=== PATIENT | female | born 1935 | race Caucasian/White ===

== ENCOUNTER → 2016-09-30 | Outpatient (CLI) | payer OTHER, MEDICARE ==
[~2016-09-30] MED LIST: CHOL100010 PO; COLE1TAB4 PO; DPH/ PO; DSY100 PO; LISI-725 PO; MELA1CAP9 PO; METO50TA16 PO; MULT-190 PO; MULTTAB5 PO; PROB1TAB16 PO
--- NOTE | 2016-09-30 10:47 | DIAGNOSTIC IMAGING REPORT ---
GI SERIES W/AIR ROUTINE CLINICAL HISTORY: DYSPHAGIA COMPARISON STUDY: None FLUOROSCOPY TIME: 3.4 minutes. FINDINGS: Patient initiated swallow function well. There is no evidence for aspiration. Findings of moderate generalized esophageal spasm and/or irritability. There is mild gastroesophageal reflux. Size and configuration stomach are normal. Due to bulb fills well and is negative for ulceration. Duodenal sweep is unremarkable. IMPRESSION: 1. Moderate esophageal irritability and/or spasm. 2. Mild gastroesophageal reflux. 3. Otherwise negative study. Electronically signed by: Harsh Cabrera M.D. 09/30/2016 10:45 AM Dictated Date/Time: 09/30/2016 10:45 AM
== END | disposition home or self-care (01) ==
LOC: C.RAD 09:59
PROVIDERS: ATTEND Internal Medicine Gastroenterology
DX: R13.10 Dysphagia, unspecified (principal)

== ENCOUNTER 2017-07-06 19:28 | Inpatient (IN) | payer OTHER, MEDICARE ==
[~2017-07-06] VITALS: Ht 154.9 cm; Wt 41.4 kg
[2017-07-06] MEDS ORDERED: SODIUM CHLORIDE 0.9% 1000ML 1,000 ML IV STA (19:32)
[2017-07-06] MEDS ORDERED: ONDANSETRON INJ 2 MG/ML 2 ML VIAL IV STA (19:32)
[2017-07-06] MEDS ORDERED: FENTANYL CITRATE INJ 50 MCG/1 ML 2 ML VIAL IV PRN (19:45)
[2017-07-06 19:54] LABS: BASO % 0.1 %; BASO ABS # 0.01 K/uL (0-0.2); EOS % 0.1 %; EOS ABS # 0.01 K/uL (0-0.5); HEMATOCRIT 45.3 % (37-47); HEMOGLOBIN 15.5 g/dL (12.0-16.0); IG# 0.05 K/uL (0.00-0.02); LYMPH ABS # 0.32 K/uL (1.2-3.4); MEAN CELL VOLUME 94.2 fL (80-100); MEAN CORPUSCULAR HEMOGLOBIN 32.2 pg (25-34); MEAN CORPUSCULAR HGB CONC 34.2 g/dl (32-36); MEAN PLATELET VOLUME 10.4 fL (7.4-10.4); MONO ABS # 0.81 K/uL (0.11-0.59); NEUT % 92.5 %; NEUT ABS # 15.12 K/uL (1.4-6.5); PLATELET COUNT 125 K/uL (130-400); RED CELL DISTRIBUTION WIDTH CV 12.6 % (11.5-14.5); RED CELL DISTRIBUTION WIDTH SD 43.2 fL (36.4-46.3); WHITE BLOOD COUNT 16.32 K/uL (4.8-10.8)
[2017-07-06 20:06] LABS: PTT PATIENT 26.6 SECONDS (21.0-31.0)
[2017-07-06 20:14] LABS: ALBUMIN 3.4 gm/dl (3.4-5.0); ALT/SGPT 58 U/L (12-78); BLOOD UREA NITROGEN 12 mg/dl (7-18); CALCIUM 8.3 mg/dl (8.5-10.1); CARBON DIOXIDE 35 mmol/L (21-32); CREATININE 0.73 mg/dl (0.60-1.20); GLUCOSE 124 mg/dl (70-99); POTASSIUM 3.3 mmol/L (3.5-5.1); SODIUM 138 mmol/L (136-145)
[2017-07-06 20:19] LABS: ALKALINE PHOSPHATASE 102 U/L (45-117); AST/SGOT 25 U/L (15-37); CKMB 1.4 ng/ml (0.5-3.6); TOTAL PROTEIN 6.8 gm/dl (6.4-8.2)
--- NOTE | 2017-07-06 20:21 | EMERGENCY ROOM VISIT NOTE ---
History Report prepared by Namrata: Magalys Shah Under the Supervision of: Kurtis CruzO. First contact with patient: 19:24 Chief Complaint: FALL Stated Complaint: FALL, L HIP & BACK PAIN History of Present Illness The patient is a 81 year old female who presents to the Emergency Room with complaints of persistent left hip pain that began secondary to falling several hours prior to arrival. She reports that she was walking across her living room when all of the sudden she became weak and fell to the ground, noting that she did not hit her head or lose consciousness. She remained on the floor for several hours because she was too weak to get up, until a roommate at her half-way found her and called for help. The patient states that she is currently experiencing lower back pain and left hip pain, noting she is having difficulty straightening out her left leg without pain. She denies any coughing , but notes a history of COPD and that she is trying to quit smoking. Source of History: patient Onset: several hours prior to arrival Position: other (left hip) Quality: other (weakness episode) Timing: resolved Associated Symptoms: + back pain (lower), + weakness, No cough Note: Associated symptoms include: left hip pain, noting she is having difficulty straightening out her left leg without pain Review of Systems See HPI for pertinent positives & negatives. A total of 10 systems reviewed and were otherwise negative. Past Medical & Surgical Medical Problems: (1) Breast cancer (2) COPD (chronic obstructive pulmonary disease) (3) CVA (cerebral infarction) (4) Diverticulitis (5) Hypertension (6) Left displaced femoral neck fracture (7) Lung cancer (8) Syncope and collapse Surgical Problems: (1) H/O: hysterectomy (2) Hx of cholecystectomy (3) S/P cholecystectomy Family History Cancer Diabetes mellitus Gallbladder disease Heart disease Hypertension Kidney disease Kidney stones Lung disease Social History Smoking Status: Current Every Day Smoker Alcohol Use: none Marital Status: Housing Status: lives alone Occupation Status: retired Current/Historical Medications Scheduled Alendronate Sodium (Alendronate Sodium), 70 MG PO DAILY Cholestyramine (Cholestyramine), 4 GM PO QAM Lisinopril (Lisinopril), 10 MG PO QAM Melatonin (Melatonin), 10 MG PO HS Metoprolol Succinate (Metoprolol Succinate ER), 75 MG PO HS Multiple Vitamins W/ Minerals (Centrum), 1 TAB PO QAM Ocuvite Preservision (Ocuvite Preservision), 1 TAB PO HS Paroxetine (Paroxetine HCl), 10 MG PO QAM Probiotic Product (Probiotic), 1 TAB PO HS Trazodone HCl (Trazodone HCl), 100 MG PO HS Scheduled PRN Diphenoxylate/Atropine (Lomotil 2.5-0.025 mg), 1 TAB PO QID PRN for Diarrhea Allergies Coded Allergies: Flu Virus Vaccine (Verified Allergy, Unknown, EGG ALLERGY, 07/06/17) Penicillins (Verified Allergy, Unknown, HIVES, 07/06/17) Adhesives (Verified Adverse Reaction, Unknown, EXCORIATIONS, 07/06/17) Morphine (Verified Adverse Reaction, Unknown, ITCHING, 07/06/17) Physical Exam Vital Signs Date Time Temp Pulse Resp B/P (MAP) Pulse Ox O2 Delivery O2 Flow Rate FiO2 07/06/17 20:53 70 07/06/17 19:30 36.6 74 14 188/103 95 Room Air Physical Exam GENERAL: Patient is awake, alert, but anxious and uncomfortable appearing. EYES: The conjunctivae are clear. The pupils are round and reactive. EARS, NOSE, MOUTH AND THROAT: The nose is without any evidence of any deformity. Mucous membranes are moist tongue is midline NECK: The neck is nontender and supple. RESPIRATORY: Lung sounds diminished throughout with scattered rhonchi. No tachypnea or conversational dyspnea noted. CARDIOVASCULAR: Tachycardic rate, but regular rhythm noted. There are no definite murmurs, rubs, or gallops. Normal S1, normal S2. GASTROINTESTINAL: The abdomen is soft. Bowel sounds are present in all quadrants. Abdomen is nontender PELVIS: The Pelvis is stable. No tenderness to palpation is noted. BACK: Mild lumbar pain with palpitation. Range of motion remained intact. MUSCULOSKELETAL/EXTREMITIES: Left thigh held in infraction and mild external rotation. Patient restricts any internal rotation or mild rotations of left thigh. SKIN: There is no obvious evidence of any rash. There are no petechiae, pallor or cyanosis noted. NEUROLOGIC: Patient is awake alert and oriented x3 strength is symmetric patellar reflexes are 2+ bilaterally Medical Decision & Procedures ER Provider Diagnostic Interpretation: Radiology results as stated below per my review and radiologist interpretation: CHEST 1 VW FRONT-NOT PORTABLE CLINICAL HISTORY: 81 years-old Female presenting with FALL. TECHNIQUE: Portable upright AP view of the chest was obtained. COMPARISON: 11/16/2013. FINDINGS: Median sternotomy wires and mediastinal surgical clips unchanged. Atherosclerosis of the aortic arch. Cardiac silhouette normal in size. The left lung is smaller than the right with suggestion of suture margins along the paramediastinal left upper lung likely indicating lobectomy. Hyperinflation of the right lung with heterogeneous radiolucency. No focal opacity. No large effusion or pneumothorax. Osteopenia suggested. IMPRESSION: 1. Findings suggest emphysema. 2. Postsurgical changes of the left lung. 3. No superimposed focal infiltrate to suggest acute cardiopulmonary disease. Electronically signed by: Antonio Oliveros M.D. 07/06/2017 8:20 PM Dictated Date/Time: 07/06/2017 8:18 PM L PELVIS/UNILATERAL HIP 2-3VIEWS CLINICAL HISTORY: 81 years-old Female presenting with fall. TECHNIQUE: Frontal and frog-leg lateral views of the left hip as well as single frontal view the pelvis were obtained. 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 FINDINGS: Mildly displaced subcapital fracture of the left femoral neck. The left femoral neck distal fracture fragment is medially displaced 8-9 mm. The left femoral head remains congruent the acetabulum. Heterogeneous stippled sclerosis in the intertrochanteric region may indicate the presence of an ink on trauma. Osteopenia suspected. The remainder of the bony pelvis intact. The right femoral head and neck are intact. Degenerative changes in the lower lumbar spine. IMPRESSION: Mildly displaced subcapital left femoral neck fracture. Electronically signed by: Antonio Oliveros M.D. 07/06/2017 8:22 PM Dictated Date/Time: 07/06/2017 8:20 PM HEAD WITHOUT CONTRAST (CT) CLINICAL HISTORY: 81 years-old Female presenting with fall. TECHNIQUE: Multidetector CT imaging of the head was performed without the use of intravenous contrast. IV contrast: None. A dose lowering technique was used consistent with the principles of ALARA (as low as reasonably achievable). COMPARISON: None. CT DOSE (mGy.cm): The estimated cumulative dose is 906.94 mGy.cm. 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 Proportional ventricular and sulcal prominence, likely age-related parenchymal volume loss. Periventricular and subcortical white matter hypoattenuation, nonspecific but likely indicative of chronic small vessel ischemic change. Old lacunar infarcts in the right basal ganglia noted. No mass effect or midline shift. No hemorrhage or acute territorial infarct. No extra-axial fluid collection. Paranasal sinuses and mastoid air cells clear. Calvarium intact. IMPRESSION: 1. Chronic small vessel ischemic change. No acute intracranial abnormality. Electronically signed by: Antonio Oliveros M.D. 07/06/2017 9:32 PM Dictated Date/Time: 07/06/2017 9:30 PM CERVICAL SPINE W/O CLINICAL HISTORY: 81 years-old Female presenting with fall. TECHNIQUE: Multidetector CT of the cervical spine was performed without the use of intravenous contrast. IV contrast: None. A dose lowering technique was used consistent with the principles of ALARA (as low as reasonably achievable). COMPARISON: None. CT DOSE (mGy.cm): The estimated cumulative dose is 906.94. 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 Straightening of normal cervical lordosis. Multilevel degenerative changes with disc osteophyte complexes at nearly every level. Vertebral bodies maintain normal height and alignment. Mild diffuse intervertebral disc height loss greatest at C4-5 through C6-7. Minimal posterior bony spurring results in mild narrowing of the spinal canal. Disc osteophyte complexes and uncovertebral hypertrophy result in mild left osseous neural foraminal narrowing at C3-4, moderate bilateral at C4-5, moderate bilateral at C5-6, and moderate bilateral at C6-7. No acute fracture or acute subluxation. Paraspinal soft tissues within normal limits allowing for noncontrast technique. Atherosclerosis. Extensive consolidation, reticulation, and cystic/emphysematous changes at the left apex. Trace emphysema noted at the right apex. IMPRESSION: 1. No acute osseous injury. 2. Multilevel degenerative changes with very degrees of spinal canal in osseous neural foraminal narrowing. 3. Extensive pleural-parenchymal scarring at the left apex. This may represent postradiation change given the presence of a prior mass seen on chest CT from 07/02/2010. Electronically signed by: Antonio Oliveros M.D. 07/06/2017 9:42 PM Dictated Date/Time: 07/06/2017 9:36 PM Laboratory Results 07/06/17 19:44 Red Blood Count 4.81, Mean Corpuscular Volume 94.2, Mean Corpuscular Hemoglobin 32.2, Mean Corpuscular Hemoglobin Concent 34.2, Mean Platelet Volume 10.4, Neutrophils (%) (Auto) 92.5, Lymphocytes (%) (Auto) 2.0, Monocytes (%) (Auto) 5.0, Eosinophils (%) (Auto) 0.1, Basophils (%) (Auto) 0.1, Neutrophils # (Auto) 15.12, Lymphocytes # (Auto) 0.32, Monocytes # (Auto) 0.81, Eosinophils # (Auto) 0.01, Basophils # (Auto) 0.01 07/06/17 19:44 Test 07/06/17 19:32 07/06/17 19:44 White Blood Count 16.32 K/uL (4.8-10.8) Red Blood Count 4.81 M/uL (4.2-5.4) Hemoglobin 15.5 g/dL (12.0-16.0) Hematocrit 45.3 % (37-47) Mean Corpuscular Volume 94.2 fL (80-100) Mean Corpuscular Hemoglobin 32.2 pg (25-34) Mean Corpuscular Hemoglobin Concent 34.2 g/dl (32-36) Platelet Count 125 K/uL (130-400) Mean Platelet Volume 10.4 fL (7.4-10.4) Neutrophils (%) (Auto) 92.5 % Lymphocytes (%) (Auto) 2.0 % Monocytes (%) (Auto) 5.0 % Eosinophils (%) (Auto) 0.1 % Basophils (%) (Auto) 0.1 % Neutrophils # (Auto) 15.12 K/uL (1.4-6.5) Lymphocytes # (Auto) 0.32 K/uL (1.2-3.4) Monocytes # (Auto) 0.81 K/uL (0.11-0.59) Eosinophils # (Auto) 0.01 K/uL (0-0.5) Basophils # (Auto) 0.01 K/uL (0-0.2) RDW Standard Deviation 43.2 fL (36.4-46.3) RDW Coefficient of Variation 12.6 % (11.5-14.5) Immature Granulocyte % (Auto) 0.3 % Immature Granulocyte # (Auto) 0.05 K/uL (0.00-0.02) Prothrombin Time 10.6 SECONDS (9.0-12.0) Prothromb Time International Ratio 1.0 (0.9-1.1) Activated Partial Thromboplast Time 26.6 SECONDS (21.0-31.0) Partial Thromboplastin Ratio 1.0 Anion Gap 5.0 mmol/L (3-11) Est Creatinine Clear Calc Drug Dose 37.1 ml/min Estimated GFR () 89.5 Estimated GFR (Non- 77.2 BUN/Creatinine Ratio 16.9 (10-20) Calcium Level 8.3 mg/dl (8.5-10.1) Magnesium Level 2.0 mg/dl (1.8-2.4) Total Bilirubin 1.2 mg/dl (0.2-1) Direct Bilirubin 0.3 mg/dl (0-0.2) Aspartate Amino Transf (AST/SGOT) 25 U/L (15-37) Alanine Aminotransferase (ALT/SGPT) 58 U/L (12-78) Alkaline Phosphatase 102 U/L (45-117) Total Creatine Kinase 47 U/L (26-192) Creatine Kinase MB 1.4 ng/ml (0.5-3.6) Creatine Kinase MB Ratio 3.0 (0-3.0) Troponin I < 0.015 ng/ml (0-0.045) Total Protein 6.8 gm/dl (6.4-8.2) Albumin 3.4 gm/dl (3.4-5.0) Laboratory results per my review. Medications Administered Medications (Trade) Dose Ordered Sig/Navid Route Start Time Stop Time Status Last Admin Dose Admin Fentanyl Citrate (Fentanyl Inj) 50 mcg Q15M PRN IV 07/06/17 19:45 07/06/17 22:56 DC 07/06/17 19:55 50 MCG Ondansetron HCl (Zofran Inj) 4 mg NOW STAT IV 07/06/17 19:32 07/06/17 19:36 DC 07/06/17 19:55 4 MG Sodium Chloride 1,000 ml @ 999 mls/hr Q1H1M STAT IV 07/06/17 19:32 07/06/17 20:32 DC 07/06/17 19:54 999 MLS/HR Oxycodone HCl (Roxicodone Immediate Rel Tab) 10 mg Q4H PRN PO 07/06/17 21:00 4 20:59 07/06/17 23:38 10 MG Senna/Docusate Sodium (Senokot S Tab) 2 tab HS PO 07/06/17 21:00 08/05/17 20:59 07/06/17 23:34 2 TAB ECG Per My Interpretation Indication: syncope Rate (beats per minute): 75 Rhythm: normal sinus Findings: ST depression (Inferior and lateral), T-wave inversion (Inferior and lateral), other (LVH noted by voltage criteria) ED Course 1919: The patient was evaluated in room B10. A complete history and physical examination were performed. 1931: Ordered Sodium Chloride 1000ml @ 999 mls/hr IV and Zofran Inj 4mg IV. 1944: Ordered Fentanyl Inj 50mcg IV. 2029: I discussed the patient's case with Jayant Hurtado. The patient will be evaluated for further management. 2134: I reevaluated the patient, who was resting. Updated her on test findings and the treatment plan. She verbalized complete agreement. Medical Decision Prior records/ancillary studies reviewed. Triage Nursing notes reviewed. Additional history obtained from EMS report. The patient's history was concerning for syncope. Differential diagnosis: Etiologies such as vasovagal event, infection, hypoglycemia, electrolyte abnormalities, cardiac sources, intracerebral event, toxicologic, neurologic, as well as others were entertained. The patient is an 81-year-old female who presented to the emergency department after a fall. The patient fell earlier in the day but was unable to get off the floor. The patient had a history and physical exam as well as radiographic studies consistent with a left hip fracture. The patient was treated with IV fluids IV pain medicine and IV anti-medics in the emergency department. I discussed the patient's laboratory and radiographic studies with her and her daughter. I also discussed her case with the on-call Jayant hospitalist. They have agreed to evaluate the patient in the emergency department for further management and disposition. Head Trauma GCS Score: 15 Medication Reconcilliation Current Medication List: was personally reviewed by me Blood Pressure Screening Patient's blood pressure: Elevated blood pressure Blood pressure disposition: Referred to PCP (hospitalist) Consults Time Called: 2029 Consulting Physician: Jayant Hurtado Returned Call: 2029 I discussed the patient's case with Jayant Hurtado Hospitalist. The patient will be evaluated for further management. . Impression Primary Impression: Syncope Additional Impressions: Subcapital fracture of left hip Abnormal EKG Scribe Attestation The scribe's documentation has been prepared under my direction and personally reviewed by me in its entirety. I confirm that the note above accurately reflects all work, treatment, procedures, and medical decision making performed by me. Departure Information Dispostion Being Evaluated By Hospitalist Referrals Sindy Horn M.D. (PCP) Forms HOME CARE DOCUMENTATION FORM, IMPORTANT VISIT INFORMATION Patient Instructions My [facility] Problem Qualifiers Primary Impression: Syncope Syncope type: unspecified Qualified Codes: R55 - Syncope and collapse Additional Impressions: Subcapital fracture of left hip Encounter type: initial encounter Fracture type: closed Qualified Codes: S72.012A - Unspecified intracapsular fracture of left femur, initial encounter for closed fracture
[2017-07-06] MEDS ORDERED: COLE5GRA5 PO (20:56)
[2017-07-06] MEDS ORDERED: NALOXONE HCL 0.4 MG/1 ML VIAL/CARP IV PRN (21:00)
[2017-07-06] MEDS ORDERED: DiphenhydrAMINE HCL 50 MG/ML VIAL IV PRN (21:00)
[2017-07-06] MEDS ORDERED: SOD PHOSPHATE/SOD BIPHOSPHATE ENEMA 132 ML BTL PR PRN (21:00)
[2017-07-06] MEDS ORDERED: POLYETHYLENE (MIRALAX) 17 GM PACK PO PRN (21:00)
[2017-07-06] MEDS ORDERED: BISACODYL 10 MG SUPP PR PRN (21:00)
[2017-07-06] MEDS ORDERED: MAGNESIUM HYDROXIDE SUSP 30 ML UDC PO PRN (21:00)
[2017-07-06] MEDS ORDERED: PXL/10 PO (21:00)
[2017-07-06] MEDS ORDERED: TPRSR/50 PO (21:00)
[2017-07-06] MEDS ORDERED: LISI-461 PO (21:00)
[2017-07-06] MEDS ORDERED: CHOL4POW4 PO (21:00)
[2017-07-06] MEDS ORDERED: FSM70 PO (21:04)
[2017-07-06] MEDS ORDERED: TRAZODONE HCL 50 MG TAB PO PRN (21:15)
[2017-07-06] MEDS ORDERED: POTASSIUM CHLORIDE 10 MEQ TABCR PO STA (21:21)
[2017-07-06] MEDS ORDERED: ACETAMINOPHEN 325 MG TAB PO PRN (21:30)
--- NOTE | 2017-07-06 21:33 | DIAGNOSTIC IMAGING REPORT ---
HEAD WITHOUT CONTRAST (CT) CLINICAL HISTORY: 81 years-old Female presenting with fall. TECHNIQUE: Multidetector CT imaging of the head was performed without the use of intravenous contrast. IV contrast: None. A dose lowering technique was used consistent with the principles of ALARA (as low as reasonably achievable). COMPARISON: None. CT DOSE (mGy.cm): The estimated cumulative dose is 906.94 mGy.cm. 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 Proportional ventricular and sulcal prominence, likely age-related parenchymal volume loss. Periventricular and subcortical white matter hypoattenuation, nonspecific but likely indicative of chronic small vessel ischemic change. Old lacunar infarcts in the right basal ganglia noted. No mass effect or midline shift. No hemorrhage or acute territorial infarct. No extra-axial fluid collection. Paranasal sinuses and mastoid air cells clear. Calvarium intact. IMPRESSION: 1. Chronic small vessel ischemic change. No acute intracranial abnormality. Electronically signed by: Antonio Oliveros M.D. 07/06/2017 9:32 PM Dictated Date/Time: 07/06/2017 9:30 PM
--- NOTE | 2017-07-06 21:37 | History and Physical ---
History & Physical Date & Time of Service: Jul 06, 2017 at 21:23 Chief Complaint: Fall, L Hip & Back Pain Primary Care Physician: Sindy Horn M.D. History of Present Illness 81 year old F with PMH of stroke and left upper lobe resection for lung cancer in reported remission as per patient and family, who was at home when she had syncopal episode and collapse after 11 AM on 07/06/17 and uncertain whether there was loss of consciousness but this was likely the case as the patient was then found by her neighbor and the patient's daughter was notified at 6PM. Patient denies symptoms preceding the collapse. Denies shortness of breath, chest pain, of fevers. She reports that she had just gotten out of her chair and walking when she fell and she reports that the time that she had gotten up was 11 AM. When asked how did she feel when she came to usual level of cognition , she reports having some left hip pain but no other symptoms. On imaging pertinent for Mildly displaced subcapital fracture of the left femoral neck ( The left femoral neck distal fracture fragment is medially displaced 8-9 mm. The left femoral head remains congruent the acetabulum). Past Medical/Surgical History Medical Problems: (1) Breast cancer (2) COPD (chronic obstructive pulmonary disease) (3) CVA (cerebral infarction) (4) Diverticulitis (5) Hypertension (6) Hypokalemia (7) Left displaced femoral neck fracture (8) Lung cancer (9) Syncope and collapse Surgical Problems: (1) H/O: hysterectomy (2) History of hysterectomy (3) History of mastectomy (4) Hx of cholecystectomy (5) S/P cholecystectomy (6) S/P lobectomy of lung Family History Cancer Diabetes mellitus Gallbladder disease Heart disease Hypertension Kidney disease Kidney stones Lung disease Social History Smoking Status: Current Every Day Smoker Marital Status: Occupational Status: retired Allergies Coded Allergies: Flu Virus Vaccine (Verified Allergy, Unknown, EGG ALLERGY, 07/06/17) Penicillins (Verified Allergy, Unknown, HIVES, 07/06/17) Adhesives (Verified Adverse Reaction, Unknown, EXCORIATIONS, 07/06/17) Morphine (Verified Adverse Reaction, Unknown, ITCHING, 07/06/17) Home Medications Scheduled Alendronate Sodium (Alendronate Sodium), 70 MG PO DAILY Cholestyramine (Cholestyramine), 4 GM PO QAM Lisinopril (Lisinopril), 10 MG PO QAM Melatonin (Melatonin), 10 MG PO HS Metoprolol Succinate (Metoprolol Succinate ER), 75 MG PO HS Multiple Vitamins W/ Minerals (Centrum), 1 TAB PO QAM Ocuvite Preservision (Ocuvite Preservision), 1 TAB PO HS Paroxetine (Paroxetine HCl), 10 MG PO QAM Probiotic Product (Probiotic), 1 TAB PO HS Trazodone HCl (Trazodone HCl), 100 MG PO HS Scheduled PRN Diphenoxylate/Atropine (Lomotil 2.5-0.025 mg), 1 TAB PO QID PRN for Diarrhea Review of Systems Constitutional: No fever, No fatigue Eyes: No worsening of vision ENT: No hearing loss Respiratory: No cough, No wheezing, No shortness of breath Cardiovascular: No chest pain, No palpitations Abdomen: No pain, No nausea, No vomiting, No diarrhea, No constipation Musculoskeletal: No joint pain, No muscle pain, No swelling, No calf pain Genitourinary - Female: No dysuria Neurologic: + problem reported (possible loss of consciousness after falling on the floor), No weakness, No numbness/tingling Endocrine: No fatigue Hematologic / Lymphatic: No abnormal bleeding/bruising Integumentary: No rash, No itch Physical Exam Vital Signs Date Time Temp Pulse Resp B/P (MAP) Pulse Ox O2 Delivery O2 Flow Rate FiO2 07/06/17 20:53 70 07/06/17 19:30 36.6 74 14 188/103 95 Room Air General Appearance: no apparent distress Head: normocephalic, atraumatic Eyes: normal inspection, EOMI, sclerae normal ENT: normal ENT inspection, hearing grossly normal, pharynx normal Neck: supple, no adenopathy, no JVD, no carotid bruits, trachea midline Respiratory/Chest: chest non-tender, lungs clear, normal breath sounds, no respiratory distress, no accessory muscle use Cardiovascular: regular rate, rhythm, no edema, no JVD, normal peripheral pulses Abdomen/GI: normal bowel sounds, non tender, soft, no organomegaly, no pulsatile mass Back: + pertinent finding (cannot not sit up for back exam) Extremities/Musculoskelatal: normal inspection, no calf tenderness, normal capillary refill, no pedal edema, non-tender, pelvis stable, + pertinent finding (can raise right leg, motion of left leg is pain limited ) Neurologic/Psych: 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5 % Lymphocytes (%) (Auto) 2.0 % Monocytes (%) (Auto) 5.0 % Eosinophils (%) (Auto) 0.1 % Basophils (%) (Auto) 0.1 % Neutrophils # (Auto) 15.12 1.4-6.5 K/uL Lymphocytes # (Auto) 0.32 1.2-3.4 K/uL Monocytes # (Auto) 0.81 0.11-0.59 K/uL Eosinophils # (Auto) 0.01 0-0.5 K/uL Basophils # (Auto) 0.01 0-0.2 K/uL RDW Standard Deviation 43.2 36.4-46.3 fL RDW Coefficient of Variation 12.6 11.5-14.5 % Immature Granulocyte % (Auto) 0.3 % Immature Granulocyte # (Auto) 0.05 0.00-0.02 K/uL Prothrombin Time 10.6 9.0-12.0 SECONDS Prothromb Time International Ratio 1.0 0.9-1.1 Activated Partial Thromboplast Time 26.6 21.0-31.0 SECONDS Partial Thromboplastin Ratio 1.0 Sodium Level 138 136-145 mmol/L Potassium Level 3.3 3.5-5.1 mmol/L Chloride Level 98 98-107 mmol/L Carbon Dioxide Level 35 21-32 mmol/L Anion Gap 5.0 3-11 mmol/L Blood Urea Nitrogen 12 7-18 mg/dl Creatinine 0.73 0.60-1.20 mg/dl Est Creatinine Clear Calc Drug Dose 37.1 ml/min Estimated GFR () 89.5 Estimated GFR (Non- 77.2 BUN/Creatinine Ratio 16.9 10-20 Random Glucose 124 70-99 mg/dl Calcium Level 8.3 8.5-10.1 mg/dl Magnesium Level 2.0 1.8-2.4 mg/dl Total Bilirubin 1.2 0.2-1 mg/dl Direct Bilirubin 0.3 0-0.2 mg/dl Aspartate Amino Transf (AST/SGOT) 25 15-37 U/L Alanine Aminotransferase (ALT/SGPT) 58 12-78 U/L Alkaline Phosphatase 102 45-117 U/L Total Creatine Kinase 47 26-192 U/L Creatine Kinase MB 1.4 0.5-3.6 ng/ml Troponin I < 0.015 0-0.045 ng/ml Total Protein 6.8 6.4-8.2 gm/dl Albumin 3.4 3.4-5.0 gm/dl Impression Assessment and Plan Syncope and collapse with displaced left femoral neck fracture, osteoporosis related fracture -HIP X ray: Mildly displaced subcapital fracture of the left femoral neck. The left femoral neck distal fracture fragment is medially displaced 8-9 mm. The left femoral head remains congruent the acetabulum. Heterogeneous stippled sclerosis in the intertrochanteric region may indicate the presence of an ink on trauma. Osteopenia suspected. The remainder of the bony pelvis intact. The right femoral head and neck are intact. Degenerative changes in the lower lumbar spine. IMPRESSION: Mildly displaced subcapital left femoral neck fracture. -orthopedic consult -anesthesia consult -NPO after midnight except meds/sips/ice chips in case or surgery tomorrow for left hip surgery -D5 1/2 normal IV fluids while NPO for hydration -pre-op antibiotic of clindamycin ordered as patient reports rash allergies to penicillin -patient reports morphine allergies as rash, minimize use of morphine -narcotic pain medication with bowel regimen to prevent ileus from narcotics -also rash allergy to adhesive tape -Benadryl prn for rash -Cardiac and Neuro workup for syncope CARDIAC/Neuro: Syncope workup -EKG on admission suggestive of LVH, there is no recent EKG for comparison and patient denies having echocardiogram in recent past, no echocardiogram records in inpatient records at [facility] or outpatient [facility] records -initial troponin negative, trend troponin and EKGs -admission to telemetry -obtain carotid dopplers: Atherosclerosis without hemodynamically significant stenosis seen within the carotid arteries -obtain echocardiogram -has asked ED to order imaging of head and neck to rule out stroke or head/neck fractures: Head CT: Chronic small vessel ischemic change. No acute intracranial abnormality; C-spine CT: Multilevel degenerative changes with very degrees of spinal canal in osseous neural foraminal narrowing Blood pressure: Hypertension -home medication of lisinopril 20 mg and metoprolol tartrate 75 mg -hold LINDA inhibitor before noncardiac surgery (hip surgery), can restart lisinopril afterwards -continue beta sudhakar -start hydralazine prn RESPIRATORY - history of smoking: active, denies history of COPD or home oxygen use: awake overnight counselor smoking cessation - history of left lung resection due to cancer and s/p RT and chemo several years ago as per patient and currently in remission - breathing on room air in the ED - admission CXR: Median sternotomy wires and mediastinal surgical clips unchanged. Atherosclerosis of the aortic arch. Cardiac silhouette normal in size. The left lung is smaller than the right with suggestion of suture margins along the paramediastinal left upper lung likely indicating lobectomy. Hyperinflation of the right lung with heterogeneous radiolucency. No focal opacity. No large effusion or pneumothorax. Osteopenia suggested. IMPRESSION: 1. Findings suggest emphysema. 2. Postsurgical changes of the left lung. 3. No superimposed focal infiltrate to suggest acute cardiopulmonary disease. Hypokalemia admission serum potassium 3.3, oral potassium ordered DVT ppx: SCDs FULL Code Status daughter [phone] Nicol is the daughter Resuscitation Status VTE Prophylaxis Will order VTE Prophylaxis: Yes
--- NOTE | 2017-07-06 21:44 | DIAGNOSTIC IMAGING REPORT ---
CERVICAL SPINE W/O CLINICAL HISTORY: 81 years-old Female presenting with fall. TECHNIQUE: Multidetector CT of the cervical spine was performed without the use of intravenous contrast. IV contrast: None. A dose lowering technique was used consistent with the principles of ALARA (as low as reasonably achievable). COMPARISON: None. CT DOSE (mGy.cm): The estimated cumulative dose is 906.94. FINDINGS: Sugar Laboratory Assistant topogram: Unremarkable. Straightening of normal cervical lordosis. Multilevel degenerative changes with disc osteophyte complexes at nearly every level. Vertebral bodies maintain normal height and alignment. Mild diffuse intervertebral disc height loss greatest at C4-5 through C6-7. Minimal posterior bony spurring results in mild narrowing of the spinal canal. Disc osteophyte complexes and uncovertebral hypertrophy result in mild left osseous neural foraminal narrowing at C3-4, moderate bilateral at C4-5, moderate bilateral at C5-6, and moderate bilateral at C6-7. No acute fracture or acute subluxation. Paraspinal soft tissues within normal limits allowing for noncontrast technique. Atherosclerosis. Extensive consolidation, reticulation, and cystic/emphysematous changes at the left apex. Trace emphysema noted at the right apex. IMPRESSION: 1. No acute osseous injury. 2. Multilevel degenerative changes with very degrees of spinal canal in osseous neural foraminal narrowing. 3. Extensive pleural-parenchymal scarring at the left apex. This may represent postradiation change given the presence of a prior mass seen on chest CT from 07/02/2010. Electronically signed by: Antonio Oliveros M.D. 07/06/2017 9:42 PM Dictated Date/Time: 07/06/2017 9:36 PM
--- NOTE | 2017-07-06 21:58 | DIAGNOSTIC IMAGING REPORT ---
CAROTID DOPPLER NECK ART CLINICAL HISTORY: 81 years-old Female presenting with syncope. TECHNIQUE: Real-time grayscale and color and spectral Doppler ultrasound imaging of the bilateral carotid arteries was performed. NASCET criteria was used in evaluating this study. COMPARISON: None. FINDINGS: Right: Common carotid: Atherosclerosis. Peak systolic velocity 35 cm/s. Internal carotid artery: Atherosclerosis of the proximal ICA. Peak systolic velocity 48 cm/s. Systolic ratio: 4. External carotid artery: Atherosclerosis. Peak systolic velocity 52 cm/s. Left: Common carotid: Atherosclerosis. Peak systolic velocity 82 cm/s. Internal carotid artery: Atherosclerosis of the proximal ICA. Peak systolic velocity 39 cm/s. Systolic ratio: 0.5. External carotid artery: Atherosclerosis. Peak systolic velocity 54 cm/s. Bilateral antegrade flow within the vertebral arteries. Reference ranges: Stenosis measurements are compared to reference velocity parameters. Primary parameters: ICA peak systolic velocity (PSV) < 125 cm/s normal or indicating < 50% stenosis; ICA PSV 125-230 cm/s equivalent to 50-69% stenosis; ICA PSV > 230 cm/s equivalent to greater than or equal to 70% stenosis. Additional parameters: ICA PSV to common carotid artery PSV ratio < 2 normal or < 50% stenosis; 2-4 equates to 50-69% stenosis, > 4 equates to greater than or equal to 70% stenosis. Normal ICA end-diastolic velocity less than 40. Blood pressure Brachial: Right: 178/92 mmHg, Left: 167/93 mmHg. IMPRESSION: Atherosclerosis without hemodynamically significant stenosis seen within the carotid arteries. Electronically signed by: Antonio Oliveros M.D. 07/06/2017 9:57 PM Dictated Date/Time: 07/06/2017 9:54 PM
[2017-07-06 22:20] VITALS: BP 158/77; PULSE 71; TEMP 37.3; O2SAT 92; Ht 154.9 cm; Wt 41.4 kg
[2017-07-06] MEDS ORDERED: HydrALAZINE HCL 20 MG/ML VIAL IV. PRN (22:30)
[2017-07-06] MEDS ORDERED: D5W AND 1/2NSS 1,000 ML IV SCH (23:00)
[2017-07-06] MEDS: DOCUSATE SODIUM/SENNA 50/8.6MG TAB PO SCH (23:34)
[2017-07-06] MEDS: OXYCODONE HCL IR 5 MG TAB (IMMEDIATE RELEASE) PO PRN (23:38)
[2017-07-07] VITALS (15 sets, daily range): BP systolic 122–175; BP diastolic 70–91; PULSE 64–80; TEMP 34.5–37; O2SAT 90–100
[2017-07-07] MEDS: OXYCODONE HCL IR 5 MG TAB (IMMEDIATE RELEASE) PO PRN ×3 (03:46→21:06)
[2017-07-07] MEDS ORDERED: CLINDAMYCIN IV 900 MG in DEXTROSE 5% 100ML 100 ML IV SCH (06:00)
[2017-07-07 08:15] LABS: HEMATOCRIT 45.3 % (37-47); HEMOGLOBIN 15.1 g/dL (12.0-16.0); MEAN CELL VOLUME 94.6 fL (80-100); MEAN CORPUSCULAR HEMOGLOBIN 31.5 pg (25-34); MEAN CORPUSCULAR HGB CONC 33.3 g/dl (32-36); RED CELL DISTRIBUTION WIDTH CV 12.6 % (11.5-14.5); RED CELL DISTRIBUTION WIDTH SD 43.7 fL (36.4-46.3); WHITE BLOOD COUNT 10.06 K/uL (4.8-10.8)
--- NOTE | 2017-07-07 08:29 | Progress Note ---
Medicine Progress Note Date & Time of Visit: Jul 07, 2017 at 08:17. Subjective seen resting in bed, alert, oriented x 3 States she feels fine overall except for left hip pain worse with movement Denies active chest pain shortness of breath palpitations dizziness nausea headache No focal weakness numbness paresthesias Per patient, she went to [employer] around 830 yesterday, return to her apartment and set down to the newspaper She then got up to to hang her coat and after taking a few steps suddenly fell on the floor Denies any dizziness lightheadedness or any other symptoms prior to falling She did not lose consciousness and was aware of the event After falling she felt weak and could not stand up to call for help Later on that day towards the evening her neighbor in the retirement place found her and called for help Objective Last 8 Hrs Date Time Temp Pulse Resp B/P (MAP) Pulse Ox O2 Delivery O2 Flow Rate FiO2 07/07/17 07:41 37.0 64 18 144/77 (99) 94 Room Air 07/07/17 04:00 92 Room Air 07/07/17 03:44 36.9 66 16 156/84 (108) 92 Room Air 07/07/17 00:46 37.0 67 17 143/82 (102) 90 Room Air Physical Exam: General-oriented 3 not in distress speaks in sentences Head- atraumatic Eyes- PERRL, EOMI, anicteric ENT- oropharynx clear Neck- supple, no JVD, no adenopathy, no thyromegaly; carotids +2/2 Lungs- clear breath sounds bilaterally Heart- regular rhythm; no murmur, normal rate Abdomen- normal bowel sounds, soft, nontender, no masses or hepatosplenomegaly Extremities- no pretibial edema, no calf tenderness; peripheral pulses intact Neuro- alert, oriented x 3; PERRL, EOMI; no facial palsy; no dysarthria; motor 5 /5 bilaterally; sensation 100% bilaterally No other gross focal neurologic deficits Skin- warm & dry Laboratory Results: Last 24 Hours Test 07/06/17 19:32 07/06/17 19:44 07/07/17 01:53 07/07/17 03:50 Creatine Kinase MB Ratio 3.0 White Blood Count 16.32 K/uL Red Blood Count 4.81 M/uL Hemoglobin 15.5 g/dL Hematocrit 45.3 % Mean Corpuscular Volume 94.2 fL Mean Corpuscular Hemoglobin 32.2 pg Mean Corpuscular Hemoglobin Concent 34.2 g/dl Platelet Count 125 K/uL Mean Platelet Volume 10.4 fL Neutrophils (%) (Auto) 92.5 % Lymphocytes (%) (Auto) 2.0 % Monocytes (%) (Auto) 5.0 % Eosinophils (%) (Auto) 0.1 % Basophils (%) (Auto) 0.1 % Neutrophils # (Auto) 15.12 K/uL Lymphocytes # (Auto) 0.32 K/uL Monocytes # (Auto) 0.81 K/uL Eosinophils # (Auto) 0.01 K/uL Basophils # (Auto) 0.01 K/uL RDW Standard Deviation 43.2 fL RDW Coefficient of Variation 12.6 % Immature Granulocyte % (Auto) 0.3 % Immature Granulocyte # (Auto) 0.05 K/uL Prothrombin Time 10.6 SECONDS Prothromb Time International Ratio 1.0 Activated Partial Thromboplast Time 26.6 SECONDS Partial Thromboplastin Ratio 1.0 Sodium Level 138 mmol/L Potassium Level 3.3 mmol/L Chloride Level 98 mmol/L Carbon Dioxide Level 35 mmol/L Anion Gap 5.0 mmol/L Blood Urea Nitrogen 12 mg/dl Creatinine 0.73 mg/dl Est Creatinine Clear Calc Drug Dose 37.1 ml/min Estimated GFR () 89.5 Estimated GFR (Non- 77.2 BUN/Creatinine Ratio 16.9 Random Glucose 124 mg/dl Calcium Level 8.3 mg/dl Magnesium Level 2.0 mg/dl Total Bilirubin 1.2 mg/dl Direct Bilirubin 0.3 mg/dl Aspartate Amino Transf (AST/SGOT) 25 U/L Alanine Aminotransferase (ALT/SGPT) 58 U/L Alkaline Phosphatase 102 U/L Total Creatine Kinase 47 U/L Creatine Kinase MB 1.4 ng/ml Troponin I < 0.015 ng/ml < 0.015 ng/ml Total Protein 6.8 gm/dl Albumin 3.4 gm/dl Urine Color DK YELLOW Urine Appearance CLOUDY Urine pH 5.5 Urine Specific [place] 1.025 Urine Protein 1+ Urine Glucose (UA) NEG Urine Ketones NEG Urine Occult Blood TRACE Urine Nitrite NEG Urine Bilirubin NEG Urine Urobilinogen NEG Urine Leukocyte Esterase TRACE Urine WBC (Auto) 1-5 /hpf Urine RBC (Auto) 5-10 /hpf Urine Hyaline Casts (Auto) 0 /lpf Urine Epithelial Cells (Auto) >30 /lpf Urine Bacteria (Auto) NEG Urine Renal Epithelial Cells /lpf Urine Pathogenic Casts /lpf Test 07/07/17 07:56 White Blood Count 10.06 K/uL Red Blood Count 4.79 M/uL Hemoglobin 15.1 g/dL Hematocrit 45.3 % Mean Corpuscular Volume 94.6 fL Mean Corpuscular Hemoglobin 31.5 pg Mean Corpuscular Hemoglobin Concent 33.3 g/dl RDW Standard Deviation 43.7 fL RDW Coefficient of Variation 12.6 % Date/Time Source Procedure Growth Status 07/06/17 22:20 Nasal MRSA DNA Surveillance Screen - Final Specimen Negative for MRSA by DNA Probe Complete Assessment & Plan 81-year-old female with a history of hypertension, COPD, lung cancer status post resection, CVA Presenting with sudden fall and subsequent left hip pain LEFT HIP FRACTURE STATUS POST FALL Evaluated by orthopedic service , plan for orthopedic surgery at [address] head no acute process CT cervical spine no acute fracture Chest x-ray no infiltrates Troponins 2 negative EKG possible LAD, LVH no previous EKGs to compare with Etiology of fall unclear : Possible orthostasis, possible arrhythmia Echocardiogram ordered and pending We will consult cardiology for preoperative evaluation Continue n.p.o. Continue usual lisinopril and metoprolol with holding parameters HISTORY OF HYPERTENSION Continue lisinopril and metoprolol As needed clonidine HISTORY OF COPD AND LUNG CANCER STATUS POST RESECTION Respiratory status stable HISTORY OF CVA hold aspirin in anticipation of surgery Underweight, cachectic, BMI 15.6 kg/m*m. Eligibility Examiner consulted Microscopic hematuria Needs repeat UA Disposition Pending Lives in a retirement apartment complex PT OT evaluation Most likely will need to transition to rehab/senior living facility Current Inpatient Medications: Current Inpatient Medications Medications (Trade) Dose Ordered Sig/[place] Route Start Time Stop Time Status Last Admin Dose Admin Diphenhydramine HCl (Benadryl Inj) 12.5 mg Q8H PRN IV 07/06/17 21:00 08/05/17 20:59 Clindamycin Phosphate 900 mg/ Dextrose 106 ml @ 106 mls/hr PREOP IV 07/07/17 06:00 07/08/17 05:59 Oxycodone HCl (Roxicodone Immediate Rel Tab) 5 mg Q4H PRN PO 07/06/17 21:00 07/20/17 20:59 07/07/17 03:46 5 MG Oxycodone HCl (Roxicodone Immediate Rel Tab) 10 mg Q4H PRN PO 07/06/17 21:00 07/20/17 20:59 07/06/17 23:38 10 MG Naloxone HCl (Narcan Inj) 0.1 mg PRN PRN IV 07/06/17 21:00 08/05/17 20:59 Senna/Docusate Sodium (Senokot S Tab) 2 tab HS PO 07/06/17 21:00 08/05/17 20:59 07/06/17 23:34 2 TAB Polyethylene (Miralax Powder Packet) 17 gm DAILY PRN PO 07/06/17 21:00 08/05/17 20:59 Magnesium Hydroxide (Milk Of Magnesia Susp) 30 ml DAILY PRN PO 07/06/17 21:00 08/05/17 20:59 Bisacodyl (Dulcolax Supp) 10 mg DAILY PRN [place] 07/06/17 21:00 08/05/17 20:59 Sodium Biphosphate/ Sodium Phosphate (Fleet Enema) 132 ml PRN PRN [place] 07/06/17 21:00 07/13/17 20:59 Dextrose/Sodium Chloride 1,000 ml @ 75 mls/hr [id number] IV 07/06/17 23:00 08/05/17 22:59 07/06/17 23:35 75 MLS/HR Metoprolol Succinate (Toprol Xl Tab) 75 mg HS PO 07/07/17 21:00 08/06/17 20:59 Trazodone HCl (Desyrel Tab) 50 mg HS PRN PO 07/06/17 21:15 08/05/17 21:14 Acetaminophen (Tylenol Tab) 325 mg Q4H PRN PO 07/06/17 21:30 08/05/17 21:29 07/07/17 03:00 325 MG Hydralazine HCl (HydrALAZINE INJ) 10 mg Q6 PRN IV. 07/06/17 22:30 08/05/17 22:29
--- NOTE | 2017-07-07 08:30 | Orthopedic Consultation ---
Orthopedic Consultation Date of Consultation: Jul 07, 2017. Attending Physician: Arthur Ramon MD Reason for Consultation: Left hip pain possible fracture. History of Present Illness Very pleasant female who may or may not have loss of consciousness yesterday but unfortunately took a fall and sustained a left hip fracture and admitted to the medical service. Patient does have a history of lung cancer as well as breast cancer and so far patient tells me she has no chest pain or shortness of breath next feel quite well except for her left hip. Patient currently takes no blood thinners at all and no history of DVTs or artery or vein surgery in the past. Past Medical/Surgical History Medical Problems: (1) Abnormal EKG Status: Acute (2) Hypokalemia Status: Acute (3) Subcapital fracture of left hip Status: Acute (4) Syncope Status: Acute Family History Cancer Diabetes mellitus Gallbladder disease Heart disease Hypertension Kidney disease Kidney stones Lung disease Social History Smoking Status: Current Every Day Smoker Marital Status: Housing Status: lives alone Occupation Status: retired Allergies Coded Allergies: Flu Virus Vaccine (Verified Allergy, Unknown, EGG ALLERGY, 07/06/17) Penicillins (Verified Allergy, Unknown, HIVES, 07/06/17) Adhesives (Verified Adverse Reaction, Unknown, EXCORIATIONS, 07/06/17) Morphine (Verified Adverse Reaction, Unknown, ITCHING, 07/06/17) Home Medications Scheduled Alendronate Sodium (Alendronate Sodium), 70 MG PO DAILY Cholestyramine (Cholestyramine), 4 GM PO QAM Lisinopril (Lisinopril), 10 MG PO QAM Melatonin (Melatonin), 10 MG PO HS Metoprolol Succinate (Metoprolol Succinate ER), 75 MG PO HS Multiple Vitamins W/ Minerals (Centrum), 1 TAB PO QAM Ocuvite Preservision (Ocuvite Preservision), 1 TAB PO HS Paroxetine (Paroxetine HCl), 10 MG PO QAM Probiotic Product (Probiotic), 1 TAB PO HS Trazodone HCl (Trazodone HCl), 100 MG PO HS Scheduled PRN Diphenoxylate/Atropine (Lomotil 2.5-0.025 mg), 1 TAB PO QID PRN for Diarrhea Current Inpatient Medications Current Inpatient Medications Medications (Trade) Dose Ordered Sig/Navid Route Start Time Stop Time Status Last Admin Dose Admin Diphenhydramine HCl (Benadryl Inj) 12.5 mg Q8H PRN IV 07/06/17 21:00 08/05/17 20:59 Clindamycin Phosphate 900 mg/ Dextrose 106 ml @ 106 mls/hr PREOP IV 07/07/17 06:00 07/08/17 05:59 Oxycodone HCl (Roxicodone Immediate Rel Tab) 5 mg Q4H PRN PO 07/06/17 21:00 07/20/17 20:59 07/07/17 03:46 5 MG Oxycodone HCl (Roxicodone Immediate Rel Tab) 10 mg Q4H PRN PO 07/06/17 21:00 07/20/17 20:59 07/06/17 23:38 10 MG Naloxone HCl (Narcan Inj) 0.1 mg PRN PRN IV 07/06/17 21:00 08/05/17 20:59 Senna/Docusate Sodium (Senokot S Tab) 2 tab HS PO 07/06/17 21:00 08/05/17 20:59 07/06/17 23:34 2 TAB Polyethylene (Miralax Powder Packet) 17 gm DAILY PRN PO 07/06/17 21:00 08/05/17 20:59 Magnesium Hydroxide (Milk Of Magnesia Susp) 30 ml DAILY PRN PO 07/06/17 21:00 08/05/17 20:59 Bisacodyl (Dulcolax Supp) 10 mg DAILY PRN OR 07/06/17 21:00 08/05/17 20:59 Sodium Biphosphate/ Sodium Phosphate (Fleet Enema) 132 ml PRN PRN OR 07/06/17 21:00 07/13/17 20:59 Dextrose/Sodium Chloride 1,000 ml @ 75 mls/hr [id number] IV 07/06/17 23:00 08/05/17 22:59 07/06/17 23:35 75 MLS/HR Metoprolol Succinate (Toprol Xl Tab) 75 mg HS PO 07/07/17 21:00 08/06/17 20:59 Trazodone HCl (Desyrel Tab) 50 mg HS PRN PO 07/06/17 21:15 08/05/17 21:14 Acetaminophen (Tylenol Tab) 325 mg Q4H PRN PO 07/06/17 21:30 08/05/17 21:29 07/07/17 03:00 325 MG Hydralazine HCl (HydrALAZINE INJ) 10 mg Q6 PRN IV. 07/06/17 22:30 08/05/17 22:29 Physical Exam Date Time Temp Pulse Resp B/P (MAP) Pulse Ox O2 Delivery O2 Flow Rate FiO2 07/07/17 07:41 37.0 64 18 144/77 (99) 94 Room Air 07/07/17 04:00 92 Room Air 07/07/17 03:44 36.9 66 16 156/84 (108) 92 Room Air 07/07/17 00:46 37.0 67 17 143/82 (102) 90 Room Air 07/07/17 00:01 90 Room Air 07/06/17 22:20 37.3 71 17 158/77 92 Room Air 07/06/17 22:00 73 18 145/82 96 Room Air 07/06/17 20:53 70 07/06/17 19:30 36.6 74 14 188/103 95 Room Air Extremities/Musculoskelatal: + pertinent finding (Pain with any attempted range of motion of the left hip.) Laboratory Results Last 24 Hours Test 07/06/17 19:32 07/06/17 19:44 07/07/17 01:53 07/07/17 03:50 Creatine Kinase MB Ratio 3.0 White Blood Count 16.32 K/uL Red Blood Count 4.81 M/uL Hemoglobin 15.5 g/dL Hematocrit 45.3 % Mean Corpuscular Volume 94.2 fL Mean Corpuscular Hemoglobin 32.2 pg Mean Corpuscular Hemoglobin Concent 34.2 g/dl Platelet Count 125 K/uL Mean Platelet Volume 10.4 fL Neutrophils (%) (Auto) 92.5 % Lymphocytes (%) (Auto) 2.0 % Monocytes (%) (Auto) 5.0 % Eosinophils (%) (Auto) 0.1 % Basophils (%) (Auto) 0.1 % Neutrophils # (Auto) 15.12 K/uL Lymphocytes # (Auto) 0.32 K/uL Monocytes # (Auto) 0.81 K/uL Eosinophils # (Auto) 0.01 K/uL Basophils # (Auto) 0.01 K/uL RDW Standard Deviation 43.2 fL RDW Coefficient of Variation 12.6 % Immature Granulocyte % (Auto) 0.3 % Immature Granulocyte # (Auto) 0.05 K/uL Prothrombin Time 10.6 SECONDS Prothromb Time International Ratio 1.0 Activated Partial Thromboplast Time 26.6 SECONDS Partial Thromboplastin Ratio 1.0 Sodium Level 138 mmol/L Potassium Level 3.3 mmol/L Chloride Level 98 mmol/L Carbon Dioxide Level 35 mmol/L Anion Gap 5.0 mmol/L Blood Urea Nitrogen 12 mg/dl Creatinine 0.73 mg/dl Est Creatinine Clear Calc Drug Dose 37.1 ml/min Estimated GFR () 89.5 Estimated GFR (Non- 77.2 BUN/Creatinine Ratio 16.9 Random Glucose 124 mg/dl Calcium Level 8.3 mg/dl Magnesium Level 2.0 mg/dl Total Bilirubin 1.2 mg/dl Direct Bilirubin 0.3 mg/dl Aspartate Amino Transf (AST/SGOT) 25 U/L Alanine Aminotransferase (ALT/SGPT) 58 U/L Alkaline Phosphatase 102 U/L Total Creatine Kinase 47 U/L Creatine Kinase MB 1.4 ng/ml Troponin I < 0.015 ng/ml < 0.015 ng/ml Total Protein 6.8 gm/dl Albumin 3.4 gm/dl Urine Color DK YELLOW Urine Appearance CLOUDY Urine pH 5.5 Urine Specific [place] 1.025 Urine Protein 1+ Urine Glucose (UA) NEG Urine Ketones NEG Urine Occult Blood TRACE Urine Nitrite NEG Urine Bilirubin NEG Urine Urobilinogen NEG Urine Leukocyte Esterase TRACE Urine WBC (Auto) 1-5 /hpf Urine RBC (Auto) 5-10 /hpf Urine Hyaline Casts (Auto) 0 /lpf Urine Epithelial Cells (Auto) >30 /lpf Urine Bacteria (Auto) NEG Urine Renal Epithelial Cells /lpf Urine Pathogenic Casts /lpf Test 07/07/17 07:56 White Blood Count 10.06 K/uL Red Blood Count 4.79 M/uL Hemoglobin 15.1 g/dL Hematocrit 45.3 % Mean Corpuscular Volume 94.6 fL Mean Corpuscular Hemoglobin 31.5 pg Mean Corpuscular Hemoglobin Concent 33.3 g/dl RDW Standard Deviation 43.7 fL RDW Coefficient of Variation 12.6 % X-rays of the left hip reveal a subcapital impacted left hip fracture with no arthritis. Assessment & Plan 1. Left femoral neck fracture I had a long discussion with the patient regarding her diagnosis and treatment plan. I think it would be best just to perform a bipolar hemiarthroplasty left hip this will allow her to walk quickly and efficiently without worries of a fracture healing, no need for a total hip replacement as she has almost no arthritis whatsoever in the left hip all the risk of the surgery were discussed the patient in entirety and those risks are listed on the consent which she signed with me today in the hospital room. She was very happy with the conversation and willing to proceed with the operation today. N.p.o. and will need Ancef 2 g IV on-call to the OR if her allergy is not anaphylaxis to penicillin.
[2017-07-07 08:44] LABS: ALBUMIN 3.2 gm/dl (3.4-5.0); ALKALINE PHOSPHATASE 91 U/L (45-117); ALT/SGPT 44 U/L (12-78); AST/SGOT 18 U/L (15-37); BLOOD UREA NITROGEN 18 mg/dl (7-18); CALCIUM 7.9 mg/dl (8.5-10.1); CARBON DIOXIDE 31 mmol/L (21-32); CREATININE 0.82 mg/dl (0.60-1.20); GLUCOSE 119 mg/dl (70-99); POTASSIUM 4.5 mmol/L (3.5-5.1); SODIUM 136 mmol/L (136-145); TOTAL PROTEIN 6.5 gm/dl (6.4-8.2)
[2017-07-07 09:00] LABS: MEAN PLATELET VOLUME 10.8 fL (7.4-10.4); PLATELET COUNT 96 K/uL (130-400)
--- NOTE | 2017-07-07 09:01 | ECHOCARDIOGRAM REPORT ---
*NOTICE TO RECEIVING REPUBLICAN AGENCY This information is strictly Confidential and protected under [place] law. [place] law prohibits you from making any further disclosure of this information unless further disclosure is expressly permitted by the written consent of the person to whom it pertains or is authorized by law. A general authorization for the release of medical or other information is not sufficient for this purpose. Hospital accepts no responsibility if the information is made available to any other person, INCLUDING THE PATIENT. Interpretation Summary * Name: PATY JULIAN Study Date: 07/07/2017 06:21 AM BP: 156/84 mmHg * Patient Location: C.2T\S\S244\S\1 HR: 65 * : 1935 (M/d/yyy) Gender: Female Height: 62 in * Age: 81 yrs Ethnicity: CA Weight: 85 lb * Ordering Physician: Juan J Flores * Referring Physician: Self, Referred * Performed By: Mireya Garcia RCS * * Reason For Study: SYNCOPE / LVH * BSA: 1.3 m2 * -- Conclusions -- * Normal LV chamber size with mild concentric LVH. * Mildly reduced LV systolic function with mild global hypokinesis, EF 45-50%. * Grade I diastolic dysfunction. * Aortic valve sclerosis mild, without significant aortic valvular stenosis. * Mild atherosclerotic plaque(s) in the ascending aorta. * The aortic root and proximal ascending aorta are normal sized. * Pulmonary hypertension is present with a PASP of 41 mmHg assuming a RA pressure of 3 mmHg. Procedure Details * A complete two-dimensional transthoracic echocardiogram was performed (2D, M-mode, Doppler and color flow Doppler). Left Ventricle * The left ventricle is normal in size. * There is mild concentric left ventricular hypertrophy. * Left ventricular systolic function is mildly reduced. * Ejection Fraction = 45-50%. * There is mild global hypokinesis of the left ventricle. Right Ventricle * The right ventricular cavity size is normal (basal dimension <4.2 cm in right ventricular apical 4-chamber view). * The right ventricular systolic function is normal as assessed by tricuspid annular plane systolic excursion (TAPSE) (normal >1.5 cm). Atria * The left atrial size is normal. * Right atrial size is normal. * No ASD detected; PFO is not assessed. Mitral Valve * The mitral valve is normal in structure and function. Tricuspid Valve * The tricuspid valve is normal in structure and function. Aortic Valve * The aortic valve is trileaflet. * Aortic valve sclerosis mild, without significant aortic valvular stenosis. * There is no significant aortic regurgitation. Pulmonic Valve * The pulmonary valve is not well seen, but the Doppler examination is normal without significant regurgitation or stenosis. Great Vessels * Mild atherosclerotic plaque(s) in the ascending aorta. * The aortic root and proximal ascending aorta are normal sized. Pericardium/Pleural * There is no pericardial effusion. Left Ventricular Diastolic Function * Grade I diastolic dysfunction, (abnormal relaxation pattern). MMode 2D Measurements and Calculations IVSd 1.4 cm IVSs 1.4 cm LVIDd 4.2 cm LVIDs 3.5 cm LVPWd 1.3 cm LVPWs 1.6 cm IVS/LVPW 1.1 FS 15.3 % EDV(Teich) 76.8 ml ESV(Teich) 51.7 ml EF(Teich) 32.7 % EDV(cubed) 72.0 ml ESV(cubed) 43.8 ml EF(cubed) 39.2 % % IVS thick 1.4 % % LVPW thick 19.9 % LV mass(C)d 216.8 grams LV mass(C)dI 163.2 grams/m\S\2 LV mass(C)s 200.6 grams LV mass(C)sI 150.9 grams/m\S\2 SV(Teich) 25.1 ml SI(Teich) 18.9 ml/m\S\2 SV(cubed) 28.2 ml SI(cubed) 21.3 ml/m\S\2 Ao root diam 2.8 cm Ao root area 6.3 cm\S\2 ACS 1.8 cm LA dimension 1.7 cm LA/Ao 0.59 LVOT diam 2.1 cm LVOT area 3.5 cm\S\2 Doppler Measurements and Calculations MV E max mariah 22.5 cm/sec MV A max mariah 54.6 cm/sec MV E/A 0.41 MV P1/2t max mariah 41.4 cm/sec MV P1/2t 102.5 msec MVA(P1/2t) 2.1 cm\S\2 MV dec slope 118.4 cm/sec\S\2 Ao V2 max 99.2 cm/sec Ao max PG 3.9 mmHg Ao max PG (full) 2.5 mmHg ALEXI(V,A) 2.1 cm\S\2 ALEXI(V,D) 2.1 cm\S\2 LV V1 max PG 1.4 mmHg LV V1 max 59.9 cm/sec PA V2 max 81.1 cm/sec PA max PG 2.6 mmHg TR max mariah 309.7 cm/sec
[2017-07-07 09:02] LABS: BASO % 0.1 %; BASO ABS # 0.01 K/uL (0-0.2); EOS % 0.3 %; EOS ABS # 0.03 K/uL (0-0.5); IG# 0.01 K/uL (0.00-0.02); LYMPH % 4.9 %; LYMPH ABS # 0.49 K/uL (1.2-3.4); MONO % 6.6 %; MONO ABS # 0.66 K/uL (0.11-0.59); NEUT ABS # 8.86 K/uL (1.4-6.5)
--- NOTE | 2017-07-07 10:25 | Clinical Documentation Query ---
CHARLOTTE Cox : CLINICAL DOCUMENTATION QUERIES QUERY 1 OF 2 BMI noted to be 15.6 kg/m*m. In order to capture this always clinically relevant information, either the BMI or an associated condition must explicitly be documented by the provider. As appropriate, consider capture of this clinical information as suggested below. Thank you. In your clinical opinion is this patient: ( X ) Underweight, cachectic, BMI 15.6 kg/m*m. ( ) Not Agree ( ) Other explanation of clinical findings (Please Explain) ( ) Unable to determine (Please Define) ( ) Need to Discuss The medical record reflects the following clinical findings, treatment, and risk factors. Clinical Indicators: As above Treatment: AHA diet Risk Factors: Age, breast and lung cancer, ongoing smoking, failure to thrive QUERY 2 OF 2 As above, BMI 15.6 kg/m*m. Patient weight on admission of 37.4 kg= 82 pounds. She is currently NPO but should be seen by accounts officer by automated consultation based on BMI and cancer history. In your clinical opinion is this patient being managed for: ( ) Severe protein-calorie malnutrition ( ) Not Agree (X ) Other explanation of clinical findings (Please Explain) Please refer to Guest Services if we can classify her Protein Calorie Malntutrion as Severe thanks ( ) Unable to determine (Please Define) ( ) Need to Discuss The medical record reflects the following clinical findings, treatment, and risk factors. Clinical Indicators: As above Treatment: As above Risk Factors: CVA, breast CA, left NSCL, smoking, age Please clarify and document your clinical opinion in the progress notes and discharge summary. Terms such as "probable", "suspected", "likely", "questionable", "possible", or "still to be ruled out" are acceptable. IF IN AGREEMENT, YOU MUST DOCUMENT ABOVE DIAGNOSTIC STATEMENT IN DAILY PROGRESS NOTES AND DISCHARGE SUMMARY. This document is not part of the patient's record. Thank You, Burak Banks RN [phone]
[2017-07-07] MEDS ORDERED: MIDAZOLAM HCL 1 MG/ML 2ML VIAL ONE ×2 (10:26)
[2017-07-07] MEDS ORDERED: FENTANYL CITRATE INJ 50 MCG/1 ML 2 ML VIAL ONE ×2 (10:27→11:11)
[2017-07-07] MEDS ORDERED: LIDOCAINE HCL 2% 2 ML VIAL (20MG/ML) ONE (10:31)
[2017-07-07] MEDS ORDERED: PROPOFOL IV EMULSION 10 MG/ML 20 ML VIAL IV ONE (10:31)
[2017-07-07] MEDS ORDERED: ONDANSETRON INJ 2 MG/ML 2 ML VIAL ONE (10:31)
[2017-07-07] MEDS ORDERED: POVIDONE-IODINE OP SOLN 30 ML BTL ONE (10:54)
[2017-07-07] MEDS ORDERED: BACITRACIN 50000 UNIT VIAL ONE (10:54)
[2017-07-07] MEDS ORDERED: BUPIVACAINE 0.5 % 5 MG/1 ML PF 10ML VIAL ONE (10:54)
[2017-07-07] MEDS ORDERED: THROMBIN FOR SOLN 20000 UNIT KIT ONE (10:55)
[2017-07-07] MEDS ORDERED: ROCURONIUM BROMIDE 10 MG/ML 5 ML VIAL IV ONE (11:11)
[2017-07-07] MEDS ORDERED: EpHEDrine SULFATE INJ 50 MG/ML AMP IV PRN (12:00)
[2017-07-07] MEDS ORDERED: FENTANYL CITRATE INJ 50 MCG/1 ML 2 ML VIAL IV PRN (12:00)
[2017-07-07] MEDS ORDERED: ONDANSETRON INJ 2 MG/ML 2 ML VIAL IV PRN (12:00)
[2017-07-07] MEDS ORDERED: ATROPINE SULFATE 0.1 MG/ML 5ML SYR IV PRN (12:00)
[2017-07-07] MEDS ORDERED: HYDROmorphone INJ 1 MG/ML SYR IV PRN (12:00)
[2017-07-07] MEDS ORDERED: NEOSTIGMINE METHYLSULFATE 5 MG/5 ML SYR ONE (12:21)
[2017-07-07] MEDS ORDERED: GLYCOPYRROLATE INJ 0.2 MG/ML VIAL ONE (12:21)
[2017-07-07] MEDS: ROPIVACAINE 5MG/ML 30 ML 150 MG, BUPIVACAINE/EPINEPHR 0.5% MPF 30 ML, KETOROLAC TROMETH... INFIL STA ×14 (12:25→12:36)
--- NOTE | 2017-07-07 12:34 | [facility] Operative Report ---
Operative Report Operative Date Jul 07, 2017. Pre-Operative Diagnosis Left Hip Femoral Neck Fracture Post-Operative Diagnosis Left Hip Femoral Neck Fracture Procedure(s) Performed Left Bipolar Hip Hemiarthroplasty--Uncemented Surgeon Dr. Lamas Results Technician Surgeon(s) DEANA Velazquez Estimated Blood Loss 20 ml Findings As above Specimens A. Left Femoral Head Drains None Anesthesia Type General Complication(s) none Disposition no Recovery Room / PACU Description of Procedure IMPLANTS USED: Grawn size 44 mm bipolar cup, a #4 Accolade 2 stem with a 127 neck, and a 28 mm +0 cobalt chrome head INDICATIONS: Mrs. Florez is a pleasantfemale)] who has unfortunately fell yesterday and sustained a left femoral neck fracture. Therefore, they have has decided to undergo elective surgical intervention. All risks and benefits of the surgery were discussed with the patient and the family in entirety. PROCEDURE: The patient was brought to the operating room and properly identified by myself, anesthesia, and staff. Patient was given a general anesthetic and placed on the operating table with the left hip up. The hip was then prepped and draped in the standard orthopedic fashion. We made a standard posterolateral approach over the greater trochanteric area. We then dissected down to subcutaneous tissue until the fascia was identified. We incised the fascia in line with the skin incision. We then split the gluteus louisa muscles with finger dissection. We then put the Charnley retractor in place. We placed the retractor underneath the gluteus medius to expose the piriformis. The piriformis was then tagged with a tag suture and released from the insertion from the greater trochanteric area with the use of electrocautery. We then performed a T capsulotomy and the fractured femoral head and neck were atraumatically dislocated. We then performed femoral neck osteotomy at the pre- template site. We removed the femoral head and neck without difficulty. We then sized the acetabulum by measuring the femoral head which is about a 44 mm and a size 44 mm bipolar cup trial fit very nicely within the acetabulum. Then using multiple size approaches from the Accolade 2 system a size #4 fit very nicely in the proximal femur. I then put trial components in place. WE had very good range of motion, excellent stability, and excellent leg length equality. We removed the trial components and irrigated the wound. We then impacted the components in place and irrigated the wound once more. We then closed the capsule and fascia with a 0 Vicryl suture, the deep dermis with 2-0 Vicryl suture, and finally the skin with a running 3-0 Vicryl subcuticular stitch. A sterile dressing was applied. The patient was taken to the recovery room in stable condition. Due to the complex nature of the procedure, the entire surgery was performed with the operational assistance of Keily IGNACIO)Oracio. The field technical assistant was under direct supervision, was involved in the actual performance of all aspects of the surgical procedure including hemostasis, tissue retraction and incision, instrument management, patient positioning, and wound closure. I attest to the content of the Intraoperative Record and any orders documented therein. Any exceptions are noted below.
--- NOTE | 2017-07-07 14:08 | Anesthesiology Progress Note ---
Anesthesia Post Op Note Date & Time Jul 07, 2017 at 14:08 Vital Signs Pain Intensity: 0 Vital Signs Past 12 Hours Date Time Temp Pulse Resp B/P (MAP) Pulse Ox O2 Delivery O2 Flow Rate FiO2 07/07/17 14:00 36.4 73 13 166/76 98 Nasal Cannula 2 07/07/17 13:50 72 13 150/80 96 Nasal Cannula 2 07/07/17 13:40 70 21 146/74 100 Oxymask 4 07/07/17 13:30 64 14 144/71 100 Oxymask 8 07/07/17 13:20 62 12 152/70 100 Oxymask 10 07/07/17 13:10 64 12 156/71 100 Oxymask 10 07/07/17 13:00 63 12 161/70 100 Oxymask 10 07/07/17 12:54 36.0 67 12 167/80 100 Oxymask 10 07/07/17 08:01 94 Room Air 07/07/17 07:41 37.0 64 18 144/77 (99) 94 Room Air 07/07/17 04:00 92 Room Air 07/07/17 03:44 36.9 66 16 156/84 (108) 92 Room Air Notes Mental Status: alert / awake / arousable, participated in evaluation Pt Amnestic to Procedure: Yes Nausea / Vomiting: adequately controlled Pain: adequately controlled Airway Patency, RR, SpO2: stable & adequate BP & HR: stable & adequate Hydration State: stable & adequate Anesthetic Complications: no major complications apparent
[2017-07-07] MEDS: LISINOPRIL 10 MG TAB PO SCH (14:35)
[2017-07-07] MEDS: CHOLESTYRAMINE LIGHT 4 GM PKT PO SCH (14:35)
[2017-07-07] MEDS: ACETAMINOPHEN 500 MG TAB PO SCH ×2 (14:45→22:49)
--- NOTE | 2017-07-07 15:28 | CARDIOLOGY CONSULTATION ---
DATE OF CONSULTATION: 07/07/2017 REFERRING PHYSICIAN: Dr. Flores. PRIMARY CARE PHYSICIAN: Dr Horn INDICATIONS: Possible syncope, hip fracture. HISTORY OF PRESENT ILLNESS: Per records and discussion with the patient who is a limited historian, it is notable for patient suffering a fall while walking across her living room the day prior to admission. She laid on the floor for several hours after her fall, too weak to get up. Per her initial recollection, she did not lose consciousness, but became weak and fell to the ground without head injury or strike. She denies any history of tachypalpitations prior syncope, but did suffer a fall approximately 6 months ago per daughter. She notes no chest pains, has chronic cough and chronic tobacco use with chronic underlying obstructive lung disease. 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 She carries a history of past remote breast carcinoma, diverticulitis, dyslipidemia per review of records. The patient presented today with the above complaints. Nondisplaced left hip fracture was present. The patient was referred and underwent surgical repair today with left bipolar hip hemiarthroplasty uncemented. The patient tolerated the surgical procedure well. The patient was seen postoperatively. She currently denies any complaints other than mild surgical incision discomfort though mentation is slowed somewhat at her usual baseline per history. She has a little recollection of her hospitalization events. Notes no recent fevers, chills or sweats. Notes chronic diarrhea issues, which are unchanged, has been taking medications as prescribed. Notes no prior history of angina or congestive heart failure or arrhythmias. Notes no history of rheumatic fever, scarlet fever or heart murmur. Initial EKG demonstrated sinus rhythm with left ventricular hypertrophy. REVIEW OF SYSTEMS: Otherwise negative or unobtainable. ALLERGIES: NOTED TO BE ADHESIVES, EGGS, FLU VIRUS VACCINE, AND MORPHINE WELL PENICILLIN. MEDICATIONS: Prior to hospitalization, per med reconciliation list are alendronate 70 mg, lisinopril 10 mg daily, melatonin 10 mg at bedtime, metoprolol 75 mg at bedtime, multivitamin per day, Ocuvite, paroxetine 10 mg p.o. daily, probiotic 1 tablet at bedtime and trazodone 100 mg p.o. daily. Of note, alendronate was once weekly. PAST SURGICAL HISTORY: Notable for prior carpal tunnel surgery in 1991, arthroscopic knee surgery on the left in 1995, right mastectomy as noted in the remote past in 1984, resection of apical lung mass and mediastinoscopy in 2010, cholecystectomy in 1994, hysterectomy in 1981. FAMILY HISTORY: Noncontributory. SOCIAL HISTORY: The patient is a continued smoker, uses no significant [id number] medications or alcoholic beverages per report. PHYSICAL EXAMINATION: VITAL SIGNS: Heart rate is 73, blood pressure is 166/76. HEENT: Normocephalic and atraumatic. Nares without discharge. NECK: Thin. There is no distinct jugular venous distention. There are no carotid bruits audible. LUNGS: Reveal diminished breath sounds diffusely. CARDIOVASCULAR: Regular with normal S1, S2. There is no audible murmur or rub. ABDOMEN: Soft, nontender. EXTREMITIES: Without cyanosis or clubbing. There is no edema. There are intact distal pulses at 1+/4. LABORATORY DATA: Sodium is 136, potassium is 4.5, chloride is 100, bicarbonate is 31, BUN is 18. Troponin since admission x3 are negative. Albumin is 3.2. White cell count is 10.0, hemoglobin is 15.1. Carotid ultrasound reveals no obstructive disease with atherosclerosis present. EKG reveals sinus rhythm with voltage criteria for left ventricular hypertrophy, rate 75 beats per minute with strain pattern present. Echocardiogram per report, demonstrates mild diffuse left ventricular dysfunction, EF 45%-50%, no significant valvular disease or pericardial effusion. IMPRESSION: An 81-year-old female with complex history of chronic obstructive lung disease, tobacco use, emphysema, past left upper lobe lobectomy secondary to squamous cell carcinoma of the lung now greater than 5 years past. The patient presents after a fall, syncopal spell not defined. The patient has no recollection of the event, but per initial records was felt to have slumped to the floor at that time after the fall too weak to stand. She has tolerated surgical procedure well. There are no signs of acute myocardial infarction by EKG or cardiac enzymes. Echocardiogram demonstrates mild diffuse left ventricular dysfunction. RECOMMENDATIONS: We would maintain telemetry, exclude arrhythmia or specifically bradyarrhythmia if present, current dosing of Toprol will be continued. Heart rate followed closely as activities are gradually increased. Discussed this in detail with the patient's family. VAHID
[2017-07-07] MEDS: CEFAZOLIN IV 2,000 MG in SYRINGE 0 ML IV SCH (16:42)
[2017-07-07] MEDS: TRAZODONE HCL 50 MG TAB PO SCH (21:07)
[2017-07-07] MEDS: ASPIRIN 81 MG ECTAB PO SCH (21:08)
[2017-07-07] MEDS: METOPROLOL SUCC 50MG EXT REL TAB PO SCH (21:09)
[2017-07-07] MEDS: DOCUSATE SODIUM/SENNA 50/8.6MG TAB PO SCH (21:09)
[2017-07-08] VITALS (11 sets, daily range): BP systolic 119–182; BP diastolic 68–93; PULSE 66–81; TEMP 36.5–37.2; O2SAT 93–100
[2017-07-08] MEDS: CEFAZOLIN IV 2,000 MG in SYRINGE 0 ML IV SCH (00:07)
[2017-07-08] MEDS: ACETAMINOPHEN 500 MG TAB PO SCH ×3 (05:40→21:40)
[2017-07-08] MEDS ORDERED: SODIUM CHLORIDE 0.9% 250ML 250 ML IV ONE (06:00)
[2017-07-08 07:19] LABS: EOS % 0.1 %; EOS ABS # 0.01 K/uL (0-0.5); HEMATOCRIT 29.1 % (37-47); HEMOGLOBIN 9.7 g/dL (12.0-16.0); IG# 0.02 K/uL (0.00-0.02); LYMPH % 2.1 %; LYMPH ABS # 0.18 K/uL (1.2-3.4); MEAN CELL VOLUME 94.8 fL (80-100); MEAN CORPUSCULAR HEMOGLOBIN 31.6 pg (25-34); MEAN CORPUSCULAR HGB CONC 33.3 g/dl (32-36); MEAN PLATELET VOLUME 10.3 fL (7.4-10.4); MONO % 5.9 %; NEUT % 91.7 %; PLATELET COUNT 78 K/uL (130-400); RED CELL DISTRIBUTION WIDTH SD 44.4 fL (36.4-46.3); WHITE BLOOD COUNT 8.51 K/uL (4.8-10.8)
[2017-07-08] MEDS ORDERED: DEXAMETHASONE INJ 10 MG in SYRINGE 0 ML IV ONE (07:30)
[2017-07-08] MEDS: ASPIRIN 81 MG ECTAB PO SCH ×2 (08:51→21:38)
[2017-07-08] MEDS: LISINOPRIL 10 MG TAB PO SCH (08:51)
[2017-07-08] MEDS: CHOLESTYRAMINE LIGHT 4 GM PKT PO SCH (08:51)
--- NOTE | 2017-07-08 09:58 | Orthopedic Progress Note ---
Orthopedic Progress Note Date of Service Jul 08, 2017. Subjective Post OP Day: 1 Reports: feeling well, Denies: chest pain, SOB, nausea / vomiting, light headedness, calf pain Additional Notes: PATIENT SITTING UP IN THE CHAIR, LOOKS GREAT THIS AM. PAIN CONTROLLED. REMAINS ON TELEMETRY. Objective calves soft nontender, N/V intact, hip located, capillary refill less than 2 sec., dressing C/D/I, A&O x3, toes mobile Date Time Temp Pulse Resp B/P (MAP) Pulse Ox O2 Delivery O2 Flow Rate FiO2 07/08/17 08:30 Room Air 07/08/17 08:06 36.9 73 16 147/68 (94) 97 07/08/17 04:00 100 Room Air 07/08/17 03:40 37.1 72 18 143/72 (95) 100 Nasal Cannula 2.0 07/08/17 00:48 37.1 76 17 119/68 (85) 100 Nasal Cannula 2.0 07/08/17 00:01 100 Room Air 07/07/17 20:00 98 Room Air 07/07/17 19:21 36.4 75 18 130/71 (90) 98 Nasal Cannula 07/07/17 16:32 94 Room Air 07/07/17 16:30 36.5 78 16 130/74 (92) 100 Nasal Cannula 2.0 07/07/17 16:13 34.5 75 16 147/82 (103) 100 07/07/17 15:30 36.5 77 16 132/76 (94) 98 Nasal Cannula 2.0 07/07/17 15:01 36.5 79 16 166/90 (115) 94 Nasal Cannula 2.0 07/07/17 14:30 36.4 73 16 122/70 (87) 94 Nasal Cannula 2.0 07/07/17 14:00 36.4 73 13 166/76 98 Nasal Cannula 2 07/07/17 13:50 72 13 150/80 96 Nasal Cannula 2 07/07/17 13:40 70 21 146/74 100 Oxymask 4 07/07/17 13:30 64 14 144/71 100 Oxymask 8 07/07/17 13:30 36.7 80 16 175/91 (119) 94 Nasal Cannula 2.0 Oxymask 07/07/17 13:20 62 12 152/70 100 Oxymask 10 07/07/17 13:10 64 12 156/71 100 Oxymask 10 07/07/17 13:00 63 12 161/70 100 Oxymask 10 07/07/17 12:54 36.0 67 12 167/80 100 Oxymask 10 Laboratory Results 24 Hours: Test 07/08/17 07:05 White Blood Count 8.51 K/uL Red Blood Count 3.07 M/uL Hemoglobin 9.7 g/dL Hematocrit 29.1 % Mean Corpuscular Volume 94.8 fL Mean Corpuscular Hemoglobin 31.6 pg Mean Corpuscular Hemoglobin Concent 33.3 g/dl Platelet Count 78 K/uL Mean Platelet Volume 10.3 fL Neutrophils (%) (Auto) 91.7 % Lymphocytes (%) (Auto) 2.1 % Monocytes (%) (Auto) 5.9 % Eosinophils (%) (Auto) 0.1 % Basophils (%) (Auto) 0.0 % Neutrophils # (Auto) 7.80 K/uL Lymphocytes # (Auto) 0.18 K/uL Monocytes # (Auto) 0.50 K/uL Eosinophils # (Auto) 0.01 K/uL Basophils # (Auto) 0.00 K/uL Assessment & Plan Assessment: POD#1 SP LEFT BIPOLAR HEMIARTHROPLASTY Plan: PT/OT DVT PROPH- ASA 81MG BID PAIN MANAGEMENT- GAIL WATSON DC PLANNING- PATIENT LIVES AT AN APT AT [facility]. WILL LIKELY RETURN THERE TO THE [facility] SIDE. ANTICIPATE POSSIBLE TRANSFER TOMORROW IF MEDICALLY STABLE. MEDICAL MANAGEMENT.
--- NOTE | 2017-07-08 10:00 | Discharge Instructions ---
Discharge Instructions Date of Service Jul 08, 2017. Admission Reason for Admission: Left Displaced Femoral Neck Fracture, Syncope Discharge Discharge Diagnosis / Problem: SP LEFT BIPOLAR HEMIARTHROPLASTY Discharge Goals Goal(s): Decrease discomfort, Improve function, Increase independence Activity Recommendations Activity Limitations: per Instructions/Follow-up section . Instructions / Follow-Up Instructions / Follow-Up ACTIVITY RECOMMENDATIONS: SELF CARE INSTRUCTIONS AFTER TOTAL HIP REPLACEMENT Until the incision and soft tissues around your hip have healed, there is a possibility that the hip prosthesis could dislocate. A. Observe the following precautions to prevent dislocation: 1. Don't bend your hip greater than 90 degrees. 2. Avoid crossing your legs or ankles while standing or lying. 3. Sit with your feet placed 6 inches apart. 4. When sitting, keep your knees below your hips. Sit on a firm surface, avoid deep, soft chairs and couches. Use an elevated toilet seat in the bathroom. 5. Don't bend over at the waist. Use a long handled shoehorn and a sock aid to help you put on your shoes and socks. A funeral car driver can help you excelsior picker objects that are too high or too low to reach. 6. Keep car riding to a minimum for at least one month after surgery. B. Your balance may be shaky for a while. Use crutches or a walker until directed by your doctor. C. Use hand rails when walking on stairs. D. Wear low heeled shoes with non-slip soles. E. Be sure that your floors are free of things that could trip you - throw rugs , electrical cords, small objects. Avoid wet and waxed floors, especially with crutches and canes. F. Try to walk several times a day with rest periods between. G. Continue with all the exercises taught to you in the hospital. Again, make walking a part of your daily routine. SPECIAL CARE INSTRUCTIONS: VERY IMPORTANT TO READ AND REVIEW A. You may still be at risk for phlebitis and blood clots. 1. Wear surgical stockings (RACHELL hose) for 2 weeks after surgery to improve circulation and reduce swelling. 2. Take Aspirin 81mg twice daily for 4 weeks or as directed by your doctor. This is your blood thinner. 3. High risk patients may be prescribed a stronger blood thinner if necessary. 4. If you are on Coumadin normally, your family doctor/side show entertainer should monitor your blood work. Expect a phone call the day of or the day after bloodwork is drawn to adjust your dosage. B. You must take antibiotics before having dental work, bladder, bowel and other surgery. Your doctor will provide you with a permanent card to carry describing precautions. C. Call [facility] if you have a fever, redness or swelling around the incision, cloudy drainage from incision, or sudden increase in pain in your hip, not relieved by your regular pain medication. D. Please call the office at if you have any concerns or questions about your operation or recovery. * YOU MAY SHOWER, NO TUB BATHS UNTIL CLEARED BY YOUR DOCTOR. * WEAR RACHELL HOSE 20 HOURS PER DAY FOR 2 WEEKS. * YOU SHOULD USE A WALKER OR CRUTCHES FOR 2-4 WEEKS. THIS WILL HELP PREVENT STRAIN ON YOUR HIP MUSCLE AND ALLOW IT TO HEAL PROPERLY. YOU MAY WEAN TO A CANE TOLERATED. * MOST PATIENTS WILL HAVE HOME NURSING FOR THERAPY. IF YOU DECIDE TO DO OUTPATIENT PHYSICAL THERAPY, PLEASE SCHEDULE THIS 3 TIMES PER WEEK. * DERMABOND Prineo- This is a mesh tape dressing that is covered with glue. It should remain in place until the incision is properly healed, usually 10-14 days. This dressing is designed to naturally slough off. You may trim the excess mesh tape as it peels off. Incision may be briefly wet in a shower. Dry immediately by blotting with a clean, dry towel. Do not bath or swim until instructed by your doctor. Do not scratch, rub, or pick at the dressing. Do not apply any topical ointments or lotions until dressing is completely removed and/or instructed by your doctor. There may be a small piece of suture material at one end of your incision. Do not pull or trim this. If it is bothersome or catching on clothing, you may cover it with a band-aid. FOLLOW UP VISIT: If appointment is not already scheduled: Please call [facility] to make a follow-up appointment for 2 weeks after your surgery at . DR. JACOBS IS IN [facility] TO [facility]AN MIGUEL IN [place] FOR 2 WEEK VISIT. Current Hospital Diet Patient's current hospital diet: Regular Diet Discharge Diet Recommended Diet: Regular Diet Procedures Procedures Performed: Left Bipolar Hip Hemiarthroplasty--Uncemented Pending Studies Studies pending at discharge: no Medical Emergencies . Who to Call and When: Medical Emergencies: If at any time you feel your situation is an emergency, please call 911 immediately. . Non-Emergent Contact Non-Emergency issues call your: Surgeon . "Provider Documentation" section prepared by Vianey Sarmiento. .
--- NOTE | 2017-07-08 11:54 | CARDIOLOGY PROGRESS NOTE ---
DATE: 07/08/2017 SUBJECTIVE: The patient looks and feels improved this morning, much more alert and conversant. Denies any chest pains. Notes no tachypalpitations. Notes no dizziness or lightheadedness, was out of bed and ambulatory earlier this morning. Tolerated hip surgery yesterday well and is recovering promptly. OBJECTIVE: VITAL SIGNS: Heart rate is 73, blood pressure is 147/68, O2 saturation is 97% on room air. HEENT: Normocephalic and atraumatic. NECK: Thin. There is no jugular venous distention. There are no carotid bruits. LUNGS: Notable for diminished breath sounds diffusely but without rhonchi, rale or wheeze. CARDIOVASCULAR: Regular with normal S1, S2. There is no murmur, gallop or rub. ABDOMEN: Soft, nontender. EXTREMITIES: Free of edema. Surgical incision is healing well with bandage in place. LABORATORY STUDIES: White cell count is 8.5, hemoglobin is 9.7. IMPRESSION: An 81-year-old female with complex history, suffered an acute fall. The patient this morning notes no syncope or loss of consciousness with fall, rather became unsteady and fell with possible weakness in association. No chest pain or tachyarrhythmias. No acute cardiac events discerned. Telemetry review demonstrates sinus rhythm with only a short run of atrial tachycardia during admission. She is on appropriate medical therapies for hypertension. Would continue metoprolol and lisinopril. No further cardiac evaluation necessary. We will proceed as anticipated through physical therapy and discharge to [facility] to be monitored there by primary care physician and in-house staff.
[2017-07-08] MEDS: OXYCODONE HCL IR 5 MG TAB (IMMEDIATE RELEASE) PO PRN ×2 (16:33→21:37)
--- NOTE | 2017-07-08 19:01 | Progress Note ---
Medicine Progress Note Date & Time of Visit: Jul 08, 2017 at 18:47. Subjective Pt was seen and examined Lying in bed with no distress with family member at bedside Pt said that she feels fine She said that her pain under control Denies any chest pain, palpitation, dizziness and SOB Objective Last 8 Hrs Date Time Temp Pulse Resp B/P (MAP) Pulse Ox O2 Delivery O2 Flow Rate FiO2 07/08/17 15:51 36.9 81 22 174/93 (120) 94 Room Air 07/08/17 12:35 36.5 70 18 149/68 (95) 93 07/08/17 12:30 Room Air Physical Exam: General- No acute distress Head- atraumatic Eyes- PERRL, EOMI ENT- oropharynx clear Neck- supple, no JVD Lungs- clear to auscultation Heart- regular rhythm Abdomen- normal bowel sounds, soft Extremities- no calf tenderness Neuro- alert, oriented, PERRL, EOMI; no facial palsy Skin- warm & dry Laboratory Results: Last 24 Hours Test 07/08/17 07:05 White Blood Count 8.51 K/uL Red Blood Count 3.07 M/uL Hemoglobin 9.7 g/dL Hematocrit 29.1 % Mean Corpuscular Volume 94.8 fL Mean Corpuscular Hemoglobin 31.6 pg Mean Corpuscular Hemoglobin Concent 33.3 g/dl Platelet Count 78 K/uL Mean Platelet Volume 10.3 fL Neutrophils (%) (Auto) 91.7 % Lymphocytes (%) (Auto) 2.1 % Monocytes (%) (Auto) 5.9 % Eosinophils (%) (Auto) 0.1 % Basophils (%) (Auto) 0.0 % Neutrophils # (Auto) 7.80 K/uL Lymphocytes # (Auto) 0.18 K/uL Monocytes # (Auto) 0.50 K/uL Eosinophils # (Auto) 0.01 K/uL Basophils # (Auto) 0.00 K/uL RDW Standard Deviation 44.4 fL RDW Coefficient of Variation 13.0 % Immature Granulocyte % (Auto) 0.2 % Immature Granulocyte # (Auto) 0.02 K/uL Magnesium Level 1.8 mg/dl Assessment & Plan 81-year-old female with a history of hypertension, COPD, lung cancer status post resection, CVA Presenting with sudden fall and subsequent left hip pain LEFT HIP FRACTURE Xray hip/pelvis showed mildly displaced subcapital left femoral neck fracture. medically stable by cardio to proceed with the procedure S/P day 1 Left Bipolar Hip Hemiarthroplasty--Uncemented Continue PT/OT pain control Fall precaution Incentive spirometry Mild LV hypokinesis Troponinx3 negative Continue metoprolol Asymptomatic Cardio on board, no further cardiac testing ECHO showed Normal LV chamber size with mild concentric LVH. * Mildly reduced LV systolic function with mild global hypokinesis, EF 45-50% . * Grade I diastolic dysfunction. * Aortic valve sclerosis mild, without significant aortic valvular stenosis. * Mild atherosclerotic plaque(s) in the ascending aorta. * The aortic root and proximal ascending aorta are normal sized. * Pulmonary hypertension is present with a PASP of 41 mmHg assuming a RA pressure of 3 mmHg. HISTORY OF HYPERTENSION Continue lisinopril and metoprolol BP stable HISTORY OF COPD AND LUNG CANCER STATUS POST RESECTION stable HISTORY OF CVA Aspirin resume Anemia Acute blood loss due to recent post op surgery Continue monitor h/h Malnutrition BMI 17.8 Encourage pt to increase protein intake Microscopic hematuria UA showed trace blood Hb 9.7 DVT px SCDs ( recent surgery) On asa 81 mg BID Disposition Discharge tomorrow if medically stable. Current Inpatient Medications: Current Inpatient Medications Medications (Trade) Dose Ordered Sig/Navid Route Start Time Stop Time Status Last Admin Dose Admin Diphenhydramine HCl (Benadryl Inj) 12.5 mg Q8H PRN IV 07/06/17 21:00 08/05/17 20:59 Oxycodone HCl (Roxicodone Immediate Rel Tab) 5 mg Q4H PRN PO 07/06/17 21:00 07/20/17 20:59 07/08/17 16:33 5 MG Oxycodone HCl (Roxicodone Immediate Rel Tab) 10 mg Q4H PRN PO 07/06/17 21:00 07/20/17 20:59 07/07/17 21:06 10 MG Senna/Docusate Sodium (Senokot S Tab) 2 tab HS PO 07/06/17 21:00 08/05/17 20:59 07/07/17 21:09 2 TAB Polyethylene (Miralax Powder Packet) 17 gm DAILY PRN PO 07/06/17 21:00 08/05/17 20:59 07/08/17 16:32 17 GM Magnesium Hydroxide (Milk Of Magnesia Susp) 30 ml DAILY PRN PO 07/06/17 21:00 08/05/17 20:59 Bisacodyl (Dulcolax Supp) 10 mg DAILY PRN NV 07/06/17 21:00 08/05/17 20:59 Sodium Biphosphate/ Sodium Phosphate (Fleet Enema) 132 ml PRN PRN NV 07/06/17 21:00 07/13/17 20:59 Metoprolol Succinate (Toprol Xl Tab) 75 mg HS PO 07/07/17 21:00 08/06/17 20:59 07/07/17 21:09 75 MG Lisinopril (Zestril Tab) 10 mg QAM PO 07/07/17 09:00 08/06/17 08:59 07/08/17 08:51 10 MG Cholestyramine Resin (Questran Powder Light) 4 gm QAM PO 07/07/17 09:00 08/06/17 08:59 07/08/17 08:51 4 GM Ondansetron HCl (Zofran Inj) 4 mg ONE PRN IV 07/07/17 12:00 Acetaminophen (Tylenol Tab) 1,000 mg Q8H PO 07/07/17 14:00 08/06/17 13:59 07/08/17 14:45 1,000 MG Aspirin (Ecotrin Tab) 81 mg BID PO 07/07/17 21:00 08/06/17 20:59 07/08/17 08:51 81 MG Trazodone HCl (Desyrel Tab) 50 mg HS PO 07/07/17 21:00 08/05/17 21:14 07/07/17 21:07 50 MG
[2017-07-08] MEDS: METOPROLOL SUCC 50MG EXT REL TAB PO SCH (21:38)
[2017-07-08] MEDS: DOCUSATE SODIUM/SENNA 50/8.6MG TAB PO SCH ×2 (21:39→21:45)
[2017-07-08] MEDS: TRAZODONE HCL 50 MG TAB PO SCH (21:40)
[2017-07-09 04:00] VITALS: BP 172/78; PULSE 67; TEMP 36.7; O2SAT 95
--- NOTE | 2017-07-09 05:28 | Clinical Documentation Query ---
LADARIUS Mckay : CLINICAL DOCUMENTATION QUERY As above, BMI 15.6 kg/m*m. Patient weight on admission of 37.4 kg= 82 pounds. She should be seen by service desk associate by automated consultation based on BMI and cancer history and was formally consulted 07/07 but as of yet has not been seen. Documentation currently includes "malnutrition". As appropriate, consider qualification as suggested below as this directly impacts accurate DRG assignment. Thank you. In your clinical opinion is this patient being managed for: ( ) Severe protein-calorie malnutrition ( ) Not Agree ( ) Other explanation of clinical findings (Please Explain) ( ) Unable to determine (Please Define) ( ) Need to Discuss The medical record reflects the following clinical findings, treatment, and risk factors. Clinical Indicators: As above Treatment: As above Risk Factors: CVA, breast CA, left NSCL, smoking, age Please clarify and document your clinical opinion in the progress notes and discharge summary. Terms such as "probable", "suspected", "likely", "questionable", "possible", or "still to be ruled out" are acceptable. IF IN AGREEMENT, YOU MUST DOCUMENT ABOVE DIAGNOSTIC STATEMENT IN DAILY PROGRESS NOTES AND DISCHARGE SUMMARY. This document is not part of the patient's record. Thank You, Burak Banks, RN [phone]
[2017-07-09] MEDS: ACETAMINOPHEN 500 MG TAB PO SCH (05:46)
[2017-07-09 07:46] VITALS: BP 154/69; PULSE 76; TEMP 36.9; O2SAT 96
[2017-07-09] MEDS: LISINOPRIL 10 MG TAB PO SCH (07:50)
[2017-07-09] MEDS: ASPIRIN 81 MG ECTAB PO SCH (07:50)
[2017-07-09] MEDS: CHOLESTYRAMINE LIGHT 4 GM PKT PO SCH (07:51)
[2017-07-09 07:56] LABS: HEMATOCRIT 30.5 % (37-47); HEMOGLOBIN 10.2 g/dL (12.0-16.0); MEAN CELL VOLUME 94.1 fL (80-100); MEAN CORPUSCULAR HEMOGLOBIN 31.5 pg (25-34); MEAN CORPUSCULAR HGB CONC 33.4 g/dl (32-36); RED CELL DISTRIBUTION WIDTH CV 12.8 % (11.5-14.5); RED CELL DISTRIBUTION WIDTH SD 44.2 fL (36.4-46.3); WHITE BLOOD COUNT 7.86 K/uL (4.8-10.8)
--- NOTE | 2017-07-09 07:58 | Orthopedic Progress Note ---
Orthopedic Progress Note Date of Service Jul 09, 2017. Subjective Post OP Day: 2 Reports: feeling well, Denies: chest pain, SOB, nausea / vomiting, light headedness, calf pain Objective calves soft nontender, N/V intact, hip located, capillary refill less than 2 sec., dressing C/D/I, A&O x3 Date Time Temp Pulse Resp B/P (MAP) Pulse Ox O2 Delivery O2 Flow Rate FiO2 07/09/17 07:46 36.9 76 18 154/69 (97) 96 07/09/17 04:00 36.7 67 17 172/78 (109) 95 Room Air 07/09/17 04:00 Room Air 07/08/17 23:59 Room Air 07/08/17 23:35 36.9 72 18 162/76 (104) 96 Room Air 07/08/17 20:00 Room Air 07/08/17 19:00 37.2 79 18 182/80 (114) 95 Room Air 07/08/17 16:00 94 Room Air 07/08/17 15:51 36.9 81 22 174/93 (120) 94 Room Air 07/08/17 12:35 36.5 70 18 149/68 (95) 93 07/08/17 12:30 Room Air 07/08/17 09:49 66 07/08/17 08:30 Room Air 07/08/17 08:06 36.9 73 16 147/68 (94) 97 Laboratory Results 24 Hours: Test 07/09/17 07:36 Hematocrit 30.5 % Hemoglobin 10.2 g/dL Assessment & Plan Assessment: POD#2 SP LEFT BIPOLAR HEMIARTHROPLASTY Plan: PT/OT DVT PROPH- ASA 81MG BID PAIN MANAGEMENT- [place], TYLENOL DC PLANNING- PATIENT LIVES AT AN APT AT [facility]. WILL LIKELY RETURN THERE TO THE SKILLED SIDE. ANTICIPATE POSSIBLE TRANSFER TODAY/TOMORROW IF MEDICALLY STABLE. ORTHO INSTRUCTIONS ON CHART. HIP PRECAUTIONS DC DRESSING TODAY MEDICAL MANAGEMENT.
[2017-07-09 08:21] LABS: MEAN PLATELET VOLUME 10.3 fL (7.4-10.4); PLATELET COUNT 91 K/uL (130-400)
[2017-07-09 12:04] VITALS: BP 194/95; PULSE 76; TEMP 36.9; O2SAT 95
--- NOTE | 2017-07-09 13:13 | Progress Note ---
Medicine Progress Note Date & Time of Visit: Jul 09, 2017 at 13:04. Subjective Pt was seen and examined Lying in bed with no distress Pt said that pain is controlled she said that she walked today with PT and did good Denies any chest pain, palpitation and SOB Objective Last 8 Hrs Date Time Temp Pulse Resp B/P (MAP) Pulse Ox O2 Delivery O2 Flow Rate FiO2 07/09/17 12:04 36.9 76 16 194/95 (128) 95 07/09/17 12:00 Room Air 07/09/17 08:00 Room Air 07/09/17 07:46 36.9 76 18 154/69 (97) 96 Physical Exam: General- No acute distress Head- atraumatic Eyes- PERRL, EOMI ENT- oropharynx clear Neck- supple, no JVD Lungs- clear to auscultation Heart- regular rhythm Abdomen- normal bowel sounds, soft Extremities- no calf tenderness Neuro- alert, oriented, PERRL, EOMI; no facial palsy Skin- warm & dry Laboratory Results: Last 24 Hours Test 07/09/17 07:36 White Blood Count 7.86 K/uL Red Blood Count 3.24 M/uL Hemoglobin 10.2 g/dL Hematocrit 30.5 % Mean Corpuscular Volume 94.1 fL Mean Corpuscular Hemoglobin 31.5 pg Mean Corpuscular Hemoglobin Concent 33.4 g/dl RDW Standard Deviation 44.2 fL RDW Coefficient of Variation 12.8 % Platelet Count 91 K/uL Mean Platelet Volume 10.3 fL Assessment & Plan 81-year-old female with a history of hypertension, COPD, lung cancer status post resection, CVA Presenting with sudden fall and subsequent left hip pain LEFT HIP FRACTURE Xray hip/pelvis showed mildly displaced subcapital left femoral neck fracture. medically stable by cardio to proceed with the procedure S/P day 2 Left Bipolar Hip Hemiarthroplasty--Uncemented Continue PT/OT pain control Fall precaution Incentive spirometry Mild LV hypokinesis Troponinx3 negative Continue metoprolol Asymptomatic Cardio on board, no further cardiac testing stable ECHO showed Normal LV chamber size with mild concentric LVH. * Mildly reduced LV systolic function with mild global hypokinesis, EF 45-50% . * Grade I diastolic dysfunction. * Aortic valve sclerosis mild, without significant aortic valvular stenosis. * Mild atherosclerotic plaque(s) in the ascending aorta. * The aortic root and proximal ascending aorta are normal sized. * Pulmonary hypertension is present with a PASP of 41 mmHg assuming a RA pressure of 3 mmHg. HISTORY OF HYPERTENSION BP elevated Continue lisinopril and metoprolol Consider to increase lisinopril if BP not control Will give hydralazine 5mg x1 Monitor BP HISTORY OF COPD AND LUNG CANCER STATUS POST RESECTION stable HISTORY OF CVA Aspirin resume Anemia Acute blood loss due to recent post op surgery Continue monitor h/h Malnutrition BMI 17.8 Encourage pt to increase protein intake Microscopic hematuria UA showed trace blood Hb 10.2 DVT px SCDs ( recent surgery) On asa 81 mg BID Disposition Discharge to [facility] today Current Inpatient Medications: Current Inpatient Medications Medications (Trade) Dose Ordered Sig/Navid Route Start Time Stop Time Status Last Admin Dose Admin Diphenhydramine HCl (Benadryl Inj) 12.5 mg Q8H PRN IV 07/06/17 21:00 08/05/17 20:59 Oxycodone HCl (Roxicodone Immediate Rel Tab) 5 mg Q4H PRN PO 07/06/17 21:00 07/20/17 20:59 07/08/17 21:37 5 MG Oxycodone HCl (Roxicodone Immediate Rel Tab) 10 mg Q4H PRN PO 07/06/17 21:00 07/20/17 20:59 07/07/17 21:06 10 MG Senna/Docusate Sodium (Senokot S Tab) 2 tab HS PO 07/06/17 21:00 08/05/17 20:59 07/07/17 21:09 2 TAB Polyethylene (Miralax Powder Packet) 17 gm DAILY PRN PO 07/06/17 21:00 08/05/17 20:59 07/08/17 16:32 17 GM Magnesium Hydroxide (Milk Of Magnesia Susp) 30 ml DAILY PRN PO 07/06/17 21:00 08/05/17 20:59 Bisacodyl (Dulcolax Supp) 10 mg DAILY PRN ME 07/06/17 21:00 08/05/17 20:59 Sodium Biphosphate/ Sodium Phosphate (Fleet Enema) 132 ml PRN PRN ME 07/06/17 21:00 07/13/17 20:59 Metoprolol Succinate (Toprol Xl Tab) 75 mg HS PO 07/07/17 21:00 08/06/17 20:59 07/08/17 21:38 75 MG Lisinopril (Zestril Tab) 10 mg QAM PO 07/07/17 09:00 08/06/17 08:59 07/09/17 07:50 10 MG Cholestyramine Resin (Questran Powder Light) 4 gm QAM PO 07/07/17 09:00 08/06/17 08:59 07/09/17 07:51 4 GM Ondansetron HCl (Zofran Inj) 4 mg ONE PRN IV 07/07/17 12:00 Acetaminophen (Tylenol Tab) 1,000 mg Q8H PO 07/07/17 14:00 08/06/17 13:59 07/09/17 05:46 1,000 MG Aspirin (Ecotrin Tab) 81 mg BID PO 07/07/17 21:00 08/06/17 20:59 07/09/17 07:50 81 MG Trazodone HCl (Desyrel Tab) 50 mg HS PO 07/07/17 21:00 08/05/17 21:14 07/08/17 21:40 50 MG
[2017-07-09] MEDS ORDERED: HydrALAZINE HCL 20 MG/ML VIAL IV. PRN (13:15)
[2017-07-09] MEDS ORDERED: ACET-1047 PO (13:20)
[2017-07-09] MEDS ORDERED: RXC5 PO (13:20)
[2017-07-09] MEDS ORDERED: ASPEC81 PO (13:20)
[2017-07-09] MEDS ORDERED: HydrALAZINE HCL 20 MG/ML VIAL ONE (13:40)
[2017-07-09 13:53] VITALS: BP 142/86; PULSE 76; TEMP 36.9; O2SAT 95
--- NOTE | 2017-07-09 13:57 | Discharge Summary ---
Discharge Summary Date of Service Jul 09, 2017. Discharge Summary Admission Date: Jul 06, 2017 at 21:19 Discharge Date: Jul 09, 2017 Discharge Disposition: half-way facility Principal Diagnosis: LEFT HIP FRACTURE Secondary Diagnoses/Problems: MILD LV HYPOKINESIS HYPERTENSION HISTORY OF COPD AND LUNG CANCER STATUS POST RESECTION HISTORY OF CVA ANEMIA OF ACUTE BLOOD LOSS MALNUTRITION MICROSCOPIC HEMATURIA Procedures: Left Bipolar Hip Hemiarthroplasty--Uncemented Consultations: ORTHO Medication Reconciliation New Medications: Acetaminophen (Mapap) 325 Mg Tab 650 MG PO Q6 PRN for Pain for 5 Days Aspirin (Aspirin EC Low Dose) 81 Mg Ectab 81 MG PO BID, #30 Oxycodone HCl (Oxycodone HCl) 5 Mg Tab 5 MG PO Q6H PRN for moderate to severe pain, #10 TAB hold for drowsiness Continued Medications: Alendronate Sodium (Alendronate Sodium) 70 Mg Tab 70 MG PO DAILY FRIDAY Cholestyramine (Cholestyramine) 4 Gm Pow 4 GM PO QAM Diphenoxylate/Atropine (Lomotil 2.5-0.025 mg) 1 Ea Tab 1 TAB PO QID PRN for Diarrhea for 5 Days, #20 TAB Lisinopril (Lisinopril) 10 Mg Tab 10 MG PO QAM Melatonin (Melatonin) 10 Mg Cap 10 MG PO HS Metoprolol Succinate (Metoprolol Succinate ER) 50 Mg Tabcr 75 MG PO HS Multiple Vitamins W/ Minerals (Centrum) 1 Tab Tab 1 TAB PO QAM Ocuvite Preservision (Ocuvite Preservision) 1 Tab Tab 1 TAB PO HS, TAB Paroxetine (Paroxetine HCl) 10 Mg Tab 10 MG PO QAM Probiotic Product (Probiotic) 1 Tab Tab 1 TAB PO HS Trazodone HCl (Trazodone HCl) 100 Mg Tab 100 MG PO HS Admission Information HPI (per Admitting provider): 81 year old F with PMH of stroke and left upper lobe resection for lung cancer in reported remission as per patient and family, who was at home when she had syncopal episode and collapse after 11 AM on 07/06/17 and uncertain whether there was loss of consciousness but this was likely the case as the patient was then found by her neighbor and the patient's daughter was notified at 6PM. Patient denies symptoms preceding the collapse. Denies shortness of breath, chest pain, of fevers. She reports that she had just gotten out of her chair and walking when she fell and she reports that the time that she had gotten up was 11 AM. When asked how did she feel when she came to usual level of cognition , she reports having some left hip pain but no other symptoms. On imaging pertinent for Mildly displaced subcapital fracture of the left femoral neck ( The left femoral neck distal fracture fragment is medially displaced 8-9 mm. The left femoral head remains congruent the acetabulum). Physical Exam (per Admitting): General Appearance: no apparent distress Head: normocephalic, atraumatic Eyes: normal inspection, EOMI, sclerae normal ENT: normal ENT inspection, hearing grossly normal, pharynx normal Neck: supple, no adenopathy, no JVD, no carotid bruits, trachea midline Respiratory/Chest: chest non-tender, lungs clear, normal breath sounds, no respiratory distress, no accessory muscle use Cardiovascular: regular rate, rhythm, no edema, no JVD, normal peripheral pulses Abdomen/GI: normal bowel sounds, non tender, soft, no organomegaly, no pulsatile mass Back: + pertinent finding (cannot not sit up for back exam) Extremities/Musculoskelatal: normal inspection, no calf tenderness, normal capillary refill, no pedal edema, non-tender, pelvis stable, + pertinent finding (can raise right leg, motion of left leg is pain limited ) Neurologic/Psych: flame channeler II-XII nml as tested, alert, normal mood/affect, oriented x 3 Skin: normal color, warm/dry, no rash Hospital Course 81-year-old female with a history of hypertension, COPD, lung cancer status post resection, CVA Presenting with sudden fall and subsequent left hip pain LEFT HIP FRACTURE Xray hip/pelvis showed mildly displaced subcapital left femoral neck fracture. medically stable by cardio to proceed with the procedure S/P day 2 Left Bipolar Hip Hemiarthroplasty--Uncemented Continue PT/OT pain control Fall precaution Incentive spirometry Mild LV hypokinesis Troponinx3 negative Continue metoprolol Asymptomatic Cardio on board, no further cardiac testing stable ECHO showed Normal LV chamber size with mild concentric LVH. * Mildly reduced LV systolic function with mild global hypokinesis, EF 45-50% . * Grade I diastolic dysfunction. * Aortic valve sclerosis mild, without significant aortic valvular stenosis. * Mild atherosclerotic plaque(s) in the ascending aorta. * The aortic root and proximal ascending aorta are normal sized. * Pulmonary hypertension is present with a PASP of 41 mmHg assuming a RA pressure of 3 mmHg. HYPERTENSION BP elevated Continue lisinopril and metoprolol Consider to increase lisinopril if BP not control Will give hydralazine 5mg x1 Monitor BP HISTORY OF COPD AND LUNG CANCER STATUS POST RESECTION stable HISTORY OF CVA Aspirin resume Anemia Acute blood loss due to recent post op surgery Continue monitor h/h Malnutrition BMI 17.8 Encourage pt to increase protein intake Microscopic hematuria UA showed trace blood Hb 10.2 DVT px SCDs ( recent surgery) On asa 81 mg BID Disposition Discharge to [facility] today Total time spent on discharge = 35 minutes This includes examination of the patient, discharge planning, medication reconciliation, and communication with other providers. Discharge Instructions Discharge Instructions Date of Service Jul 08, 2017. Admission Reason for Admission: Left Displaced Femoral Neck Fracture, Syncope Discharge Discharge Diagnosis / Problem: SP LEFT BIPOLAR HEMIARTHROPLASTY Discharge Goals Goal(s): Decrease discomfort, Improve function, Increase independence Activity Recommendations Activity Limitations: per Instructions/Follow-up section . Instructions / Follow-Up Instructions / Follow-Up ACTIVITY RECOMMENDATIONS: SELF CARE INSTRUCTIONS AFTER TOTAL HIP REPLACEMENT Until the incision and soft tissues around your hip have healed, there is a possibility that the hip prosthesis could dislocate. A. Observe the following precautions to prevent dislocation: 1. Don't bend your hip greater than 90 degrees. 2. Avoid crossing your legs or ankles while standing or lying. 3. Sit with your feet placed 6 inches apart. 4. When sitting, keep your knees below your hips. Sit on a firm surface, avoid deep, soft chairs and couches. Use an elevated toilet seat in the bathroom. 5. Don't bend over at the waist. Use a long handled shoehorn and a sock aid to help you put on your shoes and socks. A liquefaction supervisor can help you pickle maker objects that are too high or too low to reach. 6. Keep car riding to a minimum for at least one month after surgery. B. Your balance may be shaky for a while. Use crutches or a walker until directed by your doctor. C. Use hand rails when walking on stairs. D. Wear low heeled shoes with non-slip soles. E. Be sure that your floors are free of things that could trip you - throw rugs , electrical cords, small objects. Avoid wet and waxed floors, especially with crutches and canes. F. Try to walk several times a day with rest periods between. G. Continue with all the exercises taught to you in the hospital. Again, make walking a part of your daily routine. SPECIAL CARE INSTRUCTIONS: VERY IMPORTANT TO READ AND REVIEW A. You may still be at risk for phlebitis and blood clots. 1. Wear surgical stockings (RACHELL hose) for 2 weeks after surgery to improve circulation and reduce swelling. 2. Take Aspirin 81mg twice daily for 4 weeks or as directed by your doctor. This is your blood thinner. 3. High risk patients may be prescribed a stronger blood thinner if necessary. 4. If you are on Coumadin normally, your family doctor/privacy compliance manager should monitor your blood work. Expect a phone call the day of or the day after bloodwork is drawn to adjust your dosage. B. You must take antibiotics before having dental work, bladder, bowel and other surgery. Your doctor will provide you with a permanent card to carry describing precautions. C. Call [facility] if you have a fever, redness or swelling around the incision, cloudy drainage from incision, or sudden increase in pain in your hip, not relieved by your regular pain medication. D. Please call the office at if you have any concerns or questions about your operation or recovery. * YOU MAY SHOWER, NO TUB BATHS UNTIL CLEARED BY YOUR DOCTOR. * WEAR RACHELL HOSE 20 HOURS PER DAY FOR 2 WEEKS. * YOU SHOULD USE A WALKER OR CRUTCHES FOR 2-4 WEEKS. THIS WILL HELP PREVENT STRAIN ON YOUR HIP MUSCLE AND ALLOW IT TO HEAL PROPERLY. YOU MAY WEAN TO A CANE TOLERATED. * MOST PATIENTS WILL HAVE HOME NURSING FOR THERAPY. IF YOU DECIDE TO DO OUTPATIENT PHYSICAL THERAPY, PLEASE SCHEDULE THIS 3 TIMES PER WEEK. * DERMABOND Prineo- This is a mesh tape dressing that is covered with glue. It should remain in place until the incision is properly healed, usually 10-14 days. This dressing is designed to naturally slough off. You may trim the excess mesh tape as it peels off. Incision may be briefly wet in a shower. Dry immediately by blotting with a clean, dry towel. Do not bath or swim until instructed by your doctor. Do not scratch, rub, or pick at the dressing. Do not apply any topical ointments or lotions until dressing is completely removed and/or instructed by your doctor. There may be a small piece of suture material at one end of your incision. Do not pull or trim this. If it is bothersome or catching on clothing, you may cover it with a band-aid. FOLLOW UP VISIT: If appointment is not already scheduled: Please call [facility] to make a follow-up appointment for 2 weeks after your surgery at . DR[facility] JACOBS [facility] [place] [facility] FOR 2 WEEK VISIT. Current Hospital Diet Patient's current hospital diet: Regular Diet Discharge Diet Recommended Diet: Regular Diet Procedures Procedures Performed: Left Bipolar Hip Hemiarthroplasty--Uncemented Pending Studies Studies pending at discharge: no Medical Emergencies . Who to Call and When: Medical Emergencies: If at any time you feel your situation is an emergency, please call 911 immediately. . Non-Emergent Contact Non-Emergency issues call your: Surgeon . "Provider Documentation" section prepared by Vianey Sarmiento. Additional Copies To Sindy Horn M.D.
[2017-07-09 15:44] VITALS: BP 169/74; PULSE 66; TEMP 36.9; O2SAT 96
--- NOTE | 2017-07-10 10:00 | EDITING REQUIRED CODING QUERY ---
MALNUTRITION To promote full compliance with coding requirements relating to patient care, physician participation is requested in all cases of outreach educator uncertainty. Please assist us with the question(s) below: Please place an X within the parenthesis (x). If other, please document: "Malnutrition" is documented in this record. If possible, please check the box that provides a more specific diagnosis: (x ) Mild malnutrition ( ) Moderate malnutrition ( ) Severe malnutrition ( ) Protein malnutrition (kwashiorkor) ( ) Severe protein calorie malnutrition ( ) Protein calorie malnutrition, unspecified ( ) Other (please specify): Was this diagnosis present on admission? Please place an X within the parenthesis (x). (x ) Present on admission ( ) Not present on admission ( ) Unable to be clinically determined Thank you Chanel Esquivel
--- NOTE | 2017-07-10 10:05 | EDITING REQUIRED CODING QUERY ---
CODING QUERY To promote full compliance with coding requirements relating to patient care, provider participation is requested in all cases of corporate learning consultant uncertainty. Please assist us with the question(s) below: Coding Question(s): The H&P only documents the mildly displaced subcapital fracture of the left femoral neck as being related to osteoporosis. Please clarify below, in your clinical opinion, regarding the fracture etiology. ( ) The Fracture is Likely a Pathological Fracture due to Osteoporosis (x ) The Fracture is Likely a Traumatic Fracture not due to Osteoporosis Physician's Response(s): Thank you Chanel Esquivel Principal Diagnosis: "_that condition established after study, to be chiefly responsible for occasioning the admission of the patient to the hospital for care." Co-Existing Principal Diagnosis: "_when two or more diagnoses equally meet the criteria for principal diagnosis as determined by the circumstances of admission, diagnostic work up, and/or therapy provided, and the Alphabetic Index, Tabular List, or another coding guideline does not provide sequencing direction, any one of the diagnoses may be sequenced first." "When the physician has documented what appears to be a current diagnosis in the body of the record, but has not included the diagnosis in the final diagnostic statement, the physician should be asked whether the diagnosis should be added." (Source [facility]oding [facility] 2 QTR90. p3-4)
== END 2017-07-09 15:44 | DRG 470 ==
LOC: EDBD 19:28 → C.EDB 19:28 → C.2T 21:19 → ENRESERV 21:55
PROVIDERS: ADMIT Hospitalist; ATTEND Internal Medicine
PROC: 0SRS0JA Replacement of Left Hip Joint, Femoral Surface with Synthetic Substitute, Uncemented, Open Approach (ICD-10-PCS; principal; 2017-07-07 13:45)
DX: S72.012A Unspecified intracapsular fracture of left femur, initial encounter for closed fracture (principal); E44.1 Mild protein-calorie malnutrition; R64 Cachexia; Z68.1 Body mass index [BMI] 19.9 or less, adult; D62 Acute posthemorrhagic anemia; R55 Syncope and collapse; E87.6 Hypokalemia; R63.6 Underweight; I10 Essential (primary) hypertension; J44.9 Chronic obstructive pulmonary disease, unspecified; F17.200 Nicotine dependence, unspecified, uncomplicated; Z79.899 Other long term (current) drug therapy; Z86.73 Personal history of transient ischemic attack (TIA), and cerebral infarction without residual deficits; Z85.3 Personal history of malignant neoplasm of breast; Z85.118 Personal history of other malignant neoplasm of bronchus and lung; Z88.0 Allergy status to penicillin; Z91.048 Other nonmedicinal substance allergy status; Z88.5 Allergy status to narcotic agent; Z88.7 Allergy status to serum and vaccine; Z82.49 Family history of ischemic heart disease and other diseases of the circulatory system; Z83.3 Family history of diabetes mellitus; Z84.1 Family history of disorders of kidney and ureter; W18.39XA Other fall on same level, initial encounter; Y93.01 Activity, walking, marching and hiking; Y92.128 Other place in nursing home as the place of occurrence of the external cause; Y99.8 Other external cause status

== ENCOUNTER 2017-08-08 15:57 | Emergency (ER) | payer OTHER, MEDICARE ==
[~2017-08-08] VITALS: Ht 157.5 cm; Wt 44.2 kg
[~2017-08-08 15:57] MED LIST changes: +ACET-1047 PO; +ASPI-320 PO; -CHOL100010 PO; -COLE1TAB4 PO; -DSY100 PO; -LISI-725 PO; -MELA1CAP9 PO; -METO50TA16 PO; -MULT-190 PO; -MULTTAB5 PO; +RXC5 PO
[2017-08-08] MEDS ORDERED: SODIUM CHLORIDE 0.9% 1000ML 1,000 ML IV STA (16:05)
[2017-08-08 16:07] VITALS: TEMP 37; Ht 157.5 cm; Wt 44.2 kg
--- NOTE | 2017-08-08 16:23 | DIAGNOSTIC IMAGING REPORT ---
CHEST ONE VIEW PORTABLE CLINICAL HISTORY: EVALUATE WEAKNESS dyspnea COMPARISON STUDY: 07/06/2017 FINDINGS: Minimal parenchymal infiltrate left base. Lungs otherwise appear clear. Chronic apical pleural thickening on the left. Median sternotomy. IMPRESSION: Minimal parenchymal infiltrate left base superimposed upon chronic pleural and parenchymal change. The above report was generated using voice recognition software. It may contain grammatical, syntax or spelling errors. Electronically signed by: Harsh Cabrera M.D. 08/08/2017 4:21 PM Dictated Date/Time: 08/08/2017 4:20 PM
[2017-08-08 16:28] VITALS: O2SAT 95
[2017-08-08 17:00] LABS: BASO % 0.2 %; BASO ABS # 0.02 K/uL (0-0.2); EOS % 2.4 %; HEMATOCRIT 38.4 % (37-47); HEMOGLOBIN 12.2 g/dL (12.0-16.0); IG# 0.03 K/uL (0.00-0.02); LYMPH % 7.2 %; LYMPH ABS # 0.61 K/uL (1.2-3.4); MEAN CELL VOLUME 96.2 fL (80-100); MEAN CORPUSCULAR HEMOGLOBIN 30.6 pg (25-34); MEAN CORPUSCULAR HGB CONC 31.8 g/dl (32-36); MEAN PLATELET VOLUME 10.7 fL (7.4-10.4); MONO % 5.8 %; MONO ABS # 0.49 K/uL (0.11-0.59); NEUT ABS # 7.09 K/uL (1.4-6.5); PLATELET COUNT 207 K/uL (130-400); RED CELL DISTRIBUTION WIDTH CV 13.5 % (11.5-14.5); RED CELL DISTRIBUTION WIDTH SD 47.9 fL (36.4-46.3); WHITE BLOOD COUNT 8.44 K/uL (4.8-10.8)
[2017-08-08] MEDS ORDERED: SULF800T23 PO (17:01)
[2017-08-08] MEDS ORDERED: OXYC1TAB3 PO (17:01)
[2017-08-08] MEDS ORDERED: ASPI81TA28 PO (17:01)
[2017-08-08] MEDS ORDERED: MOML PO (17:01)
[2017-08-08] MEDS ORDERED: DIPH-416 PO (17:01)
[2017-08-08] MEDS ORDERED: ACET-1256 PO (17:01)
[2017-08-08] MEDS ORDERED: BISA10SU7 RE (17:01)
[2017-08-08] MEDS ORDERED: ERGO500011 PO (17:01)
[2017-08-08 17:13] LABS: PTT PATIENT 27.7 SECONDS (21.0-31.0)
[2017-08-08] MEDS ORDERED: IPRASOL4 INH (17:18)
[2017-08-08 17:22] LABS: ALBUMIN 2.7 gm/dl (3.4-5.0); ALT/SGPT 27 U/L (12-78); AST/SGOT 29 U/L (15-37); BLOOD UREA NITROGEN 14 mg/dl (7-18); CALCIUM 8.5 mg/dl (8.5-10.1); CARBON DIOXIDE 33 mmol/L (21-32); CREATININE 0.65 mg/dl (0.60-1.20); GLUCOSE 95 mg/dl (70-99); LIPASE 80 U/L (73-393); POTASSIUM 3.7 mmol/L (3.5-5.1); SODIUM 141 mmol/L (136-145)
[2017-08-08 17:34] LABS: ALKALINE PHOSPHATASE 97 U/L (45-117); TOTAL PROTEIN 6.3 gm/dl (6.4-8.2)
--- NOTE | 2017-08-08 18:10 | DIAGNOSTIC IMAGING REPORT ---
HEAD WITHOUT CONTRAST (CT) CT DOSE: 655.73 mGy.cm HISTORY: Mental status change. Weakness. AMS TECHNIQUE: Multiaxial CT images of the head were performed without the use of intravenous contrast. A dose lowering technique was utilized adhering to the principles of ALARA. Comparison: 07/06/2017 Findings: The paranasal sinuses and mastoid air cells are clear. Considerable chronic small vessel change throughout both cerebral hemispheres. 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 This is unchanged. No evidence for new or interval process. No acute intracranial hemorrhage. Impression: Considerable chronic small vessel change and age-related atrophy. No acute process. No change from the prior exam. The above report was generated using voice recognition software. It may contain grammatical, syntax or spelling errors. Electronically signed by: Harsh Cabrera M.D. 08/08/2017 6:09 PM Dictated Date/Time: 08/08/2017 6:07 PM
[2017-08-08 18:48] VITALS: BP 194/105; PULSE 73; O2SAT 96
[2017-08-08] MEDS ORDERED: MULT-190 PO (19:46)
[2017-08-08] MEDS ORDERED: PXL/10 PO (21:00)
[2017-08-08] MEDS ORDERED: TPRSR/50 PO (21:00)
[2017-08-08] MEDS ORDERED: CHOL4POW4 PO (21:00)
[2017-08-08] MEDS ORDERED: LISI-461 PO (21:00)
[2017-08-08] MEDS ORDERED: FSM70 PO (21:04)
--- NOTE | 2017-08-08 21:07 | EMERGENCY ROOM VISIT NOTE ---
History Report prepared by Namrata: John Baxter Under the Supervision of: Kurtis ChristensenO. First contact with patient: 15:59 Stated Complaint: ILLNESS History of Present Illness The patient is an 81 year old female who presents to the Emergency Room with complaints of persistent generalized weakness and fatigue starting around an hour ago. She states that nothing makes the symptoms better or worse. The patient states that she just go back from [facility] for rehab after a fractured hip and then hip surgery. The patient denies any headache, chest pain , shortness of breath, cough, runny nose, abdominal pain, and diarrhea. She states that she is incontinent, though this is normal for her. She states that she is currently on Septra for a UTI, and she notes that she takes a baby aspirin daily. The patient notes that she had a visiting nurse at her home earlier when she started to have these symptoms. Daughter added and that the patient was too weak to stand at one-point and she could not remember her medications and consequently they thought she was confused. Source of History: patient Onset: an hour ago Position: other (generalized) Quality: other (fatigue and weakness) Timing: other (persistent) Modifying Factors (Worsening): other (nothing) Modifying Factors (Relieving): other (nothing) Associated Symptoms: No headache, No cough, No chest pain, No SOB, No abdominal pain Review of Systems See HPI for pertinent positives & negatives. A total of 10 systems reviewed and were otherwise negative. Past Medical & Surgical Medical Problems: (1) Breast cancer (2) COPD (chronic obstructive pulmonary disease) (3) CVA (cerebral infarction) (4) Diverticulitis (5) Hypertension (6) Left displaced femoral neck fracture (7) Lung cancer (8) Syncope and collapse Surgical Problems: (1) H/O: hysterectomy (2) Hx of cholecystectomy (3) S/P cholecystectomy Family History Cancer Diabetes mellitus Gallbladder disease Heart disease Hypertension Kidney disease Kidney stones Lung disease Social History Smoking Status: Current Every Day Smoker Alcohol Use: none Marital Status: Housing Status: lives alone Occupation Status: retired Current/Historical Medications Scheduled Alendronate Sodium (Alendronate Sodium), 70 MG PO DAILY Aspirin (Aspirin Ec), 81 MG PO BID Cholestyramine (Cholestyramine), 4 GM PO QAM Ergocalciferol (Vitamin D 21641 Unit), 1 TAB PO WK Lisinopril (Lisinopril), 10 MG PO QAM Melatonin (Melatonin), 10 MG PO HS Metoprolol Succinate (Metoprolol Succinate ER), 75 MG PO HS Multiple Vitamins W/ Minerals (Centrum), 1 TAB PO QAM Ocuvite Preservision (Ocuvite Preservision), 1 TAB PO HS Paroxetine (Paroxetine HCl), 10 MG PO QAM Probiotic Product (Probiotic), 1 TAB PO HS Sulfa/Trimethoprim (Bactrim Ds 800MG/160MG), 1 TAB PO BID Trazodone HCl (Trazodone HCl), 100 MG PO HS Scheduled PRN Acetaminophen (Mapap), 650 MG PO Q6 PRN for Pain Bisacodyl (Bisac-Evac), 10 MG RE DAILY PRN for Constipation Diphenoxylate/Atropine (Lomotil), 1 TAB PO QID PRN for Diarrhea Magnesium Hydroxide (Milk Of Magnesia), 30 ML PO DAILY PRN for NO BM 3 DAYS Oxycodone Ir (Roxicodone Ir), 5 MG PO Q4H PRN for Severe Pain Allergies Coded Allergies: Flu Virus Vaccine (Verified Allergy, Unknown, ., 07/07/17) Penicillins (Verified Allergy, Unknown, HIVES, 07/06/17) Adhesives (Verified Adverse Reaction, Unknown, EXCORIATIONS, 07/06/17) Morphine (Verified Adverse Reaction, Unknown, ITCHING, 07/06/17) Physical Exam Vital Signs Date Time Temp Pulse Resp B/P (MAP) Pulse Ox O2 Delivery O2 Flow Rate FiO2 08/08/17 18:48 73 16 194/105 96 08/08/17 17:17 68 16 176/92 97 Room Air 08/08/17 17:05 69 198/92 70 180/90 71 192/98 08/08/17 16:55 66 16 175/88 93 Room Air 08/08/17 16:32 65 08/08/17 16:28 95 Room Air 08/08/17 16:28 95 Room Air 08/08/17 16:07 37.0 72 16 199/123 93 Room Air Physical Exam GENERAL: Sitting up in bed, alert, well appearing, well nourished, no distress, non-toxic EYE EXAM: normal conjunctiva. PERRL and EOM's intact. OROPHARYNX: no exudate, no erythema, lips, buccal mucosa, and tongue normal and mucous membranes are moist NECK: supple, no nuchal rigidity, no adenopathy, non-tender LUNGS: Clear to auscultation. Normal chest wall mechanics HEART: no murmurs, S1 normal and S2 normal ABDOMEN: abdomen soft, non-tender, normo-active bowel sounds, no masses, no rebound or guarding. BACK: Back is symmetrical on inspection and there is no deformity, no midline tenderness, no CVA tenderness. SKIN: no rashes and no bruising UPPER EXTREMITIES: upper extremities are grossly normal. LOWER EXTREMITIES: No pitting edema. Incision over the left hip. Clean dry and intact NEURO EXAM: Normal sensorium, cranial nerves II-XII intact, normal speech, no weakness of arms, no weakness of legs. No drift. Finger to nose intact. Gross sensation intact. Medical Decision & Procedures ER Provider Diagnostic Interpretation: Radiology results as stated below per my review and the radiologist's interpretation: CHEST ONE VIEW PORTABLE CLINICAL HISTORY: EVALUATE WEAKNESS dyspnea COMPARISON STUDY: 07/06/2017 FINDINGS: Minimal parenchymal infiltrate left base. Lungs otherwise appear clear. Chronic apical pleural thickening on the left. Median sternotomy. IMPRESSION: Minimal parenchymal infiltrate left base superimposed upon chronic pleural and parenchymal change. The above report was generated using voice recognition software. It may contain grammatical, syntax or spelling errors. Electronically signed by: Harsh Cabrera M.D. 08/08/2017 4:21 PM Dictated Date/Time: 08/08/2017 4:20 PM HEAD WITHOUT CONTRAST (CT) CT DOSE: 655.73 mGy.cm HISTORY: Mental status change. Weakness. AMS TECHNIQUE: Multiaxial CT images of the head were performed without the use of intravenous contrast. A dose lowering technique was utilized adhering to the principles of ALARA. Comparison: 07/06/2017 Findings: The paranasal sinuses and mastoid air cells are clear. Considerable chronic small vessel change throughout both cerebral hemispheres. 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 This is unchanged. No evidence for new or interval process. No acute intracranial hemorrhage. Impression: Considerable chronic small vessel change and age-related atrophy. No acute process. No change from the prior exam. The above report was generated using voice recognition software. It may contain grammatical, syntax or spelling errors. Electronically signed by: Harsh Cabrera M.D. 08/08/2017 6:09 PM Dictated Date/Time: 08/08/2017 6:07 PM Laboratory Results 08/08/17 16:45 Red Blood Count 3.99, Mean Corpuscular Volume 96.2, Mean Corpuscular Hemoglobin 30.6, Mean Corpuscular Hemoglobin Concent 31.8, Mean Platelet Volume 10.7, Neutrophils (%) (Auto) 84.0, Lymphocytes (%) (Auto) 7.2, Monocytes (%) (Auto) 5.8, Eosinophils (%) (Auto) 2.4, Basophils (%) (Auto) 0.2, Neutrophils # (Auto) 7.09, Lymphocytes # (Auto) 0.61, Monocytes # (Auto) 0.49, Eosinophils # (Auto) 0.20, Basophils # (Auto) 0.02 08/08/17 16:45 Test 08/08/17 16:15 08/08/17 16:45 Urine Color YELLOW Urine Appearance CLEAR (CLEAR) Urine pH 7.5 (4.5-7.5) Urine Specific [place] 1.013 (1.000-1.030) Urine Protein NEG (NEG) Urine Glucose (UA) NEG (NEG) Urine Ketones NEG (NEG) Urine Occult Blood NEG (NEG) Urine Nitrite NEG (NEG) Urine Bilirubin NEG (NEG) Urine Urobilinogen NEG (NEG) Urine Leukocyte Esterase NEG (NEG) White Blood Count 8.44 K/uL (4.8-10.8) Red Blood Count 3.99 M/uL (4.2-5.4) Hemoglobin 12.2 g/dL (12.0-16.0) Hematocrit 38.4 % (37-47) Mean Corpuscular Volume 96.2 fL (80-100) Mean Corpuscular Hemoglobin 30.6 pg (25-34) Mean Corpuscular Hemoglobin Concent 31.8 g/dl (32-36) Platelet Count 207 K/uL (130-400) Mean Platelet Volume 10.7 fL (7.4-10.4) Neutrophils (%) (Auto) 84.0 % Lymphocytes (%) (Auto) 7.2 % Monocytes (%) (Auto) 5.8 % Eosinophils (%) (Auto) 2.4 % Basophils (%) (Auto) 0.2 % Neutrophils # (Auto) 7.09 K/uL (1.4-6.5) Lymphocytes # (Auto) 0.61 K/uL (1.2-3.4) Monocytes # (Auto) 0.49 K/uL (0.11-0.59) Eosinophils # (Auto) 0.20 K/uL (0-0.5) Basophils # (Auto) 0.02 K/uL (0-0.2) RDW Standard Deviation 47.9 fL (36.4-46.3) RDW Coefficient of Variation 13.5 % (11.5-14.5) Immature Granulocyte % (Auto) 0.4 % Immature Granulocyte # (Auto) 0.03 K/uL (0.00-0.02) Prothrombin Time 10.7 SECONDS (9.0-12.0) Prothromb Time International Ratio 1.0 (0.9-1.1) Activated Partial Thromboplast Time 27.7 SECONDS (21.0-31.0) Partial Thromboplastin Ratio 1.1 Anion Gap 3.0 mmol/L (3-11) Est Creatinine Clear Calc Drug Dose 47.4 ml/min Estimated GFR () 96.5 Estimated GFR (Non- 83.3 BUN/Creatinine Ratio 21.6 (10-20) Calcium Level 8.5 mg/dl (8.5-10.1) Magnesium Level 1.9 mg/dl (1.8-2.4) Total Bilirubin 0.3 mg/dl (0.2-1) Direct Bilirubin < 0.1 mg/dl (0-0.2) Aspartate Amino Transf (AST/SGOT) 29 U/L (15-37) Alanine Aminotransferase (ALT/SGPT) 27 U/L (12-78) Alkaline Phosphatase 97 U/L (45-117) Troponin I < 0.015 ng/ml (0-0.045) Total Protein 6.3 gm/dl (6.4-8.2) Albumin 2.7 gm/dl (3.4-5.0) Lipase 80 U/L (73-393) Thyroid Stimulating Hormone (TSH) 1.140 uIu/ml (0.300-4.500) Laboratory results per my review. Medications Administered Medications (Trade) Dose Ordered Sig/Navid Route Start Time Stop Time Status Last Admin Dose Admin Sodium Chloride 1,000 ml @ 999 mls/hr Q1H1M STAT IV 08/08/17 16:05 08/08/17 17:05 DC 08/08/17 17:15 999 MLS/HR ECG Per My Interpretation Indication: weakness Rate (beats per minute): 64 Rhythm: sinus rhythm Findings: left axis deviation, no ectopy Comparison ECG Date: 07/07/17 Change: no significant change ED Course ED COURSE: Vital signs were reviewed and showed hypertension The patients medical record was reviewed The above diagnostic studies were performed and reviewed. ED treatments and interventions as stated above. 1559: The patient was evaluated in room B10. A complete history and physical examination was performed. 1605: Sodium Chloride 1000 ml @ 999 mls/hr IV 1751: I reevaluated the patient, and her family states that the patient was confused this morning because she could not list her medications which she usually could. Also thy note that she was weak and could not get out of her chair. 1834: Upon reevaluation, the patient is doing well.I discussed my findings with the patient and her family, and they understand and agree with the treatment plan. Based on the patients age, coexisting illnesses, exam and lab findings the decision to treat as an outpatient was made. The patient remained stable while under my care. The patient appeared well at the time of discharge. Medical Decision Differential Diagnosis includes but is not limited to dehydration, stroke, anemia, hypoglycemia, hyponatremia, hypernatremia, urinary tract infection, pneumonia, bronchitis, sepsis, gastroenteritis, additional abdominal pathology, metabolic abnormalities and infections. Patient is an 81-year-old female brought in by EMS for weakness. She notes that she had no other complaints but had a overwhelming feeling of weakness. CBC along with BMP, LFTs, bilirubin and troponin were negative. TSH was normal. UA is clean. Currently on Bactrim for UTI but symptoms are improving. She has no upper respiratory symptoms and chest x-ray initially read by myself I thought was unremarkable but radiology believe that there is a left lower lobe parenchymal infiltrate. 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 Daughter did present at bedside. She notes that that she was concerned that the patient was confused and acting inappropriately because she could not remember her medications. Patient is otherwise completely neurologically intact on my exam. CT head was performed and unremarkable. Patient family were updated at bedside. Since she has no URI symptoms will not treat at this time. She will continue Bactrim. She will follow-up in 2 days with her PCP. Discussed with Pt concerning signs and symptoms to watch out for. Pt was instructed to follow up with their PCP and discussed with the patient their option to return to the ED at anytime for persistent or worsening symptoms. The appropriate anticipatory guidance and out- patient management, including indications for return to the emergency department , were explained at length to the patient and understood. Medication Reconcilliation Current Medication List: was personally reviewed by me Blood Pressure Screening Patient's blood pressure: Elevated blood pressure Blood pressure disposition: Referred to PCP Impression Primary Impression: Weakness Scribe Attestation The scribe's documentation has been prepared under my direction and personally reviewed by me in its entirety. I confirm that the note above accurately reflects all work, treatment, procedures, and medical decision making performed by me. Departure Information Dispostion Home / Self-Care Referrals Sindy Horn M.D. (PCP) Forms HOME CARE DOCUMENTATION FORM, IMPORTANT VISIT INFORMATION, WORK / SCHOOL INSTRUCTIONS Patient Instructions ED Debbie Tan [facility] Additional Instructions Please follow up with your primary care doctor with in the next 24 hours. Any worsening of your symptoms, please return to the ED immediately. This includes any fevers greater than 100.4, worsening pain, chest pain, shortness breath, persistent nausea, vomiting, unable to eat or drink, or any other concerning signs or symptoms from your standpoint. Chest x-ray did show a questionable infiltrate. Please have this followed up by her primary care doctor. Any cough, runny nose or fevers or shortness of breath please return to the ER.
[2017-08-08] MEDS ORDERED: DSY100 PO (22:45)
[2017-08-08] MEDS ORDERED: MELA1CAP9 PO (22:49)
[2017-08-08] MEDS ORDERED: MULTTAB5 PO (22:49)
== END 2017-08-08 18:48 | disposition home or self-care (01) ==
LOC: EDBD 15:57 → C.EDB 15:57
DX: R53.1 Weakness (principal); Z85.3 Personal history of malignant neoplasm of breast; J44.9 Chronic obstructive pulmonary disease, unspecified; I10 Essential (primary) hypertension; F17.200 Nicotine dependence, unspecified, uncomplicated; Z86.73 Personal history of transient ischemic attack (TIA), and cerebral infarction without residual deficits; Z85.118 Personal history of other malignant neoplasm of bronchus and lung; Z90.710 Acquired absence of both cervix and uterus; Z90.49 Acquired absence of other specified parts of digestive tract; Z83.3 Family history of diabetes mellitus; Z82.49 Family history of ischemic heart disease and other diseases of the circulatory system; Z84.1 Family history of disorders of kidney and ureter; Z88.7 Allergy status to serum and vaccine; Z88.0 Allergy status to penicillin; Z88.5 Allergy status to narcotic agent; Z91.09 Other allergy status, other than to drugs and biological substances; Z79.82 Long term (current) use of aspirin; Z79.899 Other long term (current) drug therapy

== ENCOUNTER 2017-08-19 21:50 | Inpatient (IN) | payer OTHER, MEDICARE ==
[~2017-08-19] VITALS: Ht 154.9 cm; Wt 38.4 kg
[~2017-08-19 21:50] MED LIST changes: -ASPI-320 PO; +ASPI81TA28 PO; +BISA10SU7 RE; +CHOL4POW4 PO; +DIPH-416 PO; -DPH/ PO; +ERGO500011 PO; +FSM70 PO; +LISI-461 PO; +MOML PO; +MULT-190 PO; +OXYC1TAB3 PO; +PXL/10 PO; -RXC5 PO; +SULF800T23 PO; +TPRSR/50 PO
[2017-08-19] MEDS ORDERED: DSY100 PO (22:45)
--- NOTE | 2017-08-19 22:47 | DIAGNOSTIC IMAGING REPORT ---
AP PELVIS AND LEFT HIP 3 VIEWS CLINICAL HISTORY: Left hip pain status post trauma COMPARISON STUDY: 07/06/2017 FINDINGS: No acute fractures are visualized. There is superior lateral dislocation of the patient's left hip hemiarthroplasty. IMPRESSION: Dislocated left hip hemiarthroplasty Electronically signed by: Jalen Acuña M.D. 08/19/2017 10:45 PM Dictated Date/Time: 08/19/2017 10:39 PM
[2017-08-19] MEDS ORDERED: MULTTAB5 PO (22:49)
[2017-08-19] MEDS ORDERED: KETAMINE HCL INJ 50 MG/ML 10 ML VIAL IV STA (22:49)
[2017-08-19] MEDS ORDERED: MELA1CAP9 PO (22:49)
[2017-08-19] MEDS ORDERED: PROPOFOL IV EMULSION 10 MG/ML 20 ML VIAL IV STA (22:49)
--- NOTE | 2017-08-19 22:53 | EMERGENCY ROOM VISIT NOTE ---
Pre-Mod Sedation Assessment General Date of Moderate Sedation: August 19, 2017. Vital Signs: Vital Signs Past 12 Hours Date Time Temp Pulse Resp B/P (MAP) Pulse Ox O2 Delivery O2 Flow Rate FiO2 08/19/17 22:02 37.1 80 18 194/98 92 Room Air Review Cardiovascular: regular rate, rhythm Abdomen: normal bowel sounds Lungs: lungs clear Pre-Sedation Airway Assessment Oral Cavity: WNL Able to Visualize Vocal Cords: No Short Thick Neck: No Hx of Sleep Apnea: No Smoking Status: Current Every Day Smoker Mallampati Classification: Class II Procedure Planning Contraindications-for Mod Sed: None Yes Notes The planned sedation has been discussed with the patient and consent obtained. I have identified the patient, determined the appropriateness of sedation and have assessed the patient immediately prior to the procedure. All medicine(s) and interventions are by my order.
[2017-08-19] MEDS ORDERED: PXL20 PO (23:07)
[2017-08-19] MEDS ORDERED: ACET-1256 PO (23:07)
[2017-08-19] MEDS ORDERED: LACT1TAB4 PO (23:07)
[2017-08-19 23:23] VITALS: O2SAT 98
--- NOTE | 2017-08-19 23:36 | EMERGENCY ROOM VISIT NOTE ---
ED Visit Note First contact with patient: 21:51 Procedure note: Left hip reduction Reason: Left hip dislocation After conscious sedation was achieved, the hip was reduced using traction and rotation and flexion. After successful reduction, pulses were in tact. Leg length was restored without rotation. No complications. Performed under my direct supervision (Dr. Moore)
--- NOTE | 2017-08-19 23:49 | EMERGENCY ROOM VISIT NOTE ---
Post-Moderate Sedation Plan General Date of Moderate Sedation August 19, 2017. Vital Signs: Vital Signs Past 12 Hours Date Time Temp Pulse Resp B/P (MAP) Pulse Ox O2 Delivery O2 Flow Rate FiO2 08/19/17 23:23 98 Nasal Cannula 2.0 08/19/17 23:14 72 08/19/17 22:02 37.1 80 18 194/98 92 Room Air Review - Discharge Plan Post Moderate Sedation Plan: On clinical assessment, the patient appears to have tolerated the conscious sedation without complications. Patient is recovering as anticipated. Patient will continue to be monitored by nursing and may be discharged when conscious sedation discharge criteria are met.
[2017-08-20] MEDS ORDERED: OXYCODONE HCL IR 5 MG TAB (IMMEDIATE RELEASE) PO STA (00:29)
[2017-08-20] MEDS ORDERED: METOPROLOL TARTRATE 50 MG TAB PO STA (00:31)
--- NOTE | 2017-08-20 01:44 | EMERGENCY ROOM VISIT NOTE ---
History Report prepared by Namrata: Cherise Gutierrez Under the Supervision of: Kurtis SouthO. 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 She denies any head injuries. She reports pain in her left hip. She has a history of left hip surgery. She reports that movement worsens the pain. 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 Review of Systems See HPI for pertinent positives & negatives. A total of 10 systems reviewed and were otherwise negative. Past Medical & Surgical Medical Problems: (1) Breast cancer (2) COPD (chronic obstructive pulmonary disease) (3) CVA (cerebral infarction) (4) Diverticulitis (5) Hypertension (6) Left displaced femoral neck fracture (7) Lung cancer (8) Syncope and collapse Surgical Problems: (1) H/O: hysterectomy (2) Hx of cholecystectomy (3) S/P cholecystectomy Family History Cancer Diabetes mellitus Gallbladder disease Heart disease Hypertension Kidney disease Kidney stones Lung disease Social History Smoking Status: Current Every Day Smoker Smokeless Tobacco Use: No Alcohol Use: none Drug Use: none Marital Status: Housing Status: lives alone Occupation Status: retired Current/Historical Medications Scheduled Acetaminophen (Tylenol), 500 MG PO prn Alendronate Sodium (Alendronate Sodium), 70 MG PO DAILY Aspirin (Aspirin Ec), 81 MG PO BID Cholestyramine (Cholestyramine), 4 GM PO QAM Ergocalciferol (Vitamin D 06250 Unit), 1 TAB PO WK Lactobacillus (Floranex), 1 TAB PO DAILY Lisinopril (Lisinopril), 10 MG PO QAM Melatonin (Melatonin), 10 MG PO HS Metoprolol Succinate (Metoprolol Succinate ER), 75 MG PO HS Multiple Vitamins W/ Minerals (Centrum), 1 TAB PO QAM Ocuvite Preservision (Ocuvite Preservision), 1 TAB PO HS Paroxetine (Paroxetine HCl), 20 MG PO DAILY Trazodone HCl (Trazodone HCl), 50 MG PO HS Scheduled PRN Diphenoxylate/Atropine (Lomotil), 1 TAB PO QID PRN for Diarrhea Oxycodone Ir (Roxicodone Ir), 5 MG PO Q4H PRN for Severe Pain Allergies Coded Allergies: Flu Virus Vaccine (Verified Allergy, Unknown, ., 07/07/17) Penicillins (Verified Allergy, Unknown, HIVES, 07/06/17) Adhesives (Verified Adverse Reaction, Unknown, EXCORIATIONS, 07/06/17) Morphine (Verified Adverse Reaction, Unknown, ITCHING, 07/06/17) Physical Exam Vital Signs Date Time Temp Pulse Resp B/P (MAP) Pulse Ox O2 Delivery O2 Flow Rate FiO2 08/20/17 01:00 70 20 164/83 96 Room Air 08/20/17 00:30 70 18 204/104 97 Room Air 08/20/17 00:01 08/20/17 00:00 67 16 188/71 100 08/19/17 23:50 69 18 178/92 97 08/19/17 23:50 69 18 178/92 97 Nasal Cannula 2.0 08/19/17 23:41 171/112 08/19/17 23:40 71 16 100 Nasal Cannula 2.0 08/19/17 23:30 72 18 177/92 100 Nasal Cannula 2.0 08/19/17 23:28 189/104 08/19/17 23:24 196/99 08/19/17 23:23 98 Nasal Cannula 2.0 08/19/17 23:20 72 95 Nasal Cannula 2.0 08/19/17 23:20 99 Nasal Cannula 2.0 08/19/17 23:14 72 08/19/17 23:14 200/108 08/19/17 22:02 37.1 80 18 194/98 92 Room Air Physical Exam CONSTITUTIONAL/VITAL SIGNS: Reviewed / noted above. GENERAL: Non-toxic in appearance. INTEGUMENTARY: Warm, dry, and [place]. HEAD: Normocephalic. EYES: without scleral icterus or trauma. ENT/OROPHARYNX: clear and moist. LYMPHADENOPATHY/NECK: Is supple without lymphadenopathy or meningismus. RESPIRATORY: Lungs clear and equal. CARDIOVASCULAR: Regular rate and rhythm. GI/ABDOMEN: Soft and nontender. No organomegaly or pulsatile mass. No rebound or guarding. Normal bowel sounds. EXTREMITIES: Warm and well perfused. Shortening of internal rotation of left leg with pain in left hip area. BACK: No CVA tenderness. NEUROLOGICAL: Intact without focal deficits. PSYCHIATRIC: normal affect. MUSCULOSKELETAL: Normally developed with good muscle tone. Medical Decision & Procedures ER Provider Diagnostic Interpretation: Radiology results as stated below per my review and radiologist interpretation: AP PELVIS AND LEFT HIP 3 VIEWS CLINICAL HISTORY: Left hip pain status post trauma COMPARISON STUDY: 07/06/2017 FINDINGS: No acute fractures are visualized. There is superior lateral dislocation of the patient's left hip hemiarthroplasty. IMPRESSION: Dislocated left hip hemiarthroplasty Electronically signed by: Jalen Acuña M.D. 08/19/2017 10:45 PM Dictated Date/Time: 08/19/2017 10:39 PM Left Hip XR repeat: Shows left arthroplasty has been reduced and relocated into the acetabulum. No obvious fractures, no dislocation. Medications Administered Medications (Trade) Dose Ordered Sig/Navid Route Start Time Stop Time Status Last Admin Dose Admin Oxycodone HCl (Roxicodone Immediate Rel Tab) 5 mg NOW STAT PO 08/20/17 00:29 08/20/17 00:30 DC 08/20/17 00:36 5 MG Metoprolol Tartrate (Lopressor Tab) 75 mg NOW STAT PO 08/20/17 00:31 08/20/17 00:33 DC 08/20/17 00:37 75 MG Procedure Procedural Sedation Indication left hip dislocation. Total time: 27 minutes. Written consent was obtained after the risks and benefits were explained to the patient, including, but not limited to aspiration, allergic reaction, breathing difficulties, cardiac complications, vomiting, pain, event recall, bleeding, and /or infection. Pre-sedation examination and paperwork completed. The patient was on 100% oxygen via NRB prior to the procedure. Continous end tidal CO2 monitoring, pulse oximetry, and cardiac monitoring were utilized. Suction, airway equipment, medications, respiratory equipment, and appropriate personnel were prepared prior to the initiation of the procedure. A time out was taken. Sedation was achieved utilizing 20 mg of Ketamine and 40 mg of Propofol. After I observed the patient had reached the appropriate level of sedation the main procedure was performed without complication. Sedation was discontinued and the monitoring continued. The patient recovered quickly from the effects of the medication without complication or adverse event. ED Course 2201: Previous medical records were reviewed. The patient was evaluated in room 2200. A complete history and physical examination was performed. 2249: Ordered Propofol 20 mg IV and Ketamine HCl 20 mg IV 2300: I reassessed the patient at this time. She will undergo conscious sedation. 2323: I reassessed the patient at this time. I relocated the patient's hip. Please see procedural note. 2350: The patient is now awake. The patient's daughter is at bedside. 0020: I spoke with Dr. Morris, orthopedic surgeon. We discussed the patient's case. He recommend the patient be discharged home. 0026: I reassessed the patient at this time. She has pain in her hip. 0029: Ordered Oxycodone 5 mg PO 0031: Ordered Lopressor 75 mg PO 0103: I reassessed the patient at this time. Her blood pressure has improved. Her pain has improved. She will undergo an ambulatory trial. Medical Decision Differential diagnosis: Etiologies such as fracture, dislocation, neurovascular compromise, compartment syndrome, soft tissue injury, as well as others were entertained. This is an 81-year-old female who presents to the ED with a chief complaint of left hip pain. The patient states that she was placing her phone and its stand when she lost her balance and fell onto her left hip. She comes in with an internally shortened left leg. X-ray reveals dislocation. The patient had a left bipolar hip hemiarthroplasty on 07/07/17. The patient denies any numbness distal to the extremity. Her exam is consistent with a dislocation. After obtaining written consent, the patient was given medication for conscious sedation and with the assistance of physician assistant Lockhart, the left hip was reduced. X-rays were done did not reveal fracture. The hip appears to be relocated into its appropriate position. I spoke over the case with Dr. Morris. He recommends that the patient follow-up with the orthopedist. The patient tolerated the procedure well. She was given some OxyIR following the procedure for discomfort. She was also given her nightly dose of Lopressor as her blood pressure was elevated. This did improve her blood pressure. An ambulatory trial after pain medication was attempted but the patient had a moderate amount of pain in her left hip with movement. The patient will be seen by the hospitalist for observation for pain management and possible placement if symptoms do not improve by tomorrow. Medication Reconcilliation Current Medication List: was personally reviewed by me Blood Pressure Screening Patient's blood pressure: Elevated blood pressure Blood pressure disposition: Elevated BP felt to be situational Consults Time Called: 179 Consulting Physician: Dr. Morris, orthopedic surgeon Returned Call: [address] Morris, orthopedic surgeon. We discussed the patient's case. He recommend the patient be discharged home. Impression Primary Impression: Hip dislocation, left Scribe Attestation The scribe's documentation has been prepared under my direction and personally reviewed by me in its entirety. I confirm that the note above accurately reflects all work, treatment, procedures, and medical decision making performed by me. Departure Information Dispostion Being Evaluated By Hospitalist Referrals Sindy Horn M.D. (PCP) Forms HOME CARE DOCUMENTATION FORM, IMPORTANT VISIT INFORMATION, WORK / SCHOOL INSTRUCTIONS Patient Instructions ED Hip Replace Dislocation Reduc, My [facility] Additional Instructions Use your postsurgical pillow between legs. Take your oxycodone as needed for pain. Follow-up with your orthopedist for recheck later this week or next week
--- NOTE | 2017-08-20 03:17 | History and Physical ---
History & Physical Date & Time of Service: August 20, 2017 at 02:55 Chief Complaint: L Hip Pain Primary Care Physician: Sindy Horn M.D. History of Present Illness Source: patient, hospital records 81 years old female with past medical history of COPD, CVA, hypertension, left hip fracture, recent left hip surgery in June presented to the ER after a fall. 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 Patient said that she was unable to get up and she called her daughter to help her. Patient said that she did not pass out or did not hit her head. Patient said that she has been doing fine after the surgery in June for the left hip and she was using a cane to ambulate. Patient said that she is having pain in the left hip that is worsening with movement. Left hip x-ray done in the ER showed dislocated left hip hemiarthroplasty. Denies any chest pain, palpitation, dizziness, shortness of breath, numbness. Past Medical/Surgical History Medical Problems: (1) Abnormal EKG (2) Breast cancer (3) COPD (chronic obstructive pulmonary disease) (4) CVA (cerebral infarction) (5) Diverticulitis (6) Hypertension (7) Hypokalemia (8) Left displaced femoral neck fracture (9) Lung cancer (10) Subcapital fracture of left hip (11) Syncope (12) Syncope and collapse (13) Weakness (14) Weakness Surgical Problems: (1) H/O: hysterectomy (2) History of hysterectomy (3) History of mastectomy (4) Hx of cholecystectomy (5) S/P cholecystectomy (6) S/P lobectomy of lung Family History Cancer Diabetes mellitus Gallbladder disease Heart disease Hypertension Kidney disease Kidney stones Lung disease Social History Smoking Status: Current Every Day Smoker Smokeless Tobacco Use: No Drug Use: none Marital Status: Occupational Status: retired Allergies Coded Allergies: Flu Virus Vaccine (Verified Allergy, Unknown, ., 07/07/17) Penicillins (Verified Allergy, Unknown, HIVES, 07/06/17) Adhesives (Verified Adverse Reaction, Unknown, EXCORIATIONS, 07/06/17) Morphine (Verified Adverse Reaction, Unknown, ITCHING, 07/06/17) Home Medications Scheduled Acetaminophen (Tylenol), 500 MG PO prn Alendronate Sodium (Alendronate Sodium), 70 MG PO DAILY Aspirin (Aspirin Ec), 81 MG PO BID Cholestyramine (Cholestyramine), 4 GM PO QAM Ergocalciferol (Vitamin D 47553 Unit), 1 TAB PO WK Lactobacillus (Floranex), 1 TAB PO DAILY Lisinopril (Lisinopril), 10 MG PO QAM Melatonin (Melatonin), 10 MG PO HS Metoprolol Succinate (Metoprolol Succinate ER), 75 MG PO HS Multiple Vitamins W/ Minerals (Centrum), 1 TAB PO QAM Ocuvite Preservision (Ocuvite Preservision), 1 TAB PO HS Paroxetine (Paroxetine HCl), 20 MG PO DAILY Trazodone HCl (Trazodone HCl), 50 MG PO HS Scheduled PRN Diphenoxylate/Atropine (Lomotil), 1 TAB PO QID PRN for Diarrhea Oxycodone Ir (Roxicodone Ir), 5 MG PO Q4H PRN for Severe Pain Review of Systems Constitutional: + weakness, No fever Eyes: No eye pain, No discharge ENT: No nasal symptoms, No sore throat Respiratory: No cough, No sputum, No shortness of breath Cardiovascular: No chest pain, No claudication, No palpitations Abdomen: No pain, No nausea, No vomiting Musculoskeletal: + joint pain (Left hip pain), No calf pain Genitourinary - Female: No dysuria, No hematuria Neurologic: + weakness, + balance problems, No numbness/tingling Psychiatric: No substance abuse Endocrine: No fatigue Hematologic / Lymphatic: No abnormal bleeding/bruising, No night sweats Integumentary: No rash, No itch Physical Exam Vital Signs Date Time Temp Pulse Resp B/P (MAP) Pulse Ox O2 Delivery O2 Flow Rate FiO2 08/20/17 01:00 70 20 164/83 96 Room Air 08/20/17 00:30 70 18 204/104 97 Room Air 08/20/17 00:01 08/20/17 00:00 67 16 188/71 100 08/19/17 23:50 69 18 178/92 97 08/19/17 23:50 69 18 178/92 97 Nasal Cannula 2.0 08/19/17 23:41 171/112 08/19/17 23:40 71 16 100 Nasal Cannula 2.0 08/19/17 23:30 72 18 177/92 100 Nasal Cannula 2.0 08/19/17 23:28 189/104 08/19/17 23:24 196/99 08/19/17 23:23 98 Nasal Cannula 2.0 08/19/17 23:20 72 95 Nasal Cannula 2.0 08/19/17 23:20 99 Nasal Cannula 2.0 08/19/17 23:14 72 08/19/17 23:14 200/108 08/19/17 22:02 37.1 80 18 194/98 92 Room Air General Appearance: WD/WN, no apparent distress Head: normocephalic, atraumatic Eyes: normal inspection, EOMI ENT: hearing grossly normal Neck: no JVD, trachea midline Respiratory/Chest: normal breath sounds, no respiratory distress, no accessory muscle use Cardiovascular: regular rate, rhythm, no gallop, no JVD Abdomen/GI: normal bowel sounds, non tender, soft Back: no CVA tenderness Extremities/Musculoskelatal: no calf tenderness, + pertinent finding (Left hip pain with movement) Neurologic/Psych: no motor/sensory deficits, alert, normal mood/affect Skin: warm/dry, no rash Diagnostics Diagnostic Radiology AP PELVIS AND LEFT HIP 3 VIEWS CLINICAL HISTORY: Left hip pain status post trauma COMPARISON STUDY: 07/06/2017 FINDINGS: No acute fractures are visualized. There is superior lateral dislocation of the patient's left hip hemiarthroplasty. IMPRESSION: Dislocated left hip hemiarthroplasty Electronically signed by: Jalen Acuña M.D. 08/19/2017 10:45 PM Dictated Date/Time: 08/19/2017 10:39 PM Impression Assessment and Plan Left Hip Pain S/P fall Xray showed dislocated left hip hemiarthroplasty ER physician attempted to relocated the left hip Continue pain control PT/OT eval Fall precaution Ortho consult HTN BP elevated possible due to hospital setting and left hip pain Continue lisinopril 10mg daily and metoprolol Monitor BP COPD No signs of exacerbation Will add duoneb prn Hx CVA On Aspirin DVT px heparin subq Code Status full code Resuscitation Status VTE Prophylaxis Will order VTE Prophylaxis: Yes
[2017-08-20 03:42] VITALS: BP 165/83; PULSE 63; TEMP 36.4; O2SAT 96; BMI 16.0
[2017-08-20] MEDS: OXYCODONE HCL IR 5 MG TAB (IMMEDIATE RELEASE) PO PRN ×2 (04:25→20:33)
[2017-08-20] MEDS ORDERED: IV FLUIDS COMPLETED PRN (04:30)
--- NOTE | 2017-08-20 07:13 | DIAGNOSTIC IMAGING REPORT ---
L PELVIS/UNILATERAL HIP 2-3VIEWS CLINICAL HISTORY: Left hip dislocation. Post reduction. COMPARISON STUDY: Pelvis and left hip 08/19/2017. FINDINGS: Interval reduction of the left hip hemiarthroplasty. The hardware appears intact. No fractures identified within the pelvis or hips. Left hip soft tissue swelling. IMPRESSION: 1. No fracture or dislocation within the pelvis or hips. 2. Interval reduction of the left hip hemiarthroplasty. The alignment is anatomic. Electronically signed by: Dipesh Driver M.D. 08/20/2017 7:12 AM Dictated Date/Time: 08/20/2017 7:09 AM
[2017-08-20 07:22] VITALS: BP 160/94; PULSE 65; TEMP 36.3; O2SAT 96
[2017-08-20 08:37] LABS: HEMATOCRIT 33.8 % (37-47); HEMOGLOBIN 10.8 g/dL (12.0-16.0); MEAN CELL VOLUME 94.2 fL (80-100); MEAN CORPUSCULAR HEMOGLOBIN 30.1 pg (25-34); MEAN PLATELET VOLUME 11.1 fL (7.4-10.4); PLATELET COUNT 227 K/uL (130-400); RED CELL DISTRIBUTION WIDTH CV 13.5 % (11.5-14.5); WHITE BLOOD COUNT 16.04 K/uL (4.8-10.8)
[2017-08-20] MEDS ORDERED: ONDANSETRON INJ 2 MG/ML 2 ML VIAL IV PRN (08:45)
[2017-08-20 09:09] LABS: CALCIUM 7.9 mg/dl (8.5-10.1); CREATININE 0.6 mg/dl (0.60-1.20); POTASSIUM 4.2 mmol/L (3.5-5.1)
[2017-08-20] MEDS: LISINOPRIL 10 MG TAB PO SCH (09:35)
[2017-08-20] MEDS: PAROXETINE 20 MG TAB PO SCH (09:35)
[2017-08-20] MEDS: ASPIRIN 81 MG ECTAB PO SCH ×2 (09:35→20:33)
[2017-08-20] MEDS: LACTOBACILLUS ACIDOPHILUS (FLORANEX) TAB PO SCH (09:38)
[2017-08-20] MEDS: CHOLESTYRAMINE LIGHT 4 GM PKT PO SCH (09:38)
[2017-08-20] MEDS: CEROVITE ADV FORMULA TAB PO SCH ×2 (09:38→20:33)
[2017-08-20] MEDS: HEPARIN SOD 5000 UNIT/0.5 ML CARP SQ SCH ×2 (10:30→20:35)
[2017-08-20 12:36] VITALS: Ht 154.9 cm; Wt 38.4 kg
--- NOTE | 2017-08-20 15:09 | Progress Note ---
Subjective Date of Service: August 20, 2017. Subjective Pt evaluation today including: conversation w/ patient, physical exam, lab review, review of studies, review of inpatient medication list Saw/examined the patient in room 354 No problems/issues; pain is controlled Tolerating diet, no nausea/vomiting No other problems to note today Problem List Medical Problems: (1) Abnormal EKG Status: Acute (2) Hip dislocation, left Status: Acute (3) Hypokalemia Status: Acute (4) Subcapital fracture of left hip Status: Acute (5) Syncope Status: Acute (6) Weakness Status: Acute Review of Systems Constitutional: No fever, No chills Respiratory: No cough, No sputum, No wheezing, No shortness of breath, No dyspnea on exertion Cardiac: No chest pain, No edema, No palpitations Abdomen: No pain, No nausea, No vomiting, No diarrhea, No constipation, No GI bleeding Musculoskeletal: + joint pain Neurologic: + balance problems Heme: No abnormal bleeding/bruising Medications Current Inpatient Medications Medications (Trade) Dose Ordered Sig/Navid Route Start Time Stop Time Status Last Admin Dose Admin Acetaminophen (Tylenol Tab) 500 mg DAILY PRN PO 08/20/17 04:15 09/19/17 04:14 Aspirin (Ecotrin Tab) 81 mg BID PO 08/20/17 09:00 09/19/17 08:59 08/20/17 09:35 81 MG Lactobacillus Acidophilus (Floranex Tab) 1 tab DAILY PO 08/20/17 09:00 09/19/17 08:59 Lisinopril (Zestril Tab) 10 mg QAM PO 08/20/17 09:00 09/19/17 08:59 08/20/17 09:35 10 MG Metoprolol Succinate (Toprol Xl Tab) 75 mg HS PO 08/20/17 21:00 09/19/17 20:59 Multivitamins/ Minerals (Multivitamin W/ Minerals Tab) 1 tab QAM PO 08/20/17 09:00 09/19/17 08:59 Multivitamins/ Minerals (Multivitamin W/ Minerals Tab) 1 tab HS PO 08/20/17 21:00 09/19/17 20:59 Paroxetine HCl (pAXil TAB) 20 mg DAILY PO 08/20/17 09:00 09/19/17 08:59 08/20/17 09:35 20 MG Trazodone HCl (Desyrel Tab) 50 mg HS PO 08/20/17 21:00 09/19/17 20:59 Cholestyramine Resin (Questran Powder Light) 4 gm DAILY@1000 PO 08/20/17 10:00 09/19/17 09:59 Oxycodone HCl (Roxicodone Immediate Rel Tab) 5 mg Q8 PRN PO 08/20/17 03:00 09/03/17 02:59 08/20/17 04:25 5 MG Heparin Sodium (Porcine) (Heparin Sq 5000 Unit/0.5ml) 5,000 unit Q12 SQ 08/20/17 09:00 09/19/17 08:59 Miscellaneous (Iv Fluids Completed) 1 ea PRN PRN N/A 08/20/17 04:30 08/20/18 04:29 Ondansetron HCl (Zofran Inj) 4 mg Q6H PRN IV 08/20/17 08:45 09/19/17 08:44 08/20/17 09:02 4 MG Enteral Nutritional Formula (Boost) 1 can BIDM PO 08/20/17 17:45 09/19/17 17:44 Objective Vital Signs Date Time Temp Pulse Resp B/P (MAP) Pulse Ox O2 Delivery O2 Flow Rate FiO2 08/20/17 07:50 Room Air 08/20/17 07:22 36.3 65 20 160/94 (116) 96 Room Air 08/20/17 03:42 36.4 63 18 165/83 96 Room Air 08/20/17 02:38 60 18 165/86 96 Room Air 08/20/17 01:00 70 20 164/83 96 Room Air 08/20/17 00:30 70 18 204/104 97 Room Air 08/20/17 00:01 08/20/17 00:00 67 16 188/71 100 08/19/17 23:50 69 18 178/92 97 08/19/17 23:50 69 18 178/92 97 Nasal Cannula 2.0 08/19/17 23:41 171/112 08/19/17 23:40 71 16 100 Nasal Cannula 2.0 08/19/17 23:30 72 18 177/92 100 Nasal Cannula 2.0 08/19/17 23:28 189/104 08/19/17 23:24 196/99 08/19/17 23:23 98 Nasal Cannula 2.0 08/19/17 23:20 72 95 Nasal Cannula 2.0 08/19/17 23:20 99 Nasal Cannula 2.0 08/19/17 23:14 72 08/19/17 23:14 200/108 08/19/17 22:02 37.1 80 18 194/98 92 Room Air Physical Exam General Appearance: no apparent distress Respiratory/Chest: chest non-tender, lungs clear, normal breath sounds, no respiratory distress, no accessory muscle use Cardiovascular: regular rate, rhythm, no edema Extremities: normal inspection, no pedal edema Neurologic/Psychiatric: no motor/sensory deficits, alert, normal mood/affect Laboratory Results Last 24 Hours Test 08/20/17 08:09 White Blood Count 16.04 K/uL Red Blood Count 3.59 M/uL Hemoglobin 10.8 g/dL Hematocrit 33.8 % Mean Corpuscular Volume 94.2 fL Mean Corpuscular Hemoglobin 30.1 pg Mean Corpuscular Hemoglobin Concent 32.0 g/dl RDW Standard Deviation 47.0 fL RDW Coefficient of Variation 13.5 % Platelet Count 227 K/uL Mean Platelet Volume 11.1 fL Activated Partial Thromboplast Time 24.0 SECONDS Partial Thromboplastin Ratio 0.9 Sodium Level 141 mmol/L Potassium Level 4.2 mmol/L Chloride Level 108 mmol/L Carbon Dioxide Level 26 mmol/L Anion Gap 7.0 mmol/L Blood Urea Nitrogen 19 mg/dl Creatinine 0.60 mg/dl Est Creatinine Clear Calc Drug Dose 44.6 ml/min Estimated GFR () 99.1 Estimated GFR (Non- 85.5 BUN/Creatinine Ratio 31.9 Random Glucose 154 mg/dl Calcium Level 7.9 mg/dl Assessment and Plan This is an 81 year old female with a past medical history of COPD, hx. of CVA, HTN, recent L hip surgery in June 2017 - presents with a fall and a subsequent dislocation of the L hip Mechanical Fall L Hip Dislocation Recent L Hip Arthroplasty - recent L hip arthroplasty in June 2017 - subsequent fall due to mechanical fall - L hip dislocation, subsequent reduction - orthopedics consulted for further input - pain is controlled - PT/OT - will need placement COPD - breathing status stable Hx. of CVA - continue aspirin - unsure why patient is not on a statin; will need to discuss as outpatient DVT ppx - subq heparin FULL CODE
[2017-08-20 15:14] VITALS: BP 106/64; PULSE 65; TEMP 37; O2SAT 97
--- NOTE | 2017-08-20 16:56 | Orthopedic Progress Note ---
Orthopedic Progress Note Date of Service August 20, 2017. Subjective Reports: feeling well, Denies: complaints Additional Notes: Sitting in chair at bedside. No complaints. Pain controlled. Pt states she's been up on the hip wbat without any increased pain. Objective calves soft nontender, N/V intact, hip located, A&O x3, toes mobile well healed incision noted on the left hip. Date Time Temp Pulse Resp B/P (MAP) Pulse Ox O2 Delivery O2 Flow Rate FiO2 08/20/17 15:14 37.0 65 16 106/64 (78) 97 Room Air 08/20/17 15:10 Room Air 08/20/17 07:50 Room Air 08/20/17 07:22 36.3 65 20 160/94 (116) 96 Room Air 08/20/17 03:42 36.4 63 18 165/83 96 Room Air 08/20/17 02:38 60 18 165/86 96 Room Air 08/20/17 01:00 70 20 164/83 96 Room Air 08/20/17 00:30 70 18 204/104 97 Room Air 08/20/17 00:01 08/20/17 00:00 67 16 188/71 100 08/19/17 23:50 69 18 178/92 97 08/19/17 23:50 69 18 178/92 97 Nasal Cannula 2.0 08/19/17 23:41 171/112 08/19/17 23:40 71 16 100 Nasal Cannula 2.0 08/19/17 23:30 72 18 177/92 100 Nasal Cannula 2.0 08/19/17 23:28 189/104 08/19/17 23:24 196/99 08/19/17 23:23 98 Nasal Cannula 2.0 08/19/17 23:20 72 95 Nasal Cannula 2.0 08/19/17 23:20 99 Nasal Cannula 2.0 08/19/17 23:14 72 08/19/17 23:14 200/108 08/19/17 22:02 37.1 80 18 194/98 92 Room Air Laboratory Results 24 Hours: Test 08/20/17 08:09 Hematocrit 33.8 % Hemoglobin 10.8 g/dL Assessment & Plan Assessment: Dislocation Left Bipolar Hemiarthroplasty with closed reduction performed in ER successfully. Plan: Consult dictated. PT/OT; EUGENIA precautions/protocols WBAT f/u with Dr Lamas per next post op appointment
[2017-08-20] MEDS: BOOST VANILLA PO SCH (17:31)
[2017-08-20] MEDS: ACETAMINOPHEN 500 MG TAB PO PRN (20:06)
--- NOTE | 2017-08-20 20:06 | CONSULTATION REPORT ---
DATE OF CONSULTATION: 08/20/2017 REASON FOR CONSULT: Recent dislocation of her left bipolar hemiarthroplasty. HISTORY OF PRESENT ILLNESS: Patient is an 81-year-old white female known to our practice who is status post left bipolar hemiarthroplasty surgery for femoral neck fracture when she was admitted on 07/06/2017. She was discharged on the and has been doing well since that time. She came to the Emergency Room last night after having a fall at home. 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 She was unable to get up and she called her daughter for help who brought her to the Emergency Room. She denies losing consciousness and she had no chest pain or shortness of breath or lightheadedness prior to or after the fall. After being seen by the staff, the x-ray was found that she had dislocated left bipolar hemiarthroplasty. She then underwent conscious sedation and they successfully did a closed reduction of the left hip dislocation. She was having continued pain at that time and ambulatory dysfunction and was admitted for further care. PAST MEDICAL HISTORY: History of breast cancer, COPD, CVA, diverticulitis, hypertension, hyperkalemia, lung carcinoma, history of syncope. PAST SURGICAL HISTORY: Left bipolar hemiarthroplasty in June of 2017, hysterectomy, mastectomy, cholecystectomy, lobectomy. FAMILY HISTORY: Cancer, diabetes mellitus, cholelithiasis, heart disease, hypertension, kidney disease, renal calculi, lung disease. SOCIAL HISTORY: Patient is an every day smoker and does not use alcohol and she is and retired. MEDICATIONS: Tylenol 500 mg p.o. p.r.n., alendronate sodium 70 mg p.o. daily, aspirin 81 mg p.o. b.i.d., cholestyramine 4 mg p.o. q.a.m., vitamin D 50,000 units 1 tab p.o. weekly, lactobacillus 1 tab p.o. daily, lisinopril 10 mg p.o. q.a.m., melatonin 10 mg p.o. at bedtime, metoprolol extended release 75 mg p.o. at bedtime, multivitamin 1 tab p.o. q.a.m., Ocuvite 1 tab p.o. at bedtime, paroxetine 20 mg p.o. daily, trazodone 50 mg at bedtime, Lomotil 1 tab p.o. q.i.d. p.r.n., oxycodone 5 mg p.o. q. 4 hours p.r.n. for severe pain. ALLERGIES: FLU VACCINE, PENICILLIN, ADHESIVES AND MORPHINE. REVIEW OF SYSTEMS: As per admitting history and physical. PHYSICAL EXAMINATION: EXTREMITIES: Examination of the patient's left lower extremity, she is sitting in a chair which she is readily able to get out on her own strength. Range of motion of the hip feels stable within the parameters of hip precautions after dislocation. She has no pain with weightbearing at this time and she denies any paresthesias down the leg at this time. Good range of motion at the knee and the ankle and toes and distal pulses are equal bilaterally. ASSESSMENT: Dislocation, left bipolar hemiarthroplasty. (Reduced in ER) PLAN: We will start physical therapy today and see how she does and go through her hip precautions again. She will need to remain on hip precautions for another 4-6 weeks. She can follow up with Dr. Lamas for her regularly scheduled visit. We will see how she does with her physical therapy and see if she needs any type of home health PT versus penitentiary facility after her discharge. VAHID
[2017-08-20] MEDS: TRAZODONE HCL 100 MG TAB PO SCH (20:33)
[2017-08-20] MEDS: METOPROLOL SUCC 25MG EXT REL TAB PO SCH (20:34)
[2017-08-20 20:37] VITALS: BP 138/73; PULSE 76
[2017-08-20] MEDS ORDERED: BOOST VANILLA PO SCH (21:00)
[2017-08-20 23:20] VITALS: BP 90/47; PULSE 64; TEMP 36.8; O2SAT 98
[2017-08-21 05:25] VITALS: BP 134/68; PULSE 70
--- NOTE | 2017-08-21 06:53 | Clinical Documentation Query ---
CLINICAL DOCUMENTATION QUERY 81 yo female admitted with left hip dislocation. Patient's BMI is 16 and described as "thin". In your clinical opinion is this patient being managed for: ( x ) Cachexia ( ) Not Agree ( ) Other explanation of clinical findings (Please Explain; If no explanation given, this is considered a no response.) ( ) Unable to determine ( ) Need to Discuss (Please call CDS via extension or [email or web address]. If no interaction occurs, this is considered a no response.) The medical record reflects the following clinical findings, treatment, and risk factors. Clinical Indicators: As above Treatment: Boost shakes, nutrition consult Risk Factors: Smoker, hip dislocation Please clarify and document your clinical opinion in the progress notes and discharge summary. Terms such as "probable", "suspected", "likely", "questionable", "possible", or "still to be ruled out" are acceptable. IF IN AGREEMENT, YOU MUST DOCUMENT ABOVE DIAGNOSTIC STATEMENT IN DAILY PROGRESS NOTES AND DISCHARGE SUMMARY. This document is not part of the patient's record. Thank You, Nat Slater RN [phone]
[2017-08-21 07:33] VITALS: BP 125/69; PULSE 64; TEMP 36.7; O2SAT 97
[2017-08-21] MEDS: LISINOPRIL 10 MG TAB PO SCH (09:00)
[2017-08-21] MEDS: LACTOBACILLUS ACIDOPHILUS (FLORANEX) TAB PO SCH (09:14)
[2017-08-21] MEDS: CEROVITE ADV FORMULA TAB PO SCH ×2 (09:14→20:36)
[2017-08-21] MEDS: HEPARIN SOD 5000 UNIT/0.5 ML CARP SQ SCH ×2 (09:14→20:42)
[2017-08-21] MEDS: PAROXETINE 20 MG TAB PO SCH (09:14)
[2017-08-21] MEDS: ASPIRIN 81 MG ECTAB PO SCH ×2 (09:14→20:37)
[2017-08-21 09:20] VITALS: BP 105/62; PULSE 69
[2017-08-21] MEDS: CHOLESTYRAMINE LIGHT 4 GM PKT PO SCH (09:20)
[2017-08-21] MEDS: BOOST VANILLA PO SCH ×2 (09:29→17:37)
--- NOTE | 2017-08-21 10:09 | Consultant Recommendations ---
Director Of Conservation Recommendations Date of Service August 21, 2017. Director Of Conservation Recommendations ACTIVITY RECOMMENDATIONS: SELF CARE INSTRUCTIONS AFTER TOTAL HIP REPLACEMENT Until the incision and soft tissues around your hip have healed, there is a possibility that the hip prosthesis could dislocate. A. Observe the following precautions to prevent dislocation: 1. Don't bend your hip greater than 90 degrees. 2. Avoid crossing your legs or ankles while standing or lying. 3. Sit with your feet placed 6 inches apart. 4. When sitting, keep your knees below your hips. Sit on a firm surface, avoid deep, soft chairs and couches. Use an elevated toilet seat in the bathroom. 5. Don't bend over at the waist. Use a long handled shoehorn and a sock aid to help you put on your shoes and socks. A underwriting analyst can help you moss picker objects that are too high or too low to reach. 6. Keep car riding to a minimum for at least one month after surgery. B. Your balance may be shaky for a while. Use crutches or a walker until directed by your doctor. C. Use hand rails when walking on stairs. D. Wear low heeled shoes with non-slip soles. E. Be sure that your floors are free of things that could trip you - throw rugs , electrical cords, small objects. Avoid wet and waxed floors, especially with crutches and canes. F. Try to walk several times a day with rest periods between. G. Continue with all the exercises taught to you in the hospital. Again, make walking a part of your daily routine. SPECIAL CARE INSTRUCTIONS: VERY IMPORTANT TO READ AND REVIEW A. Increase your ambulatory status as able. B. You must take antibiotics before having dental work, bladder, bowel and other surgery. Your doctor will provide you with a permanent card to carry describing precautions. C. Call [facility] if you have a fever, redness or swelling around the incision, cloudy drainage from incision, or sudden increase in pain in your hip, not relieved by your regular pain medication. D. Please call the office at if you have any concerns or questions about your operation or recovery. * YOU MAY SHOWER, NO TUB BATHS UNTIL CLEARED BY YOUR DOCTOR. * YOU SHOULD USE A WALKER OR CRUTCHES FOR 2-4 WEEKS. THIS WILL HELP PREVENT STRAIN ON YOUR HIP MUSCLE AND ALLOW IT TO HEAL PROPERLY. YOU MAY WEAN TO A CANE TOLERATED. * MOST PATIENTS WILL HAVE HOME NURSING FOR THERAPY. IF YOU DECIDE TO DO OUTPATIENT PHYSICAL THERAPY, PLEASE SCHEDULE THIS 3 TIMES PER WEEK. FOLLOW UP VISIT: If appointment is not already scheduled: Please call [facility] to make a follow-up appointment with Dr Lamas if not already scheduled 2 weeks at .
[2017-08-21] MEDS: ACETAMINOPHEN 500 MG TAB PO PRN (14:31)
[2017-08-21 15:34] VITALS: BP 120/67; PULSE 73; TEMP 37; O2SAT 96
[2017-08-21] MEDS: OXYCODONE HCL IR 5 MG TAB (IMMEDIATE RELEASE) PO PRN (16:18)
--- NOTE | 2017-08-21 17:10 | Progress Note ---
Subjective Date of Service: August 21, 2017. Subjective Pt evaluation today including: conversation w/ patient, physical exam, lab review, review of studies, review of inpatient medication list Saw/examined the patient in room 354 She's doing okay today; pain is controlled No other issues at this time Problem List Medical Problems: (1) Abnormal EKG Status: Acute (2) Hip dislocation, left Status: Acute (3) Hypokalemia Status: Acute (4) Subcapital fracture of left hip Status: Acute (5) Syncope Status: Acute (6) Weakness Status: Acute Review of Systems Respiratory: No shortness of breath Cardiac: No chest pain Musculoskeletal: No joint pain, No muscle pain, No swelling, No calf pain Medications Current Inpatient Medications Medications (Trade) Dose Ordered Sig/Navid Route Start Time Stop Time Status Last Admin Dose Admin Acetaminophen (Tylenol Tab) 500 mg DAILY PRN PO 08/20/17 04:15 09/19/17 04:14 08/21/17 14:31 500 MG Aspirin (Ecotrin Tab) 81 mg BID PO 08/20/17 09:00 09/19/17 08:59 08/21/17 09:14 81 MG Lactobacillus Acidophilus (Floranex Tab) 1 tab DAILY PO 08/20/17 09:00 09/19/17 08:59 08/21/17 09:14 1 TAB Lisinopril (Zestril Tab) 10 mg QAM PO 08/20/17 09:00 09/19/17 08:59 08/20/17 09:35 10 MG Metoprolol Succinate (Toprol Xl Tab) 75 mg HS PO 08/20/17 21:00 09/19/17 20:59 08/20/17 20:34 75 MG Multivitamins/ Minerals (Multivitamin W/ Minerals Tab) 1 tab QAM PO 08/20/17 09:00 09/19/17 08:59 08/21/17 09:14 1 TAB Multivitamins/ Minerals (Multivitamin W/ Minerals Tab) 1 tab HS PO 08/20/17 21:00 09/19/17 20:59 08/20/17 20:33 1 TAB Paroxetine HCl (pAXil TAB) 20 mg DAILY PO 08/20/17 09:00 09/19/17 08:59 08/21/17 09:14 20 MG Trazodone HCl (Desyrel Tab) 50 mg HS PO 08/20/17 21:00 09/19/17 20:59 08/20/17 20:33 50 MG Cholestyramine Resin (Questran Powder Light) 4 gm DAILY@1000 PO 08/20/17 10:00 09/19/17 09:59 Oxycodone HCl (Roxicodone Immediate Rel Tab) 5 mg Q8 PRN PO 08/20/17 03:00 09/03/17 02:59 08/21/17 16:18 5 MG Heparin Sodium (Porcine) (Heparin Sq 5000 Unit/0.5ml) 5,000 unit Q12 SQ 08/20/17 09:00 09/19/17 08:59 08/21/17 09:14 5,000 UNIT Miscellaneous (Iv Fluids Completed) 1 ea PRN PRN N/A 08/20/17 04:30 08/20/18 04:29 Ondansetron HCl (Zofran Inj) 4 mg Q6H PRN IV 08/20/17 08:45 09/19/17 08:44 08/20/17 09:02 4 MG Enteral Nutritional Formula (Boost) 1 can BIDM PO 08/20/17 17:45 09/19/17 17:44 08/21/17 09:29 1 CAN Objective Vital Signs Date Time Temp Pulse Resp B/P (MAP) Pulse Ox O2 Delivery O2 Flow Rate FiO2 08/21/17 15:40 Room Air 08/21/17 15:34 37.0 73 16 120/67 (84) 96 Room Air 08/21/17 09:20 69 105/62 (76) 08/21/17 07:40 Room Air 08/21/17 07:33 36.7 64 18 125/69 (87) 97 Room Air 08/21/17 05:25 70 134/68 (90) 08/20/17 23:57 Room Air 08/20/17 23:20 36.8 64 16 90/47 (61) 98 Room Air 08/20/17 20:37 76 138/73 (94) Physical Exam General Appearance: no apparent distress, + cachetic, + thin Respiratory/Chest: lungs clear, normal breath sounds, no respiratory distress, no accessory muscle use Cardiovascular: regular rate, rhythm, no edema, no murmur Extremities: normal range of motion, non-tender, normal inspection, no pedal edema, no calf tenderness Assessment and Plan This is an 81 year old female with a past medical history of COPD, hx. of CVA, HTN, recent L hip surgery in June 2017 - presents with a fall and a subsequent dislocation of the L hip Mechanical Fall L Hip Dislocation Recent L Hip Arthroplasty 08/21 - PT/OT - pain is controlled - appreciate ortho input - hip precautions - d/c to nursing facility for rehab 08/20 - recent L hip arthroplasty in June 2017 - subsequent fall due to mechanical fall - L hip dislocation, subsequent reduction - orthopedics consulted for further input - pain is controlled - PT/OT - will need placement COPD - breathing status stable Hx. of CVA - continue aspirin - unsure why patient is not on a statin; will need to discuss as outpatient DVT ppx - subq heparin FULL CODE
[2017-08-21 20:36] VITALS: BP 100/60; PULSE 72
[2017-08-21] MEDS: METOPROLOL SUCC 25MG EXT REL TAB PO SCH (20:36)
[2017-08-21] MEDS: TRAZODONE HCL 100 MG TAB PO SCH (20:37)
[2017-08-21] MEDS ORDERED: NURSING VERBAL MED ORDER ONE (22:30)
[2017-08-21] MEDS ORDERED: OXYCODONE HCL IR 5 MG TAB (IMMEDIATE RELEASE) PO STA (22:40)
[2017-08-21 23:10] VITALS: BP 104/53; PULSE 69; TEMP 37; O2SAT 97
[2017-08-22 07:28] VITALS: BP 137/66; PULSE 65; TEMP 36.8; O2SAT 97
[2017-08-22] MEDS: BOOST VANILLA PO SCH ×2 (07:53→19:13)
[2017-08-22 08:11] LABS: CALCIUM 8.5 mg/dl (8.5-10.1); CREATININE 0.75 mg/dl (0.60-1.20); POTASSIUM 4.5 mmol/L (3.5-5.1)
[2017-08-22] MEDS: LISINOPRIL 10 MG TAB PO SCH (08:36)
[2017-08-22] MEDS: ASPIRIN 81 MG ECTAB PO SCH ×2 (08:36→21:23)
[2017-08-22] MEDS: PAROXETINE 20 MG TAB PO SCH (08:36)
[2017-08-22] MEDS: LACTOBACILLUS ACIDOPHILUS (FLORANEX) TAB PO SCH (08:36)
[2017-08-22] MEDS: CEROVITE ADV FORMULA TAB PO SCH ×2 (08:36→21:22)
[2017-08-22 08:39] LABS: HEMATOCRIT 24.5 % (37-47); HEMOGLOBIN 7.8 g/dL (12.0-16.0); MEAN CORPUSCULAR HEMOGLOBIN 30.2 pg (25-34); MEAN CORPUSCULAR HGB CONC 31.8 g/dl (32-36); MEAN PLATELET VOLUME 10.6 fL (7.4-10.4); PLATELET COUNT 126 K/uL (130-400); RED CELL DISTRIBUTION WIDTH CV 14.1 % (11.5-14.5); RED CELL DISTRIBUTION WIDTH SD 48.9 fL (36.4-46.3)
[2017-08-22] MEDS: HEPARIN SOD 5000 UNIT/0.5 ML CARP SQ SCH ×2 (08:39→21:25)
[2017-08-22] MEDS: CHOLESTYRAMINE LIGHT 4 GM PKT PO SCH (10:41)
[2017-08-22] MEDS: OXYCODONE HCL IR 5 MG TAB (IMMEDIATE RELEASE) PO PRN (13:54)
[2017-08-22 16:00] VITALS: BP 121/65; PULSE 78; TEMP 36.9; O2SAT 96
--- NOTE | 2017-08-22 18:33 | Progress Note ---
Subjective Date of Service: August 22, 2017. Subjective Pt evaluation today including: conversation w/ patient, physical exam, lab review, review of studies, review of inpatient medication list Saw/examined the patient in room 354 No issues to note today pain at the hip is controlled no nausea/vomiting, no other issues Problem List Medical Problems: (1) Abnormal EKG Status: Acute (2) Hip dislocation, left Status: Acute (3) Hypokalemia Status: Acute (4) Subcapital fracture of left hip Status: Acute (5) Syncope Status: Acute (6) Weakness Status: Acute Review of Systems Constitutional: No fever, No chills Respiratory: No cough, No sputum, No shortness of breath Cardiac: No chest pain, No edema, No palpitations Musculoskeletal: No joint pain Medications Current Inpatient Medications Medications (Trade) Dose Ordered Sig/Navid Route Start Time Stop Time Status Last Admin Dose Admin Acetaminophen (Tylenol Tab) 500 mg DAILY PRN PO 08/20/17 04:15 09/19/17 04:14 08/21/17 14:31 500 MG Aspirin (Ecotrin Tab) 81 mg BID PO 08/20/17 09:00 09/19/17 08:59 08/22/17 08:36 81 MG Lactobacillus Acidophilus (Floranex Tab) 1 tab DAILY PO 08/20/17 09:00 09/19/17 08:59 08/22/17 08:36 1 TAB Lisinopril (Zestril Tab) 10 mg QAM PO 08/20/17 09:00 09/19/17 08:59 08/22/17 08:36 10 MG Metoprolol Succinate (Toprol Xl Tab) 75 mg HS PO 08/20/17 21:00 09/19/17 20:59 08/20/17 20:34 75 MG Multivitamins/ Minerals (Multivitamin W/ Minerals Tab) 1 tab QAM PO 08/20/17 09:00 09/19/17 08:59 08/22/17 08:36 1 TAB Multivitamins/ Minerals (Multivitamin W/ Minerals Tab) 1 tab HS PO 08/20/17 21:00 09/19/17 20:59 08/21/17 20:36 1 TAB Paroxetine HCl (pAXil TAB) 20 mg DAILY PO 08/20/17 09:00 09/19/17 08:59 08/22/17 08:36 20 MG Trazodone HCl (Desyrel Tab) 50 mg HS PO 08/20/17 21:00 09/19/17 20:59 08/21/17 20:37 50 MG Cholestyramine Resin (Questran Powder Light) 4 gm DAILY@1000 PO 08/20/17 10:00 09/19/17 09:59 08/22/17 10:41 4 GM Oxycodone HCl (Roxicodone Immediate Rel Tab) 5 mg Q8 PRN PO 08/20/17 03:00 09/03/17 02:59 08/22/17 13:54 5 MG Heparin Sodium (Porcine) (Heparin Sq 5000 Unit/0.5ml) 5,000 unit Q12 SQ 08/20/17 09:00 09/19/17 08:59 08/22/17 08:39 5,000 UNIT Miscellaneous (Iv Fluids Completed) 1 ea PRN PRN N/A 08/20/17 04:30 08/20/18 04:29 Ondansetron HCl (Zofran Inj) 4 mg Q6H PRN IV 08/20/17 08:45 09/19/17 08:44 08/20/17 09:02 4 MG Enteral Nutritional Formula (Boost) 1 can BIDM PO 08/20/17 17:45 09/19/17 17:44 08/22/17 07:53 1 CAN Objective Vital Signs Date Time Temp Pulse Resp B/P (MAP) Pulse Ox O2 Delivery O2 Flow Rate FiO2 08/22/17 16:45 Room Air 08/22/17 16:00 36.9 78 16 121/65 (83) 96 Room Air 08/22/17 07:28 36.8 65 16 137/66 (89) 97 Room Air 08/22/17 07:16 Nasal Cannula 08/21/17 23:54 Room Air 08/21/17 23:10 37.0 69 16 104/53 (70) 97 Room Air 08/21/17 20:36 72 100/60 (73) Physical Exam General Appearance: no apparent distress Respiratory/Chest: lungs clear, normal breath sounds, no respiratory distress, no accessory muscle use Cardiovascular: regular rate, rhythm, no edema, no murmur Extremities: normal range of motion, non-tender, normal inspection, no pedal edema, no calf tenderness Laboratory Results Last 24 Hours Test 08/22/17 07:32 White Blood Count 5.10 K/uL Red Blood Count 2.58 M/uL Hemoglobin 7.8 g/dL Hematocrit 24.5 % Mean Corpuscular Volume 95.0 fL Mean Corpuscular Hemoglobin 30.2 pg Mean Corpuscular Hemoglobin Concent 31.8 g/dl RDW Standard Deviation 48.9 fL RDW Coefficient of Variation 14.1 % Platelet Count 126 K/uL Mean Platelet Volume 10.6 fL Sodium Level 137 mmol/L Potassium Level 4.5 mmol/L Chloride Level 104 mmol/L Carbon Dioxide Level 29 mmol/L Anion Gap 5.0 mmol/L Blood Urea Nitrogen 23 mg/dl Creatinine 0.75 mg/dl Est Creatinine Clear Calc Drug Dose 35.7 ml/min Estimated GFR () 86.6 Estimated GFR (Non- 74.8 BUN/Creatinine Ratio 30.4 Random Glucose 87 mg/dl Calcium Level 8.5 mg/dl Assessment and Plan This is an 81 year old female with a past medical history of COPD, hx. of CVA, HTN, recent L hip surgery in June 2017 - presents with a fall and a subsequent dislocation of the L hip Mechanical Fall L Hip Dislocation Recent L Hip Arthroplasty 08/22 - plan to d/c to [facility] tomorrow - continue PT/OT - no other needs at this time - appreciate ortho input - will follow discharge instructions as per ortho 08/21 - PT/OT - pain is controlled - appreciate ortho input - hip precautions - d/c to nursing facility for rehab 08/20 - recent L hip arthroplasty in June 2017 - subsequent fall due to mechanical fall - L hip dislocation, subsequent reduction - orthopedics consulted for further input - pain is controlled - PT/OT - will need placement COPD - breathing status stable Hx. of CVA - continue aspirin - unsure why patient is not on a statin; will need to discuss as outpatient DVT ppx - subq heparin FULL CODE
[2017-08-22 21:20] VITALS: BP 146/71; PULSE 79; O2SAT 96
[2017-08-22] MEDS: METOPROLOL SUCC 25MG EXT REL TAB PO SCH (21:22)
[2017-08-22] MEDS: TRAZODONE HCL 100 MG TAB PO SCH (21:23)
[2017-08-22] MEDS: ACETAMINOPHEN 500 MG TAB PO PRN (21:33)
[2017-08-22 23:02] VITALS: BP 114/68; PULSE 73; TEMP 37; O2SAT 97
[2017-08-23 07:11] VITALS: BP 154/79; PULSE 61; TEMP 36.8; O2SAT 97
[2017-08-23 07:13] LABS: HEMATOCRIT 23.6 % (37-47); HEMOGLOBIN 7.5 g/dL (12.0-16.0); MEAN CELL VOLUME 95.2 fL (80-100); MEAN CORPUSCULAR HEMOGLOBIN 30.2 pg (25-34); MEAN CORPUSCULAR HGB CONC 31.8 g/dl (32-36); RED CELL DISTRIBUTION WIDTH SD 48.8 fL (36.4-46.3); WHITE BLOOD COUNT 5.02 K/uL (4.8-10.8)
[2017-08-23 07:15] LABS: CALCIUM 8.2 mg/dl (8.5-10.1); CREATININE 0.7 mg/dl (0.60-1.20); POTASSIUM 4.6 mmol/L (3.5-5.1)
[2017-08-23 08:06] LABS: MEAN PLATELET VOLUME 12.5 fL (7.4-10.4); PLATELET COUNT 95 K/uL (130-400)
[2017-08-23] MEDS: CEROVITE ADV FORMULA TAB PO SCH (10:00)
[2017-08-23] MEDS: BOOST VANILLA PO SCH (10:00)
[2017-08-23] MEDS: ASPIRIN 81 MG ECTAB PO SCH (10:01)
[2017-08-23] MEDS: LACTOBACILLUS ACIDOPHILUS (FLORANEX) TAB PO SCH (10:01)
[2017-08-23] MEDS: PAROXETINE 20 MG TAB PO SCH (10:01)
[2017-08-23] MEDS: LISINOPRIL 10 MG TAB PO SCH (10:01)
[2017-08-23] MEDS: CHOLESTYRAMINE LIGHT 4 GM PKT PO SCH (10:02)
--- NOTE | 2017-08-23 10:19 | Progress Note ---
Subjective Date of Service: August 23, 2017. Subjective Pt evaluation today including: conversation w/ patient, physical exam, lab review, review of studies, review of inpatient medication list Saw/examined the patient in room 354 No problems/issues at this time, ambulating the hallways Pain controlled at the hip Good PO intake, +BM Problem List Medical Problems: (1) Abnormal EKG Status: Acute (2) Hip dislocation, left Status: Acute (3) Hypokalemia Status: Acute (4) Subcapital fracture of left hip Status: Acute (5) Syncope Status: Acute (6) Weakness Status: Acute Review of Systems Respiratory: No shortness of breath Cardiac: No chest pain Abdomen: No pain, No nausea, No vomiting, No diarrhea, No constipation Musculoskeletal: No joint pain Medications Current Inpatient Medications Medications (Trade) Dose Ordered Sig/Navid Route Start Time Stop Time Status Last Admin Dose Admin Acetaminophen (Tylenol Tab) 500 mg DAILY PRN PO 08/20/17 04:15 09/19/17 04:14 08/22/17 21:33 500 MG Aspirin (Ecotrin Tab) 81 mg BID PO 08/20/17 09:00 09/19/17 08:59 08/23/17 10:01 81 MG Lactobacillus Acidophilus (Floranex Tab) 1 tab DAILY PO 08/20/17 09:00 09/19/17 08:59 08/23/17 10:01 1 TAB Lisinopril (Zestril Tab) 10 mg QAM PO 08/20/17 09:00 09/19/17 08:59 08/23/17 10:01 10 MG Metoprolol Succinate (Toprol Xl Tab) 75 mg HS PO 08/20/17 21:00 09/19/17 20:59 08/22/17 21:22 75 MG Multivitamins/ Minerals (Multivitamin W/ Minerals Tab) 1 tab QAM PO 08/20/17 09:00 09/19/17 08:59 08/23/17 10:00 1 TAB Multivitamins/ Minerals (Multivitamin W/ Minerals Tab) 1 tab HS PO 08/20/17 21:00 09/19/17 20:59 08/22/17 21:22 1 TAB Paroxetine HCl (pAXil TAB) 20 mg DAILY PO 08/20/17 09:00 09/19/17 08:59 08/23/17 10:01 20 MG Trazodone HCl (Desyrel Tab) 50 mg HS PO 08/20/17 21:00 09/19/17 20:59 08/22/17 21:23 50 MG Cholestyramine Resin (Questran Powder Light) 4 gm DAILY@1000 PO 08/20/17 10:00 09/19/17 09:59 08/23/17 10:02 4 GM Oxycodone HCl (Roxicodone Immediate Rel Tab) 5 mg Q8 PRN PO 08/20/17 03:00 09/03/17 02:59 08/22/17 13:54 5 MG Heparin Sodium (Porcine) (Heparin Sq 5000 Unit/0.5ml) 5,000 unit Q12 SQ 08/20/17 09:00 09/19/17 08:59 08/22/17 21:25 5,000 UNIT Miscellaneous (Iv Fluids Completed) 1 ea PRN PRN N/A 08/20/17 04:30 08/20/18 04:29 Ondansetron HCl (Zofran Inj) 4 mg Q6H PRN IV 08/20/17 08:45 09/19/17 08:44 08/20/17 09:02 4 MG Enteral Nutritional Formula (Boost) 1 can BIDM PO 08/20/17 17:45 09/19/17 17:44 08/23/17 10:00 1 CAN Objective Vital Signs Date Time Temp Pulse Resp B/P (MAP) Pulse Ox O2 Delivery O2 Flow Rate FiO2 08/23/17 07:11 36.8 61 14 154/79 (104) 97 Room Air 08/23/17 00:03 Room Air 08/22/17 23:02 37.0 73 16 114/68 (83) 97 Room Air 08/22/17 21:20 79 146/71 (96) 96 Room Air 08/22/17 20:07 Room Air 08/22/17 16:45 Room Air 08/22/17 16:00 36.9 78 16 121/65 (83) 96 Room Air Physical Exam General Appearance: no apparent distress, + cachetic, + thin Respiratory/Chest: chest non-tender, lungs clear, normal breath sounds, no respiratory distress, no accessory muscle use Cardiovascular: regular rate, rhythm, no edema, no murmur Extremities: normal range of motion, non-tender, normal inspection, no pedal edema, no calf tenderness Neurologic/Psychiatric: no motor/sensory deficits, alert, normal mood/affect Laboratory Results Last 24 Hours Test 08/23/17 06:26 White Blood Count 5.02 K/uL Red Blood Count 2.48 M/uL Hemoglobin 7.5 g/dL Hematocrit 23.6 % Mean Corpuscular Volume 95.2 fL Mean Corpuscular Hemoglobin 30.2 pg Mean Corpuscular Hemoglobin Concent 31.8 g/dl RDW Standard Deviation 48.8 fL RDW Coefficient of Variation 14.0 % Platelet Count 95 K/uL Mean Platelet Volume 12.5 fL Sodium Level 140 mmol/L Potassium Level 4.6 mmol/L Chloride Level 104 mmol/L Carbon Dioxide Level 29 mmol/L Anion Gap 7.0 mmol/L Blood Urea Nitrogen 17 mg/dl Creatinine 0.70 mg/dl Est Creatinine Clear Calc Drug Dose 38.2 ml/min Estimated GFR () 94.2 Estimated GFR (Non- 81.3 BUN/Creatinine Ratio 24.8 Random Glucose 82 mg/dl Calcium Level 8.2 mg/dl Magnesium Level 1.9 mg/dl Chemistry Specimen Hemolysis Assessment and Plan This is an 81 year old female with a past medical history of COPD, hx. of CVA, HTN, recent L hip surgery in June 2017 - presents with a fall and a subsequent dislocation of the L hip Mechanical Fall L Hip Dislocation Recent L Hip Arthroplasty 08/23 - plan to d/c to [facility] today - she is doing well, pain controlled 08/22 - plan to d/c to [facility] tomorrow - continue PT/OT - no other needs at this time - appreciate ortho input - will follow discharge instructions as per ortho 08/21 - PT/OT - pain is controlled - appreciate ortho input - hip precautions - d/c to nursing facility for rehab 08/20 - recent L hip arthroplasty in June 2017 - subsequent fall due to mechanical fall - L hip dislocation, subsequent reduction - orthopedics consulted for further input - pain is controlled - PT/OT - will need placement Anemia - unsure of underlying cause - possibly related to recent fracture, repair, etc. - monitor as outpatient COPD - breathing status stable Hx. of CVA - continue aspirin - unsure why patient is not on a statin; will need to discuss as outpatient DVT ppx - subq heparin FULL CODE
[2017-08-23] MEDS ORDERED: Boost PO (10:20)
--- NOTE | 2017-08-23 10:23 | Discharge Instructions ---
Discharge Instructions Date of Service August 23, 2017. Admission Reason for Admission: Hip Dislocation, Left Discharge Discharge Diagnosis / Problem: L Hip Dislocation, recent L Hip fracture and repair Discharge Goals Goal(s): Decrease discomfort, Improve function, Diagnostic testing, Therapeutic intervention Activity Recommendations Activity Level: Up Ad [place] Therapies: Physical Therapy, Occupational Therapy . Additional Information Patient informed of condition: Yes Advance Directives: No DNR: No Level of Care: Acute Rehab Communicable Disease: No Prognosis: Stable Reyes Catheter: No Instructions / Follow-Up Instructions / Follow-Up Patient to be discharged to SNF * continued therapy at SNF prior to returning home; primary care follow-up on discharge * Patient should have blood work, specifically a CBC to check Hgb levels done on Friday or Friday (August 26 or ) SELF CARE INSTRUCTIONS AFTER TOTAL HIP REPLACEMENT Until the incision and soft tissues around your hip have healed, there is a possibility that the hip prosthesis could dislocate. A. Observe the following precautions to prevent dislocation: 1. Don't bend your hip greater than 90 degrees. 2. Avoid crossing your legs or ankles while standing or lying. 3. Sit with your feet placed 6 inches apart. 4. When sitting, keep your knees below your hips. Sit on a firm surface, avoid deep, soft chairs and couches. Use an elevated toilet seat in the bathroom. 5. Don't bend over at the waist. Use a long handled shoehorn and a sock aid to help you put on your shoes and socks. A animal geneticist can help you pick out hand objects that are too high or too low to reach. 6. Keep car riding to a minimum for at least one month after surgery. B. Your balance may be shaky for a while. Use crutches or a walker until directed by your doctor. C. Use hand rails when walking on stairs. D. Wear low heeled shoes with non-slip soles. E. Be sure that your floors are free of things that could trip you - throw rugs , electrical cords, small objects. Avoid wet and waxed floors, especially with crutches and canes. F. Try to walk several times a day with rest periods between. G. Continue with all the exercises taught to you in the hospital. Again, make walking a part of your daily routine. SPECIAL CARE INSTRUCTIONS: VERY IMPORTANT TO READ AND REVIEW A. Increase your ambulatory status as able. B. You must take antibiotics before having dental work, bladder, bowel and other surgery. Your doctor will provide you with a permanent card to carry describing precautions. C. Call [facility] if you have a fever, redness or swelling around the incision, cloudy drainage from incision, or sudden increase in pain in your hip, not relieved by your regular pain medication. D. Please call the office at if you have any concerns or questions about your operation or recovery. * YOU MAY SHOWER, NO TUB BATHS UNTIL CLEARED BY YOUR DOCTOR. * YOU SHOULD USE A WALKER OR CRUTCHES FOR 2-4 WEEKS. THIS WILL HELP PREVENT STRAIN ON YOUR HIP MUSCLE AND ALLOW IT TO HEAL PROPERLY. YOU MAY WEAN TO A CANE TOLERATED. * MOST PATIENTS WILL HAVE HOME NURSING FOR THERAPY. IF YOU DECIDE TO DO OUTPATIENT PHYSICAL THERAPY, PLEASE SCHEDULE THIS 3 TIMES PER WEEK. FOLLOW UP VISIT: If appointment is not already scheduled: Please call [facility] to make a follow-up appointment with Dr Lamas if not already scheduled 2 weeks at . Current Hospital Diet Patient's current hospital diet: AHA Diet (Heart Healthy), Low Sodium Diet (2gm Na) Discharge Diet Recommended Diet: AHA Diet (Heart Healthy) Pending Studies Studies pending at discharge: no Medical Emergencies . Who to Call and When: Medical Emergencies: If at any time you feel your situation is an emergency, please call 911 immediately. . Non-Emergent Contact Non-Emergency issues call your: Primary Care Provider . . "Provider Documentation" section prepared by Claire Pate. . Elevator Attendant Recommendations Elevator Attendant Recommendations: ACTIVITY RECOMMENDATIONS: SELF CARE INSTRUCTIONS AFTER TOTAL HIP REPLACEMENT Until the incision and soft tissues around your hip have healed, there is a possibility that the hip prosthesis could dislocate. A. Observe the following precautions to prevent dislocation: 1. Don't bend your hip greater than 90 degrees. 2. Avoid crossing your legs or ankles while standing or lying. 3. Sit with your feet placed 6 inches apart. 4. When sitting, keep your knees below your hips. Sit on a firm surface, avoid deep, soft chairs and couches. Use an elevated toilet seat in the bathroom. 5. Don't bend over at the waist. Use a long handled shoehorn and a sock aid to help you put on your shoes and socks. A animal geneticist can help you pick out hand objects that are too high or too low to reach. 6. Keep car riding to a minimum for at least one month after surgery. B. Your balance may be shaky for a while. Use crutches or a walker until directed by your doctor. C. Use hand rails when walking on stairs. D. Wear low heeled shoes with non-slip soles. E. Be sure that your floors are free of things that could trip you - throw rugs , electrical cords, small objects. Avoid wet and waxed floors, especially with crutches and canes. F. Try to walk several times a day with rest periods between. G. Continue with all the exercises taught to you in the hospital. Again, make walking a part of your daily routine. SPECIAL CARE INSTRUCTIONS: VERY IMPORTANT TO READ AND REVIEW A. Increase your ambulatory status as able. B. You must take antibiotics before having dental work, bladder, bowel and other surgery. Your doctor will provide you with a permanent card to carry describing precautions. C. Call [facility] if you have a fever, redness or swelling around the incision, cloudy drainage from incision, or sudden increase in pain in your hip, not relieved by your regular pain medication. D. Please call the office at if you have any concerns or questions about your operation or recovery. * YOU MAY SHOWER, NO TUB BATHS UNTIL CLEARED BY YOUR DOCTOR. * YOU SHOULD USE A WALKER OR CRUTCHES FOR 2-4 WEEKS. THIS WILL HELP PREVENT STRAIN ON YOUR HIP MUSCLE AND ALLOW IT TO HEAL PROPERLY. YOU MAY WEAN TO A CANE TOLERATED. * MOST PATIENTS WILL HAVE HOME NURSING FOR THERAPY. IF YOU DECIDE TO DO OUTPATIENT PHYSICAL THERAPY, PLEASE SCHEDULE THIS 3 TIMES PER WEEK. FOLLOW UP VISIT: If appointment is not already scheduled: Please call [facility] to make a follow-up appointment with Dr Lamas if not already scheduled 2 weeks at . Core Measure Problem Core Measures: None
--- NOTE | 2017-08-23 10:24 | Discharge Summary ---
Discharge Summary Date of Service August 23, 2017. Discharge Summary Admission Date: August 20, 2017 at 02:53 Discharge Date: August 23, 2017 Discharge Disposition: long-term facility Principal Diagnosis: Mechanical Fall L Hip Dislocation Recent L Hip Arthroplasty Anemia COPD Hx. of CVA Medication Reconciliation New Medications: [Boost] () 1 CAN LIQD 1 CAN PO BIDM for 30 Days, #60 CAN Continued Medications: Acetaminophen (Tylenol) 500 Mg Tab 500 MG PO prn, TAB Alendronate Sodium (Alendronate Sodium) 70 Mg Tab 70 MG PO DAILY FRIDAY Aspirin (Aspirin Ec) 81 Mg Tab 81 MG PO BID Cholestyramine (Cholestyramine) 4 Gm Pow 4 GM PO QAM Diphenoxylate/Atropine (Lomotil) Tab 1 TAB PO QID PRN for Diarrhea, TAB Ergocalciferol (Vitamin D 87183 Unit) 50,000 Unit Cap 1 TAB PO WK, CAP TAKE ON FRI Lactobacillus (Floranex) 1 Tab Tab 1 TAB PO DAILY Lisinopril (Lisinopril) 10 Mg Tab 10 MG PO QAM HOLD IF SBP LESS THEN 110 Melatonin (Melatonin) 10 Mg Cap 10 MG PO HS Metoprolol Succinate (Metoprolol Succinate ER) 50 Mg Tabcr 75 MG PO HS Multiple Vitamins W/ Minerals (Centrum) 1 Tab Tab 1 TAB PO QAM Ocuvite Preservision (Ocuvite Preservision) 1 Tab Tab 1 TAB PO HS, TAB Oxycodone Ir (Roxicodone Ir) 5 Mg Tab 5 MG PO Q4H PRN for Severe Pain, TAB Paroxetine (Paroxetine HCl) 20 Mg Tab 20 MG PO DAILY Trazodone HCl (Trazodone HCl) 100 Mg Tab 50 MG PO HS Admission Information HPI (per Admitting provider): 81 years old female with past medical history of COPD, CVA, hypertension, left hip fracture, recent left hip surgery in June presented to the ER after a fall. 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 Patient said that she was unable to get up and she called her daughter to help her. Patient said that she did not pass out or did not hit her head. Patient said that she has been doing fine after the surgery in June for the left hip and she was using a cane to ambulate. Patient said that she is having pain in the left hip that is worsening with movement. Left hip x-ray done in the ER showed dislocated left hip hemiarthroplasty. Denies any chest pain, palpitation, dizziness, shortness of breath, numbness. Physical Exam (per Admitting): General Appearance: WD/WN, no apparent distress Head: normocephalic, atraumatic Eyes: normal inspection, EOMI ENT: hearing grossly normal Neck: no JVD, trachea midline Respiratory/Chest: normal breath sounds, no respiratory distress, no accessory muscle use Cardiovascular: regular rate, rhythm, no gallop, no JVD Abdomen/GI: normal bowel sounds, non tender, soft Back: no CVA tenderness Extremities/Musculoskelatal: no calf tenderness, + pertinent finding (Left hip pain with movement) Neurologic/Psych: no motor/sensory deficits, alert, normal mood/affect Skin: warm/dry, no rash Hospital Course This is an 81 year old female with a past medical history of COPD, hx. of CVA, HTN, recent L hip surgery in June 2017 - presents with a fall and a subsequent dislocation of the L hip Mechanical Fall L Hip Dislocation Recent L Hip Arthroplasty 08/23 - plan to d/c to [facility] today - she is doing well, pain controlled 08/22 - plan to d/c to [facility] tomorrow - continue PT/OT - no other needs at this time - appreciate ortho input - will follow discharge instructions as per ortho 08/21 - PT/OT - pain is controlled - appreciate ortho input - hip precautions - d/c to nursing facility for rehab 08/20 - recent L hip arthroplasty in June 2017 - subsequent fall due to mechanical fall - L hip dislocation, subsequent reduction - orthopedics consulted for further input - pain is controlled - PT/OT - will need placement Anemia - unsure of underlying cause - possibly related to recent fracture, repair, etc. - monitor as outpatient COPD - breathing status stable Hx. of CVA - continue aspirin - unsure why patient is not on a statin; will need to discuss as outpatient DVT ppx - subq heparin FULL CODE Total time spent on discharge = 40 minutes This includes examination of the patient, discharge planning, medication reconciliation, and communication with other providers. Discharge Instructions Patient to be discharged to SNF * continued therapy at SNF prior to returning home; primary care follow-up on discharge * Patient should have blood work, specifically a CBC to check Hgb levels done on Friday or Friday (August 26 or August 27)
[2017-08-23 10:41] VITALS: BP 154/79; PULSE 61; TEMP 36.8; O2SAT 97
== END 2017-08-23 13:01 | DRG 560 ==
LOC: EDBD 21:50 → C.EDB 21:51 → C.MSW 08-20 02:53 → ENRESERV 08-20 02:55 → EDBEDREQ 08-20 02:56
PROVIDERS: ADMIT Internal Medicine; ATTEND Family Medicine
PROC: 0SW Lower Joints, Revision (ICD-10-PCS; principal; 2017-08-20)
DX: T84.021A Dislocation of internal left hip prosthesis, initial encounter (principal); R64 Cachexia; Z68.1 Body mass index [BMI] 19.9 or less, adult; D64.9 Anemia, unspecified; J44.9 Chronic obstructive pulmonary disease, unspecified; I10 Essential (primary) hypertension; R63.6 Underweight; F17.200 Nicotine dependence, unspecified, uncomplicated; Z51.81 Encounter for therapeutic drug level monitoring; Z79.899 Other long term (current) drug therapy; Z79.82 Long term (current) use of aspirin; Z96.642 Presence of left artificial hip joint; Z86.73 Personal history of transient ischemic attack (TIA), and cerebral infarction without residual deficits; Z85.3 Personal history of malignant neoplasm of breast; Z85.118 Personal history of other malignant neoplasm of bronchus and lung; Z88.7 Allergy status to serum and vaccine; Z91.048 Other nonmedicinal substance allergy status; Z88.0 Allergy status to penicillin; Z88.5 Allergy status to narcotic agent; Z83.3 Family history of diabetes mellitus; Z82.49 Family history of ischemic heart disease and other diseases of the circulatory system; Z84.1 Family history of disorders of kidney and ureter; W18.39XA Other fall on same level, initial encounter; Y92.009 Unspecified place in unspecified non-institutional (private) residence as the place of occurrence of the external cause; Y99.8 Other external cause status

== ENCOUNTER 2019-03-24 08:45 | Inpatient (IN) ==
[2019-03-24] MEDS ORDERED: ONDANSETRON INJ 2 MG/ML 2 ML VIAL IV STA (09:23)
[2019-03-24] MEDS ORDERED: ACETAMINOPHEN 1,000 MG/100 ML VIAL IV STA (09:23)
[2019-03-24] MEDS ORDERED: SODIUM CHLORIDE 0.9% 1000ML 1,000 ML IV SCH ×2 (09:24→14:45)
[2019-03-24 10:04] LABS: Basophils # (auto) 0.01 K/uL (0-0.2); Basophils % (auto) 0.2 %; Eosinophils # (auto) 0.11 K/uL (0-0.5); Eosinophils % (auto) 1.7 %; Hematocrit (blood only) 35.2 % (37-47); Hemoglobin 11.1 g/dL (12.0-16.0); Immature Granulocytes # (auto) 0.02 K/uL (0.00-0.02); Immature Granulocytes % (auto) 0.3 %; Lymphocytes # (auto) 0.42 K/uL (1.2-3.4); Lymphocytes % (auto) 6.5 %; Mean Corpuscular Hemoglobin 32.2 pg (25-34); Mean Corpuscular Hgb Conc 31.5 g/dL (32-36); Mean Platelet Volume 11.2 fL (7.4-10.4); Monocytes # (auto) 0.52 K/uL (0.11-0.59); Monocytes % (auto) 8.1 %; Neutrophils # (auto) 5.37 K/uL (1.4-6.5); Neutrophils % (auto) 83.2 %; Platelet Count 161 K/uL (130-400); RDW Coefficient of Variation 12.5 % (11.5-14.5); RDW Standard Deviation 45.8 fL (36.4-46.3); Red Blood Count 3.45 M/uL (4.2-5.4); White Blood Count 6.45 K/uL (4.8-10.8)
[2019-03-24 10:30] LABS: Appearance Urine Clear (Clear); Bacteria Urine Automated Negative (Negative); Bilirubin Urine Negative (Negative); Blood Urine Negative (Negative); Color Urine Yellow; Epithelial Cell Urine Auto >30 /lpf (0-5); Glucose Urine UA Negative (Negative); Ketones Urine Negative (Negative); Leukocyte Esterase Urine Negative (Negative); Nitrite Urine Negative (Negative); Protein Urine Trace (Negative); RBC Urine Automated 0-4 /hpf (0-4); Specific Gravity Urine 1.019 (1.000-1.030); Urobilinogen Urine Negative (Negative)
[2019-03-24 10:43] LABS: Alanine Aminotransferase 20 U/L (12-78); Albumin Globulin Ratio 0.6 (0.9-2); Albumin Level 2.5 gm/dl (3.4-5.0); Alkaline Phosphatase 75 U/L (45-117); BUN Creatinine Ratio 16.5 (10-20); Bilirubin,Total 0.5 mg/dl (0.2-1); Blood Urea Nitrogen 15 mg/dl (7-18); Calcium 8.3 mg/dl (8.5-10.1); Carbon Dioxide 29 mmol/L (21-32); Chloride 107 mmol/L (98-107); Est GFR (African American) 68.5; Est GFR (Non-African American) 59.1; Glucose 86 mg/dl (70-99); Lipase 49 U/L (73-393); Sodium 138 mmol/L (136-145); Total Protein 6.5 gm/dl (6.4-8.2)
[2019-03-24 11:50] LABS: Potassium 3.9 mmol/L (3.5-5.1)
[2019-03-24] MEDS ORDERED: IOVERSOL 100ml IV PRN (12:07)
--- NOTE | 2019-03-24 12:33 | CT Scan Report ---
CT abd pelvis oral and IV con CLINICAL HISTORY: 83 years-old Female presenting with LLQ pain, multiple prior surgeries. TECHNIQUE: Multidetector CT of the abdomen and pelvis was performed after the administration of oral and intravenous contrast. IV contrast: 94 mL of Optiray 320. One or more dose lowering techniques wer e used consistent with the principles of ALARA (as low as reasonably achievable), including automatic exposure control, mA or kV adjustment to individual patient size, and/or use of iterative reconstruc tion. COMPARISON: 10/28/2015. CT DOSE (mGy.cm): The estimated cumulative dose is 265.93 mGy.cm. FINDINGS: Piano Mover topogram: Median sternotomy wires, cholecystectomy clips, and total left hip are the plasty. Lung bases: Borderline enlargement of the heart. Coronary artery calcification. No pericardial or ple ural effusion. Emphysematous changes evident with subpleural reticulation, possibly developing fibrot ic change. Minimal dependent atelectasis also noted. Mild bronchial wall thickening may be present. Liver: Normal morphology. No liver lesion. Patent hepatic vasculature. Biliary: Mild biliary ductal prominence likely a reservoir effect in the post cholecystectomy state. Gallbladder surgically absent. Pancreas: Normal. Spleen: Few lymphangiomas or hemangiomas noted. Adrenal glands: Bilateral thickening of the adrenal glands, nonspecific. Underlying nodules are not e xcluded though the abnormality is diffuse. Kidneys and ureters: Mild cortical thinning may be present bilaterally. Extrarenal pelvises. No hydro nephrosis. No nephrolithiasis. Ureters nondistended. Bladder: Incompletely evaluated secondary to underdistention. Pelvic organs: Uterus surgically absent. The ovaries are enlarged for the patient's postmenopausal st atus. There is an associated fluid collection in the left adnexa, which may abut the serosa of the di stal sigmoid colon. The dominant portion of this collection measures 3.5 cm in diameter. Bowel: Wall thickening of the sigmoid colon greatest in the distal portion, where there is pericoloni c fat infiltration. Diverticulosis diffusely in the sigmoid colon. Adjacent peritoneal thickening and loculated fluid in the left adnexa. This extends along the pelvic sidewall and may abut the distal s igmoid serosa. The appendix is not visualized. No bowel obstruction. Peritoneal cavity: Trace fluid in the pelvis. No free intraperitoneal gas. Peritoneal thickening is s uspected in the left pelvis Lymph nodes: No enlarged lymph nodes in the abdomen or pelvis. Vasculature: Extensive atherosclerosis with mild irregularity of the abdominal aorta though there is no significant aneurysmal dilatation. IVC is grossly patent allowing for the phase of contrast. Abdominal wall: Normal. Musculoskeletal: Degenerative changes of the spine. Total left hip arthroplasty. Osteopenia may be pr esent. Mild anterior wedging deformity of L3 as on prior exam. IMPRESSION: 1. Inflammation in the region of the distal sigmoid colon consistent with diverticulitis. 2. There is an adjacent right adnexal loculated collection that may be associated with the sigmoid c olon serosa. This raises concern for an abscess. Alternatively, this could relate to the left ovary. Follow-up is advised after treatment to ensure resolution. 3. Bilateral ovarian enlargement as on prior study 2016 exam. This is of uncertain etiology though u nexpected for the patient's age. 4. Emphysema. Electronically signed by: Antonio Oliveros M.D. 03/24/2019 12:31 PM
--- NOTE | 2019-03-24 14:18 | Surgery Consultation ---
Date of Consultation March 24, 2019 Assessment & Plan (1) Diverticulitis: pt is a 83 year-old female who presents to Er with 3 days history LLQ pain, IMP: sigmoid diverticulitis with abscess, size 3.5cm, Plan, I recommend to admit pt to hospital , conservative treatment, IV fluid, NPO, IV antibiotic, cipro + flagyl, control pain, repeat labs in am, I also D/W possible indication of percutaneous drainage or surgery such as worse symptoms, fever, increase abscess size, rupture of abscess. pt understood, she agrees with the plan, i answered all questions. Present on Admission?: Yes History of Present Illness Attending Physician: CC: LLQ pain HPI: pt is a 83 year-old female who presents to ER with 3 days history LLQ pain, the pain is located at LLQ area, 5/10, she took tylenol which can reduce her pain, last BM yesterday, pt denies fever, no diarrhea, no bloody stool, pt had CT scan dx possible sigmoid colon diverticulitis with abscess, size 3.5cm, pt's PMH/PSH- HTN, COPD. breast cancer surgery, lung cancer surgery, syncope, weakness. CVA. Allergies Allergy/AdvReac Type Severity Reaction Status Date / Time Penicillins Allergy Unknown HIVES Verified 03/24/19 10:56 adhesive AdvReac Unknown EXCORIATION Verified 03/24/19 10:56 S morphine AdvReac Unknown ITCHING Verified 03/24/19 10:56 Flu Virus Vaccine Allergy Unknown . Uncoded 03/24/19 10:56 Home Medications Home Medications Medication Instructions Recorded Confirmed Type alendronate 70 mg PO WK 03/24/19 03/24/19 History aspirin 81 mg PO QAM 03/24/19 03/24/19 History chlorpheniramine-dextromethorp 1 tab PO BID PRN 03/24/19 03/24/19 History [Coricidin HBP Cough and Cold] cholecalciferol (vitamin D3) 5,000 unit PO QAM 03/24/19 03/24/19 History [Vitamin D3] cholestyramine (with sugar) 4 g PO BID PRN 03/24/19 03/24/19 History diphenhydramine-acetaminophen 1 tab PO Q4H PRN 03/24/19 03/24/19 History [Mapap PM] diphenoxylate-atropine 1 tab PO BID PRN 03/24/19 03/24/19 History magnesium hydroxide [Milk of 30 ml PO DAILY PRN 03/24/19 03/24/19 History Magnesia] melatonin 10 mg PO HS PRN 03/24/19 03/24/19 History metoprolol succinate 100 mg PO HS 03/24/19 03/24/19 History gmuyqtwb-lsmo-naa-FA-lutein [Certa 1 tab PO QAM 03/24/19 03/24/19 History Plus] paroxetine HCl 10 mg PO QAM 03/24/19 03/24/19 History peg 400-propylene glycol (PF) 1 drp OPHTHALMIC (EYE) TID 03/24/19 03/24/19 History [Systane (PF)] trazodone 100 mg PO HS 03/24/19 03/24/19 History vit C,Q-Uy-qjdig-lutein-zeaxan 1 tab PO BID 03/24/19 03/24/19 History [PreserVision AREDS-2] Patient History Medical History Breast cancer (Chronic) COPD (chronic obstructive pulmonary disease) (Chronic) CVA (cerebral infarction) (Chronic) Diverticulitis (Chronic) Hypertension (Chronic) Left displaced femoral neck fracture Lung cancer (Chronic) Syncope and collapse Weakness (Acute) Surgical History H/O: hysterectomy (Resolved) History of hysterectomy (Acute) History of mastectomy (Acute) Hx of cholecystectomy (Resolved) S/P cholecystectomy (Chronic) S/P lobectomy of lung (Acute) Family History Other Family history non-contributory Social History marital status: / current occupational status: retired Feels Safe at Home: Yes Smoking Status: Current every day smoker Review of Systems Review of Systems: All systems reviewed & are unremarkable except as noted in HPI & below Physical Exam Constitutional: WD/WN, vitals as above well developed and well nourished ENMT: external ear and nose normal, oropharynx normal Ears: + hearing impairment Neck: trachea midline, no thyromegaly Respiratory: normal respiratory effort, lungs clear to auscultation normal respiratory effort Cardiovascular: RRR, no murmur, no edema Rate/Rhythm: regular rate and regular rhythm Heart Sounds: normal S1 and normal S2 Gastrointestinal (Abdomen): Percussion/Palpation: abdomen soft soft, mild tenderness at LLQ, no rebound pain, no palpable mass, no rigid, no guarding, BS + Musculoskeletal: no cyanosis or clubbing, extremities motor strength 5/5 Skin: no rashes, warm and dry Neurologic: patellar DTR's 2+ bilat, sensation intact Psychiatric: A+Ox3, euthymic affect Orientation: alert and oriented x 3 Results & Data Vital Signs (Past 12 Hours) Vital Signs Temp Pulse Resp BP Pulse Ox 03/24/19 12:50 59 L 15 99 03/24/19 12:40 60 21 99 03/24/19 12:31 61 16 96 03/24/19 12:30 60 17 162/73 H 84 L 03/24/19 12:24 67 14 03/24/19 12:18 63 15 03/24/19 12:01 59 L 15 97 03/24/19 12:00 58 L 15 168/85 H 98 03/24/19 11:50 59 L 16 95 03/24/19 11:40 58 L 18 90 03/24/19 11:31 61 18 95 03/24/19 11:30 60 18 178/93 H 92 03/24/19 11:21 67 25 H 03/24/19 11:10 60 18 03/24/19 11:01 58 L 16 94 03/24/19 11:00 59 L 17 149/84 H 94 03/24/19 10:50 60 16 92 03/24/19 10:40 59 L 20 03/24/19 10:31 58 L 15 89 L 03/24/19 10:30 58 L 18 158/89 H 96 03/24/19 10:20 60 15 03/24/19 10:10 61 17 03/24/19 10:04 62 18 03/24/19 10:03 61 18 169/79 H 03/24/19 10:02 61 14 188/101 H 03/24/19 10:00 63 18 03/24/19 09:31 62 27 H 97 03/24/19 09:30 63 24 156/83 H 97 03/24/19 09:01 65 19 03/24/19 09:00 65 10 L 181/87 H 96 03/24/19 08:51 36.6 C 65 20 181/87 H 90 Laboratory Results Abnormal lab results 03/24/19 03/24/19 03/24/19 Range/Units 09:05 09:30 09:30 RBC 3.45 L (4.2-5.4) M/uL Hgb 11.1 L (12.0-16.0) g/dL Hct 35.2 L (37-47) % MCV 102.0 H (80-100) fL MCHC 31.5 L (32-36) g/dL MPV 11.2 H (7.4-10.4) fL Lymph # (Auto) 0.42 L (1.2-3.4) K/uL Anion Gap 2.0 L (3-11) Calcium 8.3 L (8.5-10.1) mg/dl AST (15-37) U/L Albumin 2.5 L (3.4-5.0) gm/dl Albumin/Globulin Ratio 0.6 L (0.9-2) Lipase 49 L (73-393) U/L Urine Protein Trace H (Negative) U Epithel Cells (Auto) >30 H (0-5) /lpf 03/24/19 Range/Units 11:05 RBC (4.2-5.4) M/uL Hgb (12.0-16.0) g/dL Hct (37-47) % MCV (80-100) fL MCHC (32-36) g/dL MPV (7.4-10.4) fL Lymph # (Auto) (1.2-3.4) K/uL Anion Gap (3-11) Calcium (8.5-10.1) mg/dl AST 12 L (15-37) U/L Albumin (3.4-5.0) gm/dl Albumin/Globulin Ratio (0.9-2) Lipase (73-393) U/L Urine Protein (Negative) U Epithel Cells (Auto) (0-5) /lpf Diagnostic Findings CT abd pelvis oral and IV con CLINICAL HISTORY: 83 years-old Female presenting with LLQ pain, multiple prior surgeries. TECHNIQUE: Multidetector CT of the abdomen and pelvis was performed after the administration of oral and intravenous contrast. IV contrast: 94 mL of Optiray 320. One or more dose lowering techniques were used consistent with the principles of ALARA (as low as reasonably achievable), including automatic exposure control, mA or kV adjustment to individual patient size, and/or use of iterative reconstruction. COMPARISON: 10/28/2015. CT DOSE (mGy.cm): The estimated cumulative dose is 265.93 mGy.cm. 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 Lung bases: Borderline enlargement of the heart. Coronary artery calcification. No pericardial or pleural effusion. Emphysematous changes evident with subpleural reticulation, possibly developing fibrotic change. Minimal dependent atelectasis also noted. Mild bronchial wall thickening may be present. Liver: Normal morphology. No liver lesion. Patent hepatic vasculature. Biliary: Mild biliary ductal prominence likely a reservoir effect in the post cholecystectomy state. Gallbladder surgically absent. Pancreas: Normal. Spleen: Few lymphangiomas or hemangiomas noted. Adrenal glands: Bilateral thickening of the adrenal glands, nonspecific. Underlying nodules are not excluded though the abnormality is diffuse. Kidneys and ureters: Mild cortical thinning may be present bilaterally. Extrarenal pelvises. No hydronephrosis. No nephrolithiasis. Ureters nondistended. Bladder: Incompletely evaluated secondary to underdistention. Pelvic organs: Uterus surgically absent. The ovaries are enlarged for the patient's postmenopausal status. There is an associated fluid collection in the left adnexa, which may abut the serosa of the distal sigmoid colon. The dominant portion of this collection measures 3.5 cm in diameter. Bowel: Wall thickening of the sigmoid colon greatest in the distal portion, whe re there is pericolonic fat infiltration. Diverticulosis diffusely in the sigmoid colon. Adjacent peritoneal thickening and loculated fluid in the left adnexa. This extends along the pelvic sidewall and may abut the distal sigmoid serosa. The appendix is not visualized. No bowel obstruction. Peritoneal cavity: Trace fluid in the pelvis. No free intraperitoneal gas. Peritoneal thickening is suspected in the left pelvis Lymph nodes: No enlarged lymph nodes in the abdomen or pelvis. Vasculature: Extensive atherosclerosis with mild irregularity of the abdominal aorta though there is no significant aneurysmal dilatation. IVC is grossly patent allowing for the phase of contrast. Abdominal wall: Normal. Musculoskeletal: Degenerative changes of the spine. Total left hip arthroplasty. Osteopenia may be present. Mild anterior wedging deformity of L3 as on prior exam. IMPRESSION: 1. Inflammation in the region of the distal sigmoid colon consistent with diverticulitis. 2. There is an adjacent right adnexal loculated collection that may be associated with the sigmoid colon serosa. This raises concern for an abscess. Alternatively, this could relate to the left ovary. Follow-up is advised after treatment to ensure resolution. 3. Bilateral ovarian enlargement as on prior study 2016 exam. This is of uncertain etiology though unexpected for the patient's age. 4. Emphysema.
[2019-03-24] MEDS ORDERED: metroNIDAZOLE 500 MG/100 ML BAG IV STA (14:32)
[2019-03-24] MEDS ORDERED: cefTRIAXone SODIUM 1,000 MG/50 ML BAG IV STA (14:32)
--- NOTE | 2019-03-24 16:16 | History & Physical Report ---
Date of Service March 24, 2019 Assessment & Plan (1) Abdominal pain: (2) Diverticulitis of intestine with abscess: This is an 83-year-old female who has significant past medical history of emphysema, HTN, HLD, history of right breast cancer status post radical mastectomy in 1984, history of lung CA status post chemo, radiation and surgical resection in remission since 2010 who presents to [facility] ED secondary to LLQ pain x3 days. In ED patient CBC revealed anemia with H&H 11.1 and 35.2, platelet 161, CMP relatively unremarkable, urinalysis positive for trace protein but otherwise normal. CT abd/pelvis revealed: Inflammation in the region of the distal sigmoid colon consistent with diverticulitis. Also noted is 3.5 cm adnexal fluid collection concerning for abscess. She received IV antibiotics with IV Rocephin and Flagyl. Further received 1 L of IV fluid, IV APAP for pain control. admit to med/surg tele General surgery consult -appreciate their input Conservative management for now N.p.o., IVF, pain control Continue IV antibiotics with Cipro and Flagyl dosed per pharmacy Follow labs in a.m. (3) Hypertension: Blood pressure significantly elevated in ED, likely in setting of pain and hospitalization Continue metoprolol Appears patient has been on lisinopril 20 mg daily in the past, but currently not taking Will need to call PCP office for active med list as patient is unsure of exact medication in am treat accordingly (4) COPD (chronic obstructive pulmonary disease): Documented on imaging Continued tobacco abuse No acute exacerbation (5) Tobacco abuse: current everyday smoker Nicotine patch ordered Encourage smoking cessation (6) Anemia: H&H 11.1 and 35.2 Macrocytic Iron panel, vitamin B12 and folic acid in a.m. (7) Hypoalbuminemia: Albumin 2.5 When able to tolerate p.o. consider dietitian consult for nutrition assessment (8) Breast cancer: History of right breast CA status post radical mastectomy in 1984, no recurrence Follows Dr. 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 Rojas on a yearly basis (10) Right upper lobe pulmonary nodule: Noted on CT scan of chest on 01/13/2018 Does not appear to have been followed up in outpatient setting Recommend repeat CT of chest as outpatient per PCP given cancer hx (11) DVT prophylaxis: SQ Heparin Q12 SCD/TEDS Disposition: admit to med/surg tele due to HTN - once improved can transfer to med/surg Follow up: PCP Dr. Horn upon discharge, recommend repeat Chest CT Patient was seen and examined in collaboration with Dr. Olivo, please see addendum History of Present Illness Chief Complaint: LLQ abdominal pain x3 days. Primary Care Provider: Sindy Horn This is an 83-year-old female who has significant past medical history of emphysema, HTN, HLD, history of right breast cancer status post radical mastectomy in 1984, history of lung CA status post chemo, radiation and surgical resection in remission since 2010 who presents to [facility] ED secondary to LLQ pain x3 days. LLQ pain is constant, waxes and wanes in severity, currently 7/10, worse with sitting forward and walking, nonradiating, never had in the past, tried [id number] Tylenol with minimal relief. She tried to alter diet thinking it may be related to her bowels, but her symptoms not improve. She opted to seek ED treatment. Recalls having colonoscopy in the past and prior diagnosis diverticulosis, but no prior history of diverticulitis. She denies any fever, chills, sweats, lightheadedness, dizziness, chest pain, shortness breath, palpitations, hemoptysis, cough, nausea, vomiting, dysuria, increased urgency or frequency with urination, hematuria, melena, hematochezia. Appetite has been decreased over the past 3 days. Per records last colonoscopy 09/01/2013 revealed diverticulosis in sigmoid colon and descending colon, otherwise normal colonoscopy. In ED patient CBC revealed anemia with H&H 11.1 and 35.2, platelet 161, CMP relatively unremarkable, urinalysis positive for trace protein but otherwise normal. CT abd/pelvis revealed: Inflammation in the region of the distal sigmoid colon consistent with diverticulitis. Also noted is 3.5 cm adnexal fluid collection concerning for abscess. She received IV antibiotics with IV Rocephin and Flagyl. Further received 1 L of IV fluid, IV APAP for pain control. Allergies Allergy/AdvReac Type Severity Reaction Status Date / Time Penicillins Allergy Unknown HIVES Verified 03/24/19 10:56 adhesive AdvReac Unknown EXCORIATION Verified 03/24/19 10:56 S morphine AdvReac Unknown ITCHING Verified 03/24/19 10:56 Flu Virus Vaccine Allergy Unknown . Uncoded 03/24/19 10:56 Home Medications Home Medications Medication Instructions Recorded Confirmed Type alendronate 70 mg PO WK 03/24/19 03/24/19 History aspirin 81 mg PO QAM 03/24/19 03/24/19 History chlorpheniramine-dextromethorp 1 tab PO BID PRN 03/24/19 03/24/19 History [Coricidin HBP Cough and Cold] cholecalciferol (vitamin D3) 5,000 unit PO QAM 03/24/19 03/24/19 History [Vitamin D3] cholestyramine (with sugar) 4 g PO BID PRN 03/24/19 03/24/19 History diphenhydramine-acetaminophen 1 tab PO Q4H PRN 03/24/19 03/24/19 History [Mapap PM] diphenoxylate-atropine 1 tab PO BID PRN 03/24/19 03/24/19 History magnesium hydroxide [Milk of 30 ml PO DAILY PRN 03/24/19 03/24/19 History Magnesia] melatonin 10 mg PO HS PRN 03/24/19 03/24/19 History metoprolol succinate 100 mg PO HS 03/24/19 03/24/19 History kpaesqnf-hgcg-szk-FA-lutein [Certa 1 tab PO QAM 03/24/19 03/24/19 History Plus] paroxetine HCl 10 mg PO QAM 03/24/19 03/24/19 History peg 400-propylene glycol (PF) 1 drp OPHTHALMIC (EYE) TID 03/24/19 03/24/19 History [Systane (PF)] trazodone 100 mg PO HS 03/24/19 03/24/19 History vit C,H-Iy-bjvjy-lutein-zeaxan 1 tab PO BID 03/24/19 03/24/19 History [PreserVision AREDS-2] Past Med/Surg History Medical History Breast cancer (Chronic) COPD (chronic obstructive pulmonary disease) (Chronic) CVA (cerebral infarction) (Chronic) Diverticulitis (Chronic) Hypertension (Chronic) Left displaced femoral neck fracture Lung cancer (Chronic) Syncope and collapse Weakness (Acute) Surgical History H/O: hysterectomy (Resolved) History of hysterectomy (Acute) History of mastectomy (Acute) Hx of cholecystectomy (Resolved) S/P cholecystectomy (Chronic) S/P lobectomy of lung (Acute) Family History Mother Breast cancer Social History Preferred Language: Upper Sorbian Communication Ability: Effective Gun Club Manager Required: No Beliefs That Will Affect Care: None marital status: / Current Living Situation: Personal Care Facility current occupational status: retired Other Information That Helps Us Care for You: No Feels Safe at Home: Yes Safety Concerns: Feels Safe At This Time Smoking Status: Current every day smoker Tobacco Type: cigarettes ; Do You Dip or Chew Tobacco: No ; Second Hand Exposure: No ; Tobacco Cessation Education Requested by Patient: No Hx Alcohol Use: Yes Alcohol type: beer and hard liquor Alcohol Intake Frequency Comment: Previously used alcohol, currently does not drink alcohol Hx Substance Use: No Review of Systems Review of Systems: All systems reviewed & are unremarkable except as noted in HPI & below Physical Exam Physical Exam: Constitutional: Thin, petite, elderly female, vitals as above, NAD, sitting up in bed, pleasant, conversing easily Head: Normocephalic, Atraumatic Eyes: PERRL, conjunctivae normal, anicteric sclerae ENMT: external ear and nose normal, oropharynx normal but dry mucous membranes Neck: trachea midline, no thyromegaly normal visual inspection Respiratory: normal respiratory effort, lungs clear to auscultation, no wheeze, rales, rhonchi. Normal insp/exp effort, no accessory muscle use Cardiovascular: RRR, no murmur, no edema Vessels: no JVD or carotid bruit Chest: normal inspection of chest Abdomen: normal bowel sounds, soft, exquisitely tender in left lower quadrant, positive rebound, no guarding or rigidity, no hepatosplenomegaly Musculoskeletal: no cyanosis or clubbing, extremities motor strength 5/5 Skin: no rashes, warm and dry , mild turgor Neurologic: PERRL, EOMI, accommodation nl, no face palsy, no dysarthria CN's II-XI intact bilaterally and moves all extremities Psychiatric: A+Ox3, euthymic affect Lymphatic: no cervical or axillary lymphadenopathy : deferred Results & Data Vital Signs (Past 12 Hours) Vital Signs Temp Pulse Resp BP Pulse Ox 03/24/19 15:15 65 21 03/24/19 15:14 174/93 H 03/24/19 15:13 180/147 H 96 03/24/19 14:20 58 L 16 95 03/24/19 14:10 61 15 03/24/19 14:01 66 23 180/104 H 03/24/19 14:00 64 19 03/24/19 13:50 58 L 18 03/24/19 13:40 61 15 97 03/24/19 13:31 62 23 177/124 H 97 03/24/19 13:30 65 17 03/24/19 13:20 59 L 23 96 03/24/19 13:10 60 19 03/24/19 13:01 60 16 96 03/24/19 13:00 59 L 16 169/82 H 95 03/24/19 12:50 59 L 15 99 03/24/19 12:40 60 21 99 03/24/19 12:31 61 16 96 03/24/19 12:30 60 17 162/73 H 84 L 03/24/19 12:24 67 14 03/24/19 12:18 63 15 03/24/19 12:01 59 L 15 97 03/24/19 12:00 58 L 15 168/85 H 98 03/24/19 11:50 59 L 16 95 03/24/19 11:40 58 L 18 90 03/24/19 11:31 61 18 95 03/24/19 11:30 60 18 178/93 H 92 03/24/19 11:21 67 25 H 03/24/19 11:10 60 18 03/24/19 11:01 58 L 16 94 03/24/19 11:00 59 L 17 149/84 H 94 03/24/19 10:50 60 16 92 03/24/19 10:40 59 L 20 03/24/19 10:31 58 L 15 89 L 03/24/19 10:30 58 L 18 158/89 H 96 03/24/19 10:20 60 15 03/24/19 10:10 61 17 03/24/19 10:04 62 18 03/24/19 10:03 61 18 169/79 H 03/24/19 10:02 61 14 188/101 H 03/24/19 10:00 63 18 03/24/19 09:31 62 27 H 97 03/24/19 09:30 63 24 156/83 H 97 03/24/19 09:01 65 19 03/24/19 09:00 65 10 L 181/87 H 96 03/24/19 08:51 36.6 C 65 20 181/87 H 90 Laboratory Results Short CBC 03/24/19 Range/Units 09:30 WBC 6.45 (4.8-10.8) K/uL Hgb 11.1 L (12.0-16.0) g/dL Hct 35.2 L (37-47) % Plt Count 161 (130-400) K/uL BMP 03/24/19 03/24/19 09:30 11:05 Sodium 138 Potassium TNP 3.9 Chloride 107 Carbon Dioxide 29 BUN 15 Creatinine 0.90 Glucose 86 Calcium 8.3 L Liver Function 03/24/19 03/24/19 Range/Units 09:30 11:05 Total Bilirubin 0.5 (0.2-1) mg/dl AST TNP 12 L ALT 20 (12-78) U/L Alkaline Phosphatase 75 (45-117) U/L Albumin 2.5 L (3.4-5.0) gm/dl Urine 03/24/19 Range/Units 09:05 Urine Color Yellow Urine Appearance Clear (Clear) Urine pH 5.0 (4.5-7.5) Ur Specific [place] 1.019 (1.000-1.030) Urine Protein Trace H (Negative) Urine Glucose (UA) Negative (Negative) Diagnostic Findings CT abd/Pelvis: IMPRESSION: 1. Inflammation in the region of the distal sigmoid colon consistent with diverticulitis. 2. There is an adjacent right adnexal loculated collection that may be associated with the sigmoid colon serosa. This raises concern for an abscess. Alternatively, this could relate to the left ovary. Follow-up is advised after treatment to ensure resolution. 3. Bilateral ovarian enlargement as on prior study 2016 exam. This is of uncertain etiology though unexpected for the patient's age. 4. Emphysema. Medications Administered Ioversol (Optiray 320 100ml) 94 ml IV ONCE PRN PRN Reason: Interaction Checking Stop: 03/28/19 12:06 Last Admin: 03/24/19 12:08 Dose: 94 ml Documented by: [id number] Discontinued Medications Acetaminophen (Ofirmev) 1,000 mg in 100 mls @ 400 mls/hr IV NOW STA Stop: 03/24/19 09:37 Last Infusion: 03/24/19 10:15 Dose: 0 mls/hr Documented by: [id number] Admin: 03/24/19 09:59 Dose: 400 mls/hr Documented by: [id number] Sodium Chloride (Nss 1000ml) 1,000 mls @ 250 mls/hr IV .Q4H [id number] Stop: 03/24/19 13:23 Last Infusion: 03/24/19 13:58 Dose: 0 mls/hr Documented by: [id number] Admin: 03/24/19 09:57 Dose: 250 mls/hr Documented by: [id number] Ceftriaxone Sodium (Rocephin) 1,000 mg in 50 mls @ 100 mls/hr IV NOW STA Stop: 03/24/19 15:01 Last Infusion: 03/24/19 15:51 Dose: 0 mls/hr Documented by: [id number] Admin: 03/24/19 15:19 Dose: 100 mls/hr Documented by: [id number] Metronidazole (Flagyl) 500 mg in 100 mls @ 100 mls/hr IV NOW STA Stop: 03/24/19 15:31 Last Admin: 03/24/19 15:45 Dose: 100 mls/hr Documented by: [id number] Ondansetron HCl (Zofran) 4 mg IV NOW STA Stop: 03/24/19 09:24 Last Admin: 03/24/19 09:57 Dose: 4 mg Documented by: [id number] ECG Rate (beats per minute): 70 Rhythm: normal sinus Code Status & VTE Plan Code Status Conditional code Okay with CPR, no mechanical ventilation VTE Prophylaxis Plan VTE Prophylaxis will be ordered: Yes Supervising Physician Co-Signing Physician Notes Patient is an 83-year-old female with history of COPD, hypertension, breast cancer and other problems presents with history of left lower quadrant abdominal pain associated with poor appetite since [address] abdomen is suggestive of acute diverticulitis of the sigmoid colon. Also findings suggestive of right adnexal loculated collection and bilateral ovarian enlargement noted. Patient is evaluated by surgery while in ED. On exam patient is thin, frail, no apparent distress, normocephalic atraumatic, lungs are clear to auscultation, S1-S2, no murmur, abdomen tender left lower quadrant predominantly, soft, no guarding or rigidity, no pedal edema, grossly nonfocal neurological status. Patient is admitted for management of acute diverticulitis. Agree with IV fluids, n.p.o., pain control, surgery consult. If no improvement with conservative management, patient would likely need to be transferred to tertiary care hospital for percutaneous drainage or surgery. Consider INTERLOCKING MACHINE OPERATOR evaluation as outpatient for bilateral ovarian enlargement. I personally reviewed the record. Patient is interviewed and examined at bedside. Patient's care is coordinated with Ju Pappas PA-C. Please refer to the documentation above for details of patient's presentation and for discussion of other issues. (1) Diverticulitis of intestine with abscess Diverticulitis bleeding: unspecified bleeding status Diverticulitis site: unspecified part of intestinal tract Qualified Code(s): K57.80 - Diverticulitis of intestine, part unspecified, with perforation and abscess without bleeding (2) Abdominal pain Abdominal location: unspecified location Qualified Code(s): R10.9 - Unspecified abdominal pain (3) Hypertension Hypertension type: unspecified Qualified Code(s): I10 - Essential (primary) hypertension
[2019-03-24] MEDS ORDERED: ONDANSETRON INJ 2 MG/ML 2 ML VIAL IV PRN (17:10)
[2019-03-24] MEDS ORDERED: ALUMINUM/MAGNESIUM SUSP 30 ML UDC PO PRN (17:10)
[2019-03-24] MEDS ORDERED: POLYETHYLENE (MIRALAX) 17 GM PACK PO PRN (17:10)
[2019-03-24] MEDS ORDERED: CONSULT PHARMACY STA (17:10)
[2019-03-24] MEDS ORDERED: MoRPHine SULFATE 2 MG/ML CARP IV PRN (17:10)
[2019-03-24] MEDS ORDERED: ACETAMINOPHEN 1,000 MG/100 ML VIAL IV PRN (17:10)
[2019-03-24] MEDS ORDERED: CIPROFLOXACIN CONSULT ACTIVE PRN (17:54)
[2019-03-24] MEDS: SODIUM CHLORIDE 0.9% 1000ML 1,000 ML IV SCH (18:01)
[2019-03-24] MEDS ORDERED: ACETAMINOPHEN IV PRN (18:08)
[2019-03-24] MEDS: CIPROFLOXACIN 400 MG/200 ML BAG IV SCH (19:16)
[2019-03-24] MEDS: NICOTINE 14 MG/24 HR PATCH TD SCH (19:16)
[2019-03-24] MEDS: HEPARIN SOD 5,000 UNIT/0.5 ML VIAL SQ SCH (20:06)
[2019-03-24] MEDS: METOPROLOL SUCC 50MG EXT REL TAB PO SCH (20:09)
[2019-03-24] MEDS: TRAZODONE HCL 100 MG TAB PO SCH (20:09)
[2019-03-24] MEDS: ARTIFICIAL TEARS OP SCH (20:10)
[2019-03-24] MEDS ORDERED: NON-FORMULARY MEDICATION (Vit C,E-Zn-Coppr-Lutein-Zeaxan [Preservision Areds-2] 1 TAB) PO SCH (21:00)
[2019-03-24] MEDS ORDERED: HydrALAZINE HCL 20 MG/ML VIAL IV PRN (21:41)
[2019-03-24] MEDS ORDERED: ZOLPIDEM TARTRATE 5 MG TAB PO PRN (23:44)
[2019-03-24] MEDS: metroNIDAZOLE 500 MG/100 ML BAG IV SCH (23:57)
[2019-03-25] MEDS: CIPROFLOXACIN 400 MG/200 ML BAG IV SCH ×2 (05:40→17:19)
[2019-03-25 06:00] LABS: Basophils # (auto) 0.01 K/uL (0-0.2); Basophils % (auto) 0.2 %; Eosinophils # (auto) 0.14 K/uL (0-0.5); Eosinophils % (auto) 3.4 %; Hematocrit (blood only) 34.4 % (37-47); Hemoglobin 11.2 g/dL (12.0-16.0); Immature Granulocytes # (auto) 0.01 K/uL (0.00-0.02); Immature Granulocytes % (auto) 0.2 %; Lymphocytes # (auto) 0.38 K/uL (1.2-3.4); Lymphocytes % (auto) 9.2 %; Mean Corpuscular Hemoglobin 32.2 pg (25-34); Mean Corpuscular Hgb Conc 32.6 g/dL (32-36); Mean Corpuscular Volume 98.9 fL (80-100); Mean Platelet Volume 11.2 fL (7.4-10.4); Monocytes # (auto) 0.34 K/uL (0.11-0.59); Monocytes % (auto) 8.2 %; Neutrophils # (auto) 3.26 K/uL (1.4-6.5); Neutrophils % (auto) 78.8 %; Platelet Count 143 K/uL (130-400); RDW Coefficient of Variation 12.3 % (11.5-14.5); RDW Standard Deviation 44.7 fL (36.4-46.3); Red Blood Count 3.48 M/uL (4.2-5.4); White Blood Count 4.14 K/uL (4.8-10.8)
[2019-03-25 06:37] LABS: Albumin Level 2.7 gm/dl (3.4-5.0); BUN Creatinine Ratio 11.9 (10-20); Calcium 8.1 mg/dl (8.5-10.1); Creatinine Clr Calc Pharmacy 46.3 ml/min; Est GFR (African American) 92.9; Est GFR (Non-African American) 80.1; Potassium 3.6 mmol/L (3.5-5.1)
[2019-03-25 06:42] LABS: Albumin Globulin Ratio 0.8 (0.9-2); Bilirubin,Total 0.3 mg/dl (0.2-1); Ferritin 222.1 ng/ml (8-388); Globulin 3.3 gm/dl (2.5-4.0)
[2019-03-25 07:51] LABS: Vitamin B12 1038 pg/ml (211-911)
[2019-03-25 07:52] LABS: Folate (Folic Acid) > 24.00 ng/ml (>5.38)
[2019-03-25] MEDS: metroNIDAZOLE 500 MG/100 ML BAG IV SCH ×3 (08:15→23:25)
[2019-03-25] MEDS: ARTIFICIAL TEARS OP SCH ×3 (08:15→20:19)
[2019-03-25] MEDS: PARoxetine HCl 10 MG TAB PO SCH (08:16)
[2019-03-25] MEDS: ASPIRIN 81 MG ECTAB PO SCH (08:16)
[2019-03-25] MEDS: HEPARIN SOD 5,000 UNIT/0.5 ML VIAL SQ SCH ×2 (08:16→20:21)
[2019-03-25] MEDS: CEROVITE ADV FORMULA TAB PO SCH (08:16)
--- NOTE | 2019-03-25 10:29 | Hospitalist Progress Note ---
Date of Service March 25, 2019 Assessment & Plan (1) Abdominal pain: (2) Diverticulitis of intestine with abscess: -Hospital day #2 -CT abd/pelvis revealed: Inflammation in the region of the distal sigmoid colon consistent with diverticulitis. Also noted is 3.5 cm adnexal fluid collection concerning for abscess. -No signs of sepsis -Continue Cipro and Flagyl (day #2) -General surgery consulted, input appreciated -Continue conservative management with IVF, pain control, n.p.o.; diet advancement as per surgery (3) Hypertension: -BP remains elevated -Continue metoprolol -Previously on lisinopril 20 mg, was not taking at time of admission; will resume (4) COPD (chronic obstructive pulmonary disease): -No signs of acute exacerbation -Continue tobacco use (5) Tobacco abuse: -current everyday smoker -Nicotine patch ordered -Encourage smoking cessation (6) Breast cancer: -History of right breast CA status post radical mastectomy in 1984, no recurrence -Follows Dr. 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 Rojas on a yearly basis (8) Right upper lobe pulmonary nodule: -Noted on CT scan of chest on 01/13/2018 -Does not appear to have been followed up in outpatient setting -Recommend repeat CT of chest as outpatient per PCP given cancer hx (9) DVT prophylaxis: -SQ heparin Supervising Physician Co-Signing Physician Notes Attending addendum: Patient seen and examined, care coordinated with Sarah BAUMAN 83-year-old female presented with 3-day history of left lower quadrant pain, CT abdomen pelvis shows acute sigmoid diverticulitis With bilateral adnexal enlargement No evidence of sepsis, Patient is treated empirically with IV Rocephin and Flagyl, Patient input from surgery, Recommends conservative management Patient reports of having prior history of diverticulitis almost a decade ago Did not require surgery Follows with Jayant TYLER, last colonoscopy was within normal limit She will need repeat colonoscopy 6-8 weeks after resolution of acute diverticuli tis Bilateral adnexal enlargement, concerning for postmenopausal female-incidental finding in CAT scan Ordered for Ca1 25, tumor marker for ovarian CA Pelvic ultrasound and transvaginal ultrasound ordered to assess for ovary May need HARVEST WORKER consult if ultrasound shows pathology/abnormality Physical exam: GENERAL: No sign of distress, HEENT: Sclera nonicteric, pink-purple bilateral equal reactive to light extraocular muscle intact Normal oral mucosa, neck: No JVD, no thyromegaly, trachea midline Lungs: Clear to auscultate, no wheeze or rales Cardiovascular: Regular S1 and S2, no murmur or gallop, no JVD, no lower extremity edema Abdomen: Soft,, bowel sounds active, mild left lower quadrant tenderness, no rebound, no guarding Extremities: No rash or deformity, normal joint, Neuro: No focal neurological deficit, no dysarthria, no facial droop Psych: Alert awake oriented x3: Euthymic Assessment and plan: Acute sigmoid diverticulitis, Management as outlined above Hypertension: BP elevated, not on any current antihypertensive meds Started with lisinopril, continue to monitor Bilateral adnexal mass Incidental finding Management as outlined above Please refer to further documentation by Sarah BAUMAN for discussion of other chronic issues Subjective Patient seen and examined. Reports abdominal pain has improved. Denies nausea, vomiting, diarrhea. No chest pain or shortness of breath. Denies lightheadedness and dizziness. Physical Exam Constitutional: no acute distress Resting in bed Respiratory: normal respiratory effort, lungs clear to auscultation Cardiovascular: Rate/Rhythm: regular rate and regular rhythm Vessels: normal peripheral pulses Extremities: no edema Gastrointestinal (Abdomen): Inspection/Auscultation: normal bowel sounds Percussion/Palpation: + abdomen tender (Left lower quadrant) and abdomen soft Psychiatric: A+Ox3, euthymic affect Results & Data Vital Signs (Past 12 Hours) Vital Signs Temp Pulse Pulse Resp BP BP Pulse Ox 03/25/19 08:03 36.8 C 76 20 187/91 H 96 03/25/19 07:15 63 03/25/19 03:08 36.8 C 64 19 169/75 H 94 03/25/19 00:35 59 L 03/24/19 23:15 36.7 C 60 15 169/71 H 97 Laboratory Results Short CBC 03/25/19 Range/Units 05:37 WBC 4.14 L (4.8-10.8) K/uL Hgb 11.2 L (12.0-16.0) g/dL Hct 34.4 L (37-47) % Plt Count 143 (130-400) K/uL BMP 03/24/19 03/24/1903/25/19 09:30 11:05 05:37 Sodium 138 141 Potassium TNP 3.9 3.6 Chloride 107 108 H Carbon Dioxide 29 28 BUN 15 8 D Creatinine 0.90 0.70 Glucose 86 84 Calcium 8.3 L 8.1 L Liver Function 03/24/19 03/24/19 03/25/19 Range/Units 09:30 11:05 05:37 Total Bilirubin 0.5 0.3 (0.2-1) mg/dl AST TNP 12 L 17 ALT 20 20 (12-78) U/L Alkaline Phosphatase 75 82 (45-117) U/L Albumin 2.5 L 2.7 L (3.4-5.0) gm/dl (1) Diverticulitis of intestine with abscess Diverticulitis bleeding: unspecified bleeding status Diverticulitis site: unspecified part of intestinal tract Qualified Code(s): K57.80 - Diverticulitis of intestine, part unspecified, with perforation and abscess without bleeding (2) Abdominal pain Abdominal location: unspecified location Qualified Code(s): R10.9 - Unspecified abdominal pain (3) Hypertension Hypertension type: unspecified Qualified Code(s): I10 - Essential (primary) hypertension
[2019-03-25] MEDS: SODIUM CHLORIDE 0.9% 1000ML 1,000 ML IV SCH ×2 (10:32→20:31)
[2019-03-25] MEDS ORDERED: lisinopriL 20 MG TAB PO ONE (11:00)
--- NOTE | 2019-03-25 11:20 | Surgery Progress Note ---
Date of Service doing better, no abdominal pain, no nausea, no vomiting, no diarrhea, no fever, March 25, 2019 Assessment & Plan (1) Diverticulitis: pt is a 83 year-old female who presents to Er with 3 days history LLQ pain, IMP: sigmoid diverticulitis with abscess, size 3.5cm, Plan, I recommend to admit pt to hospital , conservative treatment, IV fluid, NPO, IV antibiotic, cipro + flagyl, control pain, repeat labs in am, I also D/W possible indication of percutaneous drainage or surgery such as worse symptoms, fever, increase abscess size, rupture of abscess. pt understood, she agrees with the plan, i answered all questions. 03/25/2019 11:19am doing fine, full liquid diet, continue antibiotic treatment, will F/U Supervising Physician Co-Signing Physician Notes Patient is an 83-year-old female with history of COPD, hypertension, breast cancer and other problems presents with history of left lower quadrant abdominal pain associated with poor appetite since [address] abdomen is troncoso ggestive of acute diverticulitis of the sigmoid colon. Also findings suggestive of right adnexal loculated collection and bilateral ovarian enlargement noted. Patient is evaluated by surgery while in ED. On exam patient is thin, frail, no apparent distress, normocephalic atraumatic, lungs are clear to auscultation, S1-S2, no murmur, abdomen tender left lower quadrant predominantly, soft, no gu arding or rigidity, no pedal edema, grossly nonfocal neurological status. Patient is admitted for management of acute diverticulitis. Agree with IV fluids, n.p.o., pain control, surgery consult. If no improvement with conservative management, patient would likely need to be transferred to tertiary care hospital for percutaneous drainage or surgery. Consider MAINTENANCE DISPATCHER evaluation as outpatient for bilateral ovarian enlargement. I personally reviewed the record. Patient is interviewed and examined at bedside. Patient's care is coordinated with Ju Pappas PA-C. Please refer to the documentation above for details of patient's presentation and for discussion of other issues. Subjective Patient seen and examined. Reports abdominal pain has improved. Denies nausea, vomiting, diarrhea. No chest pain or shortness of breath. Denies lightheadedness and dizziness. Physical Exam Constitutional: WD/WN, vitals as above well developed and well nourished ENMT: external ear and nose normal, oropharynx normal Ears: + hearing impairment Neck: trachea midline, no thyromegaly Respiratory: normal respiratory effort, lungs clear to auscultation normal respiratory effort Cardiovascular: RRR, no murmur, no edema Rate/Rhythm: regular rate and regular rhythm Heart Sounds: normal S1 and normal S2 Gastrointestinal (Abdomen): Percussion/Palpation: abdomen soft Musculoskeletal: no cyanosis or clubbing, extremities motor strength 5/5 Skin: no rashes, warm and dry Neurologic: patellar DTR's 2+ bilat, sensation intact Psychiatric: A+Ox3, euthymic affect Orientation: alert and oriented x 3 Results & Data Vital Signs (Past 12 Hours) Vital Signs Temp Pulse Pulse Resp BP BP Pulse Ox 03/25/19 08:03 36.8 C 76 20 187/91 H 96 03/25/19 07:15 63 03/25/19 03:08 36.8 C 64 19 169/75 H 94 03/25/19 00:35 59 L
[2019-03-25] MEDS ORDERED: MAGNESIUM HYDROXIDE SUSP 30 ML UDC PO PRN (11:57)
--- NOTE | 2019-03-25 14:55 | Ultrasound Report ---
US pelvic complete CLINICAL HISTORY: enlarged ovaries /post menopausal PAIN. OVARIAN ENLARGEMENT. COMPARISON STUDY: CT 03/24/2019 FINDINGS: The uterus measured prior hysterectomy. The endometrial stripe measured not applicable. The right ovary measured 2.9 cm maximum dimension with a 1.6 cm cyst.. The left ovary measured maximum dimension 5 cm including a 5 x 3 cm complex cyst.. There is no ultrasonographic evidence of ovarian torsion. It should be noted that ovarian torsion can be present with normal Doppler ultrasonographic findings. There was no evidence of pathologic free pelvic fluid. IMPRESSION: 1. Left ovarian cysts considered complex measuring 5 x 3 cm. 2. 1.6 cm right ovarian cyst. 3. Prior hysterectomy. 4. Given the patient's postmenopausal/age category, cystic findings are considered abnormal with foll ow-up recommended. The above report was generated using voice recognition software. It may contain grammatical, syntax or spelling errors. Electronically signed by: Harsh Cabrera M.D. 03/25/2019 2:53 PM
[2019-03-25] MEDS: TRAZODONE HCL 100 MG TAB PO SCH (20:20)
[2019-03-25] MEDS: METOPROLOL SUCC 50MG EXT REL TAB PO SCH (20:21)
[2019-03-25] MEDS: NICOTINE 14 MG/24 HR PATCH TD SCH (20:21)
[2019-03-25] MEDS: ACETAMINOPHEN 325 MG TAB PO PRN (20:31)
[2019-03-26] MEDS: ACETAMINOPHEN 325 MG TAB PO PRN (01:37)
[2019-03-26] MEDS: CIPROFLOXACIN 400 MG/200 ML BAG IV SCH (05:39)
[2019-03-26 05:47] LABS: Hematocrit (blood only) 37.4 % (37-47); Hemoglobin 12.1 g/dL (12.0-16.0); Mean Corpuscular Hgb Conc 32.4 g/dL (32-36); Mean Corpuscular Volume 98.9 fL (80-100); Platelet Count 168 K/uL (130-400); RDW Coefficient of Variation 12.2 % (11.5-14.5); RDW Standard Deviation 44.1 fL (36.4-46.3); Red Blood Count 3.78 M/uL (4.2-5.4); White Blood Count 4.98 K/uL (4.8-10.8)
[2019-03-26 06:19] LABS: BUN Creatinine Ratio 7.8 (10-20); Calcium 7.9 mg/dl (8.5-10.1); Creatinine Clr Calc Pharmacy 44.5 ml/min; Est GFR (African American) 91.3; Est GFR (Non-African American) 78.8; Potassium 3.4 mmol/L (3.5-5.1)
--- NOTE | 2019-03-26 07:33 | Surgery Progress Note ---
Date of Service doing fine, no abdominal pain, no fever, she tolerated diet, no nausea, no vomiting. normal WBC March 26, 2019 Assessment & Plan (1) Diverticulitis: pt is a 83 year-old female who presents to Er with 3 days history LLQ pain, IMP: sigmoid diverticulitis with abscess, size 3.5cm, Plan, I recommend to admit pt to hospital , conservative treatment, IV fluid, NPO, IV antibiotic, cipro + flagyl, control pain, repeat labs in am, I also D/W possible indication of percutaneous drainage or surgery such as worse symptoms, fever, increase abscess size, rupture of abscess. pt understood, she agrees with the plan, i answered all questions. 03/25/2019 11:19am doing fine, full liquid diet, continue antibiotic treatment, will F/U 03/26/2019 7:30am doing fine, pt can be discharged home today with po antibiotic for 10 days, cipro + flagyl, pt agrees with the plan, i answered all questions, follow up me 1-2 weeks [phone] sign off today, please call with questions, thanks, Subjective Patient seen and examined. Reports abdominal pain has improved. Denies nausea, vomiting, diarrhea. No chest pain or shortness of breath. Denies lightheadedness and dizziness. Physical Exam Constitutional: WD/WN, vitals as above well developed and well nourished ENMT: external ear and nose normal, oropharynx normal Ears: + hearing impairment Neck: trachea midline, no thyromegaly Respiratory: normal respiratory effort, lungs clear to auscultation normal respiratory effort Cardiovascular: RRR, no murmur, no edema Rate/Rhythm: regular rate and regular rhythm Heart Sounds: normal S1 and normal S2 Gastrointestinal (Abdomen): Percussion/Palpation: abdomen soft no ten derness, no distend, BS + Musculoskeletal: no cyanosis or clubbing, extremities motor strength 5/5 Skin: no rashes, warm and dry Neurologic: patellar DTR's 2+ bilat, sensation intact Psychiatric: A+Ox3, euthymic affect Orientation: alert and oriented x 3 Results & Data Vital Signs (Past 12 Hours) Vital Signs Temp Pulse Resp BP Pulse Ox 03/26/19 07:08 36.9 C 67 16 188/72 H 97 03/25/19 20:47 36.7 C 52 L 20 113/66 96 Laboratory Results Abnormal lab results 03/25/19 03/26/19 03/26/19 Range/Units 05:37 05:27 05:27 RBC 3.78 L (4.2-5.4) M/uL MPV 11.0 H (7.4-10.4) fL Potassium 3.4 L (3.5-5.1) mmol/L BUN 6 L (7-18) mg/dl BUN/Creatinine Ratio 7.8 L (10-20) Calcium 7.9 L (8.5-10.1) mg/dl Vitamin B12 1038 H (211-911) pg/ml
[2019-03-26] MEDS: SODIUM CHLORIDE 0.9% 1000ML 1,000 ML IV SCH (08:17)
[2019-03-26] MEDS: CHOLECALCIFEROL 1,000 UNITS TAB PO SCH (08:17)
[2019-03-26] MEDS: PARoxetine HCl 10 MG TAB PO SCH (08:17)
[2019-03-26] MEDS: ASPIRIN 81 MG ECTAB PO SCH (08:17)
[2019-03-26] MEDS: metroNIDAZOLE 500 MG/100 ML BAG IV SCH (08:17)
[2019-03-26] MEDS: CEROVITE ADV FORMULA TAB PO SCH (08:17)
[2019-03-26] MEDS: ARTIFICIAL TEARS OP SCH ×3 (08:18→20:08)
[2019-03-26] MEDS: HEPARIN SOD 5,000 UNIT/0.5 ML VIAL SQ SCH ×2 (08:18→20:11)
[2019-03-26] MEDS ORDERED: lisinopriL 20 MG TAB PO STA (08:42)
[2019-03-26] MEDS ORDERED: POTASSIUM CHLORIDE 20 MEQ TABCR PO STA (08:45)
[2019-03-26] MEDS ORDERED: lisinopriL 20 MG TAB PO SCH (09:00)
[2019-03-26] MEDS ORDERED: lisinopriL 40 MG TAB PO SCH (09:00)
--- NOTE | 2019-03-26 11:00 | Hospitalist Progress Note ---
Date of Service March 26, 2019 Assessment & Plan (1) Abdominal pain: (2) Diverticulitis of intestine with abscess: -Hospital day #3 -CT abd/pelvis revealed: Inflammation in the region of the distal sigmoid colon consistent with diverticulitis. Also noted is 3.5 cm adnexal fluid collection concerning for abscess. -No signs of sepsis -Pain controlled -Continue Cipro and Flagyl (day #3); will transition to p.o. today -General surgery consulted, input appreciated; cleared for discharge from surgery however will keep due to elevated BPs -Tolerating full liquid diet, will advance to regular today -Will need follow-up colonoscopy in 6 to 8 weeks (3) Hypertension: -BP remains uncontrolled -Continue metoprolol -Previously on lisinopril 20 mg, was not taking at time of admission; lisinopril 20 mg started on 1212, given persistent elevated BPs, will increase to 40 mg daily -Echo (4) Ovarian cyst: -Pelvic ultrasound shows left ovarian cysts considered complex measuring 5 x 3 cm and 1.6 cm right ovarian cyst -Given patient's age and postmenopausal state, will need follow-up with EXTRUSION SUPERVISOR -CA1 25 ordered and pending -Case discussed with Dr. Cornelius who recommends the patient be seen as an outpatient after discharge (5) COPD (chronic obstructive pulmonary disease): -No signs of acute exacerbation -Continue tobacco use Moderate protein-calorie malnutrition BMI 19 reports of poor appetite , wt loss approx 40lb over last 1 year nutrition consulted -appreciate input (6) Tobacco abuse: -current everyday smoker -Nicotine patch ordered -Encourage smoking cessation (7) Breast cancer: -History of right breast CA status post radical mastectomy in 1984, no recurrence -Follows Dr. 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 Rojas on a yearly basis (9) Right upper lobe pulmonary nodule: -Noted on CT scan of chest on 01/13/2018 -Does not appear to have been followed up in outpatient setting -Recommend repeat CT of chest as outpatient per PCP given cancer hx (10) DVT prophylaxis: -SQ heparin Supervising Physician Co-Signing Physician Notes ATTENDING ADDENDUM : pt seen and examined care co-ordinated with Sarah BAUMAN pt reports of feeling better today no nausea or vomiting no fever abdominal pain continues to improve diet advanced tolerating well GENERAL: No sign of distress, HEENT: Sclera nonicteric, pink-purple bilateral equal reactive to light extraocular muscle intact Normal oral mucosa, neck: No JVD, no thyromegaly, trachea midline Lungs: Clear to auscultate, no wheeze or rales Cardiovascular: Regular S1 and S2, no murmur or gallop, no JVD, no lower extremity edema Abdomen: Soft,mild tenderness on left lower quadrant/improved since yesterday , no rebound or guarding , bowel sounds active, Extremities: No rash or deformity, normal joint, Neuro: No focal neurological deficit, no dysarthria, no facial droop Psych: Alert awake oriented x3: Euthymic ASSESSMENT AND PLAN : Acute Sigmoid diverticulitis clinically improved with conservative management diet advanced , appreciate surgery eval Abx changed to PO Cipro and Flagyl complete total 10 days tx out pt follow up with GI and repeat colonoscopy in 6-8 weeks Hypertensive urgency : noted BP elevated persistently 170-180 with no symptom of chest pain or SOB on Toprol XL 100 mg HS which is continued Lisinopril 20 mg daily added with no effect /improvement of BP dose increased to 40 mg daily -cont to monitor Transthoracic echo shows : moderate concentric LV hypertrophy , EF 55-60% , with grade 1 diastolic dysfunction suggestive of early Hypertensive cardiomyopathy pt will need close follow up with family physician for management of HTN and titration of antihypertensives if needed Bilateral Ovarian enlargement /cyst : incidental finding in CT abdomen/pelvis abnormal for pt's age - pelvic USG confirms ovarian cyst bilat need Irrigation Installation Specialist eval and further investigation to R/o malignancy CA 125 ordered ( tumor marker for ovarian ca ) report pending pt will be scheduled with [facility] Irrigation Installation Specialist as out patient Please refer to further documentation by Sarah BAUMAN for discussion or other chronic issues Brandy Mortensen MD Subjective Patient seen and examined. Feels well this morning. Tolerating for liquid diet. Pain continues to improve. No nausea, vomiting, diarrhea. Denies chest pain shortness of breath. No lightheadedness dizziness. Physical Exam Constitutional: no acute distress Resting in bed Respiratory: normal respiratory effort, lungs clear to auscultation Cardiovascular: Rate/Rhythm: regular rate and regular rhythm Vessels: normal peripheral pulses Extremities: no edema Gastrointestinal (Abdomen): Inspection/Auscultation: normal bowel sounds Percussion/Palpation: + abdomen tender (Mild, left lower quadrant) and abdomen soft Psychiatric: Orientation: alert and oriented x 3 Results & Data Vital Signs (Past 12 Hours) Vital Signs Temp Pulse Resp BP Pulse Ox 03/26/19 07:08 36.9 C 67 16 188/72 H 97 Laboratory Results Short CBC 03/26/19 Range/Units 05:27 WBC 4.98 (4.8-10.8) K/uL Hgb 12.1 (12.0-16.0) g/dL Hct 37.4 (37-47) % Plt Count 168 (130-400) K/uL BMP 03/26/19 05:27 Sodium 141 Potassium 3.4 L Chloride 107 Carbon Dioxide 29 BUN 6 L Creatinine 0.71 Glucose 96 Calcium 7.9 L Diagnostic Findings PELVIC ULTRASOUND IMPRESSION: 1. Left ovarian cysts considered complex measuring 5 x 3 cm. 2. 1.6 cm right ovarian cyst. 3. Prior hysterectomy. 4. Given the patient's postmenopausal/age category, cystic findings are considered abnormal with follow-up recommended. (1) Diverticulitis of intestine with abscess Diverticulitis bleeding: unspecified bleeding status Diverticulitis site: unspecified part of intestinal tract Qualified Code(s): K57.80 - Diverticulitis of intestine, part unspecified, with perforation and abscess without bleeding (2) Abdominal pain Abdominal location: unspecified location Qualified Code(s): R10.9 - Unspecified abdominal pain (3) Hypertension Hypertension type: unspecified Qualified Code(s): I10 - Essential (primary) hypertension
[2019-03-26] MEDS: metroNIDAZOLE 500 MG TAB PO SCH ×2 (13:43→20:11)
[2019-03-26] MEDS ORDERED: HydrALAZINE HCL 20 MG/ML VIAL IV PRN (14:28)
--- NOTE | 2019-03-26 15:04 | Emergency Department Note ---
Entered by Aida Lobato acting as a scribe for Chioma Estrella DO History of Present Illness General Chief complaint: Abdominal Pain Time Seen by Provider: 03/24/19 09:05 Source: patient History of Present Illness Onset (ago): day(s) (4-5) Location: abdomen (lower, left) Pain Consistency: + constant Maximum Pain Intensity: 6 Quality: + other (abdominal pain) Associated symptoms: + loss of appetite, + nausea/vomiting (+nausea; -vomiting) and + other (-urinary symptoms); no fever/chills The patient is an 83 year old female, with past medical history of HTN, COPD, CVA, breast cancer, and lung cancer, who presents to the Emergency Room with complaints of constant left, lower abdominal pain over the last 4-5 days. The patient states she also has had a loss of appetite over the same time period. She states nothing has tasted right. The patient notes she feels nauseated whe n she starts eating, but the patient denies vomiting. She denies ever experiencing similar pain. She also denies recent changes to her diet or bowel movement, and she notes her last bowel movement was 4-5 days ago. The patient reports she has been staying hydrated even with her lack of appetite. The patient denies urinary symptoms or a fever. The patient also denies taking any medicine for the pain at home. Home Medications Home Medications Medication Instructions Recorded Confirmed Type alendronate 70 mg PO WK 03/24/19 03/24/19 History aspirin 81 mg PO QAM 03/24/19 03/24/19 History chlorpheniramine-dextromethorp 1 tab PO BID PRN 03/24/19 03/24/19 History [Coricidin HBP Cough and Cold] cholecalciferol (vitamin D3) 5,000 unit PO QAM 03/24/19 03/24/19 History [Vitamin D3] cholestyramine (with sugar) 4 g PO BID PRN 03/24/19 03/24/19 History diphenhydramine-acetaminophen 1 tab PO Q4H PRN 03/24/19 03/24/19 History [Mapap PM] diphenoxylate-atropine 1 tab PO BID PRN 03/24/19 03/24/19 History magnesium hydroxide [Milk of 30 ml PO DAILY PRN 03/24/19 03/24/19 History Magnesia] melatonin 10 mg PO HS PRN 03/24/19 03/24/19 History metoprolol succinate 100 mg PO HS 03/24/19 03/24/19 History ovhaevqi-iiep-htp-FA-lutein [Certa 1 tab PO QAM 03/24/19 03/24/19 History Plus] paroxetine HCl 10 mg PO QAM 03/24/19 03/24/19 History peg 400-propylene glycol (PF) 1 drp OPHTHALMIC (EYE) TID 03/24/19 03/24/19 History [Systane (PF)] trazodone 100 mg PO HS 03/24/19 03/24/19 History vit C,O-At-hmvtf-lutein-zeaxan 1 tab PO BID 03/24/19 03/24/19 History [PreserVision AREDS-2] Allergies Allergy/AdvReac Type Severity Reaction Status Date / Time Penicillins Allergy Unknown HIVES Verified 03/24/19 10:56 adhesive AdvReac Unknown EXCORIATION Verified 03/24/19 10:56 S morphine AdvReac Unknown ITCHING Verified 03/24/19 10:56 Flu Virus Vaccine Allergy Unknown . Uncoded 03/24/19 10:56 Past Med/Surg History Medical History Breast cancer (Chronic) COPD (chronic obstructive pulmonary disease) (Chronic) CVA (cerebral infarction) (Chronic) Diverticulitis (Chronic) Hypertension (Chronic) Left displaced femoral neck fracture Lung cancer (Chronic) Syncope and collapse Weakness (Acute) Surgical History H/O: hysterectomy (Resolved) History of hysterectomy (Acute) History of mastectomy (Acute) Hx of cholecystectomy (Resolved) S/P cholecystectomy (Chronic) S/P lobectomy of lung (Acute) Family History Mother Breast cancer Social History Preferred Language: Singaporean Communication Ability: Effective Management Professor Required: No Beliefs That Will Affect Care: None marital status: / Current Living Situation: Personal Care Facility current occupational status: retired Other Information That Helps Us Care for You: No Feels Safe at Home: Yes Safety Concerns: Feels Safe At This Time Smoking Status: Current every day smoker Tobacco Type: cigarettes ; Do You Dip or Chew Tobacco: No ; Second Hand Exposure: No ; Tobacco Cessation Education Requested by Patient: No Hx Alcohol Use: Yes Alcohol type: beer and hard liquor Alcohol Intake Frequency Comment: Previously used alcohol, currently does not drink alcohol Hx Substance Use: No Review of Systems See HPI for pertinent positives & negatives. and A total of 10 systems reviewed and were otherwise negative Physical Exam Vital Signs Vital Signs - 24 hr 03/24/19 08:51 03/24/19 09:00 03/24/19 09:01 Temperature 36.6 C Temperature Source Oral Pulse Rate 65 65 65 Pulse Rate from SpO2 Sensor 65 65 Respiratory Rate 20 10 L 19 Respiratory Effort / Characteristics Non-Labored Spontaneous Respiratory Depth Normal Respiratory Pattern Regular Blood Pressure 181/87 H 181/87 H Blood Pressure Mean 118 113 Pulse Oximetry 90 96 Oxygen Delivery Method Room Air Sepsis Recent Fever Within 48 Hours No Sepsis Action Taken by Nursing No Action Required 03/24/19 09:30 03/24/19 09:31 03/24/19 10:00 Temperature Temperature Source Pulse Rate 63 62 63 Pulse Rate from SpO2 Sensor 63 62 Respiratory Rate 24 27 H 18 Respiratory Effort / Characteristics Respiratory Depth Respiratory Pattern Blood Pressure 156/83 H Blood Pressure Mean 99 Pulse Oximetry 97 97 Oxygen Delivery Method Sepsis Recent Fever Within 48 Hours Sepsis Action Taken by Nursing 03/24/19 10:02 03/24/19 10:03 03/24/19 10:04 Temperature Temperature Source Pulse Rate 61 61 62 Pulse Rate from SpO2 Sensor Respiratory Rate 14 18 18 Respiratory Effort / Characteristics Respiratory Depth Respiratory Pattern Blood Pressure 188/101 H 169/79 H Blood Pressure Mean 129 96 Pulse Oximetry Oxygen Delivery Method Sepsis Recent Fever Within 48 Hours Sepsis Action Taken by Nursing 03/24/19 10:10 03/24/19 10:20 03/24/19 10:30 Temperature Temperature Source Pulse Rate 61 60 58 L Pulse Rate from SpO2 Sensor 58 L Respiratory Rate 17 15 18 Respiratory Effort / Characteristics Respiratory Depth Respiratory Pattern Blood Pressure 158/89 H Blood Pressure Mean 111 Pulse Oximetry 96 Oxygen Delivery Method Sepsis Recent Fever Within 48 Hours Sepsis Action Taken by Nursing 03/24/19 10:31 03/24/19 10:40 03/24/19 10:50 Temperature Temperature Source Pulse Rate 58 L 59 L 60 Pulse Rate from SpO2 Sensor 59 L 58 L 60 Respiratory Rate 15 20 16 Respiratory Effort / Characteristics Respiratory Depth Respiratory Pattern Blood Pressure Blood Pressure Mean Pulse Oximetry 89 L 92 Oxygen Delivery Method Sepsis Recent Fever Within 48 Hours Sepsis Action Taken by Nursing 03/24/19 11:00 03/24/19 11:01 03/24/19 11:10 Temperature Temperature Source Pulse Rate 59 L 58 L 60 Pulse Rate from SpO2 Sensor 58 L 59 L 57 L Respiratory Rate 17 16 18 Respiratory Effort / Characteristics Respiratory Depth Respiratory Pattern Blood Pressure 149/84 H Blood Pressure Mean 120 Pulse Oximetry 94 94 Oxygen Delivery Method Sepsis Recent Fever Within 48 Hours Sepsis Action Taken by Nursing 03/24/19 11:21 03/24/19 11:30 03/24/19 11:31 Temperature Temperature Source Pulse Rate 67 60 61 Pulse Rate from SpO2 Sensor 63 64 Respiratory Rate 25 H 18 18 Respiratory Effort / Characteristics Respiratory Depth Respiratory Pattern Blood Pressure 178/93 H Blood Pressure Mean 127 Pulse Oximetry 92 95 Oxygen Delivery Method Sepsis Recent Fever Within 48 Hours Sepsis Action Taken by Nursing 03/24/19 11:40 03/24/19 11:50 03/24/19 12:00 Temperature Temperature Source Pulse Rate 58 L 59 L 58 L Pulse Rate from SpO2 Sensor 57 L 61 60 Respiratory Rate 18 16 15 Respiratory Effort / Characteristics Respiratory Depth Respiratory Pattern Blood Pressure 168/85 H Blood Pressure Mean 93 Pulse Oximetry 90 95 98 Oxygen Delivery Method Sepsis Recent Fever Within 48 Hours Sepsis Action Taken by Nursing 03/24/19 12:01 03/24/19 12:18 03/24/19 12:24 Temperature Temperature Source Pulse Rate 59 L 63 67 Pulse Rate from SpO2 Sensor 58 L Respiratory Rate 15 15 14 Respiratory Effort / Characteristics Respiratory Depth Respiratory Pattern Blood Pressure Blood Pressure Mean Pulse Oximetry 97 Oxygen Delivery Method Sepsis Recent Fever Within 48 Hours Sepsis Action Taken by Nursing 03/24/19 12:30 03/24/19 12:31 03/24/19 12:40 Temperature Temperature Source Pulse Rate 60 61 60 Pulse Rate from SpO2 Sensor 62 62 60 Respiratory Rate 17 16 21 Respiratory Effort / Characteristics Respiratory Depth Respiratory Pattern Blood Pressure 162/73 H Blood Pressure Mean 101 Pulse Oximetry 84 L 96 99 Oxygen Delivery Method Sepsis Recent Fever Within 48 Hours Sepsis Action Taken by Nursing 03/24/19 12:50 03/24/19 13:00 03/24/19 13:01 Temperature Temperature Source Pulse Rate 59 L 59 L 60 Pulse Rate from SpO2 Sensor 59 L 59 L 60 Respiratory Rate 15 16 16 Respiratory Effort / Characteristics Respiratory Depth Respiratory Pattern Blood Pressure 169/82 H Blood Pressure Mean 94 Pulse Oximetry 99 95 96 Oxygen Delivery Method Sepsis Recent Fever Within 48 Hours Sepsis Action Taken by Nursing 03/24/19 13:10 03/24/19 13:20 03/24/19 13:30 Temperature Temperature Source Pulse Rate 60 59 L 65 Pulse Rate from SpO2 Sensor 60 58 L Respiratory Rate 19 23 17 Respiratory Effort / Characteristics Respiratory Depth Respiratory Pattern Blood Pressure Blood Pressure Mean Pulse Oximetry 96 Oxygen Delivery Method Sepsis Recent Fever Within 48 Hours Sepsis Action Taken by Nursing 03/24/19 13:31 03/24/19 13:40 03/24/19 13:50 Temperature Temperature Source Pulse Rate 62 61 58 L Pulse Rate from SpO2 Sensor 62 61 Respiratory Rate 23 15 18 Respiratory Effort / Characteristics Respiratory Depth Respiratory Pattern Blood Pressure 177/124 H Blood Pressure Mean 141 Pulse Oximetry 97 97 Oxygen Delivery Method Sepsis Recent Fever Within 48 Hours Sepsis Action Taken by Nursing 03/24/19 14:00 03/24/19 14:01 03/24/19 14:10 Temperature Temperature Source Pulse Rate 64 66 61 Pulse Rate from SpO2 Sensor Respiratory Rate 19 23 15 Respiratory Effort / Characteristics Respiratory Depth Respiratory Pattern Blood Pressure 180/104 H Blood Pressure Mean 131 Pulse Oximetry Oxygen Delivery Method Sepsis Recent Fever Within 48 Hours Sepsis Action Taken by Nursing 03/24/19 14:20 Temperature Temperature Source Pulse Rate 58 L Pulse Rate from SpO2 Sensor 58 L Respiratory Rate 16 Respiratory Effort / Characteristics Respiratory Depth Respiratory Pattern Blood Pressure Blood Pressure Mean Pulse Oximetry 95 Oxygen Delivery Method Sepsis Recent Fever Within 48 Hours Sepsis Action Taken by Nursing GENERAL: alert, well appearing, well nourished, no distress, non-toxic EYE EXAM: normal conjunctiva, PERRL and EOM's grossly intact OROPHARYNX: no exudate, no erythema, lips, buccal mucosa, and tongue normal and mucous membranes are moist NECK: Supple, no nuchal rigidity, no adenopathy, non-tender. Dressing noted to right lateral neck over area of recent skin biopsy. CHEST: Well-healed midline vertical surgical scar noted to chest with acco mpanying concave deformity of left superior chest wall. LUNGS: Clear to auscultation. Normal chest wall mechanics, no w/r/r HEART: no murmurs, S1 normal and S2 normal ABDOMEN: abdomen soft, mild lower left quadrant tenderness to palpation, normo- active bowel sounds, no masses, no rebound or guarding. BACK: Back is symmetrical on inspection and there is no deformity, no midline tenderness, no CVA tenderness. SKIN: no rashes and no bruising UPPER EXTREMITIES: upper extremities are grossly normal. FROM, nml pulses b/l. LOWER EXTREMITIES: No pitting edema. FROM, nml pulses b/l. NEURO EXAM: Normal sensorium, cranial nerves II-XII intact, normal speech, no weakness of arms, no weakness of legs. Course Course 0915: Past medical records reviewed. The patient was evaluated in room B4B. A complete history and physical exam was performed. 1306: I discussed the patient's case with Agnieszka Jiang. Agnieszka reports that her and Dr. Shelly Jiang [facility] will review the patient's CT to make determination of possible transfer for IR drainage. 1330: I discussed the patient's case with Dr. Shelly Jiang. Dr. Busch states to admit the patient and that he will follow with the patient. 1434: I updated the patient on her results. She states her pain is improved but not yet resolved. I told her the plan of bringing her into the hospital. 1445: I reviewed the patient's case with Ju Saba. Dr. Mason Saba will evaluate the patient for further management. Consultations Consultation #1: I discussed the patient's case with Agnieszka Jiang. Agnieszka reports that her and Dr. Shelly Jiang [facility] will review the patient's CT to make determination of possible transfer for IR drainage. Time: 13:06 Consultation #2: I discussed the patient's case with Dr. Shelly Jiang. Dr. uBsch states to admit the patient and that he will follow up with the patient. Time: 13:30 Consultation #3: I reviewed the patient's case with Ju Saba. Dr. Mason Saba will evaluate the patient for further management. Time: 14:45 Administered Medications Acetaminophen (Tylenol) 650 mg PO Q4H PRN PRN Reason: pain/fever Stop: 04/23/19 17:09 Last Admin: 03/26/19 01:37 Dose: 650 mg Documented by: [id number] Admin: 03/25/19 20:31 Dose: 650 mg Documented by: [id number] Artificial Tears (Artificial Tears) 1 drops OP TID [facility]; Protocol Stop: 04/23/19 20:59 Last Admin: 03/26/19 13:43 Dose: 1 ea Documented by: [id number] Admin: 03/26/19 08:18 Dose: 1 ea Documented by: [id number] Admin: 03/25/19 20:19 Dose: 1 ml Documented by: [id number] Admin: 03/25/19 14:50 Dose: 1 ml Documented by: [id number] Admin: 03/25/19 08:15 Dose: 1 ml Documented by: [id number] Admin: 03/24/19 20:10 Dose: 1 ml Documented by: [id number] Aspirin (Ecotrin Ectab) 81 mg PO QAM [facility] Stop: 04/24/19 08:59 Last Admin: 03/26/19 08:17 Dose: 81 mg Documented by: [id number] Admin: 03/25/19 08:16 Dose: 81 mg Documented by: [id number] Heparin Sodium (Porcine) (Heparin Sodium (Porcine)) 5,000 units SQ Q12 [facility] Stop: 04/23/19 20:59 Last Admin: 03/26/19 08:18 Dose: 5,000 units Documented by: [id number] Cosigned by: [id number] Admin: 03/25/19 20:21 Dose: 5,000 units Documented by: [id number] Cosigned by: [id number] Admin: 03/25/19 08:16 Dose: 5,000 units Documented by: [id number] Cosigned by: [id number] Admin: 03/24/19 20:06 Dose: 5,000 units Documented by: [id number] Cosigned by: [id number] Metoprolol Succinate (Toprol Xl) 100 mg PO HS [facility] Stop: 04/23/19 20:59 Last Admin: 03/25/19 20:21 Dose: 100 mg Documented by: [id number] Admin: 03/24/19 20:09 Dose: 100 mg Documented by: [id number] Metronidazole (Flagyl) 500 mg PO TID [facility]; Protocol Stop: 04/05/19 13:59 Last Admin: 03/26/19 13:43 Dose: 500 mg Documented by: [id number] Miscellaneous (Remove Nicoderm Patch) 1 ea N/A DAILY@1859 [facility] Stop: 04/24/19 18:58 Last Admin: 03/25/19 20:19 Dose: 1 ea Documented by: [id number] Multivitamins/Minerals (Multivitamin W/ Minerals Tab) 1 tab PO [facility] Stop: 04/24/19 08:59 Last Admin: 03/26/19 08:17 Dose: 1 tab Documented by: [id number] Admin: 03/25/19 08:16 Dose: 1 tab Documented by: [id number] Nicotine (Nicoderm Cq) 14 mg TD DAILY@1900 [facility] Stop: 04/23/19 18:59 Last Admin: 03/25/19 20:21 Dose: 14 mg Documented by: [id number] Admin: 03/24/19 19:16 Dose: 14 mg Documented by: [id number] Paroxetine HCl (Paroxetine Hcl) 10 mg PO [facility] Stop: 04/24/19 08:59 Last Admin: 03/26/19 08:17 Dose: 10 mg Documented by: [id number] Admin: 03/25/19 08:16 Dose: 10 mg Documented by: [id number] Trazodone HCl (Desyrel) 100 mg PO [facility] Stop: 04/23/19 20:59 Last Admin: 03/25/19 20:20 Dose: 100 mg Documented by: [id number] Admin: 03/24/19 20:09 Dose: 100 mg Documented by: [id number] Vitamin D (Vitamin D3) 5,000 units PO [facility] Stop: 04/25/19 08:59 Last Admin: 03/26/19 08:17 Dose: 5,000 units Documented by: [id number] Discontinued Medications Hydralazine HCl (Hydralazine Hcl) 5 mg IV Q6H PRN PRN Reason: Hypertension Stop: 04/23/19 21:40 Last Admin: 03/25/19 17:16 Dose: 5 mg Documented by: [id number] Acetaminophen (Ofirmev) 1,000 mg in 100 mls @ 400 mls/hr IV NOW STA Stop: 03/24/19 09:37 Last Infusion: 03/24/19 10:15 Dose: 0 mls/hr Documented by: [id number] Admin: 03/24/19 09:59 Dose: 400 mls/hr Documented by: [id number] Sodium Chloride (Nss 1000ml) 1,000 mls @ 250 mls/hr IV .Q4H [facility] Stop: 03/24/19 13:23 Last Infusion: 03/24/19 13:58 Dose: 0 mls/hr Documented by: [id number] Admin: 03/24/19 09:57 Dose: 250 mls/hr Documented by: [id number] Ceftriaxone Sodium (Rocephin) 1,000 mg in 50 mls @ 100 mls/hr IV NOW STA Stop: 03/24/19 15:01 Last Infusion: 03/24/19 15:51 Dose: 0 mls/hr Documented by: [id number] Admin: 03/24/19 15:19 Dose: 100 mls/hr Documented by: [id number] Metronidazole (Flagyl) 500 mg in 100 mls @ 100 mls/hr IV NOW STA Stop: 03/24/19 15:31 Last Infusion: 03/24/19 16:45 Dose: 0 mls/hr Documented by: [id number] Admin: 03/24/19 15:45 Dose: 100 mls/hr Documented by: [id number] Sodium Chloride (Nss 1000ml) 1,000 mls @ 125 mls/hr IV .Q8H [facility] Stop: 04/23/19 14:44 Last Admin: 03/24/19 17:11 Dose: Not Given Documented by: [id number] Sodium Chloride (Nss 1000ml) 1,000 mls @ 80 mls/hr IV .[id number] [facility] Stop: 04/23/19 17:09 Last Infusion: 03/26/19 11:17 Dose: 0 mls/hr Documented by: [id number] Admin: 03/26/19 08:17 Dose: 80 mls/hr Documented by: [id number] Infusion: 03/26/19 08:17 Dose: 80 mls/hr Documented by: [id number] Admin: 03/25/19 20:31 Dose: 80 mls/hr Documented by: [id number] Infusion: 03/25/19 20:31 Dose: 80 mls/hr Documented by: [id number] Admin: 03/25/19 10:32 Dose: 80 mls/hr Documented by: [id number] Infusion: 03/25/19 06:31 Dose: 80 mls/hr Documented by: [id number] Admin: 03/24/19 18:01 Dose: 80 mls/hr Documented by: [id number] Ciprofloxacin (Cipro) 400 mg in 200 mls @ 100 mls/hr IV Q12H [facility]; Protocol Stop: 04/03/19 17:59 Last Infusion: 03/26/19 07:43 Dose: 0 mls/hr Documented by: [id number] Admin: 03/26/19 05:39 Dose: 100 mls/hr Documented by: [id number] Infusion: 03/25/19 20:19 Dose: 0 mls/hr Documented by: [id number] Admin: 03/25/19 17:19 Dose: 100 mls/hr Documented by: [id number] Infusion: 03/25/19 07:56 Dose: 0 mls/hr Documented by: [id number] Admin: 03/25/19 05:40 Dose: 100 mls/hr Documented by: [id number] Infusion: 03/24/19 22:09 Dose: 0 mls/hr Documented by: [id number] Admin: 03/24/19 19:16 Dose: 100 mls/hr Documented by: [id number] Metronidazole (Flagyl) 500 mg in 100 mls @ 100 mls/hr IV Q8H [facility]; Protocol Stop: 04/04/19 00:00 Last Infusion: 03/26/19 09:25 Dose: 0 mls/hr Documented by: [id number] Admin: 03/26/19 08:17 Dose: 100 mls/hr Documented by: [id number] Infusion: 03/26/19 00:40 Dose: 0 mls/hr Documented by: [id number] Admin: 03/25/19 23:25 Dose: 100 mls/hr Documented by: [id number] Infusion: 03/25/19 16:46 Dose: 0 mls/hr Documented by: [id number] Admin: 03/25/19 15:39 Dose: 100 mls/hr Documented by: [id number] Infusion: 03/25/19 09:16 Dose: 0 mls/hr Documented by: [id number] Admin: 03/25/19 08:15 Dose: 100 mls/hr Documented by: [id number] Infusion: 03/25/19 03:13 Dose: 0 mls/hr Documented by: [id number] Admin: 03/24/19 23:57 Dose: 100 mls/hr Documented by: [id number] Ioversol (Optiray 320 100ml) 94 ml IV ONCE PRN PRN Reason: Interaction Checking Stop: 03/28/19 12:06 Last Admin: 03/24/19 12:08 Dose: 94 ml Documented by: [id number] Lisinopril (Zestril) 20 mg PO ONE ONE Stop: 03/25/19 11:01 Last Admin: 03/25/19 11:22 Dose: 20 mg Documented by: [id number] Lisinopril (Zestril) 20 mg PO QAM [facility] Stop: 04/25/19 08:59 Last Admin: 03/26/19 08:18 Dose: 20 mg Documented by: [id number] Lisinopril (Zestril) 20 mg PO NOW STA Stop: 03/26/19 08:43 Last Admin: 03/26/19 09:47 Dose: 20 mg Documented by: [id number] Ondansetron HCl (Zofran) 4 mg IV NOW STA Stop: 03/24/19 09:24 Last Admin: 03/24/19 09:57 Dose: 4 mg Documented by: [id number] Potassium Chloride (Klor-Con M20) 40 meq PO NOW STA Stop: 03/26/19 08:46 Last Admin: 03/26/19 09:47 Dose: 40 meq Documented by: [id number] Zolpidem Tartrate (Ambien) 5 mg PO HS PRN PRN Reason: Sleep Stop: 04/23/19 23:43 Last Admin: 03/24/19 23:51 Dose: 5 mg Documented by: [id number] Medical Decision Making Differential Diagnosis Differential diagnosis: Etiologies such as appendicitis, diverticulitis, PUD, biliary pathology, UTI, pancreatitis, obstruction, mesenteric ischemia, aortic pathology, infections, inflammatory bowel disease, renal colic, as well as others were entertained. Medical Records Attestation: I reviewed the patient's medical records. Home Medications Current Medication List: was personally reviewed by me Laboratory Data Attestation: I reviewed the patient's lab results. Result diagrams: 03/26/19 05:27 03/26/19 05:27 Lab Results 03/24/19 03/24/19 03/24/19 Range/Units 09:05 09:30 09:30 WBC 6.45 (4.8-10.8) K/uL RBC 3.45 L (4.2-5.4) M/uL Hgb 11.1 L (12.0-16.0) g/dL Hct 35.2 L (37-47) % MCV 102.0 H (80-100) fL MCH 32.2 (25-34) pg MCHC 31.5 L (32-36) g/dL RDW Std Deviation 45.8 (36.4-46.3) fL RDW Coeff of Lori 12.5 (11.5-14.5) % Plt Count 161 (130-400) K/uL MPV 11.2 H (7.4-10.4) fL Immature Gran % (Auto) 0.3 % Neut % (Auto) 83.2 % Lymph % (Auto) 6.5 % Terrell % (Auto) 8.1 % Eos % (Auto) 1.7 % Baso % (Auto) 0.2 % Immature Gran # (Auto) 0.02 (0.00-0.02) K/uL Neut # (Auto) 5.37 (1.4-6.5) K/uL Lymph # (Auto) 0.42 L (1.2-3.4) K/uL Terrell # (Auto) 0.52 (0.11-0.59) K/uL Eos # (Auto) 0.11 (0-0.5) K/uL Baso # (Auto) 0.01 (0-0.2) K/uL Sodium 138 (136-145) mmol/L Potassium TNP Chloride 107 (98-107) mmol/L Carbon Dioxide 29 (21-32) mmol/L Anion Gap 2.0 L (3-11) BUN 15 (7-18) mg/dl Creatinine 0.90 (0.6-1.2) mg/dl Est Cr Clr Drug Dosing 36.0 ml/min Est GFR ( Amer) 68.5 Est GFR (Non-Af Amer) 59.1 BUN/Creatinine Ratio 16.5 (10-20) Glucose 86 (70-99) mg/dl POC Lactic Acid Fran (0.90-1.70) mmol/L Calcium 8.3 L (8.5-10.1) mg/dl Total Bilirubin 0.5 (0.2-1) mg/dl AST TNP ALT 20 (12-78) U/L Alkaline Phosphatase 75 (45-117) U/L Total Protein 6.5 (6.4-8.2) gm/dl Albumin 2.5 L (3.4-5.0) gm/dl Globulin 4.0 (2.5-4.0) gm/dl Albumin/Globulin Ratio 0.6 L (0.9-2) Lipase 49 L (73-393) U/L Urine Color Yellow Urine Appearance Clear (Clear) Urine pH 5.0 (4.5-7.5) Ur Specific Harmony 1.019 (1.000-1.030) Urine Protein Trace H (Negative) Urine Glucose (UA) Negative (Negative) Urine Ketones Negative (Negative) Urine Blood Negative (Negative) Urine Nitrite Negative (Negative) Urine Bilirubin Negative (Negative) Urine Urobilinogen Negative (Negative) Ur Leukocyte Esterase Negative (Negative) Urine WBC (Auto) 1-5 (0-5) /hpf Urine RBC (Auto) 0-4 (0-4) /hpf U Hyaline Cast (Auto) 1-5 (0-5) /lpf U Epithel Cells (Auto) >30 H (0-5) /lpf Urine Bacteria (Auto) Negative (Negative) 03/24/19 03/24/19 Range/Units 09:53 11:05 WBC (4.8-10.8) K/uL RBC (4.2-5.4) M/uL Hgb (12.0-16.0) g/dL Hct (37-47) % MCV (80-100) fL MCH (25-34) pg MCHC (32-36) g/dL RDW Std Deviation (36.4-46.3) fL RDW Coeff of Lori (11.5-14.5) % Plt Count (130-400) K/uL MPV (7.4-10.4) fL Immature Gran % (Auto) % Neut % (Auto) % Lymph % (Auto) % Terrell % (Auto) % Eos % (Auto) % Baso % (Auto) % Immature Gran # (Auto) (0.00-0.02) K/uL Neut # (Auto) (1.4-6.5) K/uL Lymph # (Auto) (1.2-3.4) K/uL Terrell # (Auto) (0.11-0.59) K/uL Eos # (Auto) (0-0.5) K/uL Baso # (Auto) (0-0.2) K/uL Sodium (136-145) mmol/L Potassium 3.9 Chloride (98-107) mmol/L Carbon Dioxide (21-32) mmol/L Anion Gap (3-11) BUN (7-18) mg/dl Creatinine (0.6-1.2) mg/dl Est Cr Clr Drug Dosing ml/min Est GFR ( Amer) Est GFR (Non-Af Amer) BUN/Creatinine Ratio (10-20) Glucose (70-99) mg/dl POC Lactic Acid Fran 0.93 (0.90-1.70) mmol/L Calcium (8.5-10.1) mg/dl Total Bilirubin (0.2-1) mg/dl AST 12 L ALT (12-78) U/L Alkaline Phosphatase (45-117) U/L Total Protein (6.4-8.2) gm/dl Albumin (3.4-5.0) gm/dl Globulin (2.5-4.0) gm/dl Albumin/Globulin Ratio (0.9-2) Lipase (73-393) U/L Urine Color Urine Appearance (Clear) Urine pH (4.5-7.5) Ur Specific Harmony (1.000-1.030) Urine Protein (Negative) Urine Glucose (UA) (Negative) Urine Ketones (Negative) Urine Blood (Negative) Urine Nitrite (Negative) Urine Bilirubin (Negative) Urine Urobilinogen (Negative) Ur Leukocyte Esterase (Negative) Urine WBC (Auto) (0-5) /hpf Urine RBC (Auto) (0-4) /hpf U Hyaline Cast (Auto) (0-5) /lpf U Epithel Cells (Auto) (0-5) /lpf Urine Bacteria (Auto) (Negative) Imaging Data Radiologist's Impression: Radiology results as stated below per my review and the radiologist's interpretation: CT abd pelvis oral and IV con CLINICAL HISTORY: 83 years-old Female presenting with LLQ pain, multiple prior s urgeries. TECHNIQUE: Multidetector CT of the abdomen and pelvis was performed after the administration of oral and intravenous contrast. IV contrast: 94 mL of Optiray 320. One or more dose lowering techniques were used consistent with the principles of ALARA (as low as reasonably achievable), including automatic exposure control, mA or kV adjustment to individual patient size, and/or use of iterative reconstruction. COMPARISON: 10/28/2015. CT DOSE (mGy.cm): The estimated cumulative dose is 265.93 mGy.cm. FINDINGS: Manager Budget topogram: Median sternotomy wires, cholecystectomy clips, and total left hip are the plasty. Lung bases: Borderline enlargement of the heart. Coronary artery calcification. No pericardial or pleural effusion. Emphysematous changes evident with subpleural reticulation, possibly developing fibrotic change. Minimal dependent atelectasis also noted. Mild bronchial wall thickening may be present. Liver: Normal morphology. No liver lesion. Patent hepatic vasculature. Biliary: Mild biliary ductal prominence likely a reservoir effect in the post cholecystectomy state. Gallbladder surgically absent. Pancreas: Normal. Spleen: Few lymphangiomas or hemangiomas noted. Adrenal glands: Bilateral thickening of the adrenal glands, nonspecific. Underlying nodules are not excluded though the abnormality is diffuse. Kidneys and ureters: Mild cortical thinning may be present bilaterally. Extrarenal pelvises. No hydronephrosis. No nephrolithiasis. Ureters nondistended. Bladder: Incompletely evaluated secondary to underdistention. Pelvic organs: Uterus surgically absent. The ovaries are enlarged for the patient's postmenopausal status. There is an associated fluid collection in the left adnexa, which may abut the serosa of the distal sigmoid colon. The dominant portion of this collection measures 3.5 cm in diameter. Bowel: Wall thickening of the sigmoid colon greatest in the distal portion, where there is pericolonic fat infiltration. Diverticulosis diffusely in the sigmoid colon. Adjacent peritoneal thickening and loculated fluid in the left adnexa. This extends along the pelvic sidewall and may abut the distal sigmoid serosa. The appendix is not visualized. No bowel obstruction. Peritoneal cavity: Trace fluid in the pelvis. No free intraperitoneal gas. Peritoneal thickening is suspected in the left pelvis Lymph nodes: No enlarged lymph nodes in the abdomen or pelvis. Vasculature: Extensive atherosclerosis with mild irregularity of the abdominal aorta though there is no significant aneurysmal dilatation. IVC is grossly patent allowing for the phase of contrast. Abdominal wall: Normal. Musculoskeletal: Degenerative changes of the spine. Total left hip arthroplasty. Osteopenia may be present. Mild anterior wedging deformity of L3 as on prior exam. IMPRESSION: 1. Inflammation in the region of the distal sigmoid colon consistent with div erticulitis. 2. There is an adjacent right adnexal loculated collection that may be associated with the sigmoid colon serosa. This raises concern for an abscess. Alternatively, this could relate to the left ovary. Follow-up is advised after treatment to ensure resolution. 3. Bilateral ovarian enlargement as on prior study 2016 exam. This is of uncertain etiology though unexpected for the patient's age. 4. Emphysema. Electronically signed by: Antonio Oliveros M.D. 03/24/2019 12:31 PM ECG Data Attestation: I personally reviewed and interpreted this ECG as follows: Indication: + abdominal pain Rate (beats per minute): 60 Rhythm: + normal sinus ECG [place]: + Left axis deviation ECG ST segments: no ST depression and no ST elevation ECG Findings: no PACs and no PVCs Blood Pressure Blood Pressure Findings: Elevated blood pressure Blood Pressure Disposition: further management by hospitalist MDM Narrative Pt here with abdominal pain and found to have diverticulitis with abscess. No surgical abdomen or peritonitis. VS stable. Discussed with general surgery who felt pt could be medically managed here and will follow along. Did not feel needed transfer for IR drainage at this time. Discussed with hospitalist. Pt made aware of all results. Discussed with pt the plan and she is in agreement. No evidence of bacteremia/sepsis. Other labs stable. Impression & Plan Abdominal pain, Diverticulitis of intestine with abscess Discharge Plan Visit Data *Final* Discharge Date/Time: 03/24/19 16:40 Chief Complaint: Abdominal Pain ED Provider: Chioma Estrella Discharge Problem: Abdominal pain, Diverticulitis of intestine with abscess Patient Disposition: Admitted As Inpatient Discharge Instructions Interventions: ED Discharge Assessment Last Done: 03/24/19 16:40 Discharge Problem: Abdominal pain Qualifiers: Abdominal location: unspecified location Qualified Code(s): R10.9 - Unspecified abdominal pain Diverticulitis of intestine with abscess Qualifiers: Diverticulitis site: unspecified part of intestinal tract Diverticulitis bleeding: unspecified bleeding status Qualified Code(s): K57.80 - Diverticulitis of intestine, part unspecified, with perforation and abscess without bleeding The scribe's documentation has been prepared under my direction and personally reviewed by me in its entirety. I confirm that the note above accurately reflects all work, treatment, procedures, and medical decision making performed by me.
[2019-03-26] MEDS: NICOTINE 14 MG/24 HR PATCH TD SCH (19:57)
[2019-03-26] MEDS: TRAZODONE HCL 100 MG TAB PO SCH (20:11)
[2019-03-26] MEDS: METOPROLOL SUCC 50MG EXT REL TAB PO SCH (20:11)
[2019-03-26] MEDS: CIPROFLOXACIN 500 MG TAB PO SCH (20:11)
[2019-03-27 06:39] LABS: Hematocrit (blood only) 36.4 % (37-47); Hemoglobin 11.4 g/dL (12.0-16.0); Mean Corpuscular Hemoglobin 31.4 pg (25-34); Mean Corpuscular Hgb Conc 31.3 g/dL (32-36); Mean Corpuscular Volume 100.3 fL (80-100); Mean Platelet Volume 10.8 fL (7.4-10.4); Platelet Count 172 K/uL (130-400); RDW Coefficient of Variation 12.4 % (11.5-14.5); RDW Standard Deviation 45.2 fL (36.4-46.3); Red Blood Count 3.63 M/uL (4.2-5.4); White Blood Count 5.26 K/uL (4.8-10.8)
[2019-03-27 06:49] LABS: Partial Thromboplastin Ratio 1.2; Partial Thromboplastin Time 31.9 Seconds (21.0-31.0)
[2019-03-27 07:21] LABS: BUN Creatinine Ratio 9.4 (10-20); Calcium 8.7 mg/dl (8.5-10.1); Creatinine Clr Calc Pharmacy 33.6 ml/min; Est GFR (Non-African American) 56.1; Potassium 4.3 mmol/L (3.5-5.1)
--- NOTE | 2019-03-27 08:28 | Hospitalist Progress Note ---
Date of Service March 27, 2019 Assessment & Plan (1) Abdominal pain: (2) Diverticulitis of intestine with abscess: -CT abdomen /pelvis revealed: Inflammation in the region of the distal sigmoid colon consistent with diverticulitis. Also noted is 3.5 cm adnexal fluid collection concerning for abscess. -No signs of sepsis -Pain controlled -Continue Cipro and Flagyl (day #3) will be discharged with 7 more days of Abx ( total 10 days of tx ) -General surgery consulted, input appreciated; cleared for discharge from surgery -Tolerating regular diet -Will need follow-up colonoscopy in 6 to 8 weeks (3) Hypertension: -BP better controlled after addition of ACEI lisinopril dose increased to 40 mg daily will be discharged with -Continue metoprolol -Echo show mild concentric LV hypertrophy with grade 1 diastolic dysfunction given presence of hypertensive cardiomyopathy with early diastolic CHF pt should cont with ACEi cr /k level within normal limit repeat lab : BMP ordered in 1 week to assess renal function (4) Ovarian cyst: -Pelvic ultrasound shows left ovarian cysts considered complex measuring 5 x 3 cm and 1.6 cm right ovarian cyst -Given patient's age and postmenopausal state, will need follow-up with [facility] -CA1 25 ordered and pending -Case discussed with Dr. Cornelius who recommends the patient be seen as an outpatient after discharge (5) COPD (chronic obstructive pulmonary disease): -No signs of acute exacerbation -Continue tobacco use Moderate protein-calorie malnutrition BMI 19 reports of poor appetite , wt loss approx 40lb over last 1 year nutrition consulted -appreciate input (6) Tobacco abuse: -current everyday smoker -Nicotine patch ordered -Encourage smoking cessation (7) Breast cancer: -History of right breast CA status post radical mastectomy in 1984, no recurrence -Follows Dr. 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 Rojas on a yearly basis (9) Right upper lobe pulmonary nodule: -Noted on CT scan of chest on 01/13/2018 -Does not appear to have been followed up in outpatient setting -Recommend repeat CT of chest as outpatient per PCP given cancer hx (10) DVT prophylaxis: -SQ heparin DISPOSITION [facility]charge to [facility] today Subjective feels much better today No complain of abdominal pain , no nausea or vomiting tolerating diet well BP improved after addition of lisinopril stable to be discharged home today Physical Exam Constitutional: no acute distress Respiratory: normal respiratory effort, lungs clear to auscultation Cardiovascular: Rate/Rhythm: regular rate and regular rhythm Vessels: normal peripheral pulses Extremities: no edema Gastrointestinal (Abdomen): normal bowel sounds, soft, nontender, no hepatosplenomegaly Psychiatric: A+Ox3, euthymic affect Orientation: alert and oriented x 3 Results & Data Vital Signs (Past 12 Hours) Vital Signs Temp Pulse Resp BP Pulse Ox 03/27/19 07:42 36.9 C 65 16 150/79 H 96 03/26/19 23:46 37.1 C 67 19 110/66 94 (1) Diverticulitis of intestine with abscess Diverticulitis bleeding: unspecified bleeding status Diverticulitis site: unspecified part of intestinal tract Qualified Code(s): K57.80 - Diverticulitis of intestine, part unspecified, with perforation and abscess without bleeding (2) Abdominal pain Abdominal location: unspecified location Qualified Code(s): R10.9 - Unspecified abdominal pain (3) Hypertension Hypertension type: unspecified Qualified Code(s): I10 - Essential (primary) hypertension
[2019-03-27] MEDS: CIPROFLOXACIN 500 MG TAB PO SCH (08:42)
[2019-03-27] MEDS: HEPARIN SOD 5,000 UNIT/0.5 ML VIAL SQ SCH (08:42)
[2019-03-27] MEDS: ASPIRIN 81 MG ECTAB PO SCH (08:43)
[2019-03-27] MEDS: CHOLECALCIFEROL 1,000 UNITS TAB PO SCH (08:43)
[2019-03-27] MEDS: PARoxetine HCl 10 MG TAB PO SCH (08:44)
[2019-03-27] MEDS: metroNIDAZOLE 500 MG TAB PO SCH (08:44)
[2019-03-27] MEDS: CEROVITE ADV FORMULA TAB PO SCH (08:44)
[2019-03-27] MEDS: ARTIFICIAL TEARS OP SCH (08:45)
[2019-03-27] MEDS ORDERED: lisinopriL 40 MG TAB PO SCH (09:00)
--- NOTE | 2019-03-27 12:35 | Discharge Summary ---
Date of Service March 27, 2019 Admission HPI Per Admitting Provider This is an 83-year-old female who has significant past medical history of emphysema, HTN, HLD, history of right breast cancer status post radical mastectomy in 1984, history of lung CA status post chemo, radiation and surgical resection in remission since 2010 who presents to [facility] ED secondary to LLQ pain x3 days. LLQ pain is constant, waxes and wanes in severity, currently 7/10, worse with sitting forward and walking, nonradiating, never had in the past, tried [id number] Tylenol with minimal relief. She tried to alter diet thinking it may be related to her bowels, but her symptoms not improve. She o pted to seek ED treatment. Recalls having colonoscopy in the past and prior diagnosis diverticulosis, but no prior history of diverticulitis. She denies any fever, chills, sweats, lightheadedness, dizziness, chest pain, shortness breath, palpitations, hemoptysis, cough, nausea, vomiting, dysuria, increased urgency or frequency with urination, hematuria, melena, hematochezia. Appetite has been decreased over the past 3 days. Per records last colonoscopy 09/01/2013 revealed diverticulosis in sigmoid colon and descending colon, otherwise normal colonoscopy. In ED patient CBC revealed anemia with H&H 11.1 and 35.2, platelet 161, CMP relatively unremarkable, urinalysis positive for trace protein but otherwise normal. CT abd/pelvis revealed: Inflammation in the region of the distal sigmoid colon consistent with diverticulitis. Also noted is 3.5 cm adnexal fluid collection concerning for abscess. She received IV antibiotics with IV Rocephin and Flagyl. Further received 1 L of IV fluid, IV APAP for pain control. Principal Diagnosis ACUTE SIGMOID DIVERTICULITIS/HYPERTENSION /OVARIAN CYST Discharge Exam Constitutional no acute distress Respiratory normal respiratory effort, lungs clear to auscultation Cardiovascular Rate/Rhythm: regular rate and regular rhythm Vessels: normal peripheral pulses Extremities: no edema Gastrointestinal (Abdomen) normal bowel sounds, soft, nontender, no hepatosplenomegaly Inspection/Auscultation: normal bowel sounds Percussion/Palpation: + abdomen tender (Mild, left lower quadrant) and abdomen soft Psychiatric A+Ox3, euthymic affect Orientation: alert and oriented x 3 Discharge Data Allergies Allergy/AdvReac Type Severity Reaction Status Date / Time Penicillins Allergy Unknown HIVES Verified 12/11/19 10:56 adhesive AdvReac Unknown EXCORIATION Verified 03/24/19 10:56 S morphine AdvReac Unknown ITCHING Verified 03/24/19 10:56 Flu Virus Vaccine Allergy Unknown . Uncoded 03/24/19 10:56 Consultations 03/24/19 14:31 Consult General Surgery Stat 03/24/19 14:45 ED Decision to Admit Stat 03/24/19 17:10 Consult Case Management - Discharge Planning Routine Ordered Studies 03/24/19 09:23 CT abd pelvis oral and IV con Stat 03/25/19 11:41 US pelvic complete Routine US transvaginal Routine Hospital Course (1) Abdominal pain: (2) Diverticulitis of intestine with abscess: -CT abdomen /pelvis revealed: Inflammation in the region of the distal sigmoid colon consistent with diverticulitis. Also noted is 3.5 cm adnexal fluid collection concerning for abscess. -No signs of sepsis -Pain controlled -Continue Cipro and Flagyl (day #3) will be discharged with 7 more days of Abx ( total 10 days of tx ) -General surgery consulted, input appreciated; cleared for discharge from surgery -Tolerating regular diet -Will need follow-up colonoscopy in 6 to 8 weeks (3) Hypertension: -BP better controlled after addition of ACEI lisinopril dose increased to 40 mg daily will be discharged with -Continue metoprolol -Echo show mild concentric LV hypertrophy with grade 1 diastolic dysfunction given presence of hypertensive cardiomyopathy with early diastolic CHF pt should cont with ACEi cr /k level within normal limit repeat lab : BMP ordered in 1 week to assess renal function (4) Ovarian cyst: -Pelvic ultrasound shows left ovarian cysts considered complex measuring 5 x 3 cm and 1.6 cm right ovarian cyst -Given patient's age and postmenopausal state, will need follow-up with [employer] -CA1 25 ordered and pending -Case discussed with Dr. Cornelius who recommends the patient be seen as an outpatient after discharge (5) COPD (chronic obstructive pulmonary disease): -No signs of acute exacerbation -Continue tobacco use Moderate protein-calorie malnutrition BMI 19 reports of poor appetite , wt loss approx 40lb over last 1 year nutrition consulted -appreciate input (6) Tobacco abuse: -current everyday smoker -Nicotine patch ordered -Encourage smoking cessation (7) Breast cancer: -History of right breast CA status post radical mastectomy in 1984, no recurrence -Follows Dr. 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 Rojas on a yearly basis (9) Right upper lobe pulmonary nodule: -Noted on CT scan of chest on 01/13/2018 -Does not appear to have been followed up in outpatient setting -Recommend repeat CT of chest as outpatient per PCP given cancer hx (10) DVT prophylaxis: -SQ heparin DISPOSITION [facility] Total Time Total Time Spent Total Time Spent (In Minutes): approx 40 mins Total Time Includes: Examination of the Patient, Discharge Planning and Medication Reconciliation Discharge Plan Discharge Items Patient Disposition: [facility] Reason For Visit: ACUTE DIVERTICULITIS WITH ABSCESS Discharge Diagnosis: ACUTE SIGMOID DIVERTICULITIS /HYPERTENSION /OVARIAN CYST Activity: Resume your previous activity Non-emergency contact: Primary Care Provider Call non-emergency contact if: you have any medication questions Follow-up/Referrals: Sindy Horn [Primary Care Provider] - Lewis Cornelius MD [Physician] - (FOLLOW UP AT [facility] IN 3- 4 WEEKS FOR OVARIAN CYST ) Diet: Heart Healthy Addtl Attending Provider Instructions: FOLLOW UP WITH PROF[facility] [employer] AT [facility] IN 3-4 WEEKS FOR OVARIAN CYST NEED COLONOSCOPY IN 6-8 WEEKS NEW MEDICATION : LISINOPRIL 40 MG DAILY LAB : BASIC METABOLIC PANEL IN 1 WEEK HOSPITAL FOLLOW UP WITH FAMILY PHYSICIAN DR HORN IN 1 WEEK Pending Studies at Discharge: Yes Studies:: BASIC METABOLIC PANEL IN 1 WEEK Stand-Alone Forms: My [employer], Smoking Cessation Skilled Items Patient informed of condition?: Yes DNR: Yes Discharge Level of Care: Other Communicable Disease: No Discharge Prognosis: Stable Lines: None Urinary Catheter: No Medications and DC Order Prescriptions: New metronidazole 500 mg Tablet 500 mg PO TID 7 Days Qty: 21 RF: 0 ciprofloxacin HCl 500 mg Tablet 500 mg PO BID 7 Days Qty: 14 RF: 0 lisinopril [Zestril] 40 mg Tablet 40 mg PO QAM 30 Days Qty: 30 RF: 0 Continued paroxetine HCl 10 mg tablet 10 mg PO QAM RF: 0 Coricidin HBP Cough and Cold 4-30 mg Tablet 1 tab PO BID PRN (Reason: Cough) RF: 0 alendronate 70 mg tablet 70 mg PO WK RF: 0 metoprolol succinate 100 mg tablet extended release 24 hr 100 mg PO HS RF: 0 diphenoxylate-atropine 2.5-0.025 mg tablet 1 tab PO BID PRN (Reason: Diarrhea) RF: 0 aspirin 81 mg tablet,delayed release (DR/EC) 81 mg PO QAM RF: 0 magnesium hydroxide [Milk of Magnesia] 400 mg/5 mL Suspension 30 ml PO DAILY PRN (Reason: Constipation) RF: 0 trazodone 100 mg tablet 100 mg PO HS RF: 0 diphenhydramine-acetaminophen [Mapap PM] 25-500 mg tablet 1 tab PO Q4H PRN (Reason: Pain, Mild) RF: 0 cholestyramine (with sugar) 4 gram powder in packet 4 g PO BID PRN (Reason: Diarrhea) RF: 0 Systane (PF) 0.4-0.3 % Dropperette 1 drp OPHTHALMIC (EYE) TID RF: 0 Certa Plus 18-0.4-250 mg-mg-mcg Tablet 1 tab PO QAM RF: 0 cholecalciferol (vitamin D3) [Vitamin D3] 125 mcg (5,000 unit) Tablet 5,000 unit PO QAM RF: 0 melatonin 10 mg Tablet 10 mg PO HS PRN (Reason: Sleep) RF: 0 PreserVision AREDS-2 600-995-50-1 il-fevp-ns-mg Capsule 1 tab PO BID RF: 0 Discharge Orders: Discharge Order (Routine); Ordered 03/27/19 Ordered By: Brandy Vasquez/Other Patient Handouts: Diverticulosis Diverticulitis, Diverticulitis Dc Admission Data Admit Date/Time: 03/24/19 15:09 Attending Provider: Brandy Mortensen Admit Provider: Joe Olivo Primary Care Provider: Sindy Horn Other Providers: Amina Busch ; Joe Olivo Other Interventions: Discharge Summary Assessment (RN) Last Done: 03/27/19 08:46
--- NOTE | 2019-03-29 13:41 | Hospitalist Progress Note ---
Date of Service March 29, 2019 Subjective ATTENDING ADDENDUM Ovarian cyst: -Pelvic ultrasound shows left ovarian cysts considered complex measuring 5 x 3 cm and 1.6 cm right ovarian cyst -Given patient's age and postmenopausal state, will need follow-up with [facility] -CA 125 shows elevated level 37 pt will need [facility] follow up called scheduling next appointment available for Dr Cornelius at [facility] on Friday scheduling will massage [facility] clinic for early follow up -concern for ovarian tumor /malignancy Called pt's primary contact -Daughter Nicol Kimball -left message Brandy Mortensen MD
== END 2019-03-27 13:19 | disposition home or self-care (01) | DRG 392 ==
LOC: ED 08:45 → 2N 15:09 → SUATTDRO 15:09 → 2N 16:40

== ENCOUNTER 2019-10-27 17:18 | Inpatient (IN) ==
[2019-10-27 18:26] LABS: Basophils # (auto) 0.01 K/uL (0-0.2); Basophils % (auto) 0.2 %; Eosinophils # (auto) 0.02 K/uL (0-0.5); Eosinophils % (auto) 0.3 %; Hematocrit (blood only) 44.7 % (37-47); Hemoglobin 14.5 g/dL (12.0-16.0); Immature Granulocytes # (auto) 0.02 K/uL (0.00-0.02); Immature Granulocytes % (auto) 0.3 %; Lymphocytes # (auto) 0.35 K/uL (1.2-3.4); Lymphocytes % (auto) 5.4 %; Mean Corpuscular Hgb Conc 32.4 g/dL (32-36); Mean Corpuscular Volume 92.4 fL (80-100); Mean Platelet Volume 11.3 fL (7.4-10.4); Monocytes # (auto) 0.49 K/uL (0.11-0.59); Monocytes % (auto) 7.6 %; Neutrophils # (auto) 5.57 K/uL (1.4-6.5); Neutrophils % (auto) 86.2 %; Platelet Count 148 K/uL (130-400); RDW Coefficient of Variation 13.3 % (11.5-14.5); RDW Standard Deviation 44.7 fL (36.4-46.3); Red Blood Count 4.84 M/uL (4.2-5.4); White Blood Count 6.46 K/uL (4.8-10.8)
[2019-10-27 18:46] LABS: Albumin Level 3.2 gm/dl (3.4-5.0); BUN Creatinine Ratio 13.2 (10-20); Calcium 8.9 mg/dl (8.5-10.1); Creatinine Clr Calc Pharmacy 38.4 ml/min; Est GFR (African American) 86.8; Est GFR (Non-African American) 74.9; Potassium 3.9 mmol/L (3.5-5.1)
[2019-10-27 18:49] LABS: Albumin Globulin Ratio 0.9 (0.9-2); Bilirubin,Total 0.6 mg/dl (0.2-1); Globulin 3.7 gm/dl (2.5-4.0); Total Protein 6.9 gm/dl (6.4-8.2)
--- NOTE | 2019-10-27 19:25 | CT Scan Report ---
CT abd pelvis wo con CT DOSE: 268.69 mGycm HISTORY: Pain. Nausea. upper abdominal pain , N/V TECHNIQUE: Multiaxial CT images of the abdomen and pelvis were performed without contrast. A dose lo wering technique was utilized adhering to the principles of ALARA. COMPARISON STUDY: 03/24/2019 FINDINGS: Infiltrate and effusion left lung base. Diffuse heterogeneity of the liver raising the poss ibility of a large central mass versus fatty replacement. Several additional masses are identified al so identified. Metastatic disease is not excluded. This study is compromised due to the absence of intravenous and oral contrast. Prior cholecystectomy. Kidneys negative for hydronephrosis. Nonobstructive bowel pattern. Chronic sigmoid diverticulosis. No evidence for acute diverticulitis. IMPRESSION: 1. Probable infiltrate left lung base associated with a small left effusion. 2. Diffuse heterogeneity of the liver raising the possibility of multifocal masses. 3. Further evaluation is recommended to include the possibility of metastatic disease versus other po tential etiologies. 4. Chronic sigmoid diverticulosis with no evidence for acute diverticulitis. ACT 112: Negative or not required by law. The above report was generated using voice recognition software. It may contain grammatical, syntax or spelling errors. Electronically signed by: Harsh Cabrera M.D. 10/27/2019 7:24 PM
[2019-10-27 19:27] LABS: Appearance Urine Clear (Clear); Bacteria Urine Automated Negative (Negative); Bilirubin Urine Negative (Negative); Blood Urine Negative (Negative); Color Urine Yellow; Epithelial Cell Urine Auto 20-30 /lpf (0-5); Glucose Urine UA Negative (Negative); Ketones Urine 1+ (Negative); Leukocyte Esterase Urine Negative (Negative); Nitrite Urine Negative (Negative); Protein Urine 2+ (Negative); RBC Urine Automated 0-4 /hpf (0-4); Urobilinogen Urine Negative (Negative)
[2019-10-27] MEDS ORDERED: CEFEPIME 1,000 MG in SYRINGE 0 ML IV STA (20:07)
[2019-10-27] MEDS ORDERED: DOXYCYCLINE HYCLATE 100 MG in DEXTROSE 5% 100 ML IV STA (20:07)
[2019-10-27] MEDS ORDERED: lisinopriL 20 MG TAB PO STA (20:52)
--- NOTE | 2019-10-27 21:04 | Emergency Department Note ---
Impression & Plan Pneumonia involving left lung, Elevated liver function tests, Acute upper abdominal pain, Liver masses ED Provider Note INFORMANT: [Patient] ED PROVIDER(S): Jose Juan Diallo MD CHIEF COMPLAINT: Upper abdominal pain PLAN: Disposition: Admitted Condition: [Good] MEDICAL DECISION MAKING: Patient presented with upper abdominal pain. Blood work was performed. ECG and CT imaging performed. Patient also noted a cough. CT imaging revealed abnormal appearance to the liver concerning for masses. Left lower lobe pneumonia also noted. ECG was nonischemic. No acute findings. The patient CBC was unremarkable. Electrolytes normal. The patient has mild elevation of AST and alkaline phosphatase. Lipase normal. Urinalysis negative. Blood cultures were done. The patient was swabbed for COVID-19 although had a negative test 2 weeks ago. She was given cefepime and doxycycline for broad-spectrum and atypical coverage. She was educated on her findings. Given the issues further management in the hospital would be appropriate. Patient did give me permission to talk to her daughter Nicol and I updated her. She is comfortable with the plan for inpatient evaluation. I did discuss the case with Dr. Cheng of the [facility] service. He will evaluate the patient for further management. Triage Nursing notes reviewed and agree them. Vital Signs: reviewed and remarkable for [no significant abnormalities] Differential diagnosis: obstruction, mesenteric ischemia, aortic pathology, inflammatory bowel disease, renal colic, PUD, pancreatitis, biliary pathology, Appendicitis, infections, diverticulitis, UTI, hernia, volvulus, constipation, as well as other pathologies. Diagnostics interpreted by me: ECG: Rate: 73 Rhythm: Normal sinus rhythm [place]: Left axis deviation QRS: Normal ST segements: No ST elevation or depression. Repolarization abnormality. Other: LVH. Septal Q waves. Imaging studies: CT scan abdomen pelvis was performed. Abnormal appearance of the liver concerning for masses. There is left lower lobe pneumonia. I refer you to the EMR for further details. Consultation(s): [facility] service HPI: The patient is a 83 year old female who presents to the Emergency Room with complaints of upper abdominal pain. This started 3 days ago and is worsening. The patient also notes the following associated symptoms, mild cough, nausea. The patient has found no relieving factors. Current pain is rated as 4/10. Prior history of cholecystectomy and appendectomy. Pt denies LOC, headache, fe vers, chills, diaphoresis, visual changes, neck pain, chest pain, breathing difficulties, vomiting back pain, melena, hematochezia, urinary symptoms, numbness, weakness, lymphadenopathy, rash, or other complaints. ROS: See above HPI for pertinent positives & negatives. A total of [10] systems reviewed and were otherwise negative. PAST MEDICAL HISTORY:[See Below] diverticulitis, COPD, CVA PAST SURGICAL HISTORY:[See Below] FAMILY HISTORY:[See Below] SOCIAL HISTORY:[See Below] lives at assisted living HOME MEDICATIONS:[See Below] ALLERGIES:[See Below] VITALS:[See Below] PHYSICAL EXAMINATION: GENERAL: Awake, alert, uncomfortable-appearing, in no distress HENT: Normocephalic, atraumatic. Oropharynx unremarkable. EYES: Normal conjunctiva. Sclera non-icteric. NECK: Inspection normal. Non-tender. Supple. No nuchal rigidity. FROM. No masses. RESPIRATORY: Diminished in the left base otherwise clear to auscultation. No wheezes. Normal respiratory effort. CARDIAC: Normal rate. Normal rhythm. No murmurs. No rubs. Extremities warm and well perfused. Pulses equal. No JVD. GI: Soft, non-distended. Right upper and epigastric tenderness to palpation. No rebound or guarding. No masses. RECTAL: Deferred. MUSCULOSKELETAL: Atraumatic. Chest examination reveals no tenderness. The back is symmetrical on inspection without obvious abnormality. There is no CVA tenderness to palpation. No joint edema. LOWER EXTREMITIES: Calves are equal size bilaterally and non-tender. No edema. No discoloration. NEURO: Normal sensorium. No sensory or motor deficits noted. SKIN: No rash or jaundice noted. 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 current occupational status: retired Feels Safe at Home: Yes Smoking Status: Former smoker Tobacco Type: cigarettes ; Second Hand Exposure: No ; Allergies Allergies Allergy/AdvReac Type Severity Reaction Status Date / Time Influenza Virus Vaccines Allergy Unknown Unknown Verified 10/12/19 08:04 Penicillins Allergy Unknown HIVES Verified 10/12/19 08:04 adhesive AdvReac Unknown EXCORIATION Verified 10/12/19 08:04 S morphine AdvReac Unknown ITCHING Verified 10/12/19 08:04 Home Meds Home Medications Medication Instructions Recorded Confirmed Certa Plus 1 tab PO QAM 03/24/19 10/12/19 Coricidin HBP Cough and Cold 1 tab PO BID PRN 03/24/19 10/12/19 PreserVision AREDS-2 1 tab PO BID 03/24/19 10/12/19 Systane (PF) 1 drp OPL TID 03/24/19 10/12/19 alendronate 70 mg PO WK 03/24/19 10/12/19 aspirin 81 mg PO QAM 03/24/19 10/12/19 cholecalciferol (vitamin D3) 5,000 unit PO QAM 03/24/19 10/12/19 [Vitamin D3] cholestyramine (with sugar) 4 g PO BID 03/24/19 10/12/19 diphenoxylate-atropine 1 tab PO BID PRN 03/24/19 10/12/19 magnesium hydroxide [Milk of 30 ml PO DAILY PRN 03/24/19 10/12/19 Magnesia] melatonin 10 mg PO HS 03/24/19 10/12/19 metoprolol succinate 100 mg PO HS 03/24/19 10/12/19 paroxetine HCl 10 mg PO QAM 03/24/19 10/12/19 trazodone 100 mg PO HS 03/24/19 10/12/19 alum-mag hydroxide-simeth [Mylanta 30 ml PO TID PRN 04/02/19 10/12/19 Maximum Strength] dextromethorphan-guaifenesin 10 ml PO Q4 PRN 04/02/19 10/12/19 [Siltussin-DM] acetaminophen [Mapap 500 mg PO Q6H PRN 10/05/19 10/12/19 (acetaminophen)] albuterol sulfate [ProAir HFA] 2 inh INHALATION QID PRN 10/05/19 10/12/19 lisinopril 40 mg PO QAM 10/05/19 10/12/19 Results & Data (ED) Vital Signs Vital Signs - 24 hr 10/27/19 17:26 10/27/19 17:28 10/27/19 17:29 Temperature 37.4 C Temperature Source Oral Pulse Rate 74 74 74 Pulse Rate [Apical] Pulse Rate from SpO2 Sensor 76 74 Respiratory Rate 25 H 24 15 Respiratory Effort / Characteristics Non-Labored Respiratory Depth Normal Blood Pressure 226/119 H 226/119 H Blood Pressure [Right Arm] Blood Pressure Mean 178 154 Blood Pressure Mean [Right Arm] Pulse Oximetry 93 93 93 Oxygen Delivery Method Room Air Sepsis Recent Fever Within 48 Hours No Sepsis New/Unexplained Change in Mental Status No Sepsis Action Taken by Nursing No Action Required 10/27/19 17:30 10/27/19 17:40 10/27/19 17:50 Temperature Temperature Source Pulse Rate 73 71 71 Pulse Rate [Apical] Pulse Rate from SpO2 Sensor 73 71 72 Respiratory Rate 23 24 23 Respiratory Effort / Characteristics Respiratory Depth Blood Pressure 203/120 H Blood Pressure [Right Arm] Blood Pressure Mean 141 Blood Pressure Mean [Right Arm] Pulse Oximetry 93 93 93 Oxygen Delivery Method Sepsis Recent Fever Within 48 Hours Sepsis New/Unexplained Change in Mental Status Sepsis Action Taken by Nursing 10/27/19 18:00 10/27/19 18:06 10/27/19 18:10 Temperature Temperature Source Pulse Rate 72 71 Pulse Rate [Apical] Pulse Rate from SpO2 Sensor 72 72 Respiratory Rate 23 22 Respiratory Effort / Characteristics Respiratory Depth Blood Pressure 188/117 H Blood Pressure [Right Arm] Blood Pressure Mean 153 Blood Pressure Mean [Right Arm] Pulse Oximetry 93 92 93 Oxygen Delivery Method Room Air Sepsis Recent Fever Within 48 Hours Sepsis New/Unexplained Change in Mental Status Sepsis Action Taken by Nursing 10/27/19 18:20 10/27/19 18:30 10/27/19 18:44 Temperature Temperature Source Pulse Rate 72 72 74 Pulse Rate [Apical] Pulse Rate from SpO2 Sensor 72 72 Respiratory Rate 23 23 22 Respiratory Effort / Characteristics Respiratory Depth Blood Pressure Blood Pressure [Right Arm] Blood Pressure Mean Blood Pressure Mean [Right Arm] Pulse Oximetry 95 94 Oxygen Delivery Method Sepsis Recent Fever Within 48 Hours Sepsis New/Unexplained Change in Mental Status Sepsis Action Taken by Nursing 10/27/19 18:50 10/27/19 19:00 10/27/19 19:01 Temperature Temperature Source Pulse Rate 74 74 72 Pulse Rate [Apical] Pulse Rate from SpO2 Sensor 74 74 74 Respiratory Rate 24 21 23 Respiratory Effort / Characteristics Respiratory Depth Blood Pressure 205/111 H Blood Pressure [Right Arm] Blood Pressure Mean 155 Blood Pressure Mean [Right Arm] Pulse Oximetry 93 93 94 Oxygen Delivery Method Sepsis Recent Fever Within 48 Hours Sepsis New/Unexplained Change in Mental Status Sepsis Action Taken by Nursing 10/27/19 19:10 10/27/19 19:11 10/27/19 19:21 Temperature Temperature Source Pulse Rate 72 75 Pulse Rate [Apical] 74 Pulse Rate from SpO2 Sensor 72 76 Respiratory Rate 22 16 21 Respiratory Effort / Characteristics Non-Labored Respiratory Depth Normal Blood Pressure Blood Pressure [Right Arm] 205/111 H Blood Pressure Mean Blood Pressure Mean [Right Arm] 142 Pulse Oximetry 93 92 92 Oxygen Delivery Method Room Air Sepsis Recent Fever Within 48 Hours Sepsis New/Unexplained Change in Mental Status Sepsis Action Taken by Nursing 10/27/19 19:30 10/27/19 19:40 10/27/19 19:50 Temperature Temperature Source Pulse Rate 74 73 73 Pulse Rate [Apical] Pulse Rate from SpO2 Sensor 75 72 72 Respiratory Rate 22 23 22 Respiratory Effort / Characteristics Respiratory Depth Blood Pressure Blood Pressure [Right Arm] Blood Pressure Mean Blood Pressure Mean [Right Arm] Pulse Oximetry 93 92 94 Oxygen Delivery Method Sepsis Recent Fever Within 48 Hours Sepsis New/Unexplained Change in Mental Status Sepsis Action Taken by Nursing 10/27/19 20:00 10/27/19 20:10 10/27/19 20:20 Temperature Temperature Source Pulse Rate 73 75 75 Pulse Rate [Apical] Pulse Rate from SpO2 Sensor 73 75 Respiratory Rate 23 24 22 Respiratory Effort / Characteristics Respiratory Depth Blood Pressure 217/112 H Blood Pressure [Right Arm] Blood Pressure Mean 143 Blood Pressure Mean [Right Arm] Pulse Oximetry 93 91 Oxygen Delivery Method Sepsis Recent Fever Within 48 Hours Sepsis New/Unexplained Change in Mental Status Sepsis Action Taken by Nursing 10/27/19 20:30 10/27/19 20:40 10/27/19 20:50 Temperature Temperature Source Pulse Rate 73 75 73 Pulse Rate [Apical] Pulse Rate from SpO2 Sensor 73 73 74 Respiratory Rate 22 20 21 Respiratory Effort / Characteristics Respiratory Depth Blood Pressure Blood Pressure [Right Arm] Blood Pressure Mean Blood Pressure Mean [Right Arm] Pulse Oximetry 92 92 91 Oxygen Delivery Method Sepsis Recent Fever Within 48 Hours Sepsis New/Unexplained Change in Mental Status Sepsis Action Taken by Nursing 10/27/19 21:00 Temperature Temperature Source Pulse Rate 74 Pulse Rate [Apical] Pulse Rate from SpO2 Sensor Respiratory Rate 23 Respiratory Effort / Characteristics Respiratory Depth Blood Pressure Blood Pressure [Right Arm] Blood Pressure Mean Blood Pressure Mean [Right Arm] Pulse Oximetry Oxygen Delivery Method Sepsis Recent Fever Within 48 Hours Sepsis New/Unexplained Change in Mental Status Sepsis Action Taken by Nursing Laboratory Data Result diagrams: 10/27/19 18:11 10/27/19 18:11 Lab Results 10/27/19 10/27/19 10/27/19 Range/Units 18:11 18:11 18:45 WBC 6.46 (4.8-10.8) K/uL RBC 4.84 (4.2-5.4) M/uL Hgb 14.5 (12.0-16.0) g/dL Hct 44.7 (37-47) % MCV 92.4 (80-100) fL MCH 30.0 (25-34) pg MCHC 32.4 (32-36) g/dL RDW Std Deviation 44.7 (36.4-46.3) fL RDW Coeff of Lori 13.3 (11.5-14.5) % Plt Count 148 (130-400) K/uL MPV 11.3 H (7.4-10.4) fL Immature Gran % (Auto) 0.3 % Neut % (Auto) 86.2 % Lymph % (Auto) 5.4 % [place] % (Auto) 7.6 % Eos % (Auto) 0.3 % Baso % (Auto) 0.2 % Neut # (Auto) 5.57 (1.4-6.5) K/uL Lymph # (Auto) 0.35 L (1.2-3.4) K/uL [place] # (Auto) 0.49 (0.11-0.59) K/uL Eos # (Auto) 0.02 (0-0.5) K/uL Baso # (Auto) 0.01 (0-0.2) K/uL Immature Gran # (Auto) 0.02 (0.00-0.02) K/uL Sodium 139 (136-145) mmol/L Potassium 3.9 (3.5-5.1) mmol/L Chloride 102 (98-107) mmol/L Carbon Dioxide 31 (21-32) mmol/L Anion Gap 6.0 (3-11) BUN 10 (7-18) mg/dl Creatinine 0.74 (0.6-1.2) mg/dl Est Cr Clr Drug Dosing 38.4 ml/min Est GFR ( Amer) 86.8 Est GFR (Non-Af Amer) 74.9 BUN/Creatinine Ratio 13.2 (10-20) Glucose 113 H (70-99) mg/dl Calcium 8.9 (8.5-10.1) mg/dl Total Bilirubin 0.6 (0.2-1) mg/dl AST 70 H (15-37) U/L ALT 52 (12-78) U/L Alkaline Phosphatase 222 H (45-117) U/L Total Protein 6.9 (6.4-8.2) gm/dl Albumin 3.2 L (3.4-5.0) gm/dl Globulin 3.7 (2.5-4.0) gm/dl Albumin/Globulin Ratio 0.9 (0.9-2) Lipase 151 (73-393) U/L Urine Color Yellow Urine Appearance Clear (Clear) Urine pH 6.0 (4.5-7.5) Ur Specific [place] 1.020 (1.000-1.030) Urine Protein 2+ H (Negative) Urine Glucose (UA) Negative (Negative) Urine Ketones 1+ H (Negative) Urine Blood Negative (Negative) Urine Nitrite Negative (Negative) Urine Bilirubin Negative (Negative) Urine Urobilinogen Negative (Negative) Ur Leukocyte Esterase Negative (Negative) Urine WBC (Auto) 1-5 (0-5) /hpf Urine RBC (Auto) 0-4 (0-4) /hpf U Hyaline Cast (Auto) 1-5 (0-5) /lpf U Epithel Cells (Auto) 20-30 H (0-5) /lpf Urine Bacteria (Auto) Negative (Negative) SARS-CoV-2 RNA (RT-PCR) 10/27/19 Range/Units 20:30 WBC (4.8-10.8) K/uL RBC (4.2-5.4) M/uL Hgb (12.0-16.0) g/dL Hct (37-47) % MCV (80-100) fL MCH (25-34) pg MCHC (32-36) g/dL RDW Std Deviation (36.4-46.3) fL RDW Coeff of Lori (11.5-14.5) % Plt Count (130-400) K/uL MPV (7.4-10.4) fL Immature Gran % (Auto) % Neut % (Auto) % Lymph % (Auto) % [place] % (Auto) % Eos % (Auto) % Baso % (Auto) % Neut # (Auto) (1.4-6.5) K/uL Lymph # (Auto) (1.2-3.4) K/uL [place] # (Auto) (0.11-0.59) K/uL Eos # (Auto) (0-0.5) K/uL Baso # (Auto) (0-0.2) K/uL Immature Gran # (Auto) (0.00-0.02) K/uL Sodium (136-145) mmol/L Potassium (3.5-5.1) mmol/L Chloride (98-107) mmol/L Carbon Dioxide (21-32) mmol/L Anion Gap (3-11) BUN (7-18) mg/dl Creatinine (0.6-1.2) mg/dl Est Cr Clr Drug Dosing ml/min Est GFR ( Amer) Est GFR (Non-Af Amer) BUN/Creatinine Ratio (10-20) Glucose (70-99) mg/dl Calcium (8.5-10.1) mg/dl Total Bilirubin (0.2-1) mg/dl AST (15-37) U/L ALT (12-78) U/L Alkaline Phosphatase (45-117) U/L Total Protein (6.4-8.2) gm/dl Albumin (3.4-5.0) gm/dl Globulin (2.5-4.0) gm/dl Albumin/Globulin Ratio (0.9-2) Lipase (73-393) U/L Urine Color Urine Appearance (Clear) Urine pH (4.5-7.5) Ur Specific [place] (1.000-1.030) Urine Protein (Negative) Urine Glucose (UA) (Negative) Urine Ketones (Negative) Urine Blood (Negative) Urine Nitrite (Negative) Urine Bilirubin (Negative) Urine Urobilinogen (Negative) Ur Leukocyte Esterase (Negative) Urine WBC (Auto) (0-5) /hpf Urine RBC (Auto) (0-4) /hpf U Hyaline Cast (Auto) (0-5) /lpf U Epithel Cells (Auto) (0-5) /lpf Urine Bacteria (Auto) (Negative) SARS-CoV-2 RNA (RT-PCR) Cancelled Discharge Plan Visit Data Chief Complaint: Abdominal Pain Stated Complaint: AB PAIN ED Provider: Jose Juan Diallo Discharge Problem: Pneumonia involving left lung, Elevated liver function tests, Acute upper abdominal pain, Liver masses Forms Stand Alone Forms: [facility] Prescriptions Prescriptions: No Action lisinopril 40 mg Tablet 40 mg PO QAM RF: 0 albuterol sulfate [ProAir HFA] 90 mcg/actuation Hfa Aerosol Inhaler 2 inh INHALATION QID PRN (Reason: sob) RF: 0 acetaminophen [Mapap (acetaminophen)] 500 mg Capsule 500 mg PO Q4 PRN (Reason: MILD-MODERATE PAIN) RF: 0 polyethylene glycol 3350 [Miralax] 17 gram Powder In Packet 17 g PO DAILY PRN (Reason: Constipation) RF: 0 dextromethorphan-guaifenesin [Siltussin-DM] 10-100 mg/5 mL Syrup 10 ml PO Q4 PRN (Reason: Cough) RF: 0 ketorolac 0.5 % drops 1 drp OPR QID RF: 0 prednisolone acetate 1 % drops,suspension 1 drp OPR UD RF: 0 paroxetine HCl 10 mg tablet 10 mg PO QAM RF: 0 alendronate 70 mg tablet 70 mg PO WK RF: 0 metoprolol succinate 100 mg tablet extended release 24 hr 100 mg PO HS RF: 0 diphenoxylate-atropine 2.5-0.025 mg tablet 1 tab PO BID PRN (Reason: Diarrhea) RF: 0 aspirin 81 mg tablet,delayed release (DR/EC) 81 mg PO QAM RF: 0 magnesium hydroxide [Milk of Magnesia] 400 mg/5 mL Suspension 30 ml PO DAILY PRN (Reason: Constipation) RF: 0 trazodone 100 mg tablet 100 mg PO HS RF: 0 cholestyramine (with sugar) 4 gram powder in packet 4 g PO DAILY RF: 0 Systane (PF) 0.4-0.3 % Dropperette 1 drp OPL TID RF: 0 Certa Plus 18-0.4-250 mg-mg-mcg Tablet 1 tab PO QAM RF: 0 cholecalciferol (vitamin D3) [Vitamin D3] 125 mcg (5,000 unit) Tablet 5,000 unit PO QAM RF: 0 melatonin 10 mg Tablet 10 mg PO HS RF: 0 PreserVision AREDS-2 [id number] [id number] Capsule 1 tab PO BID RF: 0 alum-mag hydroxide-simeth [Mylanta Maximum Strength] 400-400-40 mg/5 mL Suspension 30 ml PO TID PRN (Reason: UPSET STOMACH/NAUSEA) RF: 0
[2019-10-27 21:37] LABS: Magnesium 2.1 mg/dl (1.8-2.4); Troponin I < 0.015 ng/ml (0-0.045)
[2019-10-27] MEDS ORDERED: METOPROLOL SUCC 50MG EXT REL TAB PO STA (21:37)
--- NOTE | 2019-10-27 21:46 | History & Physical Report ---
Date of Service October 27, 2019 Assessment & Plan (1) Asymptomatic hypertensive urgency: Secondary to abdominal discomfort Possible hepatic metastatic disease hx breast cancer R sp surgery, chemotherapy (1984), NSCL, L sp neoadjuvant chemoradiation and surgery (2010) Complex ovarian cysts from pelvic ultrasound from last year, patient refused additional work-up as per outpatient Gynecology note Atypical pneumonia, no sepsis hx CVA as per records Chronic anemia, hemoglobin better than baseline likely secondary to hemoconcentration Malnutrition RE low BMI secondary to possible metastatic disease episodic thrombocytopenia Ongoing tobacco abuse OBS Medical telemetry given uncontrolled BP Continue home lisinopril and beta-sudhakar Add Norvasc if BP still uncontrolled Doxycycline for atypical pneumonia Outpatient [facility] Oncology follow-up visit (Dr. Chavez) regarding work-up for possible liver mets. Nutrition consult RE low BMI Nicotine gum as needed DVT prophylaxis Heparin subcu Full code Text document was generated using [email or web address] voice recognition software. It may contain grammatical or spelling errors. Kindly contact undersigned for clarification of any documentation item in question. History of Present Illness Chief Complaint: Abdominal pain Primary Care Provider: Sindy Horn History obtained from patient and records. Medical history is significant for HTN, CVA, breast cancer R sp surgery, chemotherapy (1984), NSCL, L sp neoadjuvant chemoradiation and surgery (2010), ongoing tobacco abuse, Chronic anemia (baseline hemoglobin of 11), episodic thrombocytopenia. Recent confinement March 2019 complicated diverticulitis. Pelvic ultrasound at time of confinement showed complex ovarian cysts. CA 125 was elevated as per note. Patient/family not interested in treatment as per outpatient Gynecology note from April 2019. 1 week history of cough symptoms productive of white sputum. No fever, no chills. Outpatient COVID-19 test from 2 weeks ago was negative. Denies aspiration. Denies chest pain, S OB. Patient noted achy upper abdominal pain the last few days with nausea. No emesis. Good BM. Poor appetite for months now. Denies headache, dizziness symptoms. At the ER, patient received Cefepime and Doxycycline for pneumonia. MEDICAL HISTORY: As above. SURGERIES: Hysterectomy, cholecystectomy, carpal tunnel, mastectomy, knee surgery, some foot surgery, lung surgery, cataract surgery FAMILY HISTORY: Breast cancer. PERSONAL AND SOCIAL HISTORY: Few cigarettes a day. No chronic ETOH intake. 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 Allergies Allergy/AdvReac Type Severity Reaction Status Date / Time Influenza Virus Vaccines Allergy Unknown Unknown Verified 10/27/19 21:15 Penicillins Allergy Unknown HIVES Verified 10/27/19 21:15 adhesive AdvReac Unknown EXCORIATION Verified 10/27/19 21:15 S morphine AdvReac Unknown ITCHING Verified 10/27/19 21:15 Home Medications Home Medications Medication Instructions Recorded Confirmed Type Certa Plus 1 tab PO QAM 03/24/19 10/27/19 History PreserVision AREDS-2 1 tab PO BID 03/24/19 10/27/19 History Systane (PF) 1 drp OPL TID 03/24/19 10/27/19 History alendronate 70 mg PO WK 03/24/19 10/27/19 History aspirin 81 mg PO QAM 03/24/19 10/27/19 History cholecalciferol (vitamin D3) 5,000 unit PO QAM 03/24/19 10/27/19 History [Vitamin D3] cholestyramine (with sugar) 4 g PO DAILY 03/24/19 10/27/19 History diphenoxylate-atropine 1 tab PO BID PRN 03/24/19 10/27/19 History magnesium hydroxide [Milk of 30 ml PO DAILY PRN 03/24/19 10/27/19 History Magnesia] melatonin 10 mg PO HS 03/24/19 10/27/19 History metoprolol succinate 100 mg PO HS 03/24/19 10/27/19 History paroxetine HCl 10 mg PO QAM 03/24/19 10/27/19 History trazodone 100 mg PO HS 03/24/19 10/27/19 History alum-mag hydroxide-simeth [Mylanta 30 ml PO TID PRN 04/02/19 10/27/19 History Maximum Strength] acetaminophen [Mapap 500 mg PO Q4 PRN 10/05/19 10/27/19 History (acetaminophen)] albuterol sulfate [ProAir HFA] 2 inh INHALATION QID PRN 10/05/19 10/27/19 History lisinopril 40 mg PO QAM 10/05/19 10/27/19 History dextromethorphan-guaifenesin 10 ml PO Q4 PRN 10/27/19 10/27/19 History [Siltussin-DM] ketorolac 1 drp OPR QID 10/27/19 10/27/19 History polyethylene glycol 3350 [Miralax] 17 g PO DAILY PRN 10/27/19 10/27/19 History prednisolone acetate 1 drp OPR UD 10/27/19 10/27/19 History Past Med/Surg History Social History Preferred Language: Tongan Communication Ability: Effective 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 Beliefs That Will Affect Care: None marital status: / Current Living Situation: Personal Care Facility Current Living Situation Comment: resident at [facility] current occupational status: retired Feels Safe at Home: Yes Safety Concerns: Feels Safe At This Time Smoking Status: Current every day smoker Tobacco Type: cigarettes ; Second Hand Exposure: No ; Hx Alcohol Use: Yes Alcohol type: beer Alcohol Intake Frequency Comment: Previously used alcohol, currently does not drink alcohol Hx Substance Use: No Review of Systems Review of Systems: As per HPI, all 10 systems reviewed, all other ROS negative Physical Exam Physical Exam: GENERAL: Comfortable, underweight, mild hearing impairment, no respiratory distress SKIN: Normal color, warm HEENT: [place] palpebral conjunctivae, no ptosis, dry buccal mucosa NECK : Supple, no tenderness CHEST : Decreased breath sounds, no tenderness HEART : RRR, no obvious murmurs ABDOMEN: Some distention, minimal epigastric tenderness EXTREMITIES : No LE swelling/tenderness, no other conspicuous deformities noted NEUROLOGIC : Coherent, no facial asymmetry, no other gross focality Results & Data Results & Data ([facility]) Vital Signs (Past 12 Hours) Vital Signs Temp Pulse Pulse Resp BP BP Pulse Ox 10/27/19 21:00 74 23 10/27/19 20:50 73 21 91 10/27/19 20:40 75 20 92 10/27/19 20:30 73 22 92 10/27/19 20:20 75 22 91 10/27/19 20:10 75 24 10/27/19 20:00 73 23 217/112 H 93 10/27/19 19:50 73 22 94 10/27/19 19:40 73 23 92 10/27/19 19:30 74 22 93 10/27/19 19:21 75 21 92 10/27/19 19:11 74 16 205/111 H 92 10/27/19 19:10 72 22 93 10/27/19 19:01 72 23 205/111 H 94 10/27/19 19:00 74 21 93 10/27/19 18:50 74 24 93 10/27/19 18:44 74 22 10/27/19 18:30 72 23 94 10/27/19 18:20 72 23 95 10/27/19 18:10 71 22 93 10/27/19 18:06 92 10/27/19 18:00 72 23 188/117 H 93 10/27/19 17:50 71 23 93 10/27/19 17:40 71 24 93 10/27/19 17:30 73 23 203/120 H 93 10/27/19 17:29 74 15 93 10/27/19 17:28 37.4 C 74 24 226/119 H 93 10/27/19 17:26 74 25 H 226/119 H 93 Laboratory Results Laboratory Results WBC 6.46 K/uL (4.8-10.8) 10/27/19 18:11 RBC 4.84 M/uL (4.2-5.4) 10/27/19 18:11 Hgb 14.5 g/dL (12.0-16.0) 10/27/19 18:11 Hct 44.7 % (37-47) 10/27/19 18:11 MCV 92.4 fL (80-100) 10/27/19 18:11 MCH 30.0 pg (25-34) 10/27/19 18:11 MCHC 32.4 g/dL (32-36) 10/27/19 18:11 RDW Std Deviation 44.7 fL (36.4-46.3) 10/27/19 18:11 RDW Coeff of Lori 13.3 % (11.5-14.5) 10/27/19 18:11 Plt Count 148 K/uL (130-400) 10/27/19 18:11 MPV 11.3 fL (7.4-10.4) H 10/27/19 18:11 Immature Gran % (Auto) 0.3 % 10/27/19 18:11 Neut % (Auto) 86.2 % 10/27/19 18:11 Lymph % (Auto) 5.4 % 10/27/19 18:11 [place] % (Auto) 7.6 % 10/27/19 18:11 Eos % (Auto) 0.3 % 10/27/19 18:11 Baso % (Auto) 0.2 % 10/27/19 18:11 Neut # (Auto) 5.57 K/uL (1.4-6.5) 10/27/19 18:11 Lymph # (Auto) 0.35 K/uL (1.2-3.4) L 10/27/19 18:11 [place] # (Auto) 0.49 K/uL (0.11-0.59) 10/27/19 18:11 Eos # (Auto) 0.02 K/uL (0-0.5) 10/27/19 18:11 Baso # (Auto) 0.01 K/uL (0-0.2) 10/27/19 18:11 Immature Gran # (Auto) 0.02 K/uL (0.00-0.02) 10/27/19 18:11 Sodium 139 mmol/L (136-145) 10/27/19 18:11 Potassium 3.9 mmol/L (3.5-5.1) 10/27/19 18:11 Chloride 102 mmol/L (98-107) 10/27/19 18:11 Carbon Dioxide 31 mmol/L (21-32) 10/27/19 18:11 Anion Gap 6.0 (3-11) 10/27/19 18:11 BUN 10 mg/dl (7-18) 10/27/19 18:11 Creatinine 0.74 mg/dl (0.6-1.2) 10/27/19 18:11 Est Cr Clr Drug Dosing 38.4 ml/min 10/27/19 18:11 Est GFR ( Amer) 86.8 10/27/19 18:11 Est GFR (Non-Af Amer) 74.9 10/27/19 18:11 BUN/Creatinine Ratio 13.2 (10-20) 10/27/19 18:11 Glucose 113 mg/dl (70-99) H 10/27/19 18:11 Calcium 8.9 mg/dl (8.5-10.1) 10/27/19 18:11 Magnesium 2.1 mg/dl (1.8-2.4) 10/27/19 18:11 Total Bilirubin 0.6 mg/dl (0.2-1) 10/27/19 18:11 AST 70 U/L (15-37) H 10/27/19 18:11 ALT 52 U/L (12-78) 10/27/19 18:11 Alkaline Phosphatase 222 U/L (45-117) H 10/27/19 18:11 Troponin I < 0.015 ng/ml (0-0.045) 10/27/19 18:11 Total Protein 6.9 gm/dl (6.4-8.2) 10/27/19 18:11 Albumin 3.2 gm/dl (3.4-5.0) L 10/27/19 18:11 Globulin 3.7 gm/dl (2.5-4.0) 10/27/19 18:11 Albumin/Globulin Ratio 0.9 (0.9-2) 10/27/19 18:11 Lipase 151 U/L (73-393) 10/27/19 18:11 Urine Color Yellow 10/27/19 18:45 Urine Appearance Clear (Clear) 10/27/19 18:45 Urine pH 6.0 (4.5-7.5) 10/27/19 18:45 Ur Specific [place] 1.020 (1.000-1.030) 10/27/19 18:45 Urine Protein 2+ (Negative) H 10/27/19 18:45 Urine Glucose (UA) Negative (Negative) 10/27/19 18:45 Urine Ketones 1+ (Negative) H 10/27/19 18:45 Urine Blood Negative (Negative) 10/27/19 18:45 Urine Nitrite Negative (Negative) 10/27/19 18:45 Urine Bilirubin Negative (Negative) 10/27/19 18:45 Urine Urobilinogen Negative (Negative) 10/27/19 18:45 Ur Leukocyte Esterase Negative (Negative) 10/27/19 18:45 Urine WBC (Auto) 1-5 /hpf (0-5) 10/27/19 18:45 Urine RBC (Auto) 0-4 /hpf (0-4) 10/27/19 18:45 U Hyaline Cast (Auto) 1-5 /lpf (0-5) 10/27/19 18:45 U Epithel Cells (Auto) 20-30 /lpf (0-5) H 10/27/19 18:45 Urine Bacteria (Auto) Negative (Negative) 10/27/19 18:45 SARS-CoV-2 RNA (RT-PCR) Cancelled 10/27/19 20:[address] abdomen pelvis: 1. Probable infiltrate left lung base associated with a small left effusion. 2. Diffuse heterogeneity of the liver raising the possibility of multifocal masses. 3. Further evaluation is recommended to include the possibility of metastatic disease versus other potential etiologies. 4. Chronic sigmoid diverticulosis with no evidence for acute diverticulitis. Chest x-ray as per my interpretation : Mild hyperinflation, pleural effusion left EKG as per my interpretation : Rate 75, NSR, LAD, LAFB, LVH, T wave flattening inferior leads
[2019-10-27] MEDS ORDERED: ONDANSETRON INJ 2 MG/ML 2 ML VIAL IV STA (22:03)
[2019-10-27] MEDS ORDERED: ONDANSETRON INJ 2 MG/ML 2 ML VIAL ONE (22:03)
[2019-10-27] MEDS ORDERED: POLYETHYLENE (MIRALAX) 17 GM PACK PO PRN (23:32)
[2019-10-27] MEDS ORDERED: NSS + 20MEQ KCL 20 MEQ/1,000 ML BAG IV ONE (23:32)
[2019-10-27] MEDS ORDERED: MAGNESIUM HYDROXIDE SUSP 30 ML UDC PO PRN (23:32)
[2019-10-28] MEDS ORDERED: AMLODIPINE BESYLATE 5 MG TAB PO ONE ×3 (00:01→22:10)
[2019-10-28] MEDS: lisinopriL 40 MG TAB PO SCH (03:56)
[2019-10-28] MEDS: HEPARIN SOD 5,000 UNIT/0.5 ML VIAL SQ SCH ×3 (05:26→20:13)
[2019-10-28] MEDS: DOXYCYCLINE HYCLATE 100 MG CAP PO SCH ×2 (05:26→17:15)
[2019-10-28] MEDS ORDERED: ALBUT/IPRATROP 3MG/0.5MG NEB 3 ML VIAL NEB PRN (07:39)
--- NOTE | 2019-10-28 07:39 | XRay Report ---
XR chest 1V portable HISTORY: Abnormal abdomen and pelvis CT. pneumonia on abd ct COMPARISON: Chest CT 01/13/2018. Abdomen and pelvis CT 10/27/2019. FINDINGS: There is persistent volume loss within the left hemithorax. Suture material within the left suprahilar region consistent with postoperative change. There is lobular left pleural thickening not ed within the upper to midlung zone and a small left pleural effusion. Mild interstitial thickening a t the left lung base. The right lung is clear. Emphysema. The heart is mildly enlarged. There are pos tsternotomy changes. No pneumothorax. IMPRESSION: Interval development of lobular circumferential thickening involving the majority of the left hemitho rax with a small left pleural effusion. This is indeterminate and could be due to loculated pleural f luid or pleural-based masses. Chest CT follow-up recommended for further evaluation. ACT 112: Negative or not required by law. Electronically signed by: Dipesh Driver M.D. 10/28/2019 7:37 AM
[2019-10-28] MEDS: ASPIRIN 81 MG ECTAB PO SCH (08:25)
[2019-10-28] MEDS: CHOLECALCIFEROL 1,000 UNITS 25 MCG TAB PO SCH (08:25)
[2019-10-28] MEDS: PARoxetine HCL 10 MG TAB PO SCH (08:25)
[2019-10-28] MEDS: CEROVITE ADV FORMULA TAB PO SCH ×2 (08:25→20:11)
[2019-10-28] MEDS: ARTIFICIAL TEARS OP SCH ×3 (08:25→20:13)
[2019-10-28] MEDS ORDERED: lisinopriL 40 MG TAB PO SCH (09:00)
--- NOTE | 2019-10-28 10:09 | Hospitalist Progress Note ---
Date of Service October 28, 2019 Assessment & Plan (1) Asymptomatic hypertensive urgency: possibly secondary to abdominal discomfort Medical telemetry given uncontrolled BP Continue home lisinopril and beta-sudhakar Add Norvasc and hydralazine Possible hepatic metastatic disease per CT abdomen hx breast cancer R sp surgery, chemotherapy (1984), NSCL, L sp neoadjuvant chemoradiation and surgery (2010) Complex ovarian cysts from pelvic ultrasound from last year, patient refused additional work-up as per outpatient Gynecology note Dr. Chavez (oncology) contacted regarding poss. mets, but not reached Poss. Atypical pneumonia vs poss. obstructive pna, no sepsis abnormal CXR, concerning for left lobe pna CT chest ordered for further evaluation shows masses in left lung, concerning for ca (given hx above) Cont. treatment for poss. pna for now (cefepime and doxy) hx CVA as per records Chronic anemia, hemoglobin better than baseline likely secondary to hemoconcentration Malnutrition RE low BMI secondary to possible metastatic disease, Nutrition consult RE low BMI episodic thrombocytopenia Ongoing tobacco abuse, Nicotine gum as needed DVT prophylaxis Heparin subcu Full code Admission and Anticipated Discharge Date Admission Date: October 27, 2019 Subjective Pt is lying in bed in NAD. no fever, chills, chest pain, shortness of breath. Has some abdominal discomfort. Pt's daughter updated on results of CT chest and CT abd. pelvis. Dr. Chavez contacted but not reached. Review of Systems Review of Systems: All systems reviewed & are unremarkable except as noted in HPI & below Constitutional: no fever and no chills Respiratory: + cough (mild); no dyspnea Cardiovascular: no chest pain and no palpitations Gastrointestinal: + abdominal pain (improved); no nausea and no vomiting Physical Exam Physical Exam: GENERAL: elderly thin female lying in bed, in NAD, +underweight, mild hearing impairment HEENT: [place]/AT, pink palpebral conjunctivae, no ptosis NECK : Supple, no tenderness CHEST : Decreased breath sounds, no tenderness HEART : RRR, no obvious murmurs ABDOMEN: + bowel sounds, some distention, mild epigastric tenderness EXTREMITIES : No LE swelling/tenderness, moves extremities spontaneously SKIN: Normal color, warm NEUROLOGIC : Coherent, no facial asymmetry, no other gross focality Results & Data Results & Data ([facility]) Vital Signs (Past 12 Hours) Vital Signs Temp Pulse Pulse Resp BP BP BP 10/28/19 09:43 67 10/28/19 07:34 36.8 C 78 18 195/108 H 10/28/19 05:13 37.2 C 68 18 201/93 H 10/28/19 02:52 188/98 H 10/28/19 00:04 37.1 C 72 16 211/110 H 212/104 H 10/27/19 23:00 74 20 214/128 H 10/27/19 22:50 71 22 10/27/19 22:40 72 18 10/27/19 22:30 71 22 10/27/19 22:20 73 24 10/27/19 22:10 75 20 209/117 H Pulse Ox 10/28/19 09:43 10/28/19 07:34 92 10/28/19 05:13 91 10/28/19 02:52 10/28/19 00:04 92 10/27/19 23:00 92 10/27/19 22:50 92 10/27/19 22:40 93 10/27/19 22:30 92 10/27/19 22:20 92 10/27/19 22:10 94 Laboratory Results 10/27/19 10/27/19 10/27/19 Range/Units 20:30 20:30 18:45 WBC (4.8-10.8) K/uL RBC (4.2-5.4) M/uL Hgb (12.0-16.0) g/dL Hct (37-47) % MCV (80-100) fL MCH (25-34) pg MCHC (32-36) g/dL RDW Std Deviation (36.4-46.3) fL RDW Coeff of Lori (11.5-14.5) % Plt Count (130-400) K/uL MPV (7.4-10.4) fL Immature Gran % (Auto) % Neut % (Auto) % Lymph % (Auto) % [place] % (Auto) % Eos % (Auto) % Baso % (Auto) % Neut # (Auto) (1.4-6.5) K/uL Lymph # (Auto) (1.2-3.4) K/uL [place] # (Auto) (0.11-0.59) K/uL Eos # (Auto) (0-0.5) K/uL Baso # (Auto) (0-0.2) K/uL Immature Gran # (Auto) (0.00-0.02) K/uL Sodium (136-145) mmol/L Potassium (3.5-5.1) mmol/L Chloride (98-107) mmol/L Carbon Dioxide (21-32) mmol/L Anion Gap (3-11) BUN (7-18) mg/dl Creatinine (0.6-1.2) mg/dl Est Cr Clr Drug Dosing ml/min Est GFR ( Amer) Est GFR (Non-Af Amer) BUN/Creatinine Ratio (10-20) Glucose (70-99) mg/dl Calcium (8.5-10.1) mg/dl Magnesium (1.8-2.4) mg/dl Total Bilirubin (0.2-1) mg/dl AST (15-37) U/L ALT (12-78) U/L Alkaline Phosphatase (45-117) U/L Troponin I (0-0.045) ng/ml Total Protein (6.4-8.2) gm/dl Albumin (3.4-5.0) gm/dl Globulin (2.5-4.0) gm/dl Albumin/Globulin Ratio (0.9-2) Lipase (73-393) U/L Urine Color Yellow Urine Appearance Clear (Clear) Urine pH 6.0 (4.5-7.5) Ur Specific [place] 1.020 (1.000-1.030) Urine Protein 2+ H (Negative) Urine Glucose (UA) Negative (Negative) Urine Ketones 1+ H (Negative) Urine Blood Negative (Negative) Urine Nitrite Negative (Negative) Urine Bilirubin Negative (Negative) Urine Urobilinogen Negative (Negative) Ur Leukocyte Esterase Negative (Negative) Urine WBC (Auto) 1-5 (0-5) /hpf Urine RBC (Auto) 0-4 (0-4) /hpf U Hyaline Cast (Auto) 1-5 (0-5) /lpf U Epithel Cells (Auto) 20-30 H (0-5) /lpf Urine Bacteria (Auto) Negative (Negative) COVID-19 PCR NEGATIVE (Negative) SARS-CoV-2 RNA (RT-PCR) Cancelled 10/27/19 10/27/19 10/27/19 Range/Units 18:11 18:11 18:11 WBC 6.46 (4.8-10.8) K/uL RBC 4.84 (4.2-5.4) M/uL Hgb 14.5 (12.0-16.0) g/dL Hct 44.7 (37-47) % MCV 92.4 (80-100) fL MCH 30.0 (25-34) pg MCHC 32.4 (32-36) g/dL RDW Std Deviation 44.7 (36.4-46.3) fL RDW Coeff of Lori 13.3 (11.5-14.5) % Plt Count 148 (130-400) K/uL MPV 11.3 H (7.4-10.4) fL Immature Gran % (Auto) 0.3 % Neut % (Auto) 86.2 % Lymph % (Auto) 5.4 % [place] % (Auto) 7.6 % Eos % (Auto) 0.3 % Baso % (Auto) 0.2 % Neut # (Auto) 5.57 (1.4-6.5) K/uL Lymph # (Auto) 0.35 L (1.2-3.4) K/uL [place] # (Auto) 0.49 (0.11-0.59) K/uL Eos # (Auto) 0.02 (0-0.5) K/uL Baso # (Auto) 0.01 (0-0.2) K/uL Immature Gran # (Auto) 0.02 (0.00-0.02) K/uL Sodium 139 (136-145) mmol/L Potassium 3.9 (3.5-5.1) mmol/L Chloride 102 (98-107) mmol/L Carbon Dioxide 31 (21-32) mmol/L Anion Gap 6.0 (3-11) BUN 10 (7-18) mg/dl Creatinine 0.74 (0.6-1.2) mg/dl Est Cr Clr Drug Dosing 38.4 ml/min Est GFR ( Amer) 86.8 Est GFR (Non-Af Amer) 74.9 BUN/Creatinine Ratio 13.2 (10-20) Glucose 113 H (70-99) mg/dl Calcium 8.9 (8.5-10.1) mg/dl Magnesium 2.1 (1.8-2.4) mg/dl Total Bilirubin 0.6 (0.2-1) mg/dl AST 70 H (15-37) U/L ALT 52 (12-78) U/L Alkaline Phosphatase 222 H (45-117) U/L Troponin I < 0.015 (0-0.045) ng/ml Total Protein 6.9 (6.4-8.2) gm/dl Albumin 3.2 L (3.4-5.0) gm/dl Globulin 3.7 (2.5-4.0) gm/dl Albumin/Globulin Ratio 0.9 (0.9-2) Lipase 151 (73-393) U/L Urine Color Urine Appearance (Clear) Urine pH (4.5-7.5) Ur Specific [place] (1.000-1.030) Urine Protein (Negative) Urine Glucose (UA) (Negative) Urine Ketones (Negative) Urine Blood (Negative) Urine Nitrite (Negative) Urine Bilirubin (Negative) Urine Urobilinogen (Negative) Ur Leukocyte Esterase (Negative) Urine WBC (Auto) (0-5) /hpf Urine RBC (Auto) (0-4) /hpf U Hyaline Cast (Auto) (0-5) /lpf U Epithel Cells (Auto) (0-5) /lpf Urine Bacteria (Auto) (Negative) COVID-19 PCR (Negative) SARS-CoV-2 RNA (RT-PCR) Medications Administered Current Inpatient Medications Albuterol (Duoneb) 3 ml NEB Q2H PRN PRN Reason: Wheezing Stop: 11/27/19 07:38 Amlodipine Besylate (Norvasc) 5 mg PO QAM [facility] Stop: 11/28/19 08:59 Artificial Tears (Artificial Tears) 1 drops OP TID [facility] Stop: 11/27/19 08:59 Last Admin: 10/28/19 08:25 Dose: 1 drops Documented by: Aspirin (Ecotrin Ectab) 81 mg PO QAM [facility] Stop: 11/27/19 08:59 Last Admin: 10/28/19 08:25 Dose: 81 mg Documented by: Cholestyramine Resin (Questran) 4 gm PO DAILY@1000 [facility] Stop: 11/27/19 09:59 Doxycycline Hyclate (Vibramycin) 100 mg PO Q12H [facility] Stop: 11/04/19 05:59 Last Admin: 10/28/19 05:26 Dose: 100 mg Documented by: Heparin Sodium (Porcine) (Heparin Sodium (Porcine)) 5,000 units SQ Q8 [facility] Stop: 11/27/19 05:59 Last Admin: 10/28/19 05:26 Dose: 5,000 units Documented by: Potassium Chloride/Sodium Chloride (Normal Saline W/20 Meq Kcl) 20 meq in 1,000 mls @ 40 mls/hr IV .Q24H [facility] Stop: 10/28/19 23:31 Last Admin: 10/28/19 01:10 Dose: 40 mls/hr Documented by: Promethazine HCl 12.5 mg/ (Sodium Chloride) 50.5 mls @ 202 mls/hr IV Q6H PRN PRN Reason: Nausea And Vomiting Stop: 11/26/19 23:31 Lisinopril (Zestril) 40 mg PO QAM [facility] Stop: 11/27/19 02:59 Last Admin: 10/28/19 03:56 Dose: 40 mg Documented by: Magnesium Hydroxide (Milk Of Magnesia) 30 ml PO DAILY PRN PRN Reason: Constipation Stop: 11/26/19 23:31 Melatonin (Melatonin) 9 mg PO [facility] Stop: 11/27/19 20:59 Metoprolol Succinate (Toprol Xl) 100 mg PO [facility] Stop: 11/27/19 20:59 Multivitamins/Minerals (Multivitamin W/ Minerals Tab) 1 tab PO BID [facility] Stop: 11/27/19 08:59 Last Admin: 10/28/19 08:25 Dose: 1 tab Documented by: Paroxetine HCl (Paroxetine Hcl) 10 mg PO QAM [facility] Stop: 11/27/19 08:59 Last Admin: 10/28/19 08:25 Dose: 10 mg Documented by: Polyethylene Glycol (Miralax Powder Packet) 17 gm PO DAILY PRN PRN Reason: Constipation Stop: 11/26/19 23:31 Prednisolone Acetate (Pred Forte 1%) 1 drops OP UD [facility] Stop: 11/27/19 03:44 Tramadol HCl (Ultram) 25 - 50 mg PO Q4H PRN PRN Reason: Pain Stop: 11/26/19 23:31 Trazodone HCl (Desyrel) 100 mg PO [facility] Stop: 11/27/19 20:59 Vitamin D (Vitamin D3) 5,000 units PO QAM [facility] Stop: 11/27/19 08:59 Last Admin: 10/28/19 08:25 Dose: 5,000 units Documented by:
[2019-10-28] MEDS: CHOLESTYRAMINE LIGHT 4 GM PKT PO SCH (10:18)
--- NOTE | 2019-10-28 11:49 | CT Scan Report ---
CT chest wo con CT DOSE: 177.90 mGycm HISTORY: abnormal CXR TECHNIQUE: Multiaxial CT images of the chest were performed without contrast. A dose lowering techni que was utilized adhering to the principles of ALARA. COMPARISON: 01/13/2018 FINDINGS: Extensive atherosclerotic change and ectasia thoracic aorta. This is unchanged from the gaye or exam. Interval development of a small left pleural effusion. Interval development of multifocal masslike ch anges of the left perihilar and left upper lobe region. There is 2.2 cm left perihilar parenchymal ma ss. There is a pleural-based mass left upper lobe measuring 4.0 cm at maximum. Additional pleural-bas ed nodules developing are present involving the lateral and posterior aspect of the left upper hemith orax. Interval development of bulky subcarinal and to a lesser extent hilar adenopathy. Matted subcarinal n odes measure up to an estimated 3.5 cm. Stable fibrotic change left pulmonary apex. Additional nodularity at the left base measures up to 2 c m. Right upper and right middle lobe nodularity is present with nodules measuring to 1.2 cm. IMPRESSION: 1. Multiple multifocal masslike changes of the left and to a lesser extent right hemithorax. 2. Bulky mediastinal and to a lesser extent hilar adenopathy. 3. Small left pleural effusion. 4. Neoplastic process is the diagnosis of exclusion. ACT 112: Negative or not required by law. The above report was generated using voice recognition software. It may contain grammatical, syntax or spelling errors. Electronically signed by: Harsh Cabrera M.D. 10/28/2019 11:48 AM
[2019-10-28] MEDS: CEFEPIME 2,000 MG in SYRINGE 7.5 ML IV SCH ×2 (12:24→22:07)
[2019-10-28 12:29] LABS: Basophils # (auto) 0.01 K/uL (0-0.2); Basophils % (auto) 0.1 %; Eosinophils # (auto) 0.01 K/uL (0-0.5); Eosinophils % (auto) 0.1 %; Hematocrit (blood only) 46.4 % (37-47); Hemoglobin 15.6 g/dL (12.0-16.0); Immature Granulocytes # (auto) 0.02 K/uL (0.00-0.02); Immature Granulocytes % (auto) 0.3 %; Lymphocytes # (auto) 0.36 K/uL (1.2-3.4); Lymphocytes % (auto) 4.9 %; Mean Corpuscular Hemoglobin 30.8 pg (25-34); Mean Corpuscular Hgb Conc 33.6 g/dL (32-36); Mean Corpuscular Volume 91.5 fL (80-100); Mean Platelet Volume 11.7 fL (7.4-10.4); Monocytes # (auto) 0.37 K/uL (0.11-0.59); Neutrophils # (auto) 6.56 K/uL (1.4-6.5); Neutrophils % (auto) 89.6 %; Platelet Count 172 K/uL (130-400); RDW Coefficient of Variation 13.3 % (11.5-14.5); RDW Standard Deviation 44.1 fL (36.4-46.3); Red Blood Count 5.07 M/uL (4.2-5.4); White Blood Count 7.33 K/uL (4.8-10.8)
[2019-10-28 12:46] LABS: BUN Creatinine Ratio 14.6 (10-20); Calcium 9.3 mg/dl (8.5-10.1); Creatinine Clr Calc Pharmacy 32.9 ml/min; Est GFR (African American) 73.4; Est GFR (Non-African American) 63.4; Potassium 3.8 mmol/L (3.5-5.1)
[2019-10-28] MEDS ORDERED: HydrALAZINE 10 MG TAB PO SCH (14:00)
[2019-10-28] MEDS: prednisoLONE acetate 1% OP SUSP 5 ML BTL OPR SCH ×2 (14:02→20:10)
--- NOTE | 2019-10-28 18:56 | Electrocardiogram Report ---
Test Reason : Blood Pressure : / mmHG Vent. Rate : 073 BPM Atrial Rate : 073 BPM P-R Int : 170 ms QRS Dur : 086 ms QT Int : 384 ms P-R-T Axes : 060 -44 265 degrees QTc Int : 423 ms Normal sinus rhythm Possible Left atrial enlargement Left axis deviation Left ventricular hypertrophy with repolarization abnormality Abnormal ECG Confirmed by Scooby Guzman ([id number]) on 10/28/2019 6:56:48 PM Referred By: REFERRED SELF Confirmed By:Juan Guzman
[2019-10-28] MEDS: TRAZODONE HCL 100 MG TAB PO SCH (20:10)
[2019-10-28] MEDS: MELATONIN 3 MG TAB PO SCH (20:11)
[2019-10-28] MEDS: METOPROLOL SUCC 50MG EXT REL TAB PO SCH (20:12)
[2019-10-29] MEDS: DOXYCYCLINE HYCLATE 100 MG CAP PO SCH ×2 (05:46→17:21)
[2019-10-29] MEDS: HEPARIN SOD 5,000 UNIT/0.5 ML VIAL SQ SCH ×3 (05:46→20:06)
[2019-10-29 07:18] LABS: Albumin Level 2.9 gm/dl (3.4-5.0); Creatinine Clr Calc Pharmacy 37.6 ml/min; Est GFR (African American) 88.3; Est GFR (Non-African American) 76.2; Magnesium 2.1 mg/dl (1.8-2.4); Potassium 4.2 mmol/L (3.5-5.1)
[2019-10-29 07:20] LABS: Albumin Globulin Ratio 0.9 (0.9-2); Bilirubin,Total 0.6 mg/dl (0.2-1); Globulin 3.4 gm/dl (2.5-4.0); Phosphorus 3.6 mg/dl (2.5-4.9); Total Protein 6.3 gm/dl (6.4-8.2)
[2019-10-29] MEDS: PARoxetine HCL 10 MG TAB PO SCH (08:22)
[2019-10-29] MEDS: lisinopriL 40 MG TAB PO SCH (08:22)
[2019-10-29] MEDS: ARTIFICIAL TEARS OP SCH ×3 (08:22→20:08)
[2019-10-29] MEDS: CHOLECALCIFEROL 1,000 UNITS 25 MCG TAB PO SCH (08:22)
[2019-10-29] MEDS: AMLODIPINE BESYLATE 5 MG TAB PO SCH (08:22)
[2019-10-29] MEDS: CEROVITE ADV FORMULA TAB PO SCH ×2 (08:22→20:07)
[2019-10-29] MEDS: ASPIRIN 81 MG ECTAB PO SCH (08:22)
[2019-10-29] MEDS: prednisoLONE acetate 1% OP SUSP 5 ML BTL OPR SCH ×3 (08:22→20:08)
--- NOTE | 2019-10-29 08:54 | Hospitalist Progress Note ---
Date of Service October 29, 2019 Assessment & Plan (1) Asymptomatic hypertensive urgency: possibly secondary to abdominal discomfort Medical telemetry given uncontrolled BP Continue home lisinopril and beta-sudhakar Add Norvasc and hydralazine Possible hepatic metastatic disease per CT abdomen, CT chest with multiple masses сергей. left lung concerning for met. ca Discussed findings w/ radiology, highly suspicious for metastatic disease (CT chest from 2018 does not show masses noted on current imaging) hx breast cancer R sp surgery, chemotherapy (1984), NSCL, L sp neoadjuvant chemoradiation and surgery (2010) Complex ovarian cysts from pelvic ultrasound from last year, patient refused a dditional work-up as per outpatient Gynecology note Dr. Chavez (oncology) contacted regarding poss. mets, recommend to obtain biopsy, he will follow up with the pt as outpt Will obtain MRI of liver and plan for biopsy of one of the masses Poss. Atypical pneumonia vs poss. obstructive pna, no sepsis abnormal CXR, concerning for left lobe pna CT chest ordered for further evaluation shows masses in left lung, concerning for ca (given hx above) Cont. treatment for poss. pna for now (cefepime and doxy) hx CVA as per records Chronic anemia, hemoglobin better than baseline likely secondary to hemo concentration Malnutrition RE low BMI secondary to possible metastatic disease, Nutrition consult RE low BMI episodic thrombocytopenia Ongoing tobacco abuse, Nicotine gum as needed DVT prophylaxis Heparin subcu Full code Admission and Anticipated Discharge Date Admission Date: October 27, 2019 Subjective Pt is lying in bed in NAD. no fever, chills, chest pain, shortness of breath. Has some abdominal discomfort, poor appetite and nausea. Discussed results of CT chest, abd./ pelvis with radiology and Dr. Chavez. Will obtain liver MRI and will plan for biopsy of one of the masses. Pt's daughter updated. Review of Systems Review of Systems: All systems reviewed & are unremarkable except as noted in HPI & below Constitutional: no fever and no chills Respiratory: + cough (mild); no dyspnea Cardiovascular: no chest pain and no palpitations Gastrointestinal: + abdominal pain (improved) and + nausea; no vomiting Physical Exam Physical Exam: GENERAL: elderly thin female lying in bed, in NAD, +underweight, mild hearing impairment HEENT: NC/AT, pink palpebral conjunctivae, no ptosis NECK : Supple, no tenderness CHEST : Decreased breath sounds, no tenderness HEART : RRR, no obvious murmurs ABDOMEN: + bowel sounds, some distention, mild epigastric tenderness EXTREMITIES : No LE swelling/tenderness, moves extremities spontaneously SKIN: Normal color, warm NEUROLOGIC : alert and oriented,hard of hearing, no facial asymmetry, speech fluent, moves extremities spontaneously Results & Data Results & Data ([facility]) Vital Signs (Past 12 Hours) Vital Signs Temp Pulse Pulse Pulse Resp BP Pulse Ox 10/29/19 07:30 65 10/29/19 07:00 36.2 C L 65 18 162/79 H 92 10/29/19 04:52 78 10/29/19 04:36 36.7 C 72 18 128/64 95 10/28/19 22:50 36.6 C 76 18 182/91 H 93 Laboratory Results 10/29/19 10/28/19 10/28/19 Range/Units 06:04 14:28 12:19 WBC (4.8-10.8) K/uL RBC (4.2-5.4) M/uL Hgb (12.0-16.0) g/dL Hct (37-47) % MCV (80-100) fL MCH (25-34) pg MCHC (32-36) g/dL RDW Std Deviation (36.4-46.3) fL RDW Coeff of Lori (11.5-14.5) % Plt Count (130-400) K/uL MPV (7.4-10.4) fL Immature Gran % (Auto) % Neut % (Auto) % Lymph % (Auto) % [place] % (Auto) % Eos % (Auto) % Baso % (Auto) % Neut # (Auto) (1.4-6.5) K/uL Lymph # (Auto) (1.2-3.4) K/uL [place] # (Auto) (0.11-0.59) K/uL Eos # (Auto) (0-0.5) K/uL Baso # (Auto) (0-0.2) K/uL Immature Gran # (Auto) (0.00-0.02) K/uL Sodium 136 134 L (136-145) mmol/L Potassium 4.2 3.8 (3.5-5.1) mmol/L Chloride 101 97 L (98-107) mmol/L Carbon Dioxide 25 30 (21-32) mmol/L Anion Gap 10.0 7.0 (3-11) BUN 20 H D 13 (7-18) mg/dl Creatinine 0.73 0.85 (0.6-1.2) mg/dl Est Cr Clr Drug Dosing 37.6 32.9 ml/min Est GFR ( Amer) 88.3 73.4 Est GFR (Non-Af Amer) 76.2 63.4 BUN/Creatinine Ratio 27.0 H 14.6 (10-20) Glucose 88 108 H (70-99) mg/dl Calcium 9.0 9.3 (8.5-10.1) mg/dl Phosphorus 3.6 (2.5-4.9) mg/dl Magnesium 2.1 (1.8-2.4) mg/dl Total Bilirubin 0.6 (0.2-1) mg/dl AST 57 H (15-37) U/L ALT 45 (12-78) U/L Alkaline Phosphatase 188 H (45-117) U/L Total Protein 6.3 L (6.4-8.2) gm/dl Albumin 2.9 L (3.4-5.0) gm/dl Globulin 3.4 (2.5-4.0) gm/dl Albumin/Globulin Ratio 0.9 (0.9-2) Procalcitonin 0.08 (0-0.5) ng/ml /16 Range/Units 12:19 WBC 7.33 (4.8-10.8) K/uL RBC 5.07 (4.2-5.4) M/uL Hgb 15.6 (12.0-16.0) g/dL Hct 46.4 (37-47) % MCV 91.5 (80-100) fL MCH 30.8 (25-34) pg MCHC 33.6 (32-36) g/dL RDW Std Deviation 44.1 (36.4-46.3) fL RDW Coeff of Lori 13.3 (11.5-14.5) % Plt Count 172 (130-400) K/uL MPV 11.7 H (7.4-10.4) fL Immature Gran % (Auto) 0.3 % Neut % (Auto) 89.6 % Lymph % (Auto) 4.9 % [place] % (Auto) 5.0 % Eos % (Auto) 0.1 % Baso % (Auto) 0.1 % Neut # (Auto) 6.56 H (1.4-6.5) K/uL Lymph # (Auto) 0.36 L (1.2-3.4) K/uL [place] # (Auto) 0.37 (0.11-0.59) K/uL Eos # (Auto) 0.01 (0-0.5) K/uL Baso # (Auto) 0.01 (0-0.2) K/uL Immature Gran # (Auto) 0.02 (0.00-0.02) K/uL Sodium (136-145) mmol/L Potassium (3.5-5.1) mmol/L Chloride (98-107) mmol/L Carbon Dioxide (21-32) mmol/L Anion Gap (3-11) BUN (7-18) mg/dl Creatinine (0.6-1.2) mg/dl Est Cr Clr Drug Dosing ml/min Est GFR ( Amer) Est GFR (Non-Af Amer) BUN/Creatinine Ratio (10-20) Glucose (70-99) mg/dl Calcium (8.5-10.1) mg/dl Phosphorus (2.5-4.9) mg/dl Magnesium (1.8-2.4) mg/dl Total Bilirubin (0.2-1) mg/dl AST (15-37) U/L ALT (12-78) U/L Alkaline Phosphatase (45-117) U/L Total Protein (6.4-8.2) gm/dl Albumin (3.4-5.0) gm/dl Globulin (2.5-4.0) gm/dl Albumin/Globulin Ratio (0.9-2) Procalcitonin (0-0.5) ng/ml Medications Administered Current Inpatient Medications Albuterol (Duoneb) 3 ml NEB Q2H PRN PRN Reason: Wheezing Stop: 11/27/19 07:38 Amlodipine Besylate (Norvasc) 7.5 mg PO QAM [facility] Stop: 11/28/19 08:59 Last Admin: 10/29/19 08:22 Dose: 7.5 mg Documented by: Artificial Tears (Artificial Tears) 1 drops OP TID [facility] Stop: 11/27/19 08:59 Last Admin: 10/29/19 08:22 Dose: 1 drops Documented by: Aspirin (Ecotrin Ectab) 81 mg PO QAM [facility] Stop: 11/27/19 08:59 Last Admin: 10/29/19 08:22 Dose: 81 mg Documented by: Cholestyramine Resin (Questran) 4 gm PO DAILY@1000 [facility] Stop: 11/27/19 09:59 Last Admin: 10/28/19 10:18 Dose: 4 gm Documented by: Doxycycline Hyclate (Vibramycin) 100 mg PO Q12H [facility] Stop: 11/04/19 05:59 Last Admin: 10/29/19 05:46 Dose: 100 mg Documented by: Heparin Sodium (Porcine) (Heparin Sodium (Porcine)) 5,000 units SQ Q8 [facility] Stop: 11/27/19 05:59 Last Admin: 10/29/19 05:46 Dose: 5,000 units Documented by: Hydralazine HCl (Apresoline) 25 mg PO TID [facility] Stop: 11/27/19 20:59 Last Admin: 10/29/19 08:21 Dose: 25 mg Documented by: Promethazine HCl 12.5 mg/ (Sodium Chloride) 50.5 mls @ 202 mls/hr IV Q6H PRN PRN Reason: Nausea And Vomiting Stop: 11/26/19 23:31 Cefepime HCl 2,000 mg/ Syringe 20 mls @ 5.5 mls/min IV Q12H [facility]; Protocol Stop: 11/04/19 10:59 Last Admin: 10/28/19 22:07 Dose: 5.5 mls/min Documented by: Lisinopril (Zestril) 40 mg PO [facility] Stop: 11/27/19 02:59 Last Admin: 10/29/19 08:22 Dose: 40 mg Documented by: Magnesium Hydroxide (Milk Of Magnesia) 30 ml PO DAILY PRN PRN Reason: Constipation Stop: 11/26/19 23:31 Melatonin (Melatonin) 9 mg PO [facility] Stop: 11/27/19 20:59 Last Admin: 10/28/19 20:11 Dose: 9 mg Documented by: Metoprolol Succinate (Toprol Xl) 100 mg PO [facility] Stop: 11/27/19 20:59 Last Admin: 10/28/19 20:12 Dose: 100 mg Documented by: Multivitamins/Minerals (Multivitamin W/ Minerals Tab) 1 tab PO BID [facility] Stop: 11/27/19 08:59 Last Admin: 10/29/19 08:22 Dose: 1 tab Documented by: Paroxetine HCl (Paroxetine Hcl) 10 mg PO QAM [facility] Stop: 11/27/19 08:59 Last Admin: 10/29/19 08:22 Dose: 10 mg Documented by: Polyethylene Glycol (Miralax Powder Packet) 17 gm PO DAILY PRN PRN Reason: Constipation Stop: 11/26/19 23:31 Prednisolone Acetate (Pred Forte 1%) 1 drops OPR TID [facility] Stop: 11/27/19 13:59 Last Admin: 10/29/19 08:22 Dose: 1 drops Documented by: Prednisolone Acetate (Pred Forte 1%) 1 drops OPR BID [facility] Stop: 11/08/19 21:01 Prednisolone Acetate (Pred Forte 1%) 1 drops OPR DAILY [facility] Stop: 11/15/19 09:01 Tramadol HCl (Ultram) 25 - 50 mg PO Q4H PRN PRN Reason: Pain Stop: 11/26/19 23:31 Trazodone HCl (Desyrel) 100 mg PO HS [facility] Stop: 11/27/19 20:59 Last Admin: 10/28/19 20:10 Dose: 100 mg Documented by: Vitamin D (Vitamin D3) 5,000 units PO QAM [facility] Stop: 11/27/19 08:59 Last Admin: 10/29/19 08:22 Dose: 5,000 units Documented by:
[2019-10-29] MEDS ORDERED: AMLODIPINE BESYLATE 5 MG TAB PO SCH ×2 (09:00)
[2019-10-29] MEDS: CEFEPIME 2,000 MG in SYRINGE 7.5 ML IV SCH ×2 (11:15→22:31)
[2019-10-29] MEDS: CHOLESTYRAMINE LIGHT 4 GM PKT PO SCH (11:15)
[2019-10-29] MEDS ORDERED: GADOXETATE DISODIUM IV PRN (14:01)
--- NOTE | 2019-10-29 14:18 | Magnetic Resonance Report ---
MR abdomen wo/w con CLINICAL HISTORY: Abnormal CT scan. Suspected hepatic disease. TECHNIQUE: Imaging was performed prior to and following IV contrast injection. COMPARISON STUDY: Noncontrast CT scan dated 10/27/2019, CT scan dated 03/24/2019 FINDINGS: Images were acquired in the axial and coronal planes, before and after the administration of 10 cc of intravenous humerus. There are several small areas of restricted water diffusion within the spine suspicious for metastasi s. There is a nonspecific focus of restricted water diffusion within the left breast. There are pleural-based foci of restricted water diffusion within the left hemithorax area There are innumerable coalescent hepatic masses which demonstrate markedly restricted water diffusion . The largest mass measures 57 mm. These involve all segments of the liver. The masses are relatively hypovascular with mild rim enhancement The findings are indicative of metastatic disease. These lesi ons would be amenable to ultrasound-guided biopsy. Gallbladder is surgically absent. There are bilateral adrenal nodules. There is a right renal parapelvic cysts and there are renal cortical cysts. There are a few splenic cysts present. No pancreatic lesions are visualized. Evaluation of the pancreas is limited due to respiratory motion artifact. The portal vein is difficult to assess and is distorted by the multiple masses. There is a cut off o f the common hepatic duct. This difficult to determine whether this is extrinsic, or whether there is neoplastic involvement of the duct. IMPRESSION: 1. The liver is largely replaced by multiple large coalescent hepatic masses. The findings should be presumed to represent metastatic disease unless proven otherwise. These masses would be amenable to u ltrasound-guided fine-needle aspiration biopsy if necessary. 2. Pleural-based foci of restricted water diffusion within the left hemithorax, likely neoplastic 3. Nonspecific subcentimeter focus of restricted water diffusion within the left breast 4. Foci of restricted water diffusion within the lumbar spine suspicious for metastasis. 5. Foci of restricted water diffusion involving retrocrural lymph node suspicious for metastatic lyric opathy ACT 112: Negative or not required by law. Electronically signed by: Jalen Acuña M.D. 10/29/2019 2:17 PM
[2019-10-29] MEDS: PROMETHAZINE HCL 12.5 MG in SODIUM CHLORIDE 0.9% 50 ML IV PRN (19:48)
[2019-10-29] MEDS: METOPROLOL SUCC 50MG EXT REL TAB PO SCH (20:06)
[2019-10-29] MEDS: MELATONIN 3 MG TAB PO SCH (20:06)
[2019-10-29] MEDS: TRAZODONE HCL 100 MG TAB PO SCH (20:07)
[2019-10-30] MEDS: HEPARIN SOD 5,000 UNIT/0.5 ML VIAL SQ SCH ×3 (05:36→21:41)
[2019-10-30] MEDS: DOXYCYCLINE HYCLATE 100 MG CAP PO SCH ×2 (05:36→17:28)
[2019-10-30 06:48] LABS: Hematocrit (blood only) 38.2 % (37-47); Hemoglobin 12.4 g/dL (12.0-16.0); Mean Corpuscular Hemoglobin 29.7 pg (25-34); Mean Corpuscular Hgb Conc 32.5 g/dL (32-36); Mean Corpuscular Volume 91.4 fL (80-100); Mean Platelet Volume 11.7 fL (7.4-10.4); Platelet Count 150 K/uL (130-400); RDW Coefficient of Variation 13.5 % (11.5-14.5); Red Blood Count 4.18 M/uL (4.2-5.4)
[2019-10-30 06:55] LABS: Albumin Level 2.7 gm/dl (3.4-5.0); BUN Creatinine Ratio 35.2 (10-20); Calcium 8.9 mg/dl (8.5-10.1); Creatinine Clr Calc Pharmacy 41.6 ml/min; Est GFR (African American) 94.7; Est GFR (Non-African American) 81.7; Potassium 3.7 mmol/L (3.5-5.1)
[2019-10-30 06:58] LABS: Albumin Globulin Ratio 0.9 (0.9-2); Bilirubin,Total 0.6 mg/dl (0.2-1); Total Protein 5.7 gm/dl (6.4-8.2)
[2019-10-30] MEDS ORDERED: POTASSIUM CHLORIDE 20 MEQ TABCR PO STA (07:35)
--- NOTE | 2019-10-30 07:38 | Hospitalist Progress Note ---
Date of Service October 30, 2019 Assessment & Plan (1) Asymptomatic hypertensive urgency: possibly secondary to abdominal discomfort Medical telemetry given uncontrolled BP Continue home lisinopril and beta-sudhakar Add Norvasc and hydralazine Possible hepatic metastatic disease per CT abdomen, CT chest with multiple masses сергей. left lung concerning for met. ca Discussed findings w/ radiology, highly suspicious for metastatic disease (CT chest from 2018 does not show masses noted on current imaging) hx breast cancer R sp surgery, chemotherapy (1984), NSCL, L sp neoadjuvant chemoradiation and surgery (2010) Complex ovarian cysts from pelvic ultrasound from last year, patient refused a dditional work-up as per outpatient Gynecology note Dr. Chavez (oncology) contacted regarding poss. mets, recommend to obtain biopsy, he will follow up with the pt as outpt Obtained MRI of liver and plan for biopsy of one of the masses on Friday (10/31) Poss. Atypical pneumonia vs poss. obstructive pna, no sepsis abnormal CXR, concerning for left lobe pna CT chest ordered for further evaluation shows masses in left lung, concerning for ca (given hx above) Cont. treatment for poss. pna for now (cefepime and doxy) hx CVA as per records Chronic anemia, hemoglobin better than baseline likely secondary to hemoconcentration Malnutrition RE low BMI secondary to possible metastatic disease, Nutrition consult RE low BMI episodic thrombocytopenia Ongoing tobacco abuse, Nicotine gum as needed DVT prophylaxis Heparin subcu Full code Admission and Anticipated Discharge Date Admission Date: October 29, 2019 Subjective Pt is lying in bed in NAD. no fever, chills, chest pain, shortness of breath. Her abdominal pain and nausea is now better controlled now when she is actually getting medications. She is lying in bed, and tells me that she feels comfortable. Per nursing staff, she is eating very little though. Plan for liver biopsy on Friday. Review of Systems Review of Systems: All systems reviewed & are unremarkable except as noted in HPI & below Constitutional: no fever and no chills Respiratory: no cough and no dyspnea Cardiovascular: no chest pain and no palpitations Gastrointestinal: + nausea (Improved); no abdominal pain (Improved) and no vomiting Physical Exam Physical Exam: GENERAL: elderly thin female lying in bed, in NAD, +underweight, mild hearing impairment HEENT: NC/AT, pink palpebral conjunctivae, no ptosis NECK : Supple, no tenderness CHEST : Decreased breath sounds, no tenderness HEART : RRR, no obvious murmurs ABDOMEN: + bowel sounds, nondistended, mild tenderness to palpation EXTREMITIES : No LE swelling/tenderness, moves extremities spontaneously SKIN: Normal color, warm NEUROLOGIC : alert and oriented,hard of hearing, no facial asymmetry, speech fluent, moves extremities spontaneously Results & Data Results & Data ([facility]) Vital Signs (Past 12 Hours) Vital Signs Temp Pulse Pulse Resp BP BP Pulse Ox 10/30/19 05:07 36.5 C 70 18 119/63 96 10/30/19 00:50 68 10/29/19 22:22 36.6 C 70 16 157/84 H 92 10/29/19 20:02 36.6 C 70 16 146/62 H 96 Laboratory Results 10/30/19 10/30/19 Range/Units 05:23 05:23 WBC 5.00 (4.8-10.8) K/uL RBC 4.18 L (4.2-5.4) M/uL Hgb 12.4 D (12.0-16.0) g/dL Hct 38.2 (37-47) % MCV 91.4 (80-100) fL MCH 29.7 (25-34) pg MCHC 32.5 (32-36) g/dL RDW Std Deviation 45.0 (36.4-46.3) fL RDW Coeff of Lori 13.5 (11.5-14.5) % Plt Count 150 (130-400) K/uL MPV 11.7 H (7.4-10.4) fL Sodium 137 (136-145) mmol/L Potassium 3.7 (3.5-5.1) mmol/L Chloride 103 (98-107) mmol/L Carbon Dioxide 27 (21-32) mmol/L Anion Gap 7.0 (3-11) BUN 23 H (7-18) mg/dl Creatinine 0.66 (0.6-1.2) mg/dl Est Cr Clr Drug Dosing 41.6 ml/min Est GFR ( Amer) 94.7 Est GFR (Non-Af Amer) 81.7 BUN/Creatinine Ratio 35.2 H (10-20) Glucose 82 (70-99) mg/dl Calcium 8.9 (8.5-10.1) mg/dl Total Bilirubin 0.6 (0.2-1) mg/dl AST 57 H (15-37) U/L ALT 43 (12-78) U/L Alkaline Phosphatase 176 H (45-117) U/L Total Protein 5.7 L (6.4-8.2) gm/dl Albumin 2.7 L (3.4-5.0) gm/dl Globulin 3.0 (2.5-4.0) gm/dl Albumin/Globulin Ratio 0.9 (0.9-2) Medications Administered Current Inpatient Medications Albuterol (Duoneb) 3 ml NEB Q2H PRN PRN Reason: Wheezing Stop: 11/27/19 07:38 Amlodipine Besylate (Norvasc) 7.5 mg PO QAM [facility] Stop: 11/28/19 08:59 Last Admin: 10/29/19 08:22 Dose: 7.5 mg Documented by: Artificial Tears (Artificial Tears) 1 drops OP TID [facility] Stop: 11/27/19 08:59 Last Admin: 10/29/19 20:08 Dose: 1 drops Documented by: Aspirin (Ecotrin Ectab) 81 mg PO QAM [facility] Stop: 11/27/19 08:59 Last Admin: 10/29/19 08:22 Dose: 81 mg Documented by: Cholestyramine Resin (Questran) 4 gm PO DAILY@1000 [facility] Stop: 11/27/19 09:59 Last Admin: 10/29/19 11:15 Dose: 4 gm Documented by: Doxycycline Hyclate (Vibramycin) 100 mg PO Q12H [facility] Stop: 11/04/19 05:59 Last Admin: 10/30/19 05:36 Dose: 100 mg Documented by: Gadoxetate Disodium (Eovist) 10 ml IV ONCE PRN PRN Reason: Interaction Checking Stop: 11/02/19 14:00 Last Admin: 10/29/19 14:02 Dose: 10 ml Documented by: Heparin Sodium (Porcine) (Heparin Sodium (Porcine)) 5,000 units SQ Q8 [facility] Stop: 11/27/19 05:59 Last Admin: 10/30/19 05:36 Dose: 5,000 units Documented by: Hydralazine HCl (Apresoline) 25 mg PO TID [facility] Stop: 11/27/19 20:59 Last Admin: 10/29/19 20:07 Dose: 25 mg Documented by: Promethazine HCl 12.5 mg/ (Sodium Chloride) 50.5 mls @ 202 mls/hr IV Q6H PRN PRN Reason: Nausea And Vomiting Stop: 11/26/19 23:31 Last Infusion: 10/29/19 20:13 Dose: Infused Documented by: Cefepime HCl 2,000 mg/ Syringe 20 mls @ 5.5 mls/min IV Q12H [facility]; Protocol Stop: 11/04/19 10:59 Last Admin: 10/29/19 22:31 Dose: 5.5 mls/min Documented by: Lisinopril (Zestril) 40 mg PO QAM [facility] Stop: 11/27/19 02:59 Last Admin: 10/29/19 08:22 Dose: 40 mg Documented by: Magnesium Hydroxide (Milk Of Magnesia) 30 ml PO DAILY PRN PRN Reason: Constipation Stop: 11/26/19 23:31 Melatonin (Melatonin) 9 mg PO HS [facility] Stop: 11/27/19 20:59 Last Admin: 10/29/19 20:06 Dose: 9 mg Documented by: Metoprolol Succinate (Toprol Xl) 100 mg PO HS [facility] Stop: 11/27/19 20:59 Last Admin: 10/29/19 20:06 Dose: 100 mg Documented by: Multivitamins/Minerals (Multivitamin W/ Minerals Tab) 1 tab PO BID [facility] Stop: 11/27/19 08:59 Last Admin: 10/29/19 20:07 Dose: 1 tab Documented by: Paroxetine HCl (Paroxetine Hcl) 10 mg PO QAM [facility] Stop: 11/27/19 08:59 Last Admin: 10/29/19 08:22 Dose: 10 mg Documented by: Polyethylene Glycol (Miralax Powder Packet) 17 gm PO DAILY PRN PRN Reason: Constipation Stop: 11/26/19 23:31 Potassium Chloride (Klor-Con M20) 20 meq PO NOW [facility] Stop: 10/30/19 07:36 Prednisolone Acetate (Pred Forte 1%) 1 drops OPR TID [facility] Stop: 11/27/19 13:59 Last Admin: 10/29/19 20:08 Dose: 1 drops Documented by: Prednisolone Acetate (Pred Forte 1%) 1 drops OPR BID [facility] Stop: 11/08/19 21:01 Prednisolone Acetate (Pred Forte 1%) 1 drops OPR DAILY [facility] Stop: 11/15/19 09:01 Tramadol HCl (Ultram) 25 - 50 mg PO Q4H PRN PRN Reason: Pain Stop: 11/26/19 23:31 Trazodone HCl (Desyrel) 100 mg PO HS [facility] Stop: 11/27/19 20:59 Last Admin: 10/29/19 20:07 Dose: 100 mg Documented by: Vitamin D (Vitamin D3) 5,000 units PO QAM [facility] Stop: 11/27/19 08:59 Last Admin: 10/29/19 08:22 Dose: 5,000 units Documented by:
[2019-10-30] MEDS: PARoxetine HCL 10 MG TAB PO SCH (09:02)
[2019-10-30] MEDS: CHOLECALCIFEROL 1,000 UNITS 25 MCG TAB PO SCH (09:03)
[2019-10-30] MEDS: ARTIFICIAL TEARS OP SCH ×3 (09:03→21:38)
[2019-10-30] MEDS: AMLODIPINE BESYLATE 5 MG TAB PO SCH (09:03)
[2019-10-30] MEDS: ASPIRIN 81 MG ECTAB PO SCH (09:04)
[2019-10-30] MEDS: lisinopriL 40 MG TAB PO SCH (09:04)
[2019-10-30] MEDS: CEROVITE ADV FORMULA TAB PO SCH ×2 (09:04→21:39)
[2019-10-30] MEDS: prednisoLONE acetate 1% OP SUSP 5 ML BTL OPR SCH ×3 (09:05→21:40)
[2019-10-30] MEDS: CEFEPIME 2,000 MG in SYRINGE 7.5 ML IV SCH (10:37)
[2019-10-30] MEDS: CHOLESTYRAMINE LIGHT 4 GM PKT PO SCH (10:39)
[2019-10-30] MEDS: TRAMADOL HCL 50 MG TABLET PO PRN (12:10)
[2019-10-30] MEDS: PROMETHAZINE HCL 12.5 MG in SODIUM CHLORIDE 0.9% 50 ML IV PRN (12:10)
[2019-10-30] MEDS: TRAZODONE HCL 100 MG TAB PO SCH (21:38)
[2019-10-30] MEDS: MELATONIN 3 MG TAB PO SCH (21:39)
[2019-10-30] MEDS: METOPROLOL SUCC 50MG EXT REL TAB PO SCH (21:40)
[2019-10-31] MEDS: CEFEPIME 2,000 MG in SYRINGE 7.5 ML IV SCH ×3 (00:15→23:35)
[2019-10-31] MEDS: HEPARIN SOD 5,000 UNIT/0.5 ML VIAL SQ SCH (06:21)
[2019-10-31] MEDS: DOXYCYCLINE HYCLATE 100 MG CAP PO SCH ×2 (06:21→17:19)
[2019-10-31 07:24] LABS: Hematocrit (blood only) 38.9 % (37-47); Hemoglobin 12.9 g/dL (12.0-16.0); Mean Corpuscular Hemoglobin 30.3 pg (25-34); Mean Corpuscular Hgb Conc 33.2 g/dL (32-36); Mean Corpuscular Volume 91.3 fL (80-100); Mean Platelet Volume 11.3 fL (7.4-10.4); Platelet Count 138 K/uL (130-400); RDW Coefficient of Variation 13.5 % (11.5-14.5); Red Blood Count 4.26 M/uL (4.2-5.4); White Blood Count 4.19 K/uL (4.8-10.8)
[2019-10-31] MEDS: PARoxetine HCL 10 MG TAB PO SCH (08:45)
[2019-10-31] MEDS: CHOLECALCIFEROL 1,000 UNITS 25 MCG TAB PO SCH (08:45)
[2019-10-31] MEDS: CEROVITE ADV FORMULA TAB PO SCH ×2 (08:45→20:29)
[2019-10-31] MEDS: lisinopriL 40 MG TAB PO SCH (08:46)
[2019-10-31] MEDS: ARTIFICIAL TEARS OP SCH ×3 (08:46→21:52)
[2019-10-31] MEDS: prednisoLONE acetate 1% OP SUSP 5 ML BTL OPR SCH ×3 (08:46→20:28)
[2019-10-31] MEDS: AMLODIPINE BESYLATE 5 MG TAB PO SCH (08:47)
[2019-10-31] MEDS: TRAMADOL HCL 50 MG TABLET PO PRN ×2 (09:06→13:34)
[2019-10-31] MEDS: PROMETHAZINE HCL 12.5 MG in SODIUM CHLORIDE 0.9% 50 ML IV PRN (09:06)
--- NOTE | 2019-10-31 09:56 | Hospitalist Progress Note ---
Date of Service October 31, 2019 Assessment & Plan (1) Asymptomatic hypertensive urgency: likely secondary to abdominal discomfort Medical telemetry given uncontrolled BP Continue home lisinopril and beta-sudhakar Added Norvasc and hydralazine, hydralazine stopped as her BP is now normalized Possible hepatic metastatic disease per CT abdomen, CT chest with multiple masses сергей. left lung concerning for met. ca Discussed findings w/ radiology, highly suspicious for metastatic disease (CT c hest from 2018 does not show masses noted on current imaging) hx breast cancer R sp surgery, chemotherapy (1984), NSCL, L sp neoadjuvant chemoradiation and surgery (2010) Complex ovarian cysts from pelvic ultrasound from last year, patient refused additional work-up as per outpatient Gynecology note Dr. Chavez (oncology) contacted regarding poss. mets, recommend to obtain biopsy, he will follow up with the pt as outpt Obtained MRI of liver and plan for biopsy of one of the masses on Friday (10/31) Poss. Atypical pneumonia vs poss. obstructive pna, no sepsis abnormal CXR, concerning for left lobe pna CT chest ordered for further evaluation shows masses in left lung, concerning for ca (given hx above) Cont. treatment for poss. pna for now (cefepime and doxy) hx CVA as per records Chronic anemia, hemoglobin better than baseline likely secondary to hemoconcentration Malnutrition RE low BMI secondary to possible metastatic disease, Nutrition consult RE low BMI episodic thrombocytopenia Ongoing tobacco abuse, Nicotine gum as needed DVT prophylaxis Heparin subcu Full code Admission and Anticipated Discharge Date Admission Date: October 29, 2019 Subjective Blood pressure much better controlled now, will stop hydralazine. Elevated BP was likely due to abdominal pain, which is now better controlled. Plan for liver biopsy on Friday. Review of Systems Review of Systems: All systems reviewed & are unremarkable except as noted in HPI & below As per HPI, all 10 systems reviewed, all other ROS negative Constitutional: no fever and no chills Respiratory: no cough and no dyspnea Cardiovascular: no chest pain and no palpitations Gastrointestinal: + nausea (Improved); no abdominal pain (Improved) and no vomiting Physical Exam Physical Exam: GENERAL: elderly thin female lying in bed, in NAD, +underweight, mild hearing impairment HEENT: NC/AT, pink palpebral conjunctivae, no ptosis NECK : Supple, no tenderness CHEST : Decreased breath sounds, no tenderness HEART : RRR, no obvious murmurs ABDOMEN: + bowel sounds, nondistended, mild tenderness to palpation EXTREMITIES : No LE swelling/tenderness, moves extremities spontaneously SKIN: Normal color, warm NEUROLOGIC : alert and oriented,hard of hearing, no facial asymmetry, speech fluent, moves extremities spontaneously Results & Data Results & [facility] ([facility] Vital Signs (Past 12 Hours) Vital Signs Temp Pulse Pulse Resp BP BP Pulse Ox 10/31/19 07:29 60 10/31/19 07:00 36.9 C 59 L 16 128/71 92 10/31/19 04:00 36.8 C 60 18 102/55 L 96 10/30/19 23:22 37.1 C 65 18 127/65 92 Laboratory Results 10/31/19 Range/Units 06:42 WBC 4.19 L (4.8-10.8) K/uL RBC 4.26 (4.2-5.4) M/uL Hgb 12.9 (12.0-16.0) g/dL Hct 38.9 (37-47) % MCV 91.3 (80-100) fL MCH 30.3 (25-34) pg MCHC 33.2 (32-36) g/dL RDW Std Deviation 45.0 (36.4-46.3) fL RDW Coeff of Lori 13.5 (11.5-14.5) % Plt Count 138 (130-400) K/uL MPV 11.3 H (7.4-10.4) fL Medications Administered Current Inpatient Medications Albuterol (Duoneb) 3 ml NEB Q2H PRN PRN Reason: Wheezing Stop: 11/27/19 07:38 Amlodipine [facility] ([facility]asc) [facility] [place]: 11/28/19 08:59 Last Admin: 10/31/19 08:47 Dose: 7.5 mg Documented by: Artificial Tears (Artificial Tears) 1 drops OP TID [facility] Stop: 11/27/19 08:59 Last Admin: 10/31/19 08:46 Dose: 1 drops Documented by: Aspirin (Ecotrin Ectab) 81 mg PO QAM [facility] Stop: 11/27/19 08:59 Last Admin: 10/30/19 09:04 Dose: 81 mg Documented by: Cholestyramine Resin (Questran) 4 gm PO DAILY@1000 [facility] Stop: 11/27/19 09:59 Last Admin: 10/30/19 10:39 Dose: 4 gm Documented by: Doxycycline Hyclate (Vibramycin) 100 mg PO Q12H [facility] Stop: 11/04/19 05:59 Last Admin: 10/31/19 06:21 Dose: 100 mg Documented by: Gadoxetate Disodium (Eovist) 10 ml IV ONCE PRN PRN Reason: Interaction Checking Stop: 11/02/19 14:00 Last Admin: 10/29/19 14:02 Dose: 10 ml Documented by: Hydralazine HCl (Apresoline) 25 mg PO TID [facility] Stop: 11/27/19 20:59 Last Admin: 10/31/19 08:46 Dose: 25 mg Documented by: Promethazine HCl 12.5 mg/ (Sodium Chloride) 50.5 mls @ 202 mls/hr IV Q6H PRN PRN Reason: Nausea And Vomiting Stop: 11/26/19 23:31 Last Infusion: 10/31/19 09:22 Dose: Infused Documented by: Cefepime HCl 2,000 mg/ Syringe 20 mls @ 5.5 mls/min IV Q12H [facility]; Protocol Stop: 11/04/19 10:59 Last Admin: 10/31/19 00:15 Dose: 5.5 mls/min Documented by: Lisinopril (Zestril) 40 mg PO QAM [facility] Stop: 11/27/19 02:59 Last Admin: 10/31/19 08:46 Dose: 40 mg Documented by: Magnesium Hydroxide (Milk Of Magnesia) 30 ml PO DAILY PRN PRN Reason: Constipation Stop: 11/26/19 23:31 Melatonin (Melatonin) 9 mg PO [facility] Stop: 11/27/19 20:59 Last Admin: 10/30/19 21:39 Dose: 9 mg Documented by: Metoprolol Succinate (Toprol Xl) 100 mg PO [facility] Stop: 11/27/19 20:59 Last Admin: 10/30/19 21:40 Dose: 100 mg Documented by: Multivitamins/Minerals (Multivitamin W/ Minerals Tab) 1 tab PO BID [facility] Stop: 11/27/19 08:59 Last Admin: 10/31/19 08:45 Dose: 1 tab Documented by: Paroxetine HCl (Paroxetine Hcl) 10 mg PO QAM [facility] Stop: 11/27/19 08:59 Last Admin: 10/31/19 08:45 Dose: 10 mg Documented by: Polyethylene Glycol (Miralax Powder Packet) 17 gm PO DAILY PRN PRN Reason: Constipation Stop: 11/26/19 23:31 Prednisolone Acetate (Pred Forte 1%) 1 drops OPR TID [facility] Stop: 11/27/19 13:59 Last Admin: 10/31/19 08:46 Dose: 1 drops Documented by: Prednisolone Acetate (Pred Forte 1%) 1 drops OPR BID [facility] Stop: 11/08/19 21:01 Prednisolone Acetate (Pred Forte 1%) 1 drops OPR DAILY [facility] Stop: 11/15/19 09:01 Tramadol HCl (Ultram) 25 - 50 mg PO Q4H PRN PRN Reason: Pain Stop: 11/26/19 23:31 Last Admin: 10/31/19 09:06 Dose: 50 mg Documented by: Trazodone HCl (Desyrel) 100 mg PO HS [facility] Stop: 11/27/19 20:59 Last Admin: 10/30/19 21:38 Dose: 100 mg Documented by: Vitamin D (Vitamin D3) 5,000 units PO QAM [facility] Stop: 11/27/19 08:59 Last Admin: 10/31/19 08:45 Dose: 5,000 units Documented by:
[2019-10-31] MEDS: CHOLESTYRAMINE LIGHT 4 GM PKT PO SCH (10:41)
[2019-10-31] MEDS ORDERED: ALUMINUM/MAGNESIUM/SIMETH (MAALOX MAX) 30 ML UDC PO PRN (14:36)
[2019-10-31] MEDS ORDERED: ALBUTEROL HFA 8 GM INHALER INH PRN (14:41)
[2019-10-31] MEDS ORDERED: ACETAMINOPHEN 500 MG TAB PO PRN (14:41)
[2019-10-31] MEDS: MELATONIN 3 MG TAB PO SCH (20:29)
[2019-10-31] MEDS: METOPROLOL SUCC 50MG EXT REL TAB PO SCH (20:30)
[2019-10-31] MEDS: TRAZODONE HCL 100 MG TAB PO SCH (20:31)
[2019-11-01] MEDS: DOXYCYCLINE HYCLATE 100 MG CAP PO SCH ×2 (05:50→17:17)
[2019-11-01 06:24] LABS: INR 1.1 (0.9-1.1); Prothrombin Time 11.2 Seconds (9.0-12.0)
[2019-11-01] MEDS: prednisoLONE acetate 1% OP SUSP 5 ML BTL OPR SCH ×3 (08:04→20:06)
[2019-11-01] MEDS: lisinopriL 40 MG TAB PO SCH (08:04)
[2019-11-01] MEDS: CEROVITE ADV FORMULA TAB PO SCH ×2 (08:04→20:12)
[2019-11-01] MEDS: AMLODIPINE BESYLATE 5 MG TAB PO SCH (08:05)
[2019-11-01] MEDS: CHOLECALCIFEROL 1,000 UNITS 25 MCG TAB PO SCH (08:05)
[2019-11-01] MEDS: ARTIFICIAL TEARS OP SCH ×3 (08:06→20:13)
[2019-11-01] MEDS: PARoxetine HCL 10 MG TAB PO SCH (08:06)
--- NOTE | 2019-11-01 10:36 | Ultrasound Report ---
US FNA w/img 1st lesion CLINICAL HISTORY: Hepatic metastasis. COMPARISON STUDY: MRI abdomen and CT abdomen pelvis 10/27/2019. PROCEDURE: The risks, benefits, and alternatives to the procedure were discussed with the patient. Wr itten informed consent was obtained. The patient was placed supine in ultrasound, and one of the mid confluent heterogenous lesions in the left hepatic lobe was localized by ultrasound and selected for fine needle aspiration. The subxiphoid central abdomen was prepped and draped in the usual sterile fa shion. One of the masses was aspirated under ultrasound guidance with 2 passes utilizing 20-gauge spi nal needles. Specimens were reviewed by the pathologist in real-time and deemed adequate for diagnosi s. The patient tolerated the procedure well and left the department in satisfactory condition. IMPRESSION: Completed fine-needle aspiration of a left hepatic lobe mass. ACT 112: Negative or not required by law. The above report was generated using voice recognition software. It may contain grammatical, syntax o r spelling errors. Electronically signed by: Meir Gomes M.D. 11/01/2019 10:35 AM
[2019-11-01] MEDS: CHOLESTYRAMINE LIGHT 4 GM PKT PO SCH (10:53)
[2019-11-01] MEDS: CEFEPIME 2,000 MG in SYRINGE 7.5 ML IV SCH (11:02)
--- NOTE | 2019-11-01 13:34 | Hospitalist Progress Note ---
Date of Service November 01, 2019 Assessment & Plan (1) Asymptomatic hypertensive urgency: likely secondary to abdominal discomfort Medical telemetry given uncontrolled BP Continue home lisinopril and beta-sudhakar Added Norvasc and hydralazine, hydralazine stopped as her BP is now normalized Possible hepatic metastatic disease per CT abdomen, CT chest with multiple masses сергей. left lung concerning for met. ca Discussed findings w/ radiology, highly suspicious for metastatic disease (CT c hest from 2018 does not show masses noted on current imaging) hx breast cancer R sp surgery, chemotherapy (1984), NSCL, L sp neoadjuvant chemoradiation and surgery (2010) Complex ovarian cysts from pelvic ultrasound from last year, patient refused additional work-up as per outpatient Gynecology note Dr. Chavez (oncology) contacted regarding poss. mets, recommend to obtain biopsy, he will follow up with the pt as outpt Obtained MRI of liver and plan for biopsy of one of the masses on Friday (10/31) Poss. Atypical pneumonia vs poss. obstructive pna, no sepsis abnormal CXR, concerning for left lobe pna CT chest ordered for further evaluation shows masses in left lung, concerning for ca (given hx above) Cont. treatment for poss. pna for now (cefepime and doxy) hx CVA as per records Chronic anemia, hemoglobin better than baseline likely secondary to hemoconcentration Malnutrition RE low BMI secondary to possible metastatic disease, Nutrition consult RE low BMI episodic thrombocytopenia Ongoing tobacco abuse, Nicotine gum as needed Disposition: Patient was last seen by PT on October 27, pt's daughter worried that patient has not been moving much, will have PT reevaluate -Recommend SNF, case management aware, patient currently resides at [facility] DVT prophylaxis Heparin subcu Full code Admission and Anticipated Discharge Date Admission Date: October 29, 2019 Subjective Pt is s/p liver biopsy, tolerated procedure well. Per PT, pt may benefit from SNF, daughter aware. Nausea and abd. pain much better controlled now. Review of Systems Gastrointestinal: + nausea (Improved); no abdominal pain (Improved) and no vomiting Physical Exam Physical Exam: GENERAL: elderly thin female lying in bed, in NAD, +underweight, mild hearing impairment HEENT: NC/AT, pink palpebral conjunctivae, no ptosis NECK : Supple, no tenderness CHEST : Decreased breath sounds, no tenderness HEART : RRR, no obvious murmurs ABDOMEN: + bowel sounds, nondistended, mild tenderness to palpation EXTREMITIES : No LE swelling/tenderness, moves extremities spontaneously SKIN: Normal color, warm NEUROLOGIC : alert and oriented,hard of hearing, no facial asymmetry, speech fluent, moves extremities spontaneously Results & Data Results & Data ([facility]) Vital Signs (Past 12 Hours) Vital Signs Temp Pulse Resp BP Pulse Ox 11/01/19 07:15 36.8 C 62 16 146/79 H 91 11/01/19 03:34 36.8 C 62 18 144/74 H 90 Laboratory Results 11/01/19 Range/Units 05:57 PT 11.2 (9.0-12.0) Seconds INR 1.1 (0.9-1.1) Medications Administered Current Inpatient Medications Acetaminophen (Tylenol) 500 mg PO Q4 PRN PRN Reason: Pain or Fever Stop: 11/30/19 14:40 Al Hydrox/Mg Hydrox/Simethicone (Maalox Max) 30 ml PO TID PRN PRN Reason: UPSET STOMACH/NAUSEA Stop: 11/30/19 14:35 Last Admin: 10/31/19 17:21 Dose: 30 ml Documented by: Albuterol (Duoneb) 3 ml NEB Q2H PRN PRN Reason: Wheezing Stop: 11/27/19 07:38 Albuterol (Ventolin Hfa) 2 puffs INH QID PRN; Protocol PRN Reason: Shortness Of Breath Stop: 11/30/19 14:40 Amlodipine Besylate (Norvasc) 5 mg PO QAM [facility] Stop: 12/01/19 08:59 Last Admin: 11/01/19 08:05 Dose: 5 mg Documented by: Artificial Tears (Artificial Tears) 1 drops OP TID [facility] Stop: 11/27/19 08:59 Last Admin: 11/01/19 08:06 Dose: 1 drops Documented by: Aspirin (Ecotrin Ectab) 81 mg PO QAM [facility] Stop: 11/27/19 08:59 Last Admin: 10/30/19 09:04 Dose: 81 mg Documented by: Cholestyramine Resin (Questran) 4 gm PO DAILY@1000 [facility] Stop: 11/27/19 09:59 Last Admin: 11/01/19 10:53 Dose: Not Given Documented by: Doxycycline Hyclate (Vibramycin) 100 mg PO Q12H [facility] Stop: 11/04/19 05:59 Last Admin: 11/01/19 05:50 Dose: 100 mg Documented by: Gadoxetate Disodium (Eovist) 10 ml IV ONCE PRN PRN Reason: Interaction Checking Stop: 11/02/19 14:00 Last Admin: 10/29/19 14:02 Dose: 10 ml Documented by: Hydralazine HCl (Apresoline) 25 mg PO TID [facility] Stop: 11/27/19 20:59 Last Admin: 10/31/19 08:46 Dose: 25 mg Documented by: Promethazine HCl 12.5 mg/ (Sodium Chloride) 50.5 mls @ 202 mls/hr IV Q6H PRN PRN Reason: Nausea And Vomiting Stop: 11/26/19 23:31 Last Infusion: 10/31/19 09:22 Dose: Infused Documented by: Cefepime HCl 2,000 mg/ Syringe 20 mls @ 5.5 mls/min IV Q12H [facility]; Protocol Stop: 11/04/19 10:59 Last Admin: 11/01/19 11:02 Dose: 5.5 mls/min Documented by: [facility]inop[facility] ([facility]est[facility]) [facility] [place]: 11/27/19 02:59 Last Admin: 11/01/19 08:04 Dose: 40 mg Documented by: Magnesium Hydroxide (Milk Of Magnesia) 30 ml PO DAILY PRN PRN Reason: Constipation Stop: 11/26/19 23:31 Melatonin (Melatonin) 9 mg [address] [facility] Stop: 11/27/19 20:59 Last Admin: 10/31/19 20:29 Dose: 9 mg Documented by: Metoprolol Succinate (Toprol Xl) [address] [facility] Stop: 11/27/19 20:59 Last Admin: 10/31/19 20:30 Dose: 100 mg Documented by: Multivitamins/Minerals (Multivitamin W/ Minerals Tab) 1 tab PO BID [facility] Stop: 11/27/19 08:59 Last Admin: 11/01/19 08:04 Dose: 1 tab Documented by: Paroxetine HCl (Paroxetine Hcl) 10 mg PO QAM [facility] Stop: 11/27/19 08:59 Last Admin: 11/01/19 08:06 Dose: 10 mg Documented by: Polyethylene Glycol (Miralax Powder Packet) 17 gm PO DAILY PRN PRN Reason: Constipation Stop: 11/26/19 23:31 Prednisolone Acetate (Pred Forte 1%) 1 drops OPR TID [facility] Stop: 11/27/19 13:59 Last Admin: 11/01/19 08:04 Dose: 1 drops Documented by: Prednisolone Acetate (Pred Forte 1%) 1 drops OPR BID [facility] Stop: 11/08/19 21:01 Prednisolone Acetate (Pred Forte 1%) 1 drops OPR DAILY [facility] Stop: 11/15/19 09:01 Tramadol HCl (Ultram) 25 - 50 mg PO Q4H PRN PRN Reason: Pain Stop: 11/26/19 23:31 Last Admin: 10/31/19 13:34 Dose: 50 mg Documented by: Trazodone HCl (Desyrel) 100 mg PO HS [facility] Stop: 11/27/19 20:59 Last Admin: 10/31/19 20:31 Dose: 100 mg Documented by: Vitamin D (Vitamin D3) 5,000 units PO QAM [facility] Stop: 11/27/19 08:59 Last Admin: 11/01/19 08:05 Dose: 5,000 units Documented by:
[2019-11-01] MEDS: PROMETHAZINE HCL 12.5 MG in SODIUM CHLORIDE 0.9% 50 ML IV PRN (14:49)
[2019-11-01] MEDS: MELATONIN 3 MG TAB PO SCH (20:08)
[2019-11-01] MEDS: METOPROLOL SUCC 50MG EXT REL TAB PO SCH (20:12)
[2019-11-01] MEDS: TRAZODONE HCL 100 MG TAB PO SCH (20:13)
[2019-11-02] MEDS: DOXYCYCLINE HYCLATE 100 MG CAP PO SCH (05:53)
[2019-11-02] MEDS: PARoxetine HCL 10 MG TAB PO SCH (08:18)
[2019-11-02] MEDS: AMLODIPINE BESYLATE 5 MG TAB PO SCH (08:18)
[2019-11-02] MEDS: prednisoLONE acetate 1% OP SUSP 5 ML BTL OPR SCH ×2 (08:18→20:26)
[2019-11-02] MEDS: CHOLECALCIFEROL 1,000 UNITS 25 MCG TAB PO SCH (08:18)
[2019-11-02] MEDS: ARTIFICIAL TEARS OP SCH ×3 (08:18→20:27)
[2019-11-02] MEDS: CEROVITE ADV FORMULA TAB PO SCH ×2 (08:18→20:27)
[2019-11-02] MEDS: CHOLESTYRAMINE LIGHT 4 GM PKT PO SCH (08:19)
[2019-11-02] MEDS: lisinopriL 40 MG TAB PO SCH (08:19)
--- NOTE | 2019-11-02 14:33 | Hospitalist Progress Note ---
Date of Service November 02, 2019 Assessment & Plan (1) Asymptomatic hypertensive urgency: likely secondary to abdominal discomfort Initially monitored closely on medical telemetry given uncontrolled BP Continue home lisinopril and beta-sudhakar Added Norvasc and hydralazine, hydralazine stopped as her BP is now better controlled Possible metastatic disease Possible hepatic metastatic disease per CT abdomen, CT chest with multiple masses сергей. left lung concerning for met. ca Discussed findings w/ radiology, highly suspicious for metastatic disease (CT chest from 2018 does not show masses noted on current imaging) Hx breast cancer R sp surgery, chemotherapy (1984), NSCL, L sp neoadjuvant chemoradiation and surgery (2010) Complex ovarian cysts from pelvic ultrasound from last year, patient refused additional work-up as per outpatient Gynecology note Pt follows with Dr. Chavez (oncology) Dr. Chavez (oncology) contacted regarding poss. mets, recommend to obtain biopsy, he will follow up with the pt as outpt Obtained MRI of liver and pt is now s/p biopsy of one of the liver masses (10/31) Poss. Atypical pneumonia vs poss. obstructive pna, no sepsis abnormal CXR, concerning for left lobe pna CT chest ordered for further evaluation- shows masses in left lung, concerning for ca (given hx above) Continued treatment for poss. pna (cefepime and doxy), Abx course finished Severe malnutrition low BMI , BMI about 17 -Patient is very thin on physical exam, including temporal wasting -secondary to possible metastatic disease -Nutrition consult RE low BMI Hx CVA as per records Chronic anemia, hemoglobin better than baseline likely secondary to hemoconcentration Episodic thrombocytopenia Ongoing tobacco abuse, Nicotine gum as needed Disposition: Patient was seen by PT on October 27, pt's daughter worried that patient has not been moving much, so had PT reevaluate -Recommend SNF, case management aware, patient currently resides at [facility], likely discharge tomorrow DVT prophylaxis Heparin subcu Full code Admission and Anticipated Discharge Date Admission Date: October 29, 2019 Subjective Pt is s/p liver biopsy, tolerated procedure well. Per PT, pt may benefit from SNF, daughter aware, updated today at the bedside. Nausea and abd. pain much better controlled now. Currently patient says that she feels much better, has no complaints. Review of Systems Review of Systems: All systems reviewed & are unremarkable except as noted in HPI & below Constitutional: no fever and no chills Respiratory: no cough and no dyspnea Cardiovascular: no chest pain and no palpitations Gastrointestinal: no abdominal pain (Much improved), no nausea (Much improved) and no vomiting Physical Exam Physical Exam: GENERAL: elderly very thin female lying in bed, in NAD, +underweight, mild hearing impairment HEENT: NC/AT, pink palpebral conjunctivae, no ptosis NECK : Supple, no tenderness CHEST : Decreased breath sounds, no tenderness HEART : RRR, no obvious murmurs ABDOMEN: + bowel sounds, nondistended, very mild tenderness to palpation EXTREMITIES : No LE swelling/tenderness, moves extremities spontaneously SKIN: Normal color, warm NEUROLOGIC : alert and oriented,hard of hearing, no facial asymmetry, speech fluent, moves extremities spontaneously Results & Data Results & Data ([facility]) Vital Signs (Past 12 Hours) Vital Signs Temp Pulse Resp BP Pulse Ox 11/02/19 07:05 36.6 C 57 L 16 155/82 H 95 Medications Administered Current Inpatient Medications Acetaminophen (Tylenol) 500 mg PO Q4 PRN PRN Reason: Pain or Fever Stop: 11/30/19 14:40 Al Hydrox/Mg Hydrox/Simethicone (Maalox Max) 30 ml PO TID PRN PRN Reason: UPSET STOMACH/NAUSEA Stop: 11/30/19 14:35 Last Admin: 10/31/19 17:21 Dose: 30 ml Documented by: Albuterol (Duoneb) 3 ml NEB Q2H PRN PRN Reason: Wheezing Stop: 11/27/19 07:38 Albuterol (Ventolin Hfa) 2 puffs INH QID PRN; Protocol PRN Reason: Shortness Of Breath Stop: 11/30/19 14:40 Amlodipine Besylate (Norvasc) 5 mg PO QAM [facility] Stop: 12/01/19 08:59 Last Admin: 11/02/19 08:18 Dose: 5 mg Documented by: Artificial Tears (Artificial Tears) 1 drops OP TID [facility] Stop: 11/27/19 08:59 Last Admin: 11/02/19 12:59 Dose: 1 drops Documented by: Aspirin (Ecotrin Ectab) 81 mg PO QAM [facility] Stop: 11/27/19 08:59 Last Admin: 10/30/19 09:04 Dose: 81 mg Documented by: Cholestyramine Resin (Questran) 4 gm PO DAILY@1000 [facility] Stop: 11/27/19 09:59 Last Admin: 11/02/19 08:19 Dose: 4 gm Documented by: Doxycycline Hyclate (Vibramycin) 100 mg PO Q12H [facility] Stop: 11/04/19 05:59 Last Admin: 11/02/19 05:53 Dose: 100 mg Documented by: Hydralazine HCl (Apresoline) 25 mg PO TID [facility] Stop: 11/27/19 20:59 Last Admin: 10/31/19 08:46 Dose: 25 mg Documented by: Promethazine HCl 12.5 mg/ (Sodium Chloride) 50.5 mls @ 202 mls/hr IV Q6H PRN PRN Reason: Nausea And Vomiting Stop: 11/26/19 23:31 Last Infusion: 11/01/19 15:04 Dose: Infused Documented by: Lisinopril (Zestril) 40 mg PO QAM [facility] Stop: 11/27/19 02:59 Last Admin: 11/02/19 08:19 Dose: 40 mg Documented by: Magnesium Hydroxide (Milk Of Magnesia) 30 ml PO DAILY PRN PRN Reason: Constipation Stop: 11/26/19 23:31 Melatonin (Melatonin) 9 mg PO HS [facility] Stop: 11/27/19 20:59 Last Admin: 11/01/19 20:08 Dose: 9 mg Documented by: Metoprolol Succinate (Toprol Xl) 100 mg PO HS [facility] Stop: 11/27/19 20:59 Last Admin: 11/01/19 20:12 Dose: 100 mg Documented by: Multivitamins/Minerals (Multivitamin W/ Minerals Tab) 1 tab PO BID [facility] Stop: 11/27/19 08:59 Last Admin: 11/02/19 08:18 Dose: 1 tab Documented by: Paroxetine HCl (Paroxetine Hcl) 10 mg PO QAM [facility] Stop: 11/27/19 08:59 Last Admin: 11/02/19 08:18 Dose: 10 mg Documented by: Polyethylene Glycol (Miralax Powder Packet) 17 gm PO DAILY PRN PRN Reason: Constipation Stop: 11/26/19 23:31 Prednisolone Acetate (Pred Forte 1%) 1 drops OPR BID [facility] Stop: 11/08/19 21:01 Last Admin: 11/02/19 08:18 Dose: 1 drops Documented by: Prednisolone Acetate (Pred Forte 1%) 1 drops OPR DAILY [facility] Stop: 11/15/19 09:01 Tramadol HCl (Ultram) 25 - 50 mg PO Q4H PRN PRN Reason: Pain Stop: 11/26/19 23:31 Last Admin: 10/31/19 13:34 Dose: 50 mg Documented by: Trazodone HCl (Desyrel) 100 mg PO HS [facility] Stop: 11/27/19 20:59 Last Admin: 11/01/19 20:13 Dose: 100 mg Documented by: Vitamin D (Vitamin D3) 5,000 units PO QAM [facility] Stop: 11/27/19 08:59 Last Admin: 11/02/19 08:18 Dose: 5,000 units Documented by:
[2019-11-02] MEDS: MELATONIN 3 MG TAB PO SCH (20:28)
[2019-11-02] MEDS: METOPROLOL SUCC 50MG EXT REL TAB PO SCH (20:28)
[2019-11-02] MEDS: TRAZODONE HCL 100 MG TAB PO SCH (20:28)
[2019-11-03] MEDS: CHOLECALCIFEROL 1,000 UNITS 25 MCG TAB PO SCH (08:42)
[2019-11-03] MEDS: AMLODIPINE BESYLATE 5 MG TAB PO SCH (08:42)
[2019-11-03] MEDS: CEROVITE ADV FORMULA TAB PO SCH ×2 (08:42→20:49)
[2019-11-03] MEDS: ARTIFICIAL TEARS OP SCH ×3 (08:42→20:48)
[2019-11-03] MEDS: PARoxetine HCL 10 MG TAB PO SCH (08:42)
[2019-11-03] MEDS: prednisoLONE acetate 1% OP SUSP 5 ML BTL OPR SCH ×2 (08:43→20:50)
[2019-11-03] MEDS: lisinopriL 40 MG TAB PO SCH (08:43)
[2019-11-03] MEDS: CHOLESTYRAMINE LIGHT 4 GM PKT PO SCH (09:57)
--- NOTE | 2019-11-03 15:30 | Hospitalist Progress Note ---
Date of Service November 03, 2019 Assessment & Plan (1) Asymptomatic hypertensive urgency: Initially monitored closely on medical telemetry given uncontrolled BP Continue home lisinopril and beta-sudhakar Added Norvasc and blood pressure is controlled Possible metastatic disease Possible hepatic metastatic disease per CT abdomen, CT chest with multiple masses сергей. left lung concerning for met. ca Discussed findings w/ radiology, highly suspicious for metastatic disease (CT chest from 2018 does not show masses noted on current imaging) Hx breast cancer R sp surgery, chemotherapy (1984), NSCL, L sp neoadjuvant chemoradiation and surgery (2010) Complex ovarian cysts from pelvic ultrasound from last year, patient refused additional work-up as per outpatient Gynecology note Pt follows with Dr. Chavez (oncology) Dr. Chavez (oncology) contacted regarding poss. mets, recommend to obtain biopsy, he will follow up with the pt as outpt Obtained MRI of liver Await liver biopsy report Poss. Atypical pneumonia vs poss. obstructive pna, no sepsis abnormal CXR, concerning for left lobe pna CT chest ordered for further evaluation- shows masses in left lung, concerning for ca (given hx above) Received intravenous antibiotic with cefepime and doxycycline Severe malnutrition low BMI , BMI about 17 -Patient is very thin on physical exam, including temporal wasting -secondary to possible metastatic disease -Nutrition consult RE low BMI Hx CVA as per records Chronic anemia, hemoglobin better than baseline likely secondary to hemoconcentration Episodic thrombocytopenia Ongoing tobacco abuse, Nicotine gum as needed Disposition: Patient was seen by PT on October 27, pt's daughter worried that patient has not been moving much, so had PT reevaluate -Recommend SNF, case management aware, patient currently resides at [facility] Awaiting acceptance to go to [facility] DVT prophylaxis Heparin subcu Full code Admission and Anticipated Discharge Date Admission Date: October 29, 2019 Subjective The patient was seen and examined in medical telemetry unit She complains of weakness but otherwise no acute symptoms She wants to get out of the hospital Review of Systems Review of Systems: All systems reviewed and are unremarkable except as noted below Neurologic: Generalized weakness without any focal localizing signs Physical Exam Physical Exam: Lying in bed comfortably Constitutional: well developed and well nourished; no acute distress and not ill appearing Eyes: PERRL, conjunctivae normal, anicteric sclerae ENMT: external ear and nose normal, oropharynx normal Neck: trachea midline, no thyromegaly Respiratory: normal respiratory effort; no respiratory distress Auscultation: lungs clear to auscultation bilaterally Cardiovascular: Rate/Rhythm: regular rate and regular rhythm Heart Sounds: no murmur Gastrointestinal (Abdomen): Inspection/Auscultation: abdomen normal to inspection and normal bowel sounds Percussion/Palpation: abdomen soft; abdomen nontender Musculoskeletal: No acute arthritis involving any joint Neurologic: moves all extremities; no focal motor deficits Alert and awake. Generally very weak and lethargic Results & Data Results & Data ([facility]) Vital Signs (Past 12 Hours) Vital Signs Temp Pulse Resp BP BP Pulse Ox 11/03/19 11:37 36.5 C 65 16 124/70 93 11/03/19 07:22 37 C 59 L 16 147/73 H 93 Medications Administered Current Inpatient Medications Acetaminophen (Tylenol) 500 mg PO Q4 PRN PRN Reason: Pain or Fever Stop: 11/30/19 14:40 Al Hydrox/Mg Hydrox/Simethicone (Maalox Max) 30 ml PO TID PRN PRN Reason: UPSET STOMACH/NAUSEA Stop: 11/30/19 14:35 Last Admin: 10/31/19 17:21 Dose: 30 ml Documented by: Albuterol (Duoneb) 3 ml NEB Q2H PRN PRN Reason: Wheezing Stop: 11/27/19 07:38 Albuterol (Ventolin Hfa) 2 puffs INH QID PRN; Protocol PRN Reason: Shortness Of Breath Stop: 11/30/19 14:40 Amlodipine [facility] ([facility]asc) [facility] Stop: 12/01/19 08:59 Last Admin: 11/03/19 08:42 Dose: 5 mg Documented by: Artificial Tears (Artificial Tears) 1 drops OP TID [facility] Stop: 11/27/19 08:59 Last Admin: 11/03/19 13:49 Dose: 1 drops Documented by: Aspirin (Ecotrin Ectab) 81 mg PO QAM [facility] Stop: 11/27/19 08:59 Last Admin: 10/30/19 09:04 Dose: 81 mg Documented by: Cholestyramine Resin (Questran) 4 gm PO DAILY@1000 [facility] Stop: 11/27/19 09:59 Last Admin: 11/03/19 09:57 Dose: 4 gm Documented by: Hydralazine HCl (Apresoline) 25 mg PO TID [facility] Stop: 11/27/19 20:59 Last Admin: 10/31/19 08:46 Dose: 25 mg Documented by: Promethazine HCl 12.5 mg/ (Sodium Chloride) 50.5 mls @ 202 mls/hr IV Q6H PRN PRN Reason: Nausea And Vomiting Stop: 11/26/19 23:31 Last Infusion: 11/01/19 15:04 Dose: Infused Documented by: Lisinopril (Zestril) 40 mg PO QAM [facility] Stop: 11/27/19 02:59 Last Admin: 11/03/19 08:43 Dose: 40 mg Documented by: Magnesium Hydroxide (Milk Of Magnesia) 30 ml PO DAILY PRN PRN Reason: Constipation Stop: 11/26/19 23:31 Melatonin (Melatonin) 9 mg PO [facility] Stop: 11/27/19 20:59 Last Admin: 11/02/19 20:28 Dose: 9 mg Documented by: Metoprolol Succinate (Toprol Xl) 100 mg PO [facility] Stop: 11/27/19 20:59 Last Admin: 11/02/19 20:28 Dose: 100 mg Documented by: Multivitamins/Minerals (Multivitamin W/ Minerals Tab) 1 tab PO BID [facility] Stop: 11/27/19 08:59 Last Admin: 11/03/19 08:42 Dose: 1 tab Documented by: Paroxetine HCl (Paroxetine Hcl) 10 mg PO QAM [facility] Stop: 11/27/19 08:59 Last Admin: 11/03/19 08:42 Dose: 10 mg Documented by: Polyethylene Glycol (Miralax Powder Packet) 17 gm PO DAILY PRN PRN Reason: Constipation Stop: 11/26/19 23:31 Prednisolone Acetate (Pred Forte 1%) 1 drops OPR BID [facility] Stop: 11/08/19 21:01 Last Admin: 11/03/19 08:43 Dose: 1 drops Documented by: Prednisolone Acetate (Pred Forte 1%) 1 drops OPR DAILY [facility] Stop: 11/15/19 09:01 Tramadol HCl (Ultram) 25 - 50 mg PO Q4H PRN PRN Reason: Pain Stop: 11/26/19 23:31 Last Admin: 10/31/19 13:34 Dose: 50 mg Documented by: Trazodone HCl (Desyrel) 100 mg PO [facility] Stop: 11/27/19 20:59 Last Admin: 11/02/19 20:28 Dose: 100 mg Documented by: Vitamin D (Vitamin D3) 5,000 units PO QAM [facility] Stop: 11/27/19 08:59 Last Admin: 11/03/19 08:42 Dose: 5,000 units Documented by:
[2019-11-03] MEDS: TRAZODONE HCL 100 MG TAB PO SCH (20:49)
[2019-11-03] MEDS: MELATONIN 3 MG TAB PO SCH (20:49)
[2019-11-03] MEDS: METOPROLOL SUCC 50MG EXT REL TAB PO SCH (20:50)
[2019-11-04] MEDS: lisinopriL 40 MG TAB PO SCH (08:05)
[2019-11-04] MEDS: CEROVITE ADV FORMULA TAB PO SCH (08:05)
[2019-11-04] MEDS: PARoxetine HCL 10 MG TAB PO SCH (08:06)
[2019-11-04] MEDS: CHOLECALCIFEROL 1,000 UNITS 25 MCG TAB PO SCH (08:06)
[2019-11-04] MEDS: prednisoLONE acetate 1% OP SUSP 5 ML BTL OPR SCH (08:06)
[2019-11-04] MEDS: AMLODIPINE BESYLATE 5 MG TAB PO SCH (08:06)
[2019-11-04] MEDS: ARTIFICIAL TEARS OP SCH (08:07)
[2019-11-04] MEDS: CHOLESTYRAMINE LIGHT 4 GM PKT PO SCH (10:38)
--- NOTE | 2019-11-04 12:41 | Hospitalist Progress Note ---
Date of Service November 04, 2019 Assessment & Plan (1) Asymptomatic hypertensive urgency: Initially monitored closely on medical telemetry given uncontrolled BP Continue home lisinopril and beta-sudhakar Added Norvasc and blood pressure is controlled Possible metastatic disease Possible hepatic metastatic disease per CT abdomen, CT chest with multiple masses сергей. left lung concerning for met. ca Discussed findings w/ radiology, highly suspicious for metastatic disease (CT chest from 2018 does not show masses noted on current imaging) Hx breast cancer R sp surgery, chemotherapy (1984), NSCL, L sp neoadjuvant chemoradiation and surgery (2010) Complex ovarian cysts from pelvic ultrasound from last year, patient refused additional work-up as per outpatient Gynecology note Pt follows with Dr. Chavez (oncology) Dr. Chavez (oncology) contacted regarding poss. 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 Poss. Atypical pneumonia vs poss. obstructive pna, no sepsis abnormal CXR, concerning for left lobe pna CT chest ordered for further evaluation- shows masses in left lung, concerning for ca (given hx above) Received intravenous antibiotic with cefepime and doxycycline No signs and/or symptoms of pneumonia Severe malnutrition low BMI , BMI about 17 -Patient is very thin on physical exam, including temporal wasting -secondary to possible metastatic disease -Nutrition consult RE low BMI Hx CVA as per records Chronic anemia, hemoglobin better than baseline likely secondary to hemoconcentration Episodic thrombocytopenia Ongoing tobacco abuse, Nicotine gum as needed Disposition: Patient was seen by PT on October 27, pt's daughter worried that patient has not been moving much, so had PT reevaluate -Recommend SNF, case management aware, patient currently resides at [facility] personal care facility She will be transferred to [facility] this afternoon Discussed with the daughter in detail DVT prophylaxis Heparin subcu Full code Admission and Anticipated Discharge Date Admission Date: October 29, 2019 Subjective The patient was seen and examined in medical telemetry unit She complains of weakness but otherwise no acute symptoms She wants to get out of the hospital 11/04/19 The patient was seen and examined today in medical floor She remains stable but generally weak Denies any acute symptoms Has been eating and drinking well Review of Systems Review of Systems: All systems reviewed and are unremarkable except as noted below Neurologic: Generalized weakness without any focal localizing signs Physical Exam Physical Exam: Lying in bed comfortably Constitutional: well developed, well nourished and + thin; no acute distress and not ill appearing Eyes: PERRL, conjunctivae normal, anicteric sclerae ENMT: external ear and nose normal, oropharynx normal Neck: trachea midline, no thyromegaly Respiratory: normal respiratory effort; no respiratory distress Auscul tation: lungs clear to auscultation bilaterally and + diminished lung sounds Cardiovascular: Rate/Rhythm: regular rate and regular rhythm Heart Sounds: no murmur Chest (Breasts): Chest: + abnormal inspection of chest (Prominent costochondral junction with depression on the left side) Gastrointestinal (Abdomen): Inspection/Auscultation: abdomen normal to inspection and normal bowel sounds Percussion/Palpation: abdomen soft; abdomen nontender Musculoskeletal: No acute arthritis involving any joints Neurologic: moves all extremities; no focal motor deficits Psychiatric: Insight: + limited insight Results & Data Results & Data ([facility]) Vital Signs (Past 12 Hours) Vital Signs Temp Pulse Pulse Resp BP BP Pulse Ox 11/04/19 12:11 37.1 C 72 59 L 16 137/67 148/74 H 94 11/04/19 07:11 37.1 C 59 L 16 137/67 94 Medications Administered Current Inpatient Medications Acetaminophen (Tylenol) 500 mg PO Q4 PRN PRN Reason: Pain or Fever Stop: 11/30/19 14:40 Al Hydrox/Mg Hydrox/Simethicone (Maalox Max) 30 ml PO TID PRN PRN Reason: UPSET STOMACH/NAUSEA Stop: 11/30/19 14:35 Last Admin: 10/31/19 17:21 Dose: 30 ml Documented by: Albuterol (Duoneb) 3 ml NEB Q2H PRN PRN Reason: Wheezing Stop: 11/27/19 07:38 Albuterol (Ventolin Hfa) 2 puffs INH QID PRN; Protocol PRN Reason: Shortness Of Breath Stop: 11/30/19 14:40 Amlodipine Besylate (Norvasc) 5 mg PO QAM [facility] Stop: 12/01/19 08:59 Last Admin: 11/04/19 08:06 Dose: 5 mg Documented by: Artificial Tears (Artificial Tears) 1 drops OP TID [facility] Stop: 11/27/19 08:59 Last Admin: 11/04/19 08:07 Dose: 1 drops Documented by: Aspirin (Ecotrin Ectab) 81 mg PO QAM [facility] Stop: 11/27/19 08:59 Last Admin: 10/30/19 09:04 Dose: 81 mg Documented by: Cholestyramine Resin (Questran) 4 gm PO DAILY@1000 [facility] Stop: 11/27/19 09:59 Last Admin: 11/04/19 10:38 Dose: 4 gm Documented by: Hydralazine HCl (Apresoline) 25 mg PO TID [facility] Stop: 11/27/19 20:59 Last Admin: 10/31/19 08:46 Dose: 25 mg Documented by: Promethazine HCl 12.5 mg/ (Sodium Chloride) 50.5 mls @ 202 mls/hr IV Q6H PRN PRN Reason: Nausea And Vomiting Stop: 11/26/19 23:31 Last Infusion: 11/01/19 15:04 Dose: Infused Documented by: Lisinopril (Zestril) 40 mg PO [facility] Stop: 11/27/19 02:59 Last Admin: 11/04/19 08:05 Dose: 40 mg Documented by: Magnesium Hydroxide (Milk Of Magnesia) 30 ml PO DAILY PRN PRN Reason: Constipation Stop: 11/26/19 23:31 Melatonin (Melatonin) 9 mg PO [facility] Stop: 11/27/19 20:59 Last Admin: 11/03/19 20:49 Dose: 9 mg Documented by: Metoprolol Succinate (Toprol Xl) 100 mg PO [facility] Stop: 11/27/19 20:59 Last Admin: 11/03/19 20:50 Dose: 100 mg Documented by: Multivitamins/Minerals (Multivitamin W/ Minerals Tab) 1 tab PO BID [facility] Stop: 11/27/19 08:59 Last Admin: 11/04/19 08:05 Dose: 1 tab Documented by: Paroxetine HCl (Paroxetine Hcl) 10 mg PO [facility] Stop: 11/27/19 08:59 Last Admin: 11/04/19 08:06 Dose: 10 mg Documented by: Polyethylene Glycol (Miralax Powder Packet) 17 gm PO DAILY PRN PRN Reason: Constipation Stop: 11/26/19 23:31 Prednisolone Acetate (Pred Forte 1%) 1 drops OPR BID [facility] Stop: 11/08/19 21:01 Last Admin: 11/04/19 08:06 Dose: 1 drops Documented by: Prednisolone Acetate (Pred Forte 1%) 1 drops OPR DAILY [facility] Stop: 11/15/19 09:01 Tramadol HCl (Ultram) 25 - 50 mg PO Q4H PRN PRN Reason: Pain Stop: 11/26/19 23:31 Last Admin: 10/31/19 13:34 Dose: 50 mg Documented by: Trazodone HCl (Desyrel) 100 mg PO HS [facility] Stop: 11/27/19 20:59 Last Admin: 11/03/19 20:49 Dose: 100 mg Documented by: Vitamin D (Vitamin D3) 5,000 units PO QAM [facility] Stop: 11/27/19 08:59 Last Admin: 11/04/19 08:06 Dose: 5,000 units Documented by:
--- NOTE | 2019-11-05 07:50 | Discharge Summary ---
Date of Service November 05, 2019 Admission HPI Per Admitting Provider History obtained from patient and records. Medical history is significant for HTN, CVA, breast cancer R sp surgery, chemotherapy (1984), NSCL, L sp neoadjuvant chemoradiation and surgery (2010), ongoing tobacco abuse, Chronic anemia (baseline hemoglobin of 11), episodic thrombocytopenia. Recent confinement March 2019 complicated diverticulitis. Pelvic ultrasound at time of confinement showed complex ovarian cysts. CA 125 was elevated as per note. Patient/family not interested in treatment as per outpatient Gynecology note from April 2019. 1 week history of cough symptoms productive of white sputum. No fever, no chills. Outpatient COVID-19 test from 2 weeks ago was negative. Denies aspiration. Denies chest pain, S OB. Patient noted achy upper abdominal pain the last few days with nausea. No emesis. Good BM. Poor appetite for months now. Denies headache, dizziness symptoms. At the ER, patient received Cefepime and Doxycycline for pneumonia. MEDICAL HISTORY: As above. SURGERIES: Hysterectomy, cholecystectomy, carpal tunnel, mastectomy, knee surgery, some foot surgery, lung surgery, cataract surgery FAMILY HISTORY: Breast cancer. PERSONAL AND SOCIAL HISTORY: Few cigarettes a day. No chronic ETOH intake. 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 Admission Exam Per Admitting Provider Physical Exam: GENERAL: Comfortable, underweight, mild hearing impairment, no respiratory distress SKIN: Normal color, warm HEENT: [place] palpebral conjunctivae, no ptosis, dry buccal mucosa NECK : Supple, no tenderness CHEST : Decreased breath sounds, no tenderness HEART : RRR, no obvious murmurs ABDOMEN: Some distention, minimal epigastric tenderness EXTREMITIES : No LE swelling/tenderness, no other conspicuous deformities noted NEUROLOGIC : Coherent, no facial asymmetry, no other gross focality Principal Diagnosis Hypertensive urgency, metastatic small cell carcinoma, pneumonia, severe malnutrition, history of CVA Discharge Exam Constitutional well developed, well nourished and + thin; no acute distress and not ill appearing Eyes PERRL, conjunctivae normal, anicteric sclerae ENMT external ear and nose normal, oropharynx normal Neck trachea midline, no thyromegaly Respiratory normal respiratory effort; no respiratory distress Auscultation: lungs clear to auscultation bilaterally and + diminished lung sounds Cardiovascular Rate/Rhythm: regular rate and regular rhythm Heart Sounds: no murmur Chest (Breasts) Chest: + abnormal inspection of chest (Prominent costochondral junction with depression on the left side) Gastrointestinal (Abdomen) Inspection/Auscultation: abdomen normal to inspection and normal bowel sounds Percussion/Palpation: abdomen soft; abdomen nontender Neurologic moves all extremities; no focal motor deficits Psychiatric Insight: + limited insight Discharge Data Allergies Allergy/AdvReac Type Severity Reaction Status Date / Time Influenza Virus Vaccines Allergy Unknown Unknown Verified 10/27/19 21:15 Penicillins Allergy Unknown HIVES Verified 10/27/19 21:15 adhesive AdvReac Unknown EXCORIATION Verified 10/27/19 21:15 S morphine AdvReac Unknown ITCHING Verified 10/27/19 21:15 Consultations 10/27/19 20:47 ED Decision to Admit Stat Ordered Studies 10/27/19 19:04 CT abd pelvis wo con Stat 10/28/19 10:33 CT chest wo con Routine 10/29/19 09:03 MR abdomen wo/w con Routine 11/01/19 09:00 US FNA w/img 1st lesion Routine Hospital Course (1) Asymptomatic hypertensive urgency: Initially monitored closely on medical telemetry given uncontrolled BP Continue home lisinopril and beta-sudhakar Added Norvasc and blood pressure is controlled Possible metastatic disease Possible hepatic metastatic disease per CT abdomen, CT chest with multiple masses сергей. left lung concerning for met. ca Discussed findings w/ radiology, highly suspicious for metastatic disease (CT chest from 2018 does not show masses noted on current imaging) Hx breast cancer R sp surgery, chemotherapy (1984), NSCL, L sp neoadjuvant chemoradiation and surgery (2010) Complex ovarian cysts from pelvic ultrasound from last year, patient refused additional work-up as per outpatient Gynecology note Pt follows with Dr. Chavez (oncology) Dr. Chavez (oncology) contacted regarding poss. 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 Poss. Atypical pneumonia vs poss. obstructive pna, no sepsis abnormal CXR, concerning for left lobe pna CT chest ordered for further evaluation- shows masses in left lung, concerning for ca (given hx above) Received intravenous antibiotic with cefepime and doxycycline No signs and/or symptoms of pneumonia Severe malnutrition low BMI , BMI about 17 -Patient is very thin on physical exam, including temporal wasting -secondary to possible metastatic disease -Nutrition consult RE low BMI Hx CVA as per records Chronic anemia, hemoglobin better than baseline likely secondary to hemoconcentration Episodic thrombocytopenia Ongoing tobacco abuse, Nicotine gum as needed Disposition: Patient was seen by PT on October 27, pt's daughter worried that patient has not been moving much, so had PT reevaluate -Recommend SNF, case management aware, patient currently resides at [facility] facility She will be transferred to [facility] this afternoon Discussed with the daughter in detail DVT prophylaxis Heparin subcu Full code Total Time Total Time Spent Total Time Spent (In Minutes): 40 minutes Total Time Includes: Examination of the Patient, Discharge Planning, Medication Reconciliation and Communication With Other Providers Discharge Plan Discharge Items Patient Disposition: Transfer Jail [facility] Reason For Visit: HTN URGENCY,COVID CHUY,CAN DC ISOL PRECAU Discharge Diagnosis: Hypertensive urgency, metastatic small cell carcinoma, pneumonia, severe malnutrition, history of CVA Condition on Discharge: Fair Activity: Resume your previous activity Non-emergency contact: Primary Care Provider Call non-emergency contact if: you have any medication questions and your symptoms worsen Follow-up/Referrals: Sindy Horn [Primary Care Provider] - (Please make an appointment with your PCP within 1 week) Gomez Chavez MD [Hospitalist] - (Please make an appointment with Dr. shah in 1 to 2 weeks) Diet: Low Fiber and Low Fat Addtl Attending Provider Instructions: Please take precaution to avoid falls Pending Studies at Discharge: No Stand-Alone Forms: My [facility] Skilled Items Patient informed of condition?: Yes DNR: No Discharge Level of Care: Skilled Communicable Disease: No Discharge Prognosis: Stable Lines: None Urinary Catheter: No Medications and DC Order Prescriptions: New amlodipine [Norvasc] 5 mg Tablet 5 mg PO QAM 30 Days Qty: 30 RF: 0 Continued lisinopril 40 mg Tablet 40 mg PO QAM RF: 0 albuterol sulfate [ProAir HFA] 90 mcg/actuation Hfa Aerosol Inhaler 2 inh INHALATION QID PRN (Reason: sob) RF: 0 acetaminophen [Mapap (acetaminophen)] 500 mg Capsule 500 mg PO Q4 PRN (Reason: MILD-MODERATE PAIN) RF: 0 polyethylene glycol 3350 [Miralax] 17 gram Powder In Packet 17 g PO DAILY PRN (Reason: Constipation) RF: 0 dextromethorphan-guaifenesin [Siltussin-DM] 10-100 mg/5 mL Syrup 10 ml PO Q4 PRN (Reason: Cough) RF: 0 ketorolac 0.5 % drops 1 drp OPR QID RF: 0 prednisolone acetate 1 % drops,suspension 1 drp OPR UD RF: 0 paroxetine HCl 10 mg tablet 10 mg PO QAM RF: 0 alendronate 70 mg tablet 70 mg PO WK RF: 0 metoprolol succinate 100 mg tablet extended release 24 hr 100 mg PO HS RF: 0 diphenoxylate-atropine 2.5-0.025 mg tablet 1 tab PO BID PRN (Reason: Diarrhea) RF: 0 aspirin 81 mg tablet,delayed release (DR/EC) 81 mg PO QAM RF: 0 magnesium hydroxide [Milk of Magnesia] 400 mg/5 mL Suspension 30 ml PO DAILY PRN (Reason: Constipation) RF: 0 trazodone 100 mg tablet 100 mg PO HS RF: 0 cholestyramine (with sugar) 4 gram powder in packet 4 g PO DAILY RF: 0 Systane (PF) 0.4-0.3 % Dropperette 1 drp OPL TID RF: 0 Certa Plus 18-0.4-250 mg-mg-mcg Tablet 1 tab PO QAM RF: 0 cholecalciferol (vitamin D3) [Vitamin D3] 125 mcg (5,000 unit) Tablet 5,000 unit PO QAM RF: 0 melatonin 10 mg Tablet 10 mg PO HS RF: 0 PreserVision AREDS-2 260-386-25-1 [id number] Capsule 1 tab PO BID RF: 0 alum-mag hydroxide-simeth [Mylanta Maximum Strength] 400-400-40 mg/5 mL Suspension 30 ml PO TID PRN (Reason: UPSET STOMACH/NAUSEA) RF: 0 Discharge Orders: Discharge Order (Routine); Ordered 11/04/19 Ordered By: Henrietta Salinas Admission Data Admit Date/Time: 10/29/19 15:39 Attending Provider: Henrietta Salinas Admit Provider: Michael Cheng Primary Care Provider: Sindy Horn Other Providers: Michael Cheng ; [facility] ; Francisco James Other Interventions: Discharge Summary Assessment (RN) Last Done: 11/04/19 12:11 DC Date/Time DO NOT enter until pt leaves facility: 11/04/19 13:53
[2019-11-09] MEDS ORDERED: prednisoLONE acetate 1% OP SUSP 5 ML BTL OPR SCH (09:00)
== END 2019-11-04 13:53 | DRG 435 ==
LOC: ED 17:18 → 2N 17:18 → SUATTDRO 10-29 15:39